=== PATIENT | female | born 1990 | race Caucasian/White ===

== ENCOUNTER 2020-11-12 13:06 | Emergency (ER) | payer OTHER, SELFPAY ==
[2020-11-12 13:19] VITALS: BP 117/80; PULSE 99; RESP 18; TEMP 37; O2SAT 97
--- NOTE | 2020-11-12 14:01 | ED.URI ---
HPI - URI/Sore Throat General Chief Complaint: Upper Respiratory Infection Stated Complaint: headache,sore throat,nguyen,28 wk preg Time Seen by Provider: 11/12/20 13:48 Source: patient and RN notes reviewed Mode of arrival: ambulatory Limitations: no limitations History of Present Illness HPI Narrative: Patient presents today complaining of 1 month history of nasal congestion and sinus pressure, with sore throat, dry cough, frontal headache, and chest pressure since last night. Denies shortness of breath, runny nose, nausea, vomiting, diarrhea, fever, loss of smell or taste. She is currently 28 weeks , G2, P1. She has tried no [id number] treatment prior to arrival. Patient is a home health nurse. She visited a patient 4 days ago that was Covid positive. She did have full PPE on with the patient. She has no known exposure to COVID-19 without PPE. MD elicited complaint: sore throat and nasal congestion Related Data Home Medications Medication Instructions Recorded Confirmed One Daily 1 tab-cap PO DAILY 11/12/20 11/12/20 aspirin [Adult Low Dose Aspirin] 81 mg PO DAILY 11/12/20 11/12/20 labetalol 200 mg PO BID 11/12/20 11/12/20 Allergies Allergy/AdvReac Type Severity Reaction Status Date / Time No Known Allergies Allergy Verified 11/12/20 13:37 Review of Systems Review of Systems: Narrative: CONSTITUTIONAL: Denies body aches, fever, chills, or sweats. EYES: Denies visual changes, redness, or discharge. ENT: Denies rhinorrhea, or otalgia.+ Sore throat, nasal congestion CARDIOVASCULAR: Denies chest pain, palpitations, or edema. RESPIRATORY: Denies dyspnea.+ Chronic cough, chest pressure GASTROINTESTINAL: Denies abdominal pain, nausea, vomiting, or diarrhea. GENITOURINARY: Denies dysuria or hematuria. SKIN: Denies rash, itching, or wounds. MUSCULOSKELETAL: Denies back pain, joint pain, or myalgia. NEUROLOGIC: Denies numbness, tingling, or weakness. + Frontal headache PSYCH: Denies depression or anxiety. PMFSH Comments At time of signature, I have reviewed and agree with nursing past medical, surgical, social and family history unless otherwise noted. Please see nursing chart for further information. There is no relevant family history pertinent to the presenting complaint Exam Narrative: Exam Narrative: GENERAL: Mildly ill-appearing, well-nourished, and in no acute distress. HEAD: Normocephalic, atraumatic. EYES: EOMI. No redness or drainage. Conjunctivae normal. ENT: Mucous membranes pink and moist. Nares congested. Bilateral nasal turbinates are erythematous with purulent discharge. No rhinorrhea. TMs normal bilaterally. Throat normal. Uvula midline. NECK: Normal AROM. Supple. No lymphadenopathy. CHEST: No respiratory distress. Clear to auscultation. HEART: Regular rate and rhythm. No murmur appreciated. Normal peripheral pulses. EXTREMITIES: Normal range of motion. No edema. SKIN: Warm, dry, no rash. Capillary refill normal. Normal skin turgor. NEURO: No focal deficits. Alert and oriented x3. Gait steady. PSYCH: Normal affect. No signs of depression or anxiety. Course Vital Signs Vital signs: Vital Signs Temperature 98.6 F 11/12/20 13:19 Pulse Rate 99 11/12/20 13:19 Respiratory Rate 18 11/12/20 13:19 Blood Pressure 117/80 11/12/20 13:19 Pulse Oximetry 97 11/12/20 13:19 Temperature 98.6 F 11/12/20 13:19 Pulse Rate 99 11/12/20 13:19 Respiratory Rate 18 11/12/20 13:19 Blood Pressure 117/80 11/12/20 13:19 Pulse Oximetry 97 11/12/20 13:19 Reviewed MDM - URI/Sore Throat MDM Narrative Medical decision making narrative: Due to recent exposure and symptoms, patient may have a possible COVID-19 infection. Signs and symptoms discussed with patient. Patient educated to self-isolate in a room in his/her home away from others they live with. Use mask if available. Patient was advised not to leave house for any reason ? Self-treatment discus
== END 2020-11-12 14:10 | disposition home or self-care (01) ==
PROVIDERS: Emergency Provider Nurse Practitioner; PCP Physician Assistant
DX: O99.512 Diseases of the respiratory system complicating pregnancy, second trimester (principal); Z3A.28 28 weeks gestation of pregnancy; J01.10 Acute frontal sinusitis, unspecified; Z20.828 Contact with and (suspected) exposure to other viral communicable diseases
CPT/HCPCS: 87081; 87880; 99213; G0463

== ENCOUNTER 2022-12-01 08:26 | Emergency (ER) | payer BC, SELFPAY ==
[2022-12-01 08:40] VITALS: BP 145/87; PULSE 100; RESP 16; TEMP 37.1; O2SAT 99
--- NOTE | 2022-12-01 09:05 | ED.URI ---
HPI - URI/Sore Throat General Chief Complaint: Upper Respiratory Infection Stated Complaint: sore throat, body ache, right ear pain, cramp Time Seen by Provider: 12/01/22 09:06 Source: patient, RN notes reviewed and old records reviewed Mode of arrival: ambulatory Limitations: no limitations History of Present Illness HPI Narrative: 32-year-old female presents to [facility] with complaints of sore throat, body aches, right ear pain since yesterday with increased pain last night with some nausea. Patient states she also has been having some vaginal spotting and started with the having some bilateral lower abdominal cramping this morning, patient reports hysterectomy 2020 history of endometriosis PCOS. Patient states her surgeon wants to go in and do an exploratory to see what is causing her continued issues. MD elicited complaint: sore throat, rhinorrhea and nasal congestion Onset (ago): day(s) (day 2 of symptoms) Treatments prior to arrival: acetaminophen Related Data Home Medications Medication Instructions Recorded Confirmed valsartan 160 mg tablet 160 mg PO DAILY 12/01/22 12/01/22 Allergies Allergy/AdvReac Type Severity Reaction Status Date / Time No Known Allergies Allergy Verified 12/01/22 08:45 Review of Systems Review of Systems: CONSTITUTIONAL: Reports malaise, chills, sweats, or fever. EYES: Denies visual changes, redness, or discharge. ENT: Reports rhinorrhea, congestion, sinus pain,right otalgia and sore throat. CARDIOVASCULAR: Denies chest pain, palpitations, or edema. RESPIRATORY:Denies cough.? Denies dyspnea. GASTROINTESTINAL: Reports some lower abdominal cramping,some nausea,no vomiting, diarrhea SKIN: Denies rash or itching. MUSCULOSKELETAL: Reports myalgia. NEUROLOGIC: Denies headache. All systems reviewed & are unremarkable except as noted in HPI and below PMFSH Past Medical History Medical History (Updated 12/01/22 @ 15:09 by Natali Rosa NP) Endometriosis PCOS (polycystic ovarian syndrome) Social History Social History (Updated 12/01/22 @ 15:10 by Natali Rosa NP) Smoking status: Never smoker Gender identity (if verbalized by the patient): Female Comments At time of signature, agree with nursing past medical, surgical, social and family history. There is no relevant family history pertinent to the presenting complaint Exam Narrative: GENERAL: Well-appearing, well-nourished, and in no acute distress. HEAD: Normocephalic EYES: PERRLA, conjunctivae clear ENT: Nares clear, turbinates edematous and erythematous, clear discharge. Mucous membranes moist. TM pearly wagner with dull light reflex bilaterally; no tragal tenderness. Oropharynx erythematous without lesions. Tonsils red enlarged and without exudate, no drooling, no hoarseness, no trismus, uvula midline red and swollen NECK: Supple. lymphadenopathy CHEST: Clear to auscultation, breath sounds equal. No wheezing, rhonchi, rales, or stridor. No respiratory distress, speaks in full sentences.SAO2 99% on room air HEART: Regular rate and rhythm. No murmur heard. SKIN: Warm, dry, no rash. NEURO: Alert and oriented x3. PSYCH: Normal mood and affect Course Course Emergency Course: Patient is aware of diagnosis, understands and agrees to treatment plan.? Anticipatory guidance given.? Patient agrees to follow-up as directed and is aware of reasons to seek care at the emergency department. Portions of this record may have been created with voice recognition software Level of Care: Express Care Visit Vital Signs Vital signs: Vital Signs Temperature 37.1 C 12/01/22 08:40 Pulse Rate 100 12/01/22 08:40 Respiratory Rate 16 12/01/22 08:40 Blood Pressure 145/87 H 12/01/22 08:40 Pulse Oximetry 99 12/01/22 08:40 Oxygen Delivery Room Air 12/01/22 08:40 Temperature 37.1 C 12/01/22 08:40 Pulse Rate 100 12/01/22 08:40 Respiratory Rate 16 12/01/22 08:40 Blood Pressur
== END 2022-12-01 09:35 | disposition home or self-care (01) ==
PROVIDERS: Emergency Provider Registered Nurse; PCP Physician Assistant
DX: J02.0 Streptococcal pharyngitis (principal); N80.9 Endometriosis, unspecified; E28.2 Polycystic ovarian syndrome
CPT/HCPCS: 87804; 87880; 99213; G0463

== ENCOUNTER 2024-04-25 10:05 | Emergency (ER) | payer BC, SELFPAY ==
--- NOTE | ~2024-04-25 | CT_ITS ---
EXAMINATION: CT soft tissue neck w con DATE: 04/25/2024 12:07 INDICATION: Jaw swelling TECHNIQUE: Computed tomography (CT) of the neck was performed with 75 mL Omnipaque-350 intravenous co ntrast. Automated exposure control and iterative reconstruction technique were employed. Exam dose: 449.69 mGy-cm total exam DLP. COMPARISON: None FINDINGS: No cervical mass lesion or adenopathy. The parotid and submandibular glands and thyroid gla nd appear normal. Cervical carotid and vertebral arteries are patent bilaterally. Lung apices are haider ar. Reversal of cervical curvature which may be due to positioning. No cervical fracture, dislocation or locked facet. Cervical interspaces appear relatively preserved. The paranasal sinuses and mastoid air cells are normally developed and aerated. Both temporomandibular joints are open mouth position; recommend clinical correlation. No mandibular fracture or bone destruction. IMPRESSION: No cervical mass lesion or adenopathy or arterial pathology is noted Both temporomandibular joints are in the open-mouth position. Recommend clinical correlation. No ivan ible fracture or bone destruction. Reviewed, dictated and finalized at [facility]. Reviewed, dictated and finalized at [facility]. IMPRESSION: No cervical mass lesion or adenopathy or arterial pathology is note d Both temporomandibular joints are in the open-mouth position. Recommend clinica l correlation. No mandible fracture or bone destruction.
[2024-04-25 10:10] VITALS: BP 148/83; PULSE 70; RESP 15; TEMP 36.4; O2SAT 100
--- NOTE | 2024-04-25 10:39 | ED.GENADULT ---
HPI - General Adult General Chief complaint: Unspecified Stated complaint: R EAR,FACE,JAW PAIN X2D Time Seen by Provider: 04/25/24 10:12 History of Present Illness HPI narrative: Patient is a 34-year-old female with history of solitary kidney here with dental and jaw pain. Patient notes that her pain began on 04/23/24 in the evening. It seems to be located around 1 of her lower right molars where she had a previous root canal. She states that the pain has steadily worsened over the last 2 days. Yesterday she contacted her dentist who prescribed her tramadol and her primary care doctor who prescribed her Augmentin. She has taken 2 doses of Augmentin. She notes that over the last 24 hours she has had worsening swelling and pain which radiates into her right ear and down into her right neck. She denies any difficulty swallowing. She does have pain with movement of her jaw any manipulation of her right ear. The pain is not been improved by tramadol or antibiotics. She denies any fever chills. Related Data Home Medications Medication Instructions Recorded Confirmed valsartan 160 mg tablet 160 mg PO DAILY 12/01/22 12/01/22 Allergies Allergy/AdvReac Type Severity Reaction Status Date / Time ibuprofen AdvReac Unknown Verified 04/25/24 10:16 Review of Systems Review of Systems: All systems reviewed & are unremarkable except as noted in HPI and below PMFSH Past Medical History Medical History (Updated 04/25/24 @ 13:36 by Rosalva Corona MD) Endometriosis PCOS (polycystic ovarian syndrome) Social History Social History (Updated 12/01/22 @ 15:10 by Natali Rosa NP) Smoking status: Never smoker Living arrangements: with family Gender identity (if verbalized by the patient): Female Exam Narrative: GENERAL: Well-appearing, well-nourished, and in no acute distress. HEAD: Normocephalic, atraumatic. EYES: PERRLA and EOMI. ENT: Nares clear. Mucous membranes moist. Mild trismus. Tenderness over tooth 30, no underlying drainable periapical abscess. Tenderness over the right angle of the mandible with mild overlying swelling. Tenderness with manipulation of the pinna, no external canal erythema. TM appears clear without erythema. No posterior pharyngeal swelling, uvula midline. No subglottic fullness NECK: Supple. Tenderness with mild swelling over the right lateral neck, shotty anterior cervical lymphadenopathy on the right CHEST: Clear to auscultation. No respiratory distress. HEART: Regular rate and rhythm. Normal peripheral pulses. ABDOMEN: Soft, nontender, nondistended. EXTREMITIES: Normal range of motion. No edema. SKIN: Warm, dry, no rash. NEURO: No focal deficits. Alert and oriented x3. PSYCH: Normal mood and affect. Course Course Emergency Course: Chart review performed. Patient here with right jaw and ear pain. Reportedly on tramadol and Augmentin from outside providers. Triage vitals grossly normal. Patient seen evaluated, nontoxic appearing. She is extremely tearful on exam with some trismus present. Significant tenderness over tooth number 30, suspect this is all likely related to a a dental infection given tenderness at this to. Given her significant pain, trismus and mild fullness in the right lateral neck we will do CT soft tissue neck with contrast to evaluate for possible deep space infection although my suspicions are low. Basic lab work as well as morphine, Zofran and ordered. Given solitary kidney will give 1 L IV fluids in anticipation for IV contrast. Lab work and imaging reviewed, no leukocytosis, electrolytes normal limits, normal renal function, normal CRP. CT grossly unremarkable. Patient re-evaluated, continued pain. Discussed risks and benefits of a inferior alveolar dental block, including but not limited to infection, bleeding, damage to adjacent structures including large vessels patient consents. Inferior alveolar dental block performed with improvement of pain. Patient ad
[2024-04-25] MEDS: LACTATED RINGERS 1,000 ML 999 ML IV CONT (11:05)
[2024-04-25] MEDS: MORPHINE SULFATE (*CRX) 4 MG/ML INJ IV PUSH ×2 (11:06→11:44)
[2024-04-25] MEDS: ONDANSETRON INJ 4 MG/2 ML VIAL IV PUSH ×2 (11:06→13:44)
[2024-04-25 11:13] VITALS: BP 132/78; PULSE 63; RESP 16; O2SAT 99
[2024-04-25 11:16] LABS: Basophils Absolute Auto 0.1 K/mm3 (0.0-0.1); Basophils Percent Auto 0.9 % (0.2-1.2); Eosinophils Absolute Auto 0.3 K/mm3 (0-0.3); Eosinophils Percent Auto 5.5 % (0-4.4); Hematocrit 37.1 % (37.0-47.0); Hemoglobin 12.3 g/dL (12.0-15.0); Immature Granulocyte Absolute 0.01 K/mm3 (0.00-0.031); Immature Granulocyte Percent A 0.2 % (0-0.5); Lymphocytes Absolute Auto 1.15 K/mm3 (0.9-3.2); Lymphocytes Percent Auto 21.7 % (18.3-44.2); Mean Corpuscular HGB Conc 33.2 g/dl (32-36); Mean Corpuscular Hemoglobin 30.4 pg (26-34); Mean Corpuscular Volume 91.6 fl (80-100); Mean Platelet Volume 11.6 fl (7.4-10.4); Monocytes Absolute Auto 0.4 K/mm3 (0.1-0.6); Monocytes Percent Auto 7.2 % (2.6-8.5); Neutrophils Absolute Auto 3.4 K/mm3 (1.3-6.7); Neutrophils Percent Auto 64.5 % (45.5-73.1); Platelet Count Result 189 k/mm3 (150-375); Red Blood Count 4.05 M/mm3 (4.2-5.4); Red Cell Distribution Width 12.1 % (11.5-14.5); White Blood Count 5.3 K/mm3 (4.5-10.0)
[2024-04-25 11:30] LABS: Alanine Aminotransferase 16 U/L (6-35); Albumin Level 4.5 g/dL (3.5-5.1); Alkaline Phosphatase 45 U/L (38-126); Anion Gap 7 mmol/L (4-12); Aspartate Amino Transferase 20 U/L (14-36); Bilirubin,Total 0.7 mg/dL (0.2-1.3); Blood Urea Nitrogen 12 mg/dL (7-17); CRP 0.6 mg/dL (<1.0); Carbon Dioxide 24 mmol/L (22-30); Chloride 106 mmol/L (98-107); Estimated CRCL calculation 103 ml/min; Estimated Glomerular Filt Rate > 60; Glucose 92 mg/dL (65-110); Sodium 137 mmol/L (137-145)
[2024-04-25 11:41] VITALS: BP 132/78; PULSE 60; RESP 15; O2SAT 100
[2024-04-25 11:58] VITALS: RESP 18
[2024-04-25 12:53] VITALS: BP 132/78; PULSE 81; RESP 17; O2SAT 99
[2024-04-25 13:47] VITALS: BP 118/82; PULSE 66; RESP 15; TEMP 36.8; O2SAT 98
== END 2024-04-25 13:48 | disposition home or self-care (01) ==
PROVIDERS: Emergency Provider Student in an Organized Health Care Education/Training Program; PCP Physician Assistant
DX: K08.89 Other specified disorders of teeth and supporting structures (principal); E28.2 Polycystic ovarian syndrome; N80.9 Endometriosis, unspecified
CPT/HCPCS: 36415; 64400; 64999; 70491; 80053; 81025; 85025; 86140; 96361; 96374; 96375; 96376; 99284; J2270; J2405; J7120; Q9967

== ENCOUNTER 2024-12-30 15:03 | Outpatient (CLI) | payer BC, SELFPAY ==
--- NOTE | ~2024-12-30 | CT_ITS ---
CLINICAL INDICATION: Upper abdominal pain. Pancreatitis/gastritis suspected clinically COMPARISON: 12/30/2017. TECHNIQUE: Multiple contiguous axial images of the abdomen and pelvis were performed following the ad ministration of with 100 mL Omnipaque-350 intravenous contrast The dose-length product (DLP) was 402.26 mGy-cm. Automated exposure control and iterative reconstruction technique were employed. FINDINGS/OBSERVATIONS: Visualized lower thorax: The bilateral lung bases are clear. The heart is of normal size, without pericardial effusion. Small hiatal hernia is present. Liver: The liver enhances homogeneously and is not enlarged measuring 16 cm in longitudinal dimension. Gallbladder and biliary system: The gallbladder is surgically absent. Pancreas: Loss of fatty lobulation within the mildly enlarged pancreas, without surrounding inflammatory change , which may represent early pancreatitis. No ductal dilatation is identified. Spleen: The spleen enhances homogeneously and is not enlarged measuring 9 cm in longitudinal dimension. 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 The right kidney is enlarged and demonstrates mild hydroureteronephrosis. No obstructing calcified stone is seen. Adrenal gland: Unremarkable. Gastrointestinal tract: Fecal stasis within the colon The gastric wall is unremarkable. No thickening or surrounding inflammatory change. Appendix: The appendix is not definitively visualized. However, no pericecal inflammatory change is identified suggest the presence of acute appendicitis. Vasculature: Unremarkable. Lymph nodes: No pathologically enlarged or morphologically suspicious lymph nodes within the retroperitoneum or at the root of the mesentery. Pelvic structures: The bladder is distended, and otherwise unremarkable. The uterus is somewhat atrophic. Involuting follicle within the left ovary. Right ovary is unremarkable Body wall and musculoskeletal: Small fat-containing umbilical hernia. No significant degenerative disease within the lower thoracic or lumbosacral spine. IMPRESSION: Loss of fatty lobulation within the mildly enlarged pancreas, without surrounding inflammatory change , which may represent early pancreatitis for which serologic and clinical correlation is recommended. Mild right-sided hydroureteronephrosis without a discrete source of obstruction for which ultrasound examination of the right kidney is recommended following bladder emptying to confirm resolution (nilo landen in a patient with a solitary kidney). Reviewed, dictated and finalized at location A. CULTURE WORKER IMPRESSION: Loss of fatty lobulation within the mildly enlarged pancreas, without surroundi ng inflammatory change, which may represent early pancreatitis for which serolo gic and clinical correlation is recommended. Mild right-sided hydroureteronephrosis without a discrete source of obstruction for which ultrasound examination of the right kidney is recommended following bladder emptying to confirm resolution (especially in a patient with a solitary kidney).
--- OUTSIDE RECORDS SUMMARY | 2024-12-30 15:16 | XMS_ITS | Clinical Summary ---
Author Organization [facility] Address [address] [place] [address] Care Team Providers Care Thread Cutter Name Role Phone Yadi Menendez Primary Care Pr ovider Source Comments [facility],non-owned Affiliates and Associated Physician Practices is amultiple site organization consisting of ambulatory clinics and hospital sitesin [place], [place], [place] and [place]. This disclosure is being madepursuant to the Care Everywhere program and may not contain all information available regarding this patient. Last updated 18.[facility] Allergies No known active allergies Medications * Be aware that medications may not be up to date on this document. Alwaysverify current medications with the patient. Medication Sig Dispensed Refills Start Date End Date Status Vit-Fe Fumarate-FA ( VITAMIN) 28-0.8 MG tabletIndications:Pre gnancy Take 1 Tab by mouth once daily Reasons: Active NIFEdipine CR 24hr (ADALAT CC) 60 MG tablet Take 1 Tab by mouth 2 times daily Take on an empty stomach. 60 Tab 2 05/11/2017 Active oxyCODONE-acetaminoph en (PERCOCET) 5-325 MG tablet Take 1-2 Tabs by mouth every 4 hours as needed for Pain 30 Tab 05/11/2017 Active ibuprofen (MOTRIN) 600 MG tablet Take 1 Tab by mouth every 6 hours as needed for Pain 60 Tab 2 05/11/2017 Active docusate sodium (COLACE) 100 MG capsule Take 1 Cap by mouth 2 times daily 60 Cap 2 05/11/2017 Active plus iron (NATATAB) 29-1 MG tablet Take 1 Tab by mouth once daily 30 Tab 2 05/11/2017 Active ferrous sulfate CR (SLOW FE) 160 (50 FE) MG tablet Take 1 Tab by mouth daily with breakfast 30 Tab 1 05/11/2017 Active Active Problems Problem Noted Date Diagnosed Date 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--found at time of laparoscopy as teenager, thought was ovarian cyst but was bulging hemivagina; then later had vaginal surgery with resection of vaginal septum at [facility]; right and left cervix seen Preeclampsia, severe 05/03/2017 History of delivery affecting 11/18/2016 Elevated blood pressure affe cting in second trimester, antepartum Supervision of low-risk first defect Overview (05/30/2020): born with 1 kidney Immunizations Name Administration Dates Next Due TDAP (7yrs+) 05/04/2017 Family History Medical History Relation Name Comments Malignant Hyperthermia Other unknown Relation Name Status Comments Other unknown Social History Tobacco Use Types Packs/Day Years Used Date Smoking Tobacco: Never Smokeless Tobacco: Never Alcohol Use Standard Drinks/Week Comments No 0 (1 standard drink = 0.6 oz pur e alcohol) Sex and Gender Information Value Date Recorded Sex Assigned at Not on file Gender Identity Not on file Sexual Orientation Not on file Last Filed Vital Signs Vital Sign Reading Time Taken Comments Blood Pressure 136/90 01/31/2018 3:18 PM CDT Pulse 84 07/03/2017 10:42 AM CDT Temperature 36.9 C (98.5 F) 05/22/2017 10:57 AM CDT Respiratory Rate 20 05/11/2017 12:36 PM CDT Oxygen Saturation 100% 05/11/2017 12:36 PM CDT Inhaled Oxygen Concentration - - Weight 97.5 kg (215 lb) 01/31/2018 3:18 PM CDT Height 172.7 cm (5' 8 ) 01/31/2018 3:18 PM CDT Body Mass Index 32.69 01/31/2018 3:18 PM CDT Plan of Treatment Health Maintenance Due Date Last Done Comments HIV SCREENING 2006 HEPATITIS C SCREENING 04/09/2009 HEPATITIS B VACCINE (1 of 3 - 19+ 3-dose series) 2010 PAP SMEAR 01/31/2021 01/31/2018 COVID-19 VACCINE (1 - 2023-2 5 season) 2024 INFLUENZA VACCINE (#1) 2024 DEPRESSION SCREENING 11/18/2024 DTAP/TDAP/TD VACCINES (2 - T d or Tdap) 05/04/2027 05/04/2017 ZOSTER VACCINE (1 of 2) 2041 HIB VACCINE Aged Out No longer eligi ble based on patient's age to complete this topic HPV VACCINE Aged Out No longer eligi ble based on patient's age to complete this topic MENINGOCOCCAL (Group B) VACCINE Aged Out No longer eligible based on patient's age to complete this topic MENINGOCOCCAL VACCINE Aged Out No jared noel eligible based on patient's age to complete this topic PNEUMOCOCCAL VACCINE Aged Out No long er eligible based on patient's age to complete this topic Procedures Procedure Name Priority Date/Time Associated Diagnosis Comments PAP IG RFLX HPV ASCU Routine 01/31/2018 12:00 AM CDT from Last 3 Months or Most Recently Relevant to Health Maintenance Results * PAP IG RFLX HPV ASCU (01/31/2018 12:00 AM CDT) Pap Image-Guided Liquid-Based with Reflex HPV Accession No: [id number] Specimen:Endocervi sacha ThinPrep Slides:1 SPECIMEN ADEQUACY: SATISFACTORY FOR EVALUATION - Endocervical / Transformation Zone Component Present INTERPRETATION: NEGATIVE FOR INTRAEPITHELIAL LESION OR MALIGNANCY OTHER FINDINGS: - Inflammation Present NOTE(S): HPV REFLEX - HPV result to follow if ASCUS in separate report This specimen was evaluated by the ThinPrep Imaging System along with an additional manual rescreening by a gas station manager and/or pathologist Initial Evaluation performed by Irene HDEZ (ASCP). Electronically signed 02/05/2018 Interpretation performed by Frandy Garg MD. Electronically signed 02/05/2018 [facility] Endocervical 01/31/2018 02/03/2018 11:49 AM CDT Alva Romo MD LAB - PATHOLOGY/CY TOLOGY ORDERABLES [facility] [place] [address], [facility] [phone] from Last 3 Months or Most Recently Relevant to Health Maintenance Advance Directives * Full Code (Latest Code Status on File) Date Activated Date Inactivated Comments 05/07/2017 8:41 AM 05/11/2017 5:40 PM * Full Code Date Activated Date Inactivated Comments 05/03/2017 7:15 AM 05/07/2017 8:41 AM Care Teams Thread Cutter Relationship Specialty Start Date End Date Yadi Menendez PA [address] [place] [address] PCP - General Physician [employer] English Teacher 05/03/17
--- OUTSIDE RECORDS SUMMARY | 2024-12-30 15:16 | XMS_ITS | Clinical Summary ---
Author Organization [facility] Address [address] [address] [place] [id number] Phone Care Team Providers Care Septic Tank Cleaner Name Role Phone Génesis Montano MD Primary Care Provider [phone] Allergies No known active allergies Medications OTHER Provider please include Medication name, dose, route and frequency Active desogestrel-ethin yl estradiol (APRI) 0.15-30 mg-mcg Tablet Take 1 Tab by mouth daily. Active HYDROcodone-aceta minophen (NORCO) 5-325 mg tablet Take 1 Tab by mouth every 6 hours as needed for Pain, Moderate. Active KETOROLAC TROMETHAMINE (TORADOL ORAL) Take by mouth. Active phentermine (ADIPEX P) 37.5 mg tablet Take 37.5 mg by mouth daily before breakfast. Active Encounters Date Type Department Care Team Description 12/16/2024 External Device Data [facility] Provider, Abstract 12/10/2024 External Device Data [facility] Provider, Abstract from Last 3 Months Social History Tobacco Use Types Packs/Day Years Used Date Smoking Tobacco: Never Alcohol Use Standard Drinks/Week Comments Yes 0 (1 standard drink = 0.6 oz pur e alcohol) SOCIAL Comments Unknown Sex and Gender Information Value Date Recorded Sex Assigned at Not on file Legal Sex Female 10:54 AM CDT Gender Identity Not on file Sexual Orientation Not on file Last Filed Vital Signs Vital Sign Reading Time Taken Comments Blood Pressure 109/76 03/17/2015 2:29 PM CDT Pulse 106 03/17/2015 2:29 PM CDT Temperature 37.4 C (99.4 F) 03/17/2015 1:24 PM CDT Respiratory Rate 16 03/17/2015 2:29 PM CDT Oxygen Saturation 99% 03/17/2015 2:29 PM CDT Inhaled Oxygen Concentration - - Weight 82 kg (180 lb 12.8 oz) 03/17/2015 10:18 A M CDT Height 172.7 cm (5' 8 ) 03/07/2015 1:35 PM CDT Body Mass Index 27.49 03/07/2015 1:35 PM CDT Plan of Treatment Health Maintenance Due Date Last Done Comments CERVICAL CANCER SCREENING 2021 INFLUENZA VACCINE (#1) 2024 , 08/18/2020, 08/27/2019, Additional history exists DTAP/TDAP/TD VACCINES (5 - Td or Tdap) 11/21/2030 11/21/2020, 05/04/2017, 09/12/2015, Additional history exists HEPATITIS B VACCINES Completed 08/18/2001, 03/20/2001, 02/14/2001 HPV VACCINES Aged Out No longer eligi ble based on patient's age to complete [place] [address] [facility] BLUE [employer] BLUE PPO Advance Directives For more information, please contact: [phone] * Full Code (Latest Code Status on File) Date Activated Date Inactivated Comments 03/17/2015 11:02 AM 03/17/2015 4:56 PM * Full Code Date Activated Date Inactivated Comments 03/17/2015 10:20 AM 03/17/2015 11:02 AM * Full Code Date Activated Date Inactivated Comments 08/21/2013 10:22 AM 08/21/2013 5:51 PM * Full Code Date Activated Date Inactivated Comments 08/21/2013 9:06 AM 08/21/2013 10:22 AM Care Teams Septic Tank Cleaner Relationship Specialty Start Date End Date Génesis Montano MD [address] [id number] PCP - General 11/04/15
--- OUTSIDE RECORDS SUMMARY | 2024-12-30 15:16 | XMS_ITS | Clinical Summary ---
Author Organization [facility] Address [address] [place] [id number] Care Team Providers Care Stove Bottom Worker Name Role Phone Yadi Solorzano Primary Care Provider [phone] Allergies Active Allergy Reactions Criticality Noted Date Comments Nitrofurantoin GI Upset 07/17/2019 Medications spironolactone 50 MG tablet Take 50 mg by mouth daily. 1 05/14/2019 Active busPIRone 15 MG tablet Take 15 mg by mouth 2 (two) times daily. 6 09/10/2019 Active LOW-OGESTREL 0.3-30 MG-MCG tablet Take 1 tablet by mouth daily. 3 09/08/2019 Active Active Problems No known active problems Social History Tobacco Use Types Packs/Day Years Used Date Smoking Tobacco: Never Smokeless Tobacco: Never Alcohol Use Standard Drinks/Week Comments No 0 (1 standard drink = 0.6 oz pur e alcohol) AUDIT-C Answer Date Recorded Frequency of Alcohol Consumption Never 07/17/2019 Average Number of Drinks Not on file 019 Frequency of Binge Drinking Not on file 06/20 Comments No Sex and Gender Information Value Date Recorded Sex Assigned at Not on file Legal Sex Female 9:50 PM GLASS DESIGNER Gender Identity Not on file Sexual Orientation Not on file Last Filed Vital Signs Vital Sign Reading Time Taken Comments Blood Pressure 131/87 12/20/2019 6:37 PM GLASS DESIGNER Pulse 100 12/20/2019 6:37 PM GLASS DESIGNER Temperature 36.4 C (97.6 F) 12/20/2019 4:15 PM GLASS DESIGNER Respiratory Rate 14 12/20/2019 6:37 PM GLASS DESIGNER Oxygen Saturation 100% 12/20/2019 6:37 PM GLASS DESIGNER Inhaled Oxygen Concentration - - Weight 108.9 kg (240 lb) 12/20/2019 4:15 PM GLASS DESIGNER Height 172.7 cm (5' 8 ) 12/20/2019 4:15 PM GLASS DESIGNER Body Mass Index 36.49 12/20/2019 4:15 PM GLASS DESIGNER Plan of Treatment Health Maintenance Due Date Last Done Comments Annual Physical 1994 Hepatitis C 2009 Cervical Cancer Screening Pap Smear (Age 30 to 64) Every 3 Years 01/31/2021 01/31/2018 Cervical Cancer Screening Pap with HPV Testing (Age 30 to 64) Every 5 Years 2021 01/31/2018 Cervical Cancer Screening with HPV 2021 COVID-19 Vaccine ( season) 2024 02/27/2021 Influenza Adult (#1) 2024 09/13/2021, 08/18/2020, 08/27/2019, Additional history exists DTaP, Tdap and Td Vaccines (5 - Td or Tdap) 11/21/2030 11/21/2020, 05/04/2017, 09/12/2015, Additional history exists Hepatitis B Vaccines Completed 08/18/2001, 03/20/2001, 02/14/2001 HPV Vaccines Aged Out No longer eligi ble based on patient's age to complete this topic Meningococcal B Vaccine Aged Out No l onger eligible based on patient's age to complete this topic Meningococcal Vaccine Aged Out No jared noel eligible based on patient's age to complete this topic Pneumococcal Vaccine: Pediatrics (0 to 5 Years) and At-Risk Patients (6 to 64 Years) Aged Out No longer eligible based on patient's age to complete this topic RSV Immunizations Under 20 Months Aged Out No longer eligible based on patient's age to complete this topic Care Teams Stove Bottom Worker Relationship Specialty Start Date End Date Yadi Solorzano PA [address] [place] [address] PCP - General PHYSICIAN WATER POLLUTION SCIENTIST 07/17/19
--- OUTSIDE RECORDS SUMMARY | 2024-12-30 15:16 | XMS_ITS | Patient Health Summary ---
Author Organization [facility] [employer] Address [address] [place] [address] Care Team Providers Care Commercial Airplane Pilot Name Role Phone Yadi Menendez Primary Care Pr ovider Note from [facility],non-owned Affiliates and Associated Physician Practices is amultiple site organization consisting of ambulatory clinics and hospital sitesin [place], [place], [place] and [place]. This disclosure is being madepursuant to the Care Everywhere program and may not contain all information available regarding this patient. Last updated 18.[facility] Allergies No known active allergies Medications * Be aware that medications may not be up to date on this document. Alwaysverify current medications with the patient. * Vit-Fe Fumarate-FA ( VITAMIN) 28-0.8 MG tablet Take 1 Tab by mouth once daily Reasons: * NIFEdipine CR 24hr (ADALAT CC) 60 MG tablet(Started 05/11/2017) Take 1 Tab by mouth 2 times daily Take on an empty stomach. 2 refills remaining * oxyCODONE-acetaminophen (PERCOCET) 5-325 MG tablet(Started 05/11/2017) Take 1-2 Tabs by mouth every 4 hours as needed for Pain * ibuprofen (MOTRIN) 600 MG tablet(Started 05/11/2017) Take 1 Tab by mouth every 6 hours as needed for Pain 2 refills remaining * docusate sodium (COLACE) 100 MG capsule(Started 05/11/2017) Take 1 Cap by mouth 2 times daily 2 refills remaining * plus iron (NATATAB) 29-1 MG tablet(Started 05/11/2017) Take 1 Tab by mouth once daily 2 refills remaining * ferrous sulfate CR (SLOW FE) 160 (50 FE) MG tablet(Started 05/11/2017) Take 1 Tab by mouth daily with breakfast 1 refill remaining Active Problems Problem Noted Date Diagnosed Date 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 Preeclampsia, severe 05/03/2017 History of delivery affecting 11/18/2016 Elevated blood pressure affe cting in second trimester, antepartum Supervision of low-risk first defect Immunizations * TDAP (7yrs+)(Given 05/04/2017) Social History Tobacco Use Types Packs/Day Years [...] Mass Index 32.69 01/31/2018 3:18 PM CDT Procedures * PAP IG RFLX HPV ASCU(Performed 01/31/2018) * CARDIAC EKG ORDER(Performed 05/14/2017) * LAB RESULTS ORDER(Performed 05/14/2017) * IMAGING/RADIOLOGY/XRAY RESULTS ORDER(Performed 05/14/2017) * CBC W AUTO DIFFERENTIAL(Performed 05/09/2017) * CBC W AUTO DIFFERENTIAL(Performed 05/08/2017) * NEURAXIAL BLOCK(Performed 05/07/2017) * BLOOD GASES CORD TARA (ISTAT)(Performed 05/07/2017) * BLOOD GASES CORD ART (ISTAT)(Performed 05/07/2017) * PATHOLOGY TISSUE EXAM (STL)(Performed 05/07/2017) Performed for Diagnosis unknown * GLUCOSE - POINT OF CARE(Performed 05/07/2017) * COMPREHENSIVE METABOLIC PANEL(Performed 05/07/2017) * CBC W AUTO DIFFERENTIAL(Performed 05/07/2017) * GLUCOSE - POINT OF CARE(Performed 05/06/2017) * GLUCOSE - POINT OF CARE(Performed 05/06/2017) * GLUCOSE - POINT OF CARE(Performed 05/06/2017) * COMPREHENSIVE METABOLIC PANEL(Performed 05/06/2017) * CBC W AUTO DIFFERENTIAL(Performed 05/06/2017) * GLUCOSE - POINT OF CARE(Performed 05/06/2017) * TYPE + SCREEN PANEL(Performed 05/06/2017) * CBC W AUTO DIFFERENTIAL(Performed 05/06/2017) * GLUCOSE - POINT OF CARE(Performed 05/06/2017) * GLUCOSE - POINT OF CARE(Performed 05/05/2017) * GLUCOSE - POINT OF CARE(Performed 05/05/2017) * GLUCOSE - POINT OF CARE(Performed 05/05/2017) * GLUCOSE - POINT OF CARE(Performed 05/05/2017) * FIBRINOGEN ACTIVITY(Performed 05/05/2017) Performed for Elevated blood pressure affecting in second trimester, antepartum ([facility]) * PT PTT PANEL(Performed 05/05/2017) Performed for Elevated blood pressure affecting in second trimester, antepartum ([facility]) * COMPREHENSIVE METABOLIC PANEL(Performed 05/05/2017) Performed for Elevated blood pressure affecting in second trimester, antepartum ([facility]) * CBC W AUTO DIFFERENTIAL(Performed 05/05/2017) Performed for Elevated blood pressure affecting in second trimester, antepartum ([facility]) * GLUCOSE - POINT OF CARE(Performed 05/05/2017) * FIBRINOGEN ACTIVITY(Performed 05/04/2017) Performed for Elevated blood pressure affecting in second trimester, antepartum ([facility]) * PT PTT PANEL(Performed 05/04/2017) Performed for Elevated blood pressure affecting in second trimester, antepartum ([facility]) * COMPREHENSIVE METABOLIC PANEL(Performed 05/04/2017) Performed for Elevated blood pressure affecting in second trimester, antepartum ([facility]) * CBC W AUTO DIFFERENTIAL(Performed 05/04/2017) Performed for Elevated blood pressure affecting in second trimester, antepartum ([facility]) * URINALYSIS REFLEX TO MICROSCOPIC NO CULTURE(Performed 05/04/2017) * GLUCOSE - POINT OF CARE(Performed 05/04/2017) * GLUCOSE - POINT OF CARE(Performed 05/04/2017) * GLUCOSE - POINT OF CARE(Performed 05/04/2017) * GLUCOSE - POINT OF CARE(Performed 05/04/2017) * GLUCOSE - POINT OF CARE(Performed 05/04/2017) * GLUCOSE - POINT OF CARE(Performed 05/03/2017) * GLUCOSE - POINT OF CARE(Performed 05/03/2017) * CULTURE STREP B(Performed 05/03/2017) * SONOGRAM - COMPLETE(Performed 05/03/2017) * GLUCOSE - POINT OF CARE(Performed 05/03/2017) * GLUCOSE CHALLENGE(Performed 05/03/2017) * TYPE + SCREEN PANEL(Performed 05/03/2017) * BLOOD TYPE VERIFICATION(Performed 05/03/2017) * GLUCOSE CHALLENGE(Performed 05/03/2017) * LDH BLOOD(Performed 05/03/2017) Performed for Elevated blood pressure affecting in second trimester, antepartum ([facility]) * URIC ACID BLOOD(Performed 05/03/2017) Performed for Elevated blood pressure affecting in second trimester, antepartum ([facility]) * COMPREHENSIVE METABOLIC PANEL(Performed 05/03/2017) Performed for Elevated blood pressure affecting in second trimester, antepartum ([facility]) * CBC W AUTO DIFFERENTIAL(Performed 05/03/2017) Performed for Elevated blood pressure affecting in second trimester, antepartum ([facility]) * URINE MICROSCOPIC ONLY REFLEX TO CULTURE(Performed 05/03/2017) Performed for Elevated blood pressure affecting in second trimester, antepartum ([facility]) * PROTEIN CREATININE RATIO URINE RANDOM PNL(Performed 05/03/2017) Performed for Elevated blood pressure affecting in second trimester, antepartum ([facility]) * URINALYSIS REFLEX MICROSCOPIC REFLEX CULTURE(Performed 05/03/2017) Performed for Elevated blood pressure affecting in second trimester, antepartum ([facility]) * CULTURE URINE(Performed 05/03/2017) Performed for Elevated blood pressure affecting in second trimester, antepartum ([facility]) * SECTION (EMERGENCY) Results * PAP IG RFLX HPV ASCU (01/31/2018 12:00 AM CDT) Pap Image-Guided Liquid-Based with Reflex HPV Accession No: [id number] Specimen:Endocervi sacha ThinPrep Slides:1 SPECIMEN ADEQUACY: SATISFACTORY FOR EVALUATION - Endocervical / Transformation Zone Component Present INTERPRETATION: NEGATIVE FOR INTRAEPITHELIAL LESION OR MALIGNANCY OTHER FINDINGS: - Inflammation Present NOTE(S): HPV REFLEX - HPV result to follow if ASCUS in separate report This specimen was evaluated by the ThinPrep Imaging System along with an additional manual rescreening by a napkin band wrapper and/or pathologist Initial Evaluation performed by Irene HDEZ ([facility]). Electronically signed 02/05/2018 Interpretation performed by Frandy Garg MD. Electronically signed 02/05/2018 [facility] Endocervical 01/31/2018 02/03/2018 11:49 AM CDT Alva Romo MD LAB - PATHOLOGY/CY TOLOGY ORDERABLES [facility] [address] [phone] * CARDIAC EKG ORDER (05/14/2017 1:13 AM CDT) Narrative 05/14/2017 1:13 AM CDT Ordered by an unspecified provider. Scanned Document CARDIAC SERVICES ORD ERABLES * LAB RESULTS ORDER (05/14/2017 1:13 AM CDT) Narrative 05/14/2017 1:13 AM CDT Ordered by an unspecified provider. Scanned Document LAB - THERAPEUTIC DR UG MONITORING ORDERABLES * IMAGING/RADIOLOGY/XRAY RESULTS ORDER (05/14/2017 1:13 AM CDT) Anatomical Region Laterality Modality Other Narrative 05/14/2017 1:13 AM CDT Ordered by an unspecified provider. Scanned Document IMAGING * (ABNORMAL) CBC W AUTO DIFFERENTIAL (05/09/2017 5:54 AM CDT) Only the most recent of8 resultswithin the time period is included. WBC 10.7 4.4 - 10.7 x10E9/L 05/09/2017 6:15 AM CDT [facility] WBC Corrected x10E9/L 05/09/2017 6:15 AM CDT [facility] RBC 3.09(L) 3.80 - 5.20 x10E12/L 05/09/2017 6:15 AM CDT [facility] Hemoglobin 9.8(L) 12.0 - 15.6 gm/dL 05/09/2017 6:15 AM CDT [facility] Hematocrit 29.9(L) 35.9 - 45.5 % 05/09/2017 6:15 AM [facility] MCV 96.8 80.7 - 98.3 fl 05/09/2017 6:15 AM [facility] MCH 31.7 26.7 - 34.0 pg 05/09/2017 6:15 AM [facility] MCHC 32.8 30.8 - 35.9 gm/dL 05/09/2017 6:15 AM [facility] Platelet Count 162 153 - 416 x10E9/L 05/09/2017 6:15 AM [facility] RDW-CV 13.4 12.1 - 14.9 % 05/09/2017 6:15 AM [facility] MPV 11.5 9.4 - 12.9 fl 05/09/2017 6:15 AM [facility] Neutrophils % 73.6(H) 44.0 - 73.0 % 05/09/2017 6:15 AM [facility] Lymphocytes % 12.4(L) 20.0 - 43.0 % 05/09/2017 6:15 AM [facility] Monocytes % 6.5 5.0 - 13.0 % 05/09/2017 6:15 AM [facility] Eosinophils % 6.2(H) 0.0 - 6.0 % 05/09/2017 6:15 AM [facility] Basophils % 0.3 0.0 - 2.0 % 05/09/2017 6:15 AM [facility] Immature Granulocytes 1.0 0 - 1 % 05/09/2017 6:15 AM [facility] Neutrophil Absolute 7.86(H) 2.01 - 7.14 x10E9/L 05/09/2017 6:15 AM [facility] Lymphocytes Absolute 1.33 1.07 - 3.94 x10E9/L 05/09/2017 6:15 AM [facility] Monocytes Absolute 0.70 0.26 - 1.07 x10E9/L 05/09/2017 6:15 AM [facility] Eosinophils Absolute 0.66(H) 0 - 0.47 x10E9/L 05/09/2017 6:15 AM CDT [facility] Basophils Absolute 0.03 0 - 0.08 x10E9/L 05/09/2017 6:15 AM CDT [facility] Immature Granulocytes Absolute 0.11(H) 0.00 - 0.06 x10E9/L 05/09/2017 6:15 AM CDT [facility] nRBC Auto 0 /100 WBC 05/09/2017 6:15 AM CDT [facility] Blood BLOOD SPECIMEN / Unknown Lab Venipuncture / Unknown 05/09/2017 5:54 AM CDT 05/09/2017 6:10 AM CDT Bekah Chandler MD LAB - HEMATOLOGY ORD ERABLES Performing Organization Address City/State/[facility] Co de Phone Number [facility] [address] [place] [address] * NEURAXIAL BLOCK (05/07/2017 11:00 AM CDT) Narrative Timmy Castillo MD - 05/07/2017 11:00 AM CDT Rae Huizar APRN-CRNA 05/07/2017 10:11 AM NEURAXIAL BLOCK Patient Location: OB Pre Procedure Indication: surgical anesthesia Anticoagulation /Antithrombosis Status Confirmed: Yes Preanesthetic Checklist: patient identified, IV checked, site marked, risks and benefits discussed, surgical consent verified, monitors and equipment checked, pre-op evaluation done, timeout performed, informed consent obtained and questions answered / anesthesia plan accepted Monitors: BP and Pulse Ox Patient Condition: awake Patient Position: sitting Procedure Block Performed: spinal Prep: Betadine Sterile Field: mask, cap/hat, sterile field established and sterile gloves Approach: midline Skin Numbed with: lidocaine 1% Spinal Needle Type: pencil-point Needle Gauge: 25 G Needle Length: 3.5 in Placement Site: L3-4 Number of Attempts: 1 CSF: free flow, aspiration before injection, aspiration during injection and aspiration after injection Local Anesthetic: bupivacaine 0.75% in dextrose (epi wash) 15 mg Spinal Additive: PF morphine 0.2 mg fentanyl 10 mcg Events CSF return injection not painful no paresthesia no other event Degree of Difficulty: none Position Post Procedure: left uterine displacement Vital signs monitored and stable throughout. See Anesthesia Intraop record for details. Block Performed by: michelle BOGGS Notes: Free flow CSF all 4 quadrants FHT 150 after SAB Timmy Castillo MD GENERAL ANESTHESIA O RDERABLES * (ABNORMAL) BLOOD GASES CORD TARA (ISTAT) (05/07/2017 10:38 AM CDT) pH Cord Venous POCT 7.35 7.28 - 7.40 pH 05/07/2017 10:45 AM CDT [facility] pCO2 Cord Venous POCT 41 35 - 45 mmHg 05/07/2017 10:45 AM CDT [facility] pO2 Cord Venous POCT 17(L) 22 - 33 mmHg 05/07/2017 10:45 AM CDT [facility] HCO3 Cord Arterial POCT 23 22 - 24 mmol/L 05/07/2017 10:45 AM CDT [facility] BE Cord Venous POCT Calc -3 -6.4 - 1.6 mmol/L 05/07/2017 10:45 AM CDT [facility] TCO2 Cord Venous POCT 24 22 - 30 mmol/L 05/07/2017 10:45 AM CDT [facility] O2 Saturation % Cord Venous Calc POCT 23 % 05/07/2017 10:45 AM CDT [facility] Site CORD TARA 05/07/2017 10:45 AM CDT [facility] Sample iSTAT CORD V 05/07/2017 10:45 AM CDT [facility] Blood CORD BLOOD SPECIMEN / Unknown 05/07/2017 10:38 AM CDT 05/07/2017 10:45 AM CDT Heriberto Ren MD LAB - POINT OF CARE ORDERABLES [facility] [address] [place] [address] * (ABNORMAL) BLOOD GASES CORD ART (ISTAT) (05/07/2017 10:35 AM CDT) pH Cord Arterial POCT 7.23 7.20 - 7.34 pH 05/07/2017 10:45 AM CDT [facility] pCO2 Cord Arterial POCT 53.5 45 - 55 mmHg 05/07/2017 10:45 AM CDT [facility] pO2 Cord Arterial POCT 11(L) 12 - 25 mmHg 05/07/2017 10:45 AM CDT [facility] HCO3 Cord Arterial POCT 22.6 22 - 24 mmol/L 05/07/2017 10:45 AM CDT [facility] BE Cord Arterial POCT -6(L) -2.9 - 8.3 mmol/L 05/07/2017 10:45 AM CDT [facility] TCO2 Cord Arterial POCT 24 mmol/L 05/07/2017 10:45 AM CDT [facility] O2 Saturation Cord Art % Calc POCT 9 % 05/07/2017 10:45 AM CDT [facility] Site CORD ART 05/07/2017 10:45 AM CDT [facility] Sample iSTAT CORD A 05/07/2017 10:45 AM CDT [facility] Blood CORD BLOOD SPECIMEN / Unknown 05/07/2017 10:35 AM CDT 05/07/2017 10:45 AM CDT Heriberto Ren MD LAB - POINT OF CARE ORDERABLES Performing Organization Address City/State/[facility] Co de Phone Number [facility] [address] [place] [address] * GROSS + MICRO EXAM (STL) (05/07/2017 10:29 AM CDT) Case Report Surgical Pathology Report Case: [id number] Authorizing Provider: Giselle Carrillo MD Collected: 05/07/2017 10:29 AM Ordering Location: [facility] Received: 05/08/2017 07:27 AM Pathologist: Per Rosa MD Specimen: Placenta 05/09/2017 2:05 PM CDT [facility] Final Diagnosis 1. Placenta, delivery: -- Third trimester placenta, 340 grams -- Three vessel umbilical cord -- membranes with hemosiderin macrophages MC/kassidy 05/09/2017 2:05 PM [facility] Gross Description Received in formalin in a container labeled Crissy Anderson, placenta. The container holds a 340 g, 16.5 x 14.3 x 4.1 cm breaux circumvallate discoid placenta with attached membranes and umbilical cord. The membranes rupture marginally and are espana, semitransparent. The umbilical cord inserts eccentrically 4.5 cm from the placental disc margin and measures 3 cm in length and up to 1.2 cm in diameter. The umbilical cord contains three vessels. The surface is purple-espana. The vessels arborize in a normal pattern and are unremarkable. The placental disc appears bilobed. The maternal surface has lobular cotyledons which are focally disrupted but appear complete. Serial sectioning shows red-brown parenchyma. There are no lesions or masses grossly identified. Nsh Teacher sections are submitted as follows: A1 - membranes and umbilical cord, A2 - and maternal surface, A3 - maternal surface. DYT/jam 05/09/2017 2:05 PM CDT [facility] Microscopic Description Sections of the umbilical cord show three vessels with no evidence of vasculitis or funisitis. Sections of the membranes show scattered hemosiderin pigmented macrophages. No chorioamnionitis is seen. Sections of the placental disc show maturing chorionic villi with no evidence of hemorrhage or infarction. ROMEO/kassidy 05/09/2017 2:05 PM CDT [facility] Disclaimer All histochemical and/or immunohistochemical results are interpreted with controls that demonstrate appropriate staining reactions before reporting results. Note on use of immunocytochemistry reagents: This test was developed and its performance characteristic determined by [facility], Department of Laboratory Medicine. It has not been cleared or approved by the U.S. Food and Drug Administration (FDA). The FDA has determined that such clearance or approval is not necessary. The test is used for clinical purpose. It should not be regarded as investigational or for research. This laboratory is certified to perform high complexity testing. 05/09/2017 2:05 PM CDT [facility] Embedded Images 05/09/2017 2:05 PM CDT [facility] Pathology/Cytolo gy ENTIRE PLACENTA / Unknown 05/07/2017 10:29 AM CDT 05/08/2017 7:27 AM CDT Giselle Carrillo MD LAB - PATHOLOGY/CYTO LOGY ORDERABLES [facility] [address] [place] [address] * GLUCOSE - POINT OF CARE (05/07/2017 5:36 AM CDT) Only the most recent of19 resultswithin the time period is included. Glucose WB/POC 77 70 - 106 mg/dL 05/07/2017 5:47 AM CDT [facility] Blood BLOOD SPECIMEN / Unknown 05/07/2017 5:36 AM CDT 05/07/2017 5:47 AM CDT Heribetro Ren MD LAB - POINT OF CARE ORDERABLES [facility] [address] [place] [address] * (ABNORMAL) COMPREHENSIVE METABOLIC PANEL (05/07/2017 1:50 AM CDT) Only the most recent of5 resultswithin the time period is included. Glucose 88 74 - 106 mg/dL 05/07/2017 2:38 AM CDT [facility] Sodium 140 136 - 145 mmol/L 05/07/2017 2:38 AM CDT [facility] Potassium 4.1 3.5 - 5.1 mmol/L 05/07/2017 2:38 AM CDT [facility] Chloride 107 98 - 107 mmol/L 05/07/2017 2:38 AM CDT [facility] CO2 23 22 - 31 mmol/L 05/07/2017 2:38 AM CDT [facility] Calcium 8.4(L) 8.5 - 10.1 mg/dL 05/07/2017 2:38 AM CDT [facility] Anion Gap 10 8 - 16 mmol/L 05/07/2017 2:38 AM CDT [facility] BUN 9 7 - 21 mg/dL 05/07/2017 2:38 AM CDT [facility] Creatinine 0.68 0.50 - 1.30 mg/dL 05/07/2017 2:38 AM CDT [facility] Alkaline Phosphatase 91 38 - 126 U/L 05/07/2017 2:38 AM CDT [facility] ALT 34 13 - 61 U/L 05/07/2017 2:38 AM CDT [facility] AST 24 5 - 40 U/L 05/07/2017 2:38 AM T [facility] Protein Total 5.8(L) 6.4 - 8.2 gm/dL 05/07/2017 2:38 AM CDT [facility] Albumin 2.3(L) 3.4 - 5.0 gm/dL 05/07/2017 2:38 AM CDT [facility] Bilirubin Total <0.1(L) 0.2 - 1.0 mg/dL 05/07/2017 2:38 AM CDT [facility] eGFR by MDRD >60 >60 mL/min/1.7 3m2 05/07/2017 2:38 AM CDT [facility] eGFR by MDRD >60 >60 mL/min/1.7 3m2 05/07/2017 2:38 AM CDT [facility] Blood BLOOD SPECIMEN / Unknown Venipuncture / Unknown 05/07/2017 1:50 AM CDT 05/07/2017 2:16 AM CDT Linn Nichols MD LAB - CHEMISTRY JE VILLALOBOS Performing Organization Address City/[facility] Co de Phone Number [facility] [address] [place] [address] * TYPE + SCREEN PANEL (05/06/2017 6:08 AM CDT) Only the most recent of2 resultswithin the time period is included. ABO O 05/06/2017 7:13 AM CDT [facility] Rh Type Positive 05/06/2017 7:13 AM CDT [facility] Comment:History check perfor med. No retype required. Antibody Screen Negative 05/06/2017 7:13 AM CDT [facility] Blood Bank BLOOD SPECIMEN / Unknown Lab Venipuncture / Unknown 05/06/2017 6:08 AM CDT 05/06/2017 6:14 AM CDT Linn Nichols MD LAB - BLOOD BANK ORD ERABLES Performing Organization Address City/[facility] Co de Phone Number [facility] [address] [place] [address] * (ABNORMAL) PT PTT PANEL (05/05/2017 6:04 AM CDT) Only the most recent of2 resultswithin the time period is included. Pathologist [facility] PT <9.5(L) 9.5 - 11.6 sec 05/05/2017 7:34 AM CDT [facility] INR 0.9 0.9 - 1.1 05/05/2017 7:34 AM CDT [facility] PTT 22.3 21.0 - 32.0 sec 05/05/2017 7:34 AM CDT [facility] Blood BLOOD SPECIMEN / Unknown Venipuncture / Unknown 05/05/2017 6:04 AM CDT 05/05/2017 6:47 AM CDT Narrative [facility] - 05/05/2017 7:34 AM CDT Conventional Warfarin Anticoagulant Therapy: INR Reference Range: 2.0-3.0 Intensive Warfarin Anticoagulant Therapy: INR Reference Range: 2.5-3.5 Heparin Therapeutic Range for PTT: 47.7 - 68.6 seconds. Samantha Morales MD LAB - COAGULATION OR DERABLES Performing Organization Address [facility] de Phone Number [facility] [address] [place], [place] [id number] * (ABNORMAL) FIBRINOGEN ACTIVITY (05/05/2017 6:04 AM CDT) Only the most recent of2 resultswithin the time period is included. Pathologist [facility] Fibrinogen 457(H) 200 - 400 mg/dL 05/05/2017 7:33 AM CDT [facility] Blood BLOOD SPECIMEN / Unknown Venipuncture / Unknown 05/05/2017 6:04 AM CDT 05/05/2017 6:47 AM CDT Samantha Morales MD LAB - COAGULATION OR DERABLES Performing Organization Address [facility] de Phone Number [facility] [address] [place] [phone] * (ABNORMAL) URINALYSIS ROUTINE AUTO (05/04/2017 11:18 PM CDT) Pathologist [facility] Color UA Yellow Straw, Yellow, Dark Yellow 05/05/2017 12:03 AM CDT [facility] Clarity UA Clear 05/05/2017 12:03 AM CDT [facility] Specific [place] UA 1.007 1.005 - 1.030 05/05/2017 12:03 AM [facility] pH UA 6.5 5.0 - 8.0 pH 05/05/2017 12:03 AM [facility] Protein UA 2+(A) Negative 05/05/2017 12:03 AM [facility] Blood UA Trace(A) Negative 05/05/2017 12:03 AM CDT [facility] Leukocyte UA Negative Negative 05/05/2017 12:03 AM T [facility] Nitrite UA Negative Negative 05/05/2017 12:03 AM [facility] Glucose UA Negative Negative 05/05/2017 12:03 AM CDT [facility] Ketone UA Negative Negative 05/05/2017 12:03 AM CDT [facility] Bilirubin UA Negative Negative 05/05/2017 12:03 AM [facility] Urobilinogen UA 0.2 0.1 - 1.0 EU/dL 05/05/2017 12:03 AM [facility] WBC UA Auto 0-2 0-2, 2-5 # /hpf 05/05/2017 12:03 AM [facility] RBC UA Auto 0-2 0-2, 2-5 # /hpf 05/05/2017 12:03 AM T [facility] Epithelial Cell UA Auto 0-2 0-2, 2-5 # /hpf 05/05/2017 12:03 AM [facility] Urine URINE SPECIMEN OBTAINED BY CLEAN CATCH PROCEDURE / Unknown Collection / Unknown 05/04/2017 11:18 PM CDT 05/04/2017 11:55 PM CDT Samantha Morales MD LAB - URINALYSIS ORD ERABLES [facility] [address] [place] [address] * CULTURE STREP B (05/03/2017 2:21 PM CDT) Culture Negative for beta-hemolytic Streptococcus Group B YEIMI 05/06/2017 9:08 AM CDT [facility] Microbiology MISCELLANEOUS SAMPLES / Unknown Collection / Unknown 05/03/2017 2:21 PM CDT 05/03/2017 2:30 PM CDT Samantha Morales MD LAB - MICROBIOLOGY O RDERAROSEMARY [facility] [address] [place] [address], [facility] [phone] * SONOGRAM - COMPLETE (05/03/2017 12:53 PM CDT) Anatomical Region Laterality Modality Other 05/03/2017 12:5 3 PM CDT Narrative 05/06/2017 11:09 AM CDT [facility] [place] PHONE: FAX: Pat. Name: CRISSY ANDERSON Pat. No: [id number] Study Date: 05/03/2017 12:53pm , Age: 05 1990, 27 Pregnancies: 1 Height: 68 in Weight: 190 lb LMP: Unknown GA by US: 27w4d GA Selected: 27w3d (From Known E) ROSALEE: 07/30/2017 Referring MD: Heriberto Ren MD Manager Roofing: Lisa Kebede RDMS CPT4: 21768 Hist/Ind: Pre-E HTN FOB Diaphragmatic Hernia MOB single kidney/septated uterus MEASUREMENTS & AGE GROWTH EVALUATION Measurement GA Range Srce %for GA Ratios ----- ---- ------- BPD 6.9 cm 27w6d ([id number]) Hadl BPD 59% FL/BPD 0.72 (0.71 - 0.87) HC 25.5 cm 27w5d (06v4t-24j1l) Hadl HC 57% FL/AC 0.21 (0.20 - 0.24) AC 23.5 cm 27w5d (91g8b-91j2p) Hadl AC 57% HC/AC 1.09 (1.00 - 1.18) FL 5.0 cm 27w0d (68d9t-40o9n) Hadl FL 40% CI 0.76 (0.70 - 0.86) HL 4.6 cm 27w0d (99o3f-28f9r) Ahrvey HL 43% GA for sonogram 27w4d (67y1z-19y7u) Weight Estimate: based on (BPD,HC,AC,FL) Avg Weight: 1083 gm (925-1241) Hadloc : 2lbs, 6oz Normal: 1121 gm (931-1312) Hadloc Wt% 42% for 27w3d Heart Rate: 136 bpm Amniotic Fluid Index: 10.5cm (09.5-22.7) Q1: 2.0cm Q2: 2.9cm Q4: 5.7cm CLINICAL SUMMARY Study Number: 1 A single fetus is identified in breech presentation. The measurements today are consistent with appropriate size for the ROSALEE provided. The ROSALEE selected is based on a prior ultrasound examination (not confirmed). The amniotic fluid volume is within normal limits. The placenta is posterior fundal. No major malformations are seen. The patient was advised that ultrasound does not allow detection of all structural or chromosomal abnormalities. IMPRESSION: Single, live, IUP at 27w3d AGA growth Normal AFV Incomplete anatomic survey No malformations seen within the limitations of ultrasound RECOMMEND: Follow up ultrasound as clinically indicated and per inpatient antepartum team Thank you for allowing us the opportunity to care for your patient cc: Inpatient at time of study Naseem Olivares MD <Electronic Signature> 05/06/2017 11:06am Samantha Morales MD [facility] ORDERABLES * GLUCOSE CHALLENGE (05/03/2017 8:14 AM CDT) Only the most recent of2 resultswithin the time period is included. [facility] Glucose Challenge 138 64 - 140 mg/dL 05/03/2017 8:35 AM CDT [facility] Glucose Challenge Time 1 hr 05/03/2017 8:35 AM CDT [facility] Blood BLOOD SPECIMEN / Unknown Venipuncture / Unknown 05/03/2017 8:14 AM CDT 05/03/2017 8:19 AM CDT Samantha Morales MD LAB - CHEMISTRY JE VILLALOBOS Performing Organization Address City/[facility]/ZIP Co de Phone Number [facility] [address] [place] [address] * BLOOD TYPE VERIFICATION (05/03/2017 7:02 AM CDT) [facility] ABO O 05/03/2017 8:18 AM CDT [facility] Rh Type Positive 05/03/2017 8:18 AM CDT [facility] Blood Bank BLOOD SPECIMEN / Unknown Venipuncture / Unknown 05/03/2017 7:02 AM CDT 05/03/2017 7:45 AM CDT Heriberto Ren MD LAB - BLOOD BANK ORD DAMARIS [facility] [address] * URIC ACID BLOOD (05/03/2017 6:59 AM CDT) [facility] Uric Acid 6.7 3.0 - 8.5 mg/dL 05/03/2017 7:53 AM CDT [facility] Blood BLOOD SPECIMEN / Unknown Venipuncture / Unknown 05/03/2017 6:59 AM CDT 05/03/2017 7:26 AM CDT Heriberto Farooq MD LAB - CHEMISTRY JE VILLALOBOS Performing Organization Address [facility] Co de Phone Number [facility] [address] [place] [address] * LDH BLOOD (05/03/2017 6:59 AM CDT) [facility] LDH 169 100 - 200 U/L 05/03/2017 7:53 AM CDT [facility] Blood BLOOD SPECIMEN / Unknown Venipuncture / Unknown 05/03/2017 6:59 AM CDT 05/03/2017 7:26 AM CDT Heriberto Farooq MD LAB - CHEMISTRY ORDJuan F VILLALOBOS Performing Organization Address [facility] de Phone Number [facility] [address] [place] [address] * (ABNORMAL) URINALYSIS MICROSCOPIC ONLY W/REFLEX CULTURE (05/03/2017 6:58 AM CDT) [facility] RBC UA 0-2 0-2, 2-5 # /hpf 05/03/2017 7:46 AM CDT [facility] Epithelial Cell UA 5-10(A) 0-2, 2-5 # /hpf 05/03/2017 7:46 AM CDT [facility] Hyaline Casts 0-2 0 - 2 # /lpf 05/03/2017 7:46 AM CDT [facility] Urine URINE SPECIMEN OBTAINED BY CLEAN CATCH PROCEDURE / Unknown Collection / Unknown 05/03/2017 6:58 AM CDT 05/03/2017 7:22 AM CDT Heriberto Farooq MD LAB - URINALYSIS ORD ERAROSEMARY Performing Organization Address [facility] Co de Phone Number [facility] [address] [place], [place] [id number] * (ABNORMAL) URINALYSIS ROUTINE W/REFLEX TO CULTURE (05/03/2017 6:58 AM T) Color UA Yellow Straw, Yellow, Dark Yellow 05/03/2017 7:47 AM [facility] Clarity UA Cloudy 05/03/2017 7:47 AM [facility] Specific [place] UA >1.030(H) 1.005 - 1.030 05/03/2017 7:47 AM [facility] pH UA 6.0 5.0 - 8.0 pH 05/03/2017 7:47 AM [facility] Protein UA 3+(A) Negative 05/03/2017 7:47 AM [facility] Blood UA Negative Negative 05/03/2017 7:47 AM [facility] Leukocyte UA 1+(A) Negative 05/03/2017 7:47 AM [facility] Nitrite UA Negative Negative 05/03/2017 7:47 AM [facility] Glucose UA Negative Negative 05/03/2017 7:47 AM [facility] Ketone UA Negative Negative 05/03/2017 7:47 AM [facility] Bilirubin UA Negative Negative 05/03/2017 7:47 AM [facility] Urobilinogen UA 0.2 0.1 - 1.0 EU/dL 05/03/2017 7:47 AM [facility] WBC UA Auto >100(A) 0-2, 2-5 # /hpf 05/03/2017 7:47 AM [facility] RBC UA Auto Reflex to manual(A) 0-2, 2-5 # /hpf 05/03/2017 7:47 AM [facility] Epithelial Cell UA Auto 5-10(A) 0-2, 2-5 # /hpf 05/03/2017 7:47 AM [facility] Bacteria UA Auto 2+(A) None seen 05/03/20 17 7:47 AM [facility] Hyaline Casts UA Auto Reflex to manual(A) 0 - 2 #/lpf 05/03/2017 7:47 AM [facility] Reflex Status Culture to follow 05/03/2017 7:47 AM [facility] Urine URINE SPECIMEN OBTAINED BY CLEAN CATCH PROCEDURE / Unknown Collection / Unknown 05/03/2017 6:58 AM CDT 05/03/2017 7:22 AM CDT Heriberto Farooq MD LAB - URINALYSIS ORD ERABLES Performing Organization Address [facility] Co de Phone Number [facility] [address] [place] [address] * CULTURE URINE (05/03/2017 6:58 AM CDT) Culture <10,000 CFU/mL urogenital anjana YEIMI 05/04/2017 11:34 AM CDT [facility] Urine URINE SPECIMEN OBTAINED BY CLEAN CATCH PROCEDURE / Unknown Collection / Unknown 05/03/2017 6:58 AM CDT 05/03/2017 7:22 AM CDT Heriberto Farooq MD LAB - MICROBIOLOGY O RDERABLES Performing Organization Address [facility] de Phone Number [facility] [address] [place] [address] [phone] * PROTEIN CREATININE RATIO URINE RANDOM PNL (05/03/2017 6:58 AM CDT) Protein Urine 308.3 mg/dL 05/03/2017 8:03 AM CDT [facility] Creatinine Urine 270 mg/dL 05/03/2017 8:03 AM CDT [facility] Protein/Creatin ine Ratio Urine 1.14 05/03/2017 8:03 AM CDT [facility] Urine URINE SPECIMEN OBTAINED BY CLEAN CATCH PROCEDURE / Unknown Collection / Unknown 05/03/2017 6:58 AM CDT 05/03/2017 7:23 AM CDT Heriberto Farooq MD LAB - URINE CHEMISTR Y ORDERABLES Performing Organization Address [facility] Co de Phone Number [facility] [address] [place] [address] Care Teams Commercial Airplane Pilot Relationship Specialty Start Date End Date Yaid Menendez PA [address] [place] [phone] PCP - General Physician Material Analyst 05/03/17
--- OUTSIDE RECORDS SUMMARY | 2024-12-30 15:16 | XMS_ITS | Referral Summary ---
Author Organization [facility] Address [address] [place] [address] Care Team Providers Care Editorial Assistant Name Role Phone No, Physician Unavailable Yadi Solorzano Primary Care Pr ovider Encounters Date Type Department Care Team Description 12/29/2024 Telephone [facility] Ophthalmology [address] [place] [phone] Latha Baltazar MD 12/21/2024 9:45 AM EMERGENCY MEDICINE MEDICAL DIRECTOR Office Visit [facility] Ophthalmology [facility] [address] [address] Latha Baltazar MD Idiopathic intracranial hypertension (Primary Dx); 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 12/21/2024 9:20 AM EMERGENCY MEDICINE MEDICAL DIRECTOR Imaging Exam [facility] Ophthalmology [address] [facility] [address] [phone] Idiopathic intracranial hypertension; 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 12/18/2024 [place] [id number] [facility] [address] [place] [phone] Darcy James MD Low serum follicle stimulating hormone (FSH) (Primary Dx); Low testosterone level in female 12/18/2024 Orders Only [facility] Ophthalmology [facility] 6th [facility], [address] [facility] [place] [address] Latha Baltazra MD Idiopathic intracranial hypertension (Primary Dx); 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 12/17/2024 Telephone [facility] Reproductive Endocrinology [address] [facility] [address] [place] [address] Farideh Trujillo RN Referral to [facility] 12/15/2024 Orders Only [address] [phone] Darcy James MD Low serum follicle stimulating hormone (FSH) (Primary Dx); Low testosterone level in female; Low libido 12/15/2024 Orders Only [address] [phone] Darcy James MD Low serum follicle stimulating hormone (FSH) (Primary Dx) 12/14/2024 2:30 PM EMERGENCY MEDICINE MEDICAL DIRECTOR - 12/14/2024 11:59 PM EMERGENCY MEDICINE MEDICAL DIRECTOR Hospital Encounter [facility] [address], [place] [phone] Bacterial vaginitis; Leukorrhea; Vaginal bleeding Discharge Disposition: Discharge to home or self care 12/14/2024 Orders Only [facility] the [address] [address] Darcy James MD 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 6th [place] [address] Latha Baltazar MD 10/06/2024 9:15 AM EMERGENCY MEDICINE MEDICAL DIRECTOR Office Visit [facility] Ophthalmology [address] [place] [address] 1[address] [place] [address] Latha Baltazar MD Idiopathic intracranial hypertension (Primary Dx); 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 from Last 3 Months Allergies Active Allergy Reactions Criticality Noted Date Comments Nitrofurantoin Monohyd/M-Cryst Nausea only Low 05/12/2019 Abdominal cramps/nausea. Medications pantoprazole DR (PROTONIX) 40 mg EC tablet Take 1 tablet (40 mg total) by mouth daily 05/01/20 23 Active spironolactone (ALDACTONE) 100 mg tablet Take 1 tablet (100 mg total) by mouth daily Active acetaZOLAMIDE ER (DIAMOX SEQUAL) 500 mg capsuleIndicati ons:Idiopathic intracranial hypertension,Pa pilledema due to raised intracranial pressure Take 1 capsule (500 mg total) by mouth 2 (two) times a day 60 capsule 11 12/21/19 25 026 Active acetaZOLAMIDE ER (DIAMOX SEQUAL) 500 mg capsuleIndicati ons:Idiopathic intracranial hypertension,Pa pilledema due to raised intracranial pressure Take 1 capsule (500 mg total) by mouth daily 30 capsule 11 10/06/20 24 025 Discontinued clindamycin (CLEOCIN) 2 % vaginal creamIndication s:Bacterial Vaginosis Insert 1 Application into the vagina nightly for 7 doses 7 g 12/14/19 25 025 Active Problems Problem Noted Date Diagnosed Date Idiopathic intracranial hypertension 06/11/2024 Chronic pelvic pain in female 10/03/2023 Vaginal bleeding, abnormal 10/03/2023 Acute sinusitis 07/27/2021 Amenorrhea 07/27/2021 Mild anxiety 07/27/2021 defect 07/27/2021 Overview (07/27/2021): born with 1 kidney Chest pain 07/27/2021 Duodenitis 07/27/2021 Elevated blood-pressure read ing without diagnosis of hypertension 07/27/2021 Fatigue 07/27/2021 Fear of flying 07/27/2021 Fever 07/27/2021 Gastritis 07/27/2021 Generalized anxiety disorder 07/27/2021 Left upper quadrant pain 07/27/2021 Migraine 07/27/2021 Night sweats 07/27/2021 Overweight with body mass index (BMI) 25.0-29.9 07/27/2021 Palpitations 07/27/2021 Simple obesity 07/27/2021 Undifferentiated attention deficit disorder 07/2021 Viral gastroenteritis 07/27/2021 Pelvic and perineal pain 04/18/2021 Overview (04/18/2021): Added automatically from request for surgery [id number] care following delivery 12/19 Overview (01/08/2021): # ID: Afebrile. No signs/symptoms of infection. COVID-19 negative. # Heme: EBL 1000mL. Hemodynamically stable. Preop Hgb 11.8 > 10.4 postop. Patient c/o dizziness lightheadedness yesterday. EKG with sinus tachycardia, otherwise wnl. Repeat CBC shows Hgb 8.5. Dizziness yesterday likely in s/o secondary to fluid shifts with PreE and PPH. Ordered PO Fe supplementation # PPH: EBL 1L, s/p Hemabate x1 dose # CV/Pulm: cHTNsiPreEwSF: s/p 24hr IV Mg & spotting with Labetalol >48 hours ago. BPs mostly normotensive, few MR but <50%. s/p spotting with 60mg IV labetalol. Admit CBC/CMP WNL, UPC 3.4. Declines enrollment in home BP program. Most recent BP normotensive, however overnight BP mild range. Will uptitrate labetalol to 400 BID. # GI/: Tolerating PO. Voiding spontaneously # Pain: Controlled with above regimen. # Post DVT prophylaxis: The patient has the following MAJOR risk factors BMI >/= 40 and the following MINOR risk factors delivery and preeclampsia. enoxaparin 40 mg BID ordered for VTE prophylaxis. 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 Cr 0.6, appropriate and at baseline. # Disposition: Discharge home today PUPP (pruritic urticarial papules and plaques of ) 08/18/2020 Overview (09/14/2020): Diagnosed with PUPPs, following with dermatology Generalized pruritic rash throughout extremities and abdomen S/p triamcinolone cream without improvement Current regimen: Janay AM, Zyrtec PM, sarna lotion PRN. 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 Hein has a single kidney in the setting of known OHVIRA syndrome. outcome data regarding women with a single kidney is limited. In a retrospective observational study of 15 women with a solitary kidney who conceived, 2/3 of the patients had a term delivery. 2 patients in the cohort developed gestational hypertension, and 1 patient developed preeclampsia around 30 weeks. Based on this study, patients with solitary kidney during are at risk of developing gestational hypertension, preeclampsia (which she had in her first ) and associated maternal and complications. The patients are also at increased risk of developing pyelonephritis which can lead to delivery. We recommend regular follow up with screening for infection and early signs of preeclampsia. Chronic hypertension 06/10/2020 Overview (11/21/2020): - s/p counseling 06/10 - current regimen: [id number] - has home BP cuff, reminded patient to keep log - EKG 12/2019 (in CareEverywhere) SR w/ poss L atrial dilation [x] Maternal Echo, completed 10/19/20 [x] pt reports optho visit in 2019 unchanged (known astigmatism) [x] ASA 81 mg (pt initiated @ 5 weeks) [X] baseline CMP wnl [X] baseline 24 hour urine 164mg - serial growth starting at 28 weeks - ANT at 32 weeks Assessment & Plan (01/02/2021 10:54 AM EMERGENCY MEDICINE MEDICAL DIRECTOR): She has not been checking her Bps at home but plans to start and will bring them to weekly appointments. Continues to have lower extremity swelling. Bp mild range today. Has headaches that resolve on their own or with tylenol. Denies changes in vision or RUQ pain. Very strict BP parameters and preE precautions reviewed. Assessment & Plan (10/10/2020 6:33 PM EMERGENCY MEDICINE MEDICAL DIRECTOR): Reports some symptoms of SOB with activity. ECHO scheduled. Hospital precautions reviewed. Assessment & Plan (06/10/2020 1:41 PM CDT): We reviewed the cardiovascular changes associated with including a decrease in blood pressure during the midtrimester with increase back to baseline in the third trimester. We reviewed the goals of antihypertensive therapy in . Specifically, the goal is to avoid severe hypertension which can result in maternal cerebrovascular accidents or coronary events. In contrast to the non state, very tight blood pressure control is not recommended during and has been associated with lower birthweight. Ms. Hein is normotensive today on labetalol 200mg BID. We generally recommend home blood pressure monitoring to assist with medication titration as well as to monitor her for the development of preeclampsia. She has a blood pressure cuff already. We reviewed the relative safety of various antihypertensive classes of medications during . We reviewed the effects of chronic hypertension on including the risk of worsening blood pressures requiring titration of antihypertensive therapy, increased risk of preeclampsia, growth restriction, and need for delivery with associated complications of prematurity. Rates of abruption and stillbirth are also higher in women with chronic hypertension. Given the increased risk for preeclampsia, baseline serum creatinine as well as urine protein excretion by protein to creatinine ratio or a 24-hour urine collection is recommended. We recommend serial growth ultrasounds every 4 weeks starting at 24 weeks of gestation. We would also recommend nonstress testing starting at 32 weeks. Delivery is generally recommended by 39 weeks or sooner if other indications were to arise. She has already initiated aspirin 81 mg, which may reduce the risk of preeclampsia to a modest degree. History of severe pre-eclampsia 06/09/2020 Overview (06/27/2020): -P1; Diagnosed @ 27 weeks, delivered @ 28 weeks -s/p counseling 7/24. Precautions reivewed [x] ASA 81 mg (pt initiated @ 5 weeks) - Baseline CMP wnl. -Baseline 24 hr urine [164mg] Assessment & Plan (06/10/2020 2:00 PM CDT): Ms. Hein has a history of severe preeclampsia in her first requiring indicated delivery at 28 weeks. We discussed the recurrence risk for hypertensive disorders of being approximately 15-20%; although, this risk might be higher given the early onset and severity of her preeclampsia (as high as 65% in some studies). We reviewed that initiation of a low dose aspirin taken daily may moderately reduce the risk of recurrent preeclampsia. Supervision of high-risk , unspecified trimester 06/09/2020 Overview (01/02/2021): [x] Full [facility] Care; Referring Provider: Self Referral [] or Medicare Insurance [x] Dating Criteria: LMP 04/21/20 [place] 01/26/21 [x] Labs: Rh [O+ ], Ab [negative ], Rubella [reactive ], HIV [NR ], HepBSAg [NR ], RPR [NR ], GC/CT [neg/neg] [x] CBC: 12.9/39.8/229K [x] Genetic Screening: Reviewed options, declines [x] Early 1hr GTT: normal 119 [x] UCx: GBS [x] Pap: 06/08/19 NILM x 2 [x] LD ASA (if indicated) starting at 12 weeks: 2nd Tri Labs: [x] Anatomy ultrasound:complete and wnl [x] CBC [11.8/35.2/173K] /1hr gtt [141] [x] 3H GTT - performed on - 92/146/133/98 [x] Flu Shot (Sep-Dec): 08/18/2020 MS [x] Tdap (27-36wks): 11/21/2020 ms 3rd Tri Labs: [] CBC/HIV/RPR: ordered for next visit [x] GBS: POSITIVE [x] GC/CT (if indicated): neg/neg on 11/22/20 [] COVID testing: Counselling [] MOD: breech, will schedule rC/S 01/26 with BTL [x] Place of delivery: [facility] [x] MOC: BTL, s/p counseling (private insurance) [x] Method of feeding: breast [x] Cigar Wrapper: [] PP Depression Discussed: Assessment & Plan (06/10/2020 2:03 PM CDT): Serologies and baseline labs ordered today. Has recent EKG in CareEverywhere. Will discuss genetic screening when viability confirmed. 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 No polyps in left uterine cavity, which was higher and more difficult to access. - in RIGHT uterine cavity (P1 was in LEFT uterine cavity, documented low transverse section) - S/p counseling 06/10 - serial growth- AGA [ ] mode of delivery (counseled on high likelihood for malpresentation, risk for soft tissue dystocia) Assessment & Plan (06/10/2020 1:52 PM CDT): Ms. 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 She had resection of left rosetta-vagina longitudinal septum in 2005. She has a unilateral (right) kidney. We reviewed with the patient the different types of uterine anomalies that exist, and the specific anatomy of a didelphys uterus (which she is very familiar with). Uterine didelphys, solitary right kidney, and normal bilateral ovaries were again confirmed on her ultrasound. Didelphys uteri are associated with increased risk of spontaneous (~30%) and (~30%). Women with didelphys uterus are also at increased risk for premature rupture of membranes, delivery and malpresentation. The possibility of extreme prematurity and associated morbidity were discussed. labor and precautions should be discussed in the second trimester. There is no indication for progesterone supplementation or prophylactic cerclage at this time, although the cervical length should be checked with an anatomy survey. We discussed the risk hemorrhage due to abnormal uterine contraction (although, she fortunately did not experience this in her last delivery). 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 Resolved Problems Problem Noted Date Diagnosed Date Resolved Date Elevated blood pressure affe cting in second trimester, antepartum 07/27/2021 12/14/19 25 Abnormal uterine bleeding (AUB) 04/18/2021 12/14/2024 Overview (04/18/2021): Added automatically from request for surgery [id number] History of section complicating 06/09/2020 12/14/2024 Overview (06/24/2020): - discussed @ IOB; would like to TOLAC if possible (this is in different/non-scarred uterine cavity); counseled regarding risk for soft tissue dystocia - Readdress at future visit Irregular menses 05/13/2019 06/10/2020 Overview (05/13/2019): Added automatically from request for surgery [id number] Immunizations Name Administration Dates Next Due DT 06/08/2005 Hep A, Adult 04/06/2019,10/15/2018,10/15/2018 Hep A, Unspecified 04/06/2019 Hep B, Adolescent or Pediatric 08/18/2001,2000,02/14/2001 Influenza, Quadrivalent, Tatyana l Culture-based MDCK, Preservative Free, Antibiotic Free, Intramuscular 08/18/2020,08/27/2019,09/21/2017 Influenza, Quadrivalent, Spl it, Intramuscular 08/27/2019 Influenza, Quadrivalent, Spl it, Preservative Free, Intramuscular 09/13/2021 Influenza, Trivalent, IM (MDV) 10/02/2013 Influenza, Unspecified 11/18/2014 [employer] ([employer]) SARS-CoV-2 Vaccination 02/27/2021, 02/27/2021 MMR 05/11/1996,07/26/1993 Polio, Unspecified 05/11/1996, 1,1991,06/10 Tdap 11/21/2020,05/04/2017,09/12/2015 Social History Tobacco Use Types Packs/Day Years Used Date Smoking Tobacco: Never Smokeless Tobacco: Never Tobacco Cessation:Counseling Given: Not Answered Alcohol Use Standard Drinks/Week Comments Never 0 (1 standard drink = 0.6 oz pur e alcohol) Social Connection and Isolat ion Panel [NHANES] Answer Date Recorded In a typical week, how many times do you talk on the phone with family, friends, or neighbors? More than three times a week 11/01/2021 How often do you get togethe r with friends or relatives? Three times a week 11/01/2021 How often do you attend chur ch or congregation services? 1 to 4 times per year 11/01/2021 Do you belong to any clubs o r organizations such as temple groups, unions, fraternal or athletic groups, or school groups? No 11/01/2021 How often do you attend meet ings of the clubs or organizations you belong to? Never 11/01/2021 Are you , , di vorced, , never , or living with a partner? 11/01/2021 AUDIT-C Answer Date Recorded Q1: How often do you have a drink containing alc ohol? Never 12/21/2024 Average Number of Drinks Not on file 025 Frequency of Binge Drinking Not on file 01/2025 Overall Financial Resource Strain (CARDIA) Answe r Date Recorded How hard is it for you to pa y for the very basics like food, housing, medical care, and heating? Hard 11/01/2021 PHQ-2 Answer Date Recorded PHQ-2 Total Score (If total score is 3 or more points, staff should administer the PHQ-9) 0 06/13/2022 Hunger Vital Sign Answer Date Recorded Within the past 12 months, y ou worried that your food would run out before you got the money to buy more. Sometimes true Within the past 12 months, t he food you bought just didn't last and you didn't have money to get more. Sometimes true PRAPARE - Transportation Answer Date Re corded In the past 12 months, has l ack of transportation kept you from medical appointments or from getting medications? No 10/18 In the past 12 months, has l ack of transportation kept you from meetings, work, or from getting things needed for daily living? No 11/01/2021 [place] Depression Scale Answer Date Recorded [place] Depression Scale Total 4 01/24/2021 The thought of harming myself has occurred to me . Never 01/24/2021 Personal Safety Answer Date Recorded Have you ever been in or are you currently in a harmful physical or emotional relationship or is someone making you feel afraid or unsafe? Denies 05/18/2024 Comments No Sex and Gender Information Value Date Recorded Sex Assigned at Not on file Legal Sex Female 7:14 AM EMERGENCY MEDICINE MEDICAL DIRECTOR Gender Identity Not on file Sexual Orientation Straight 06/07/2020 6: 54 PM CDT Last Filed Vital Signs Vital Sign Reading Time Taken Comments Blood Pressure 126/82 12/14/2024 1:27 PM EMERGENCY MEDICINE MEDICAL DIRECTOR Pulse 69 05/18/2024 9:30 PM CDT Temperature 36.5 C (97.7 F) 05/18/2024 6:32 PM CDT Respiratory Rate 18 05/18/2024 6:32 PM CDT Oxygen Saturation 100% 05/18/2024 9:30 PM CDT Inhaled Oxygen Concentration - - Weight 77.7 kg (171 lb 6.4 oz) 12/14/2024 1:27 P M EMERGENCY MEDICINE MEDICAL DIRECTOR Height 172.7 cm (5' 8 ) 12/14/2024 1:27 PM EMERGENCY MEDICINE MEDICAL DIRECTOR Body Mass Index 26.06 12/14/2024 1:27 PM EMERGENCY MEDICINE MEDICAL DIRECTOR Plan of Treatment Not on file Procedures Procedure Name Priority Date/Time Associated Diagnosis Comments OCT, RETINA - OU - BOTH EYES Routine 12/21/2024 9:02 AM EMERGENCY MEDICINE MEDICAL DIRECTOR Idiopathic intracranial hypertension 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 OCT, OPTIC NERVE - OU - BOTH EYES Routine 12/21/2024 9:02 AM EMERGENCY MEDICINE MEDICAL DIRECTOR Idiopathic intracranial hypertension 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 MISCELLANEOUS MICROBIOLOGY TEST Routine 12/14/2024 6:52 PM EMERGENCY MEDICINE MEDICAL DIRECTOR PAP ONLY Routine 12/14/2024 3:39 PM EMERGENCY MEDICINE MEDICAL DIRECTOR Vaginal bleeding THINPREP PROCESSING (MOLECULAR COMPONENT) Routine 12/14/2024 3:38 PM EMERGENCY MEDICINE MEDICAL DIRECTOR Vaginal bleeding LUTEINIZING HORMONE (LH) Routine 12/14/2024 2:30 PM EMERGENCY MEDICINE MEDICAL DIRECTOR 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 Vaginal dryness Weight loss PROLACTIN Routine 12/14/2024 2:30 PM EMERGENCY MEDICINE MEDICAL DIRECTOR 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 Vaginal dryness Weight loss FOLLICLE STIMULATING HORMONE Routine 12/14/2024 2:30 PM EMERGENCY MEDICINE MEDICAL DIRECTOR 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 Vaginal dryness Weight loss ESTRADIOL Routine 12/14/2024 2:30 PM EMERGENCY MEDICINE MEDICAL DIRECTOR 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 Vaginal dryness Weight loss TOTAL TESTOSTERONE Routine 12/14/2024 2: 30 PM EMERGENCY MEDICINE MEDICAL DIRECTOR 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 Vaginal dryness THYROID FUNCTION CASCADE Routine 12/14/2024 2:30 PM EMERGENCY MEDICINE MEDICAL DIRECTOR 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 Vaginal dryness Weight loss SEX HORMONE BINDING GLOBULIN Routine 12/14/2024 2:30 PM EMERGENCY MEDICINE MEDICAL DIRECTOR 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 Vaginal dryness CAMARGO VISUAL FIELD - OU - BOTH EYES Routine 10/06/2024 11:07 AM EMERGENCY MEDICINE MEDICAL DIRECTOR 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 OCT, RETINA - OU - BOTH EYES Routine 10/06/2024 11:06 AM EMERGENCY MEDICINE MEDICAL DIRECTOR 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 OCT, OPTIC NERVE - OU - BOTH EYES Routine 10/06/2024 11:06 AM EMERGENCY MEDICINE MEDICAL DIRECTOR 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 from Last 3 Months Results * OCT, Retina - OU - Both Eyes (12/21/2024 9:02 AM EMERGENCY MEDICINE MEDICAL DIRECTOR) Anatomical Region Laterality Modality Head Other Narrative 12/21/2024 11:11 AM EMERGENCY MEDICINE MEDICAL DIRECTOR Right Eye Quality was good. Findings include normal observations. Left Eye Quality was good. Findings include normal observations. Notes Normal mean ganglion cell complex thickness OU (on Ze[employer] Cirrus OCT) Latha Baltazar MD OPHTH TOMOGRAPHY Final Resu lt * OCT, Optic Nerve - OU - Both Eyes (12/21/2024 9:02 AM EMERGENCY MEDICINE MEDICAL DIRECTOR) RNFL OS 115 micrometers CONTINUUM RNFL OD 123 micrometers CONTINUUM Anatomical Region Laterality Modality Head Other Narrative 12/21/2024 11:11 AM EMERGENCY MEDICINE MEDICAL DIRECTOR Right Eye Reliability was good. Average RNFL thickness 123 micrometers. Left Eye Reliability was good. Average RNFL thickness 115 micrometers. Notes Trace interval increase in RNFL thickness us Latha Baltazar MD OPHTH TOMOGRAPHY Final Resu lt * Miscellaneous microbiology test Miscellaneous Miscellaneous (12/14/2024 6:52 PM EMERGENCY MEDICINE MEDICAL DIRECTOR) Report Final Report: Negative for Mycoplasma genitalium Organism NEGATIVE FOR MYCOPLASMA GENITALIUM [facility] Miscellaneous (Miscellaneous) 12/14/2024 6:52 PM EMERGENCY MEDICINE MEDICAL DIRECTOR 12/14/2024 7:57 PM EMERGENCY MEDICINE MEDICAL DIRECTOR Narrative [facility] - 12/16/2024 7:11 PM EMERGENCY MEDICINE MEDICAL DIRECTOR Name of test to be performed:->mycoplasma genitalium Specimen type/source->vaginal [facility] ([phone]) Darcy James MD LAB MICROBIOLOGY - GENERAL ORDERABLES Final Result [facility] Department [place] [address] * Pap Only (Cytology Component) (12/14/2024 3:39 PM EMERGENCY MEDICINE MEDICAL DIRECTOR) Thin prep (Pap test) 12/14/2024 3:39 PM EMERGENCY MEDICINE MEDICAL DIRECTOR 12/14/2024 6:07 PM EMERGENCY MEDICINE MEDICAL DIRECTOR Narrative PATHOLOGY [facility] - 12/21/2024 10:44 AM EMERGENCY MEDICINE MEDICAL DIRECTOR EPIC results best viewed via link to PDF [facility] [place] [address] Note to Patients: This report may contain a detailed description of human tissue sent by a health care provider to the laboratory for pathologic evaluation. The content of this report is essential for diagnosis and may provide important critical findings. This information may be unfamiliar to patients to review without a medical professional present. It is advised that the patient review this report in the presence of a health care provider who can answer questions and explain the details. CYTOPATHOLOGY REPORT FINAL Patient Name: CRISSY HEIN Gender: F : 1990 (Age: 34) Address: [address] [place] [address] [place] [address] Hospital #: [id number] Service: UNKNOWN Location: Patient Type: [facility] SPECIMEN Taken: 12/14/2024 Received: 12/14/2024 Accessioned: 12/15/2024 Reported: 12/21/2024 Physician(s): Darcy James M.D. FINAL INTERPRETATION SOURCE OF SPECIMEN Liquid based Thin Prep pap: STATEMENT OF ADEQUACY - Satisfactory for evaluation - Clinical history of hysterectomy GENERAL CATEGORIZATION: - Negative for squamous intraepithelial lesion or malignancy ml/12/21/2024 10:44 Sisi Davis MS, CT (ASCP) Report Electronically Reviewed and Signed Out By Sisi Davis MS, CT (ASCP) 12/21/2024 10:44:05 Cervicovaginal Cytology (Pap Test) Disclaimer: The Pap test is a screening test used to detect cervical cancer and its precursors; it is not a diagnostic procedure. False negative and false positive results do occur. Pap test results should be interpreted in the context of pertinent clinical information and biopsy results as indicated. CMS Clinical Laboratory Improvement Amendments (CLIA) mandate that cytologic and histologic results be correlated for laboratory quality control assistant & improvement standards. FOR ALL HIGH-GRADE CASES we request submission of follow-up histological material and/or reports that have not been previously provided so that we may fulfill said required standards. Gross Description A. Liquid based Thin Prep pap: Vaginal - Screening ThinPrep Clinical Diagnosis and History Last Menstrual Period: na Menstrual History: Total Hysterectomy: post The patient is a 34 year old female with s/p total hysterectomy with persistent cuff bleeding as small red area at L apex. ? endometriosis. noted WBC on wet mount. Report Images and scanned documents, if included only viewable in PDF version The performance characteristics of some immunohistochemical stains, in-situ hybridization and fluorescence in-situ hybridization tests and immunophenotyping by flow cytometry cited in this report (if any) were determined by the Surgical Pathology Department at [facility] as part of an ongoing director of quality improvement program and in compliance with federally mandated regulations drawn from the Clinical Laboratory Improvement Act of 1988 (CLIA '88). Some of these tests rely on the use of analyte specific reagents and are subject to specific labeling requirements by the US Food and Drug Administration. Such diagnostic tests may only be performed in a facility that is certified by the Department of Health and Human Services as a high complexity laboratory under CLIA '88. The FDA has determined that such clearance or approval is not necessary. This test is used for clinical purposes. It should not be regarded as investigational or for research. Nevertheless, federal rules concerning the medical use of analyte specific reagents require that the following disclaimer be attached to the report: This test was developed and its performance characteristics determined by the Surgical Pathology Department of [facility]. It has not been cleared or approved by the U. S. Food and Drug Administration. Darcy James MD LAB CYTOLOGY ORDE RABSHYANN Final Result PATHOLOGY [facility] 3rd Floor [place], [place] [phone] * ThinPrep processing (Molecular component) (12/14/2024 3:38 PM EMERGENCY MEDICINE MEDICAL DIRECTOR) ThinPrep processing (Molecular component) Specimen received for processing. [facility] Endocervical 12/14/2024 3:38 PM EMERGENCY MEDICINE MEDICAL DIRECTOR 12/16/2024 10:28 PM EMERGENCY MEDICINE MEDICAL DIRECTOR Darcy James MD LAB BODY FLUIDS A ND STOOLS ORDERABLES Final Result [facility] [address] [facility] Department [place] [address] [facility] * Sex hormone binding globulin (12/14/2024 2:30 PM EMERGENCY MEDICINE MEDICAL DIRECTOR) Pathologist [facility] Sex steroid binding globulin 34.5 18.2 - 135.5 nmol/L [place] ref Lab Comment: Test Performed by: [facility] [address] [place] [address] [employer] Coach: Robyn Delgado Ph.D.; CLIA# [id number] Blood 12/14/2024 2:30 PM EMERGENCY MEDICINE MEDICAL DIRECTOR 12/14/2024 7:43 PM EMERGENCY MEDICINE MEDICAL DIRECTOR Darcy James MD LAB BLOOD ORDERAB LES Final Result [facility] [place] [address] [place] [facility] * Thyroid Function Tama (12/14/2024 2:30 PM EMERGENCY MEDICINE MEDICAL DIRECTOR) Pathologist [facility] TSH 0.51 0.30 - 4.20 mcIUnit/mL Blood 12/14/2024 2:30 PM EMERGENCY MEDICINE MEDICAL DIRECTOR 12/14/2024 7:38 PM EMERGENCY MEDICINE MEDICAL DIRECTOR Darcy James MD LAB BLOOD ORDERAB LES Final Result Performing Organization Address City/[facility]/ZIP Co de Phone Number [facility] [place] [address] * Prolactin (12/14/2024 2:30 PM EMERGENCY MEDICINE MEDICAL DIRECTOR) Pathologist [facility] Prolactin 8.2 4.8 - 23.3 ng/mL Blood 12/14/2024 2:30 PM EMERGENCY MEDICINE MEDICAL DIRECTOR 12/14/2024 7:43 PM EMERGENCY MEDICINE MEDICAL DIRECTOR Darcy James MD LAB BLOOD ORDERAB LES Final Result [facility] [place] [address] * Estradiol (12/14/2024 2:30 PM EMERGENCY MEDICINE MEDICAL DIRECTOR) Estradiol 33.9 pg/mL Comment: Interpretive Data Males: 11 43 pg/mL Females: Premenopausal: 31 533 pg/mL Postmenopausal: < 50 pg/mL Patients treated with Fluvestrant (Faslodex) should be tested using an alternate assay such as LC-MS due to potential for cross-reactivity. Estradiol varies widely throughout the menstrual cycle. Current interpretive data was last revised 2024. Blood 12/14/2024 2:30 PM EMERGENCY MEDICINE MEDICAL DIRECTOR 12/14/2024 7:38 PM EMERGENCY MEDICINE MEDICAL DIRECTOR Darcy James MD LAB BLOOD ORDERAB LES Final Result [facility] [place] [address] * (ABNORMAL) Total testosterone (12/14/2024 2:30 PM EMERGENCY MEDICINE MEDICAL DIRECTOR) Pathologist [facility] Testosterone 6.0(L) 8.4 - 48.1 ng/dL Blood 12/14/2024 2:30 PM EMERGENCY MEDICINE MEDICAL DIRECTOR 12/14/2024 7:38 PM EMERGENCY MEDICINE MEDICAL DIRECTOR Result [facility] Darcy James MD LAB BLOOD ORDERAB LES Final Result [facility] [place] [address] * LH (12/14/2024 2:30 PM EMERGENCY MEDICINE MEDICAL DIRECTOR) LH 4.2 IUnits/L Comment: Interpretive Data Males: Adults: 1.7 - 8.6 IUnits/L Females: Follicular: 2.4 - 12.6 IUnits/L Ovulation: 14.0 - 95.6 IUnits/L Luteal: 1.0 - 11.4 IUnits/L Postmenopausal: 7.7 - 58.5 IUnits/L Current interpretive data was last revised on 2019. Blood 12/14/2024 2:30 PM EMERGENCY MEDICINE MEDICAL DIRECTOR 12/14/2024 7:43 PM EMERGENCY MEDICINE MEDICAL DIRECTOR Darcy James MD LAB BLOOD ORDERAB LES Final Result Performing Organization Address [facility] de Phone Number [facility] [place] [address] * Follicle stimulating hormone (12/14/2024 2:30 PM EMERGENCY MEDICINE MEDICAL DIRECTOR) FSH 5.7 IUnits/L Comment: Interpretive Data Male: Adults: 1.5 - 12.4 IUnits/L Female: Follicular: 3.5 - 12.5 IUnits/L Ovulation: 4.7 - 21.5 IUnits/L Luteal: 1.7 - 7.7 IUnits/L Postmenopausal: 25.8 - 134.8 IUnits/L Current interpretive data was last revised 2015. Blood 12/14/2024 2:30 PM EMERGENCY MEDICINE MEDICAL DIRECTOR 12/14/2024 7:38 PM EMERGENCY MEDICINE MEDICAL DIRECTOR Darcy James MD LAB BLOOD ORDERAB LES Final Result Performing Organization Address [facility] Phone Number [facility] [place] [address] * [place] Visual Field - OU - Both Eyes (10/06/2024 11:07 AM EMERGENCY MEDICINE MEDICAL DIRECTOR) Anatomical Region Laterality Modality Head Visual Field Narrative 10/06/2024 11:07 AM EMERGENCY MEDICINE MEDICAL DIRECTOR Few central misses OD with poor reliability c/w known amblyopia OD Full OS Latha Baltazar MD OPHTH VISUAL FIELD Final Re sult * OCT, Retina - OU - Both Eyes (10/06/2024 11:06 AM EMERGENCY MEDICINE MEDICAL DIRECTOR) Anatomical Region Laterality Modality Head Optical Coherenc e Tomography Narrative 10/06/2024 11:06 AM EMERGENCY MEDICINE MEDICAL DIRECTOR Right Eye Findings include normal observations. Left Eye Findings include normal observations. Notes Normal mean ganglion cell complex thickness OU (on [employer] Cirrus OCT) us Latha Baltazar MD OPHTH TOMOGRAPHY Final Resu lt * OCT, Optic Nerve - OU - Both Eyes (10/06/2024 11:06 AM EMERGENCY MEDICINE MEDICAL DIRECTOR) RNFL OS 112 micrometers CONTINUUM RNFL OD 115 micrometers CONTINUUM Anatomical Region Laterality Modality Head Optical Coherenc e Tomography Narrative 10/06/2024 11:06 AM EMERGENCY MEDICINE MEDICAL DIRECTOR Right Eye Reliability was good. Average RNFL thickness 115 micrometers. Left Eye Reliability was good. Average RNFL thickness 112 micrometers. Notes Interval improvement in mean RNFL thickness OU (Performed on [employer] Cirrus OCT) us Latha Baltazar MD OPHTH TOMOGRAPHY Final Resu lt from Last 3 Months Insurance [place] [address] ANTH ACCESS Advance Directives For more information, please contact: [phone] * Full Code (Latest Code Status on File) Date Activated Date Inactivated Comments 10/31/2021 10:24 PM 11/01/2021 6:35 PM * Full Code Date Activated Date Inactivated Comments 01/05/2021 1:06 AM 01/08/2021 7:55 PM * Full Code Date Activated Date Inactivated Comments 01/04/2021 6:59 PM 01/05/2021 1:06 AM Full CPR in case of cardiopulmonary arrest Care Teams Editorial Assistant Relationship Specialty Start Date End Date Yadi Solorzano PA PCP - General Physician Linux Developer 02/23/21 No, Physician 05/11/19
--- OUTSIDE RECORDS SUMMARY | 2024-12-30 15:16 | XMS_ITS | Referral Summary ---
Author Organization [facility] Address [address] [place] [address] Care Team Providers Care Fish Header Name Role Phone Yadi Menendez Primary Care Pr ovider Source Comments [facility],non-owned Affiliates and Associated Physician Practices is amultiple site organization consisting of ambulatory clinics and hospital sitesin [place], [place], [place] and [place]. This disclosure is being madepursuant to the Care Everywhere program and may not contain all information available regarding this patient. Last updated 18.[facility] Allergies No known active allergies Medications * [...] surgery with resection of vaginal septum at [facility]; right and left cervix seen Preeclampsia, severe 05/03/2017 History of delivery affecting 11/18/2016 Elevated blood pressure affe cting in second trimester, antepartum Supervision of low-risk first defect Overview (05/30/2020): born with 1 kidney Immunizations Name Administration Dates Next Due TDAP (7yrs+) 05/04/2017 Social History Tobacco Use Types Packs/Day Years [...] Mass Index 32.69 01/31/2018 3:18 PM CDT Functional Status Functional Status Response Date of Assess ment Is person deaf or have jenniffer us hearing difficulty? 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 No 05/03/2017 Does person have difficulty dressing/bathing? No 05/03/2017 Does person have difficulty doing errands alone? No 05/03/2017 Cognitive Status Response Date of Assessm ent Does person have difficulty concentrating/remembering/making decisions? No 05/03/2017 Plan of Treatment Not on file Procedures Procedure Name Priority Date/Time Associated Diagnosis Comments PAP IG RFLX HPV ASCU Routine 01/31/2018 12:00 AM CDT from Last 3 Months or Most Recently Relevant to Health Maintenance Results * PAP IG RFLX HPV ASCU (01/31/2018 12:00 AM CDT) Pap Image-Guided Liquid-Based with Reflex HPV Accession No: [id number] Specimen:Endocervi sacha ThinPrep Slides:1 SPECIMEN ADEQUACY: SATISFACTORY FOR EVALUATION - Endocervical / Transformation Zone Component Present INTERPRETATION: NEGATIVE FOR INTRAEPITHELIAL LESION OR MALIGNANCY OTHER FINDINGS: - Inflammation Present NOTE(S): HPV REFLEX - HPV result to follow if ASCUS in separate report This specimen was evaluated by the ThinPrep Imaging System along with an additional manual rescreening by a or manager and/or pathologist Initial Evaluation performed by Irene HDEZ (ASC). Electronically signed 02/05/2018 Interpretation performed by Frandy Garg MD. Electronically signed 02/05/2018 [facility] Endocervical 01/31/2018 02/03/2018 11:49 AM CDT Alva Romo MD LAB - PATHOLOGY/CY TOLOGY ORDERABLES [facility] [address] [phone] from Last 3 Months or Most Recently Relevant to Health Maintenance Advance Directives * Full Code (Latest Code Status on File) Date Activated Date Inactivated Comments 05/07/2017 8:41 AM 05/11/2017 5:40 PM * Full Code Date Activated Date Inactivated Comments 05/03/2017 7:15 AM 05/07/2017 8:41 AM Care Teams Fish Header Relationship Specialty Start Date End Date Yadi Menendez PA [address] [place] [address] PCP - General Physician Electromechanical Equipment Assembler 05/03/17
--- OUTSIDE RECORDS SUMMARY | 2024-12-30 15:16 | XMS_ITS | Data Portability ---
Author Organization [place] - [facility] [employer], Main Office Address [address] [place] [address] Assessment No assessment recorded. Plan of Treatment Reminders Order Date Submit Date Provider Last Modified By Organization Details Last Modified Time Details Appointments None recorded. Lab CBC w/ auto diff 2022 023 TERI Not available 3 05:41:16 CMP, serum or plasma 2022 023 TERI Not available 3 05:41:14 TSH + free T4, serum 2022 023 TERI Not available 3 05:41:11 vitamin B12 + folate, serum or blood 2022 023 TERI Not available 3 05:41:18 insulin, serum 2022 023 TERI Not available 3 05:41:19 lipid panel, serum 2022 023 TERI Not available 3 05:41:13 HbA1c (hemoglobin A1c), blood 2022 023 TERI Not available 3 05:41:15 Referral None recorded. Procedures None recorded. Surgeries None recorded. Imaging None recorded. Medication Orders Wegovy 0.25 mg/0.5 mL subcutaneou s pen injector 2022 023 [email or web address] [address] [facility] [address], [address] [facility], [place], [address], 3 11:13:08 Patient TargetsNo targets recorded. Patient InstructionsNo instructions recorded. Reason for Referral None Reported. Results Created Date Observation Date Name Description Value Unit Range Abnormal Flag Note LastModifiedBy Organization Detail LastModifiedTime 08/19/2008/20/2023 TSH+F REE T4 TSH 0.67 mIU/L normal Refer ence Range > or = 20 Years 0.40- 4.50 Pregn bright Range s First trime ster 0.26- 2.66 Secon d trime ster 0.55- 2.73 Third trime ster 0.43- 2.91 Not Available [employer] [address], [address], 08/20/2023 05:41:11 08/19/2008/20/2023 TSH+F REE T4 T4, free 1.1 NG/dL 0.8-1. 8 normal Not Available [address], [address], 08/20/2023 05:41:11 08/19/2008/20/2023 LIPID PANEL , STAND YOANDY cholesterol, total 114 mg/dL <200 normal Not Available [address], [address], 08/20/2023 05:41:13 08/19/2008/20/2023 LIPID PANEL , STAND YOANDY HDL cholesterol 39 mg/dL > or = 50 low Not Available [address], [address], 08/20/2023 05:41:13 08/19/2008/20/2023 LIPID PANEL , STAND YOANDY triglyceride s 234 mg/dL <150 high If a non-f astin g speci men was colle cted, consi sondra repea t trigl yceri de testi ng on a fasti ng speci men if clini oscar indic ated. Eduardo loaiza et al. J. of Clin. Lipid ol. 2015; 9:129 -169. Not Available [address], [address], 08/20/2023 05:41:13 08/19/20 23 08/20/2023 LIPID PANEL , STAND YOANDY LDL-choleste rol 46 mg/dL _(sacha c) normal Refer ence range : <100 John able range <100 mg/dL for prima ry preve ntion ; <70 mg/dL for patie nts with CHD or diabe tic patie nts with > or = 2 CHD risk facto rs. LDL-C is now calcu lated using the Zuly n-Hop kins calcu gris n, which is a valid ated novel metho d provi ding luly r accur acy than the Fried gonzalo equat ion in the estim ation of LDL-C . Zuly valderrama SS et al. TAYLOR. 2013; 310(1 7): 2061- 2068 (http ://ed ucati on.Qu anjanaRue89. com/f aq/FA Q164) Not Available [employer] [address] [place], [address], 08/20/2023 05:41:13 08/19/2008/20/2023 LIPID PANEL , STAND YOANDY chol/HDLC ratio 2.9 (calc ) <5.0 normal Not Available [employer] [address] [place], [address], 08/20/2023 05:41:13 08/19/20 23 08/20/2023 LIPID PANEL , STAND YOANDY non HDL cholesterol 75 mg/dL _(sacha c) <130 normal For patie nts with diabe kami plus 1 major ASCVD risk facto r, treat ing to a non-H DL-C goal of <100 mg/dL (LDL- C of <70 mg/dL ) is consi makenzied a thera pemyriam c optio n. Not Available [employer] [address] [place], [address], 08/20/2023 05:41:13 08/19/20 23 08/20/2023 COMPR EHENS MILO METAB OLIC PANEL glucose 94 mg/dL 65-99 normal Fasti ng refer ence inter pepe Not Available [address] [address] [place], [address], 08/20/2023 05:41:14 08/19/2008/20/2023 COMPR EHENS MILO METAB OLIC PANEL urea nitrogen (BUN) 13 mg/dL 7-25 normal Not Available [address], [address], 08/20/2023 05:41:14 08/19/2008/20/2023 COMPR EHENS MILO METAB OLIC PANEL creatinine 0.72 mg/dL 0.50-0 .97 normal Not Available [address], [address], 08/20/2023 05:41:14 08/19/2008/20/2023 COMPR EHENS MILO METAB OLIC PANEL eGFR 114 mL/mi n/1.7 3m2 > or = 60 normal Not Available [address], [address], 08/20/2023 05:41:14 08/19/2008/20/2023 COMPR EHENS MILO METAB OLIC PANEL BUN/creatini ne ratio SEE NOTE: (calc ) 6-22 Not Repor abdirahman: BUN and Creat inine are withi n refer ence range . Not Available [address], [address], 08/20/2023 05:41:14 08/19/2008/20/2023 COMPR EHENS MILO METAB OLIC PANEL sodium 138 mmol/ L 135-14 6 normal Not Available [address], [address], 08/20/2023 05:41:14 08/19/2008/20/2023 COMPR EHENS MILO METAB OLIC PANEL potassium 4.2 mmol/ L 3.5-5. 3 normal Not Available [address], [address], 08/20/2023 05:41:14 08/19/2008/20/2023 COMPR EHENS MILO METAB OLIC PANEL chloride 103 mmol/ L 98-110 normal Not Available [address], [address], 08/20/2023 05:41:14 08/19/20 23 08/20/2023 COMPR EHENS MILO METAB OLIC PANEL carbon dioxide 25 mmol/ L 20-32 normal Not Available [address], [address], 08/20/2023 05:41:14 08/19/2008/20/2023 COMPR EHENS MILO METAB OLIC PANEL calcium 8.7 mg/dL 8.6-10 .2 normal Not Available [address], [address], 08/20/2023 05:41:14 08/19/2008/20/2023 COMPR EHENS MILO METAB OLIC PANEL protein, total 6.4 g/dL 6.1-8. 1 normal Not Available [address], [address], 08/20/2023 05:41:14 08/19/2008/20/2023 COMPR EHENS MILO METAB OLIC PANEL albumin 4.2 g/dL 3.6-5. 1 normal Not Available [address], [address], 08/20/2023 05:41:14 08/19/2008/20/2023 COMPR EHENS MILO METAB OLIC PANEL globulin 2.2 g/dL_ (calc ) 1.9-3. 7 normal Not Available [address], [address], 08/20/2023 05:41:14 08/19/2008/20/2023 COMPR EHENS MILO METAB OLIC PANEL albumin/glob ulin ratio 1.9 (calc ) 1.0-2. 5 normal Not Available [address], [address], 08/20/2023 05:41:14 08/19/2008/20/2023 COMPR EHENS MILO METAB OLIC PANEL bilirubin, total 0.3 mg/dL 0.2-1. 2 normal Not Available [address], [address], 08/20/2023 05:41:14 08/19/2008/20/2023 COMPR EHENS MILO METAB OLIC PANEL alkaline phosphatase 39 U/L 31-125 normal Not Available [address], [address], 08/20/2023 05:41:14 08/19/2008/20/2023 COMPR EHENS MILO METAB OLIC PANEL AST 20 U/L 10-30 normal Not Available [address], [address], 08/20/2023 05:41:14 08/19/2008/20/2023 COMPR EHENS MILO METAB OLIC PANEL ALT 25 U/L 6-29 normal Not Available [address], [address], 08/20/2023 05:41:14 08/19/2008/20/2023 HEMOG LOBIN A1C hemoglobin A1C 5.3 %_of_ total _HGB <5.7 normal For the purpo se of juan f uribe for the prese nce of diabe kami: <5.7% Consi stent with the absen ce of diabe kami 5.7-6 .4% Consi stent with incre ased risk for diabe kami (pred iabet es) > or =6.5% Consi stent with diabe kami This assay resul t is consi stent with a decre ased risk of diabe kami. Curre ntly, no conse nsus exist s safia leon use of hemog lobin A1c for diagn osis of diabe kami in child aminah. Accor ding to Ameri can Diabe kami Assoc iatio n (ADA) guide lines , hemog lobin A1c <7.0% repre sents optim al contr ol in non-p regna nt diabe tic patie nts. Diffe rent metri cs may apply to speci fic patie nt popul ation s. [facility] of Medic al Care in Diabe kami(A DA). Not Available [address] [address] [place], [address], 08/20/2023 05:41:15 08/19/2008/20/2023 CBC (INCL UDES DIFF/ PLT) white blood cell count 6.3 thous and/u L 3.8-10 .8 normal Not Available [address] [address] [place], [address], 08/20/2023 05:41:16 08/19/20 23 08/20/2023 CBC (INCL UDES DIFF/ PLT) red blood cell count 4.24 luis manuel on/uL 3.80-5 .10 normal Not Available [address] [address] [place], [address], 08/20/2023 05:41:16 08/19/20 23 08/20/2023 CBC (INCL UDES DIFF/ PLT) hemoglobin 12.8 g/dL 11.7-1 5.5 normal Not Available [address] [address] [place], [address], 08/20/2023 05:41:16 08/19/20 23 08/20/2023 CBC (INCL UDES DIFF/ PLT) hematocrit 38.0 % 35.0-4 5.0 normal Not Available [facility] [address] [address] [place], [address], 08/20/2023 05:41:16 08/19/20 23 08/20/2023 CBC (INCL UDES DIFF/ PLT) MCV 89.6 fL 80.0-1 00.0 normal Not Available [address], [address], 08/20/2023 05:41:16 08/19/20 23 08/20/2023 CBC (INCL UDES DIFF/ PLT) MCH 30.2 pg 27.0-3 3.0 normal Not Available [address], [address], 08/20/2023 05:41:16 08/19/2008/20/2023 CBC (INCL UDES DIFF/ PLT) MCHC 33.7 g/dL 32.0-3 6.0 normal Not Available [address], [address], 08/20/2023 05:41:16 08/19/2008/20/2023 CBC (INCL UDES DIFF/ PLT) RDW 12.3 % 11.0-1 5.0 normal Not Available [address], [address], 08/20/2023 05:41:16 08/19/20 23 08/20/2023 CBC (INCL UDES DIFF/ PLT) platelet count 215 thous and/u L 140-40 0 normal Not Available [address], [address], 08/20/2023 05:41:16 08/19/2008/20/2023 CBC (INCL UDES DIFF/ PLT) MPV 11.4 fL 7.5-12 .5 normal Not Available [address], [address], 08/20/2023 05:41:16 08/19/20 23 08/20/2023 CBC (INCL UDES DIFF/ PLT) absolute neutrophils 2980 cells /uL 1500-7 800 normal Not Available [address] [place], [address], 08/20/2023 05:41:16 08/19/2008/20/2023 CBC (INCL UDES DIFF/ PLT) absolute lymphocytes 2413 cells /uL 850-39 00 normal Not Available [facility] [address], [address], 08/20/2023 05:41:16 08/19/2008/20/2023 CBC (INCL UDES DIFF/ PLT) absolute monocytes 403 cells /uL 200-95 0 normal Not Available [facility] [address], [address], 08/20/2023 05:41:16 08/19/2008/20/2023 CBC (INCL UDES DIFF/ PLT) absolute eosinophils 441 cells /uL 15-500 normal Not Available [facility] [address], [address], 08/20/2023 05:41:16 08/19/2008/20/2023 CBC (INCL UDES DIFF/ PLT) absolute basophils 63 cells /uL 0-200 normal Not Available [facility] [address], [address], 08/20/2023 05:41:16 08/19/2008/20/2023 CBC (INCL UDES DIFF/ PLT) neutrophils 47.3 % normal Not Available [facility] [address], [address], 08/20/2023 05:41:16 08/19/2008/20/2023 CBC (INCL UDES DIFF/ PLT) lymphocytes 38.3 % normal Not Available [facility] [address], [address], 08/20/2023 05:41:16 08/19/20 23 08/20/2023 CBC (INCL UDES DIFF/ PLT) monocytes 6.4 % normal Not Available [facility] [address] [place], [address], 08/20/2023 05:41:16 08/19/2008/20/2023 CBC (INCL UDES DIFF/ PLT) eosinophils 7.0 % normal Not Available [address], [address], 08/20/2023 05:41:16 08/19/2008/20/2023 CBC (INCL UDES DIFF/ PLT) basophils 1.0 % normal Not Available [address], [address], 08/20/2023 05:41:16 08/19/2008/20/2023 VITAM IN B12/F OLATE , SERUM PANEL vitamin B12 408 pg/mL 200-11 00 normal Not Available [address], [address], 08/20/2023 05:41:18 08/19/2008/20/2023 VITAM IN B12/F OLATE , SERUM PANEL folate, serum 11.2 NG/mL normal Refer ence Range Low: <3.4 Borde rline : 3.4-5 .4 Rachel l: >5.4 Not Available [address], [address], 08/20/2023 05:41:18 08/19/2008/20/2023 INSUL IN insulin 26.2 uIU/m L high Refer ence Range < or = 18.4 Risk: Optim al < or = 18.4 Moder ate NA High >18.4 Adult cardi ovasc ular event risk categ ory cut point s (opti mal, moder ate, high) are based on Insul in Refer ence Inter pepe studi es perfo rmed at [facility] in 2021. Not Available [address], [address], 08/20/2023 05:41:19 Result Notes None recorded. Problems Name Problem SNOMED Code Status Onset Date Resolution Date Notes Provider Name and Address Organization Details Recorded Time Viral gastroenterit is 069659507 Active Not Available [facility] 3 08:09:22 Benign essential hypertension 1014285 Active 2021 Not Available [facility] 3 08:09:22 Urticaria 881827464 Active Not Available [facility] 3 08:09:22 Amenorrhea 91316737 Active Not Available [facility] 3 08:09:22 Acute sinusitis 32162634 Active Not Available [facility] 3 08:09:22 Body mass index 25-29 - overweight 865206001 Active Not Available [facility] 3 08:09:22 Anxiety state 024642986 Active Not Available [facility] 3 08:09:22 Generalized anxiety disorder 97653273 Active Not Available [facility] 3 08:09:22 Undifferentia abdirahman attention deficit disorder 72571494 Active Not Available [facility] 3 08:09:22 Poor focus 385703762 Active 2021 Not Available [facility] 3 08:09:23 Fear of flying 453211259 Active Not Available [facility] 3 08:09:23 Chest pain 64103543 Active Not Available [facility] 3 08:09:23 Left upper quadrant pain 709692707 Active Not Available [facility] 3 08:09:23 Elevated blood-pressur e reading without diagnosis of hypertension 253273765 Active Not Available [facility] 3 08:09:23 Migraine 28539249 Active Not Available [facility] 3 08:09:23 Fever 296393425 Active Not Available [facility] 3 08:09:23 Simple obesity 698952138 Active Not Available [facility] 3 08:09:23 Night sweats 93943906 Active Not Available [facility] 3 08:09:23 Gastritis 2926728 Active Not Available [facility] 3 08:09:23 Mild anxiety 47509393 Active Not Available [facility] 3 08:09:23 Duodenitis 12093299 Active Not Available [facility] 3 08:09:23 Insulin resistance 352513737 Active 2022 Not Available [facility] 3 08:09:24 Palpitations 21107541 Active Not Available [facility] 3 08:09:24 Fatigue 60692394 Active Not Available [facility] 3 08:09:24 Gastroesophag eal reflux disease without esophagitis 710131632 Active 2022 ANAMIKA Longoria [address], [address], [place], [address] , [place] [facility] 3 17:16:29 Polycystic ovary syndrome 354754913 Active 2022 ANAMIKA Longoria [address], [address], [place], [address] , [place] [facility] 3 17:16:56 Acute urinary tract infection 238812094 Active 2022 ANAMIKA Longoria [address], [address], [place], [address] , [employer] [place] [facility] [employer] 3 11:38:15 Upper respiratory infection 45773304 Active 2023 ANAMIKA Longoria [address], [address], [place], [address] , [place] [facility] 4 10:40:16 Problem Notes None recorded. Procedures Surgical History Date Name Laterality Status Provider Name and Address Organization Details Recorded Time 11/18/19 05 laparoscopy completed Not Available [facility] 01/16/2023 08:06:30 section completed Not Available [facility] 01/16/2023 08:06:30 Cholecystectomy completed Not Available [facility] 01/16/2023 08:06:30 endometrial ablation completed Not Available [facility] 01/16/2023 08:06:30 Eye Surgery completed Not Available [facility] 01/16/2023 08:06:30 excision of vaginal septum completed Not Available [facility] 01/16/2023 08:06:30 Imaging Results None recorded. Procedure Notes None recorded. Medical Equipment None Reported. Allergies Allergen ID Allergen Name Allergen Category Reaction Reaction Severity Criticality Documentation Date Start Date Code Code System Note Provider Name and Address Organization Details Recorded Time 72279 Macrobid medicatio n Not available Not available Not available 01/16/2023 [address]1529 1 RxNorm Not Available [facility] 3 08:13:10 Medications Name Sig Start Date Stop Date Status Note LastModified by Organization Details LastModified Time nifedipin e ER 30 mg tablet,ex tended release 24 hr TAKE 1 TABLET BY MOUTH ONCE DAILY IN THE EVENING active Not Available Not Available No t Available cyclobenz aprine 10 mg tablet TAKE 1 TABLET(S ) 3 TIMES A DAY BY ORAL ROUTE NEEDED. 02/07 completed Not Available Not Available Not Available Maxzide-2 5mg 37.5 mg-25 mg tablet Take 1 tablet every day by oral route as directed . active Not Available Not Available No t Available amoxicill in 500 mg capsule 02/07 completed Not Available Not Available Not Available medroxypr ogesteron e 10 mg tablet 05/30 completed Not Available Not Available Not Available methocarb huma 500 mg tablet TAKE 1 TABLET BY MOUTH THREE TIMES DAILY 05/30 completed Not Available Not Available Not Available buspirone 5 mg tablet TAKE 1 TABLET TWICE A DAY active Not Available Not Available No t Available hydrocodo ne 7.5 mg-ibupro fen 200 mg tablet 02/07 completed Not Available Not Available Not Available norgestim ate 0.25 mg-ethiny l estradiol 35 mcg tablet TAKE 1 TABLET BY MOUTH ONCE DAILY 02/07 completed Not Available Not Available Not Available desogestr el 0.15 mg-ethiny l estradiol 0.03 mg tablet TAKE 1 TABLET BY MOUTH DAILY 02/07 completed Not Available Not Available Not Available doxycycli ne hyclate 100 mg capsule Take 1 capsule twice a day by oral route with meals. active Not Available Not Available No t Available Vitamin B-6 25 mg tablet TAKE 1 TABLET BY MOUTH EVERY 6 HOURS active Not Available Not Available No t Available labetalol 200 mg tablet TAKE 1 TABLET BY MOUTH TWICE DAILY active Not Available Not Available No t Available tizanidin e 2 mg tablet TAKE 1 TABLET BY MOUTH EVERY 8 HOURS NEEDED FOR MUSCLE SPASM. START TAKING AT BEDTIME AND IF TOLERTAT ED CAN INCREASE UP TO 3 TIMES A DAY active Not Available Not Available No t Available Iron (ferrous sulfate) 325 mg (65 mg iron) tablet Take 1 tablet twice a day by oral route. 05/30 completed Not Available Not Available Not Available azithromy rochelle 250 mg tablet TAKE 2 TABLETS (500 MG) BY ORAL ROUTE ONCE DAILY FOR 1 DAY THEN 1 TABLET (250 MG) BY ORAL ROUTE ONCE DAILY FOR 4 DAYS active Not Available Not Available No t Available benzonata te 200 mg capsule TAKE 1 CAPSULE BY MOUTH THREE TIMES DAILY NEEDED active Not Available Not Available No t Available sulfameth oxazole 400 mg-trimet hoprim 80 mg tablet TAKE 2 TABLETS BY MOUTH EVERY 12 HOURS FOR 3 DAYS 05/30 completed Not Available Not Available Not Available ampicilli n 500 mg capsule 04/27 completed Not Available Not Available Not Available sumatript an 100 mg tablet active Not Available Not Available Not Available hydrocodo ne 5 mg-acetam inophen 325 mg tablet 02/07 completed Not Available Not Available Not Available Levaquin 750 mg tablet Take 1 tablet every day by oral route. 10/13 completed Not Available Not Available Not Available phenazopy ridine 200 mg tablet Take 1 tablet 3 times a day by oral route for 3 days. 05/30 completed Not Available Not Available Not Available ondansetr on HCl 4 mg tablet TAKE 1 TABLET BY MOUTH EVERY 8 HOURS NEEDED 02/07 completed Not Available Not Available Not Available prednison e 20 mg tablet TAKE 2 TABLETS BY MOUTH EVERY DAY FOR 5 DAYS 05/30 completed Not Available Not Available Not Available spironola ctone 100 mg tablet TAKE 1 TABLET BY MOUTH ONCE DAILY active Not Available Not Available No t Available phentermi ne 15 mg capsule Take 1 capsule every day by oral route. active Not Available Not Available No t Available Diflucan 150 mg tablet Take 1 tablet every day by oral route as needed for 1 day. 11/26 completed Not Available Not Available Not Available phentermi ne 37.5 mg tablet Take 1 tablet every day by oral route. active Not Available Not Available No t Available nifedipin e ER 30 mg tablet,ex tended release 02/07 completed Not Available Not Available Not Available amlodipin e 5 mg tablet Take 1 tablet every day by oral route. active Not Available Not Available No t Available prochlorp erazine maleate 10 mg tablet active Not Available Not Available Not Available ciproflox acin 500 mg tablet TAKE 1 TABLET BY MOUTH TWICE DAILY active Not Available Not Available No t Available sulfameth oxazole 800 mg-trimet hoprim 160 mg tablet TAKE 1 TABLET BY MOUTH TWICE DAILY FOR 7 DAYS 05/30 completed Not Available Not Available Not Available aspirin 81 mg tablet,de layed release Take 1 tablet every day by oral route. 01/12 completed Not Available Not Available Not Available triamcino lone acetonide 0.1 % topical cream APPLY TO AFFECTED AREA FOR 14 DAYS 05/30 completed Not Available Not Available Not Available phentermi ne 30 mg capsule TAKE 1 CAPSULE BY MOUTH A HALF HOUR BEFORE BREAKFAS T 05/30 completed Not Available Not Available Not Available ketorolac 10 mg tablet Take 1 tablet every 6 hours by oral route for 5 days. 01/07 completed Not Available Not Available Not Available Macrobid 100 mg capsule Take 1 capsule every 12 hours by oral route. 07/18 completed Not Available Not Available Not Available oxycodone -acetamin ophen 5 mg-325 mg tablet 02/07 completed Not Available Not Available Not Available amoxicill in 875 mg tablet TAKE 1 TABLET BY MOUTH EVERY 12 HOURS active Not Available Not Available No t Available alprazola m 0.25 mg tablet take one tab po 30 min. before flight when needed. active Not Available Not Available No t Available lorazepam 0.5 mg tablet TAKE 1 TABLET 3 TIMES A DAY NEEDED 05/30 completed Not Available Not Available Not Available metoclopr amide 5 mg tablet TAKE ONE TABLET BY MOUTH THREE TIMES DAILY BEFORE MEALS 02/07 completed Not Available Not Available Not Available clindamyc in 1 % topical gel 02/07 completed Not Available Not Available Not Available nifedipin e ER 60 mg tablet,ex tended release 24 hr Take 1 tablet every day by oral route. 08/02 completed Not Available Not Available Not Available dicyclomi ne 20 mg tablet TAKE 1 TABLET BY MOUTH EVERY 6 HOURS NEEDED 02/07 completed Not Available Not Available Not Available diazepam 2 mg tablet active Not Available Not Available Not Available amlodipin e 10 mg tablet Take 1 tablet every day by oral route. 08/02 completed Not Available Not Available Not Available benzonata te 100 mg capsule TAKE ONE CAPSULE BY MOUTH EVERY 8 HOURS NEEDED FOR COUGH 02/07 completed Not Available Not Available Not Available triamcino lone acetonide 40 mg/mL suspensio n for injection 2cc injectio n IM 05/30 completed [facility]: [address]-58 45-01 Not Available Not Available Not Available cephalexi n 500 mg capsule active Not Available Not Available Not Available pantopraz ole 40 mg tablet,de layed release TAKE 1 TABLET BY MOUTH ONCE DAILY active Not Available Not Available No t Available buspirone 10 mg tablet TAKE 1 TABLET BY MOUTH TWICE DAILY 04/27 completed Not Available Not Available Not Available propranol ol ER 80 mg capsule,2 4 hr,extend ed release Take 1 capsule every day by oral route in the evening. 05/30 completed Not Available Not Available Not Available gabapenti n 300 mg capsule TAKE 1 CAPSULE BY MOUTH TWICE DAILY FOR 14 DAYS 04/27 completed Not Available Not Available Not Available buspirone 7.5 mg tablet TAKE 1 TABLET BY MOUTH TWICE DAILY active Not Available Not Available No t Available hydroxyzi ne HCl 25 mg tablet TAKE 1 TABLET BY MOUTH THREE TIMES DAILY NEEDED FOR ITCHING active Not Available Not Available No t Available hydrocodo ne 5 mg-acetam inophen 500 mg tablet active Not Available Not Available Not Available pyridoxin e (vitamin B6) 100 mg tablet TAKE 1 TABLET BY MOUTH EVERY 6 HOURS active Not Available Not Available No t Available metoprolo l succinate ER 25 mg tablet,ex tended release 24 hr Take 1 tablet every day by oral route. active Not Available Not Available No t Available propranol ol ER 120 mg capsule,2 4 hr,extend ed release Take 1 capsule every day by oral route. active Not Available Not Available No t Available Cheratuss in AC 10 mg-100 mg/5 mL oral liquid Take 10 mL every 4-6 hours by oral route as needed. 05/14 completed Not Available Not Available Not Available cefuroxim e axetil 500 mg tablet TAKE 1 TABLET BY MOUTH EVERY 12 HOURS active Not Available Not Available No t Available methylpre dnisolone 4 mg tablets in a dose pack use as directed 07/02 completed Not Available Not Available Not Available albuterol sulfate HFA 90 mcg/actua tion aerosol inhaler INHALE 2 PUFFS BY MOUTH EVERY 4 HOURS NEEDED active Not Available Not Available No t Available norethind jamari (contrace ptive) 0.35 mg tablet 02/07 completed Not Available Not Available Not Available nifedipin e ER 60 mg tablet,ex tended release 02/07 completed Not Available Not Available Not Available cefdinir 300 mg capsule TAKE 1 CAPSULE BY MOUTH EVERY 12 HOURS active Not Available Not Available No t Available phentermi ne 37.5 mg capsule TAKE ONE CAPSULE EVERY DAY 03/27 completed Not Available Not Available Not Available spironola ctone 50 mg tablet Take 1 tablet every day by oral route. active Not Available Not Available No t Available amoxicill in 875 mg-potass ium clavulana te 125 mg tablet Take 1 tablet every 12 hours by oral route. 05/30 completed Not Available Not Available Not Available Adderall 10 mg tablet Take 1 tablet every day by oral route at noon. active RX paper. orange picker. Not Available Not Available Not Available buspirone 15 mg tablet TAKE 1/2 (ONE-KAYLA F) TABLET BY MOUTH TWICE DAILY active Not Available Not Available No t Available oxycodone 5 mg tablet TAKE 1 TABLET BY MOUTH EVERY 4 HOURS NEEDED FOR PAIN 05/30 completed Not Available Not Available Not Available valsartan 160 mg tablet TAKE 1 TABLET BY MOUTH ONCE DAILY active Not Available Not Available No t Available Cryselle (28) 0.3 mg-30 mcg tablet TAKE 1 TABLET BY MOUTH ONCE DAILY 02/07 completed Not Available Not Available Not Available Strattera 40 mg capsule Take 1 capsule every day by oral route in the morning. 01/08 completed Not Available Not Available Not Available Microgest in 12/07 (21) 1 mg-20 mcg tablet TAKE 1 TABLET BY MOUTH DAILY 02/07 completed Not Available Not Available Not Available Hair Vitamins takes 2 tabs daily 2014 active Not Available Not Available Not Avai lable Apri 1 everyday 2014 active control Not Available Not Available Not Available Vitamin takes 1 tab daily 2014 active for hair growth Not Available Not Available Not Available PreviDent 5000 Sensitive 1.1 %-5 % dental paste USE DIRECTED 01/07 completed Not Available Not Available Not Available hydrochlo rothiazid e 12.5 mg tablet Take 1 tablet every day by oral route. 02/07 completed Not Available Not Available Not Available cyclobenz aprine 7.5 mg tablet TAKE 1 TABLET BY MOUTH THREE TIMES DAILY NEEDED FOR MUSCLE SPASM FOR UP TO 10 DAYS 04/27 completed Not Available Not Available Not Available Vyvanse 20 mg capsule Take 1 capsule every day by oral route. 12/18 completed Not Available Not Available Not Available Vaqta (PF) 50 unit/mL intramusc ular suspensio n 05/30 completed Not Available Not Available Not Available Lo Loestrin Fe 1 mg-10 mcg (24)/10 mcg (2) tablet TAKE 1 TABLET BY MOUTH ONCE DAILY 02/07 completed Not Available Not Available Not Available + DHA takes daily 01/07 completed Not Available Not Available Not Available Multi Vitamin 07/23 completed Not Available Not Available Not Available Flucelvax Quad 3902-7838 (PF) 60 mcg (15 mcg x 4)/0.5 mL IM syringe 02/07 completed Not Available Not Available Not Available Ozempic 0.25 mg or 0.5 mg (2 mg/1.5 mL) subcutane ous pen injector INJECT 0.5 MG EVERY WEEK SUBCUTAN EOUSLY DIRECTED 05/01 completed Not Available Not Available Not Available Flucelvax Quad (PF) 60 mcg (15 mcg x 4)/0.5 mL IM syringe PHARMACI ST ADMINIST ERED IMMUNIZA TION ADMINIST ERED AT TIME OF DISPENSI NG active Not Available Not Available No t Available Ozempic 1 mg/dose (4 mg/3 mL) subcutane ous pen injector Inject 1 mg every week by subcutan eous route as directed . 09/12 completed Not approved thru insuranc e Not Available Not Available Not Available Wegovy 0.25 mg/0.5 mL subcutane ous pen injector Inject 0.25 mg every week by subcutan eous route. 09/12 completed Not approved thru insuranc e Not Available Not Available Not Available Ozempic 0.25 mg or 0.5 mg (2 mg/3 mL) subcutane ous pen injector active Not Available Not Available Not Available Vitals Date Recorded Body mass index (BMI) Body mass index (BMI) Body height Body height Body height Oxygen saturation Oxygen saturation in Arterial blood by Pulse oximetry Oxygen saturation Oxygen saturation in Arterial blood by Pulse oximetry Heart rate Heart rate Respiratory rate Body temperature Body temperature Body temperature Body weight Body weight Systolic blood pressure Diastolic blood pressure Systolic blood pressure Diastolic blood pressure Provider Name and Address Organization Details Last Updated DateTime 3 37 kg/m2 36.9 kg/m2 172.72 cm 172.72 cm 172.72 cm 98 % 98 % 99 % 99 % 77 /min 82 /min 16 /min 97.9 [degF] 98 [degF] 97.8 [degF] 122624. 1 g 861197. 95 g 122 mm[Hg] 70 mm[Hg] 118 mm[Hg] 76 mm[Hg] Not Available [facility] 3 08:06:51 Date Recorded Body height Body temperature Body mass index (BMI) Body weight Heart rate Oxygen saturation Oxygen saturation in Arterial blood by Pulse oximetry Systolic blood pressure Diastolic blood pressure Provider Name and Address Organization Details Last Updated DateTime 3 172.72 cm 97.3 [degF] 37.9 kg/m2 779832. 5 g 95 /min 99 % 99 % 122 mm[Hg] 60 mm[Hg] Rain Ruiz MA [employer] 3 14:09:21 Social History Question Answer Notes LastModified by Organizat ion Details LastModified Time Tobacco Smoking Status Never Smoker Cathy De Jesus MA [facility], [employer] 08/02/2023 14:03:12 Do You Have An Advance Directive? No [id number] Information not available 01/16/2023 What Is Your Level Of Alcohol Consumption? Occasional [id number] Information not available 01/16/2023 What Is Your Level Of Caffeine Consumption? Occasional [id number] Information not available 01/16/2023 In The 14 Days Before Symptom Onset, Have You Had Close Contact With A Laboratory-confirm ed COVID-19 While That Case Was Ill? No Information n ot available 08/02/2023 In The 14 Days Before Symptom Onset, Have You Had Close Contact With A Person Who Is Under Investigation For COVID-19 While That Person Was Ill? No Information not available 08/02/2023 What Type Of Diet Are You Following? REGULAR [id number] Information not available 01/16/2023 Have There Been Any Changes To Your Family Or Social Situation? No Information no t available 08/02/2023 Do You Use Insect Repellent Routinely? No Information not available 08/02/2023 Do You Have A Medical Power Of Light Bulb Assembler? No Information not available 08/02/2023 What Is Your Relationship Status? [id number] Information not available 01/16/2023 Do You Use Your Seat Belt Or Car Seat Routinely? Yes Information not available 08/02/2023 Do You Have Smoke And Carbon Monoxide Detectors In Your Home? Yes Information not available 08/02/2023 Do You Use Any Illicit Or Recreational Drugs? No Information not available 08/02/2023 Do You Use Sunscreen Routinely? Yes Information not available 08/02/2023 Have You Recently Traveled Abroad? No Information not available 08/02/2023 Do You Have Any Dietary Restrictions? No Information not available 08/02/2023 Do You Or Have You Ever Used Any Other Forms Of Tobacco Or Nicotine? No Information not available 08/02/2023 Sex: Unknown Functional Status None recorded. Mental Status None recorded. Family History Relationship Description Onset Age of this Age Resolved Age Notes LastModified by Organization Details LastModified Time Mother Obesity [id number] Not available 01/16/2023 08:06:30 Medical History Condition Response HYPERTENSION Y Gynecological HistoryNo gynecological history recorded. Obstetrics History GPAL:G 0 P 0 0 0 0 Immunizations Vaccine Type Date Status Note Provider Romeo choudhary and Address Organization Details Recorded Time Influenza, split virus, quadrivalent, preservative 9 completed Not Available [facility] 01/16/2023 08:12:54 COVID-19 vaccine, vector-nr, rS-ChAdOx1, PF, 0.5 mL 1 completed Not Available [facility] 01/16/2023 08:12:54 Hep A, adult 8 completed Not Available [facility] 01/16/2023 08:12:54 MMR 6 completed Not Available [facility] 01/16/2023 08:12:54 polio, unspecified formulation 6 completed Not Available [facility] 01/16/2023 08:12:54 MMR 3 completed Not Available [facility] 01/16/2023 08:12:55 polio, unspecified formulation 1 completed Not Available [facility] 01/16/2023 08:12:55 polio, unspecified formulation 1 completed Not Available [facility] 01/16/2023 08:12:55 polio, unspecified formulation 1 completed Not Available [facility] 01/16/2023 08:12:55 Tdap 5 completed Not Available [facility] 01/16/2023 08:12:55 influenza, unspecified formulation 5 completed Not Available [facility] 01/16/2023 08:12:55 Influenza, split virus, trivalent, preservative 3 completed Not Available [facility] 01/16/2023 08:12:55 DT (pediatric) 5 completed Not Available [facility] 01/16/2023 08:12:55 Hep B, adolescent or pediatric 1 completed Not Available [facility] 01/16/2023 08:12:55 Hep B, adolescent or pediatric 1 completed Not Available [facility] 01/16/2023 08:12:55 Hep B, adolescent or pediatric 1 completed Not Available [facility] 01/16/2023 08:12:55 Hep A, unspecified formulation 9 completed Not Available [facility] 01/16/2023 08:12:56 Past Encounters Encounter ID Performer Location Encounter Start Date Encounter Closed Date Diagnosis/Indication Diagnosis SNOMED-CT Code Diagnosis ICD10 Code Diagnosis Note [id number] [facility] [place] [address] [place] [address] 01/17/2021 00:00:00 01/18/2021 13:25:33 [id number] [facility] [place] [address] [place] [address] 04/27/2022 00:00:00 05/17/2022 17:20:12 [id number] [facility] [place] [address] [place] [id number] 01/08/2023 00:00:00 01/13/2023 12:49:39 [id number] ANAMIKA Longoria [facility] [place] [address] [place] [id number] 08/02/2023 14:00:45 08/02/2023 14:35:22 Benign essential hypertension 6245762 I10 stable on valsartan 160mg daily. Generalize d anxiety disorder 96532013 F41.1 stable on buspar 7.5mg bid Polycystic ovary syndrome 819397159 E28.2 screening insulin due Adult heal th examination 457819475 Z00.01 annual wellness completed Cholesterol screening 27 1590170 Z13.220 fasting lipids due Diabetes m ellitus screening 652037997 Z13.1 diabetes screening due Long-term drug therapy 231265008 Z79.899 annual labs due fasting. Body mass index 30+ - obesity 227082570 Z68.37 start wegovy course. Health Concerns Section Related Observation LastModified by Organization Detai ls LastModified Time None Recorded Concern Status LastModified by Organization Details LastModified Time None Recorded Advance Directives Directive N: Payers Encounter Date Sequence Insurance Name Policy Number Policy Sampson Covered Member ID Sampson Member ID Guarantor Name 08/02/2023 1 [place] [id number] 1 Aminah Hein [id number] Aminah Hein Notes Date Note Type Note Provider Name and Address Organization Details Recorded Time 2 text/html Generic HPI TemplateReported bypatient.Notes:wellness. Not Available [place] [facility] [employer] [facility] 05/17/2022 17:20:12 3 text/html HypertensionReported bypatient.Onset/Timing:be tter Self Care:not under emotional stress Associated Symptoms:no shortness of breath; no fatigue; no palpitations; no decline in exercise capacity; no snoring Not Available [employer] [facility] 01/13/2023 12:49:39 3 text/html Anxiety, Generalized DisorderReported bypatient.Notes:stable on buspar. improved. new job.HypertensionReported bypatient.Notes:stable on medication. no c/o ANAMIKA Longoria [address] [facility], [facility] [address], [place], [address], [employer] 08/17/2023 21:32:04 OBGyn Episode No OBEpisode recorded.
--- OUTSIDE RECORDS SUMMARY | 2024-12-30 15:16 | XMS_ITS | Clinical Summary ---
Author Organization [facility] Address [address] [place] [address] Care Team Providers Care Machine Feller Name Role Phone No, Physician Unavailable Yadi Solorzano Primary Care Pr ovider Allergies Active Allergy Reactions Criticality Noted Date [...] (04/18/2021): Added automatically from request for surgery [id number] care following delivery 12/19 Overview (01/08/2021): # [...] - s/p counseling 06/10 - current regimen: [id number] - has home BP cuff, reminded patient [...] weeks Assessment & Plan (01/02/2021 10:54 AM CLINICAL REVIEW NURSE): She has not been checking her Bps at home but plans to start and will bring them to weekly appointments. Continues to have lower extremity swelling. Bp mild range today. Has headaches that resolve on their own or with tylenol. Denies changes in vision or RUQ pain. Very strict BP parameters and preE precautions reviewed. Assessment & Plan (10/10/2020 6:33 PM CLINICAL REVIEW NURSE): Reports some symptoms of SOB with activity. [...] weeks, delivered @ 28 weeks -s/p counseling 06/10. Precautions reivewed [x] ASA 81 mg (pt [...] unspecified trimester 06/09/2020 Overview (01/02/2021): [x] Full [facility] Care; Referring Provider: Self Referral [] or [...] performed on - 92/146/133/98 [x] Flu Shot (Jul-Oct): 08/18/2020 MS [x] Tdap (27-36wks): 11/21/2020 ms 3rd Tri Labs: [] CBC/HIV/RPR: ordered for next visit [x] GBS: POSITIVE [x] GC/CT (if indicated): neg/neg on 11/22/20 [] COVID testing: Counselling [] MOD: breech, will schedule rC/S 01/26 with BTL [x] Place of delivery: [facility] [x] MOC: BTL, s/p counseling (private insurance) [x] Method of feeding: breast [x] Housing Property Manager: [] PP Depression Discussed: Assessment & Plan (06/10/2020 2:03 PM CDT): Serologies and baseline labs ordered today. Has recent EKG in CareEverywhere. Will discuss genetic screening when viability confirmed. 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 - [facility] 05/2019: Polyps in normal appearing right uterine [...] (04/18/2021): Added automatically from request for surgery [id number] History of section complicating 06/09/2020 12/14/2024 Overview (06/24/2020): - discussed @ IOB; would like to TOLAC if possible (this is in different/non-scarred uterine cavity); counseled regarding risk for soft tissue dystocia - Readdress at future visit Irregular menses 05/13/2019 06/10/2020 Overview (05/13/2019): Added automatically from request for surgery [id number] Encounters Date Type Department Care Team Description 12/29/2024 Telephone [facility] [address] [place] [address] [address] [place] [address] Latha Baltazar MD 12/21/2024 9:45 AM CLINICAL REVIEW NURSE Office Visit [facility] [address] [place] [address] Health [address] [place] [address] Latha Baltazar MD Idiopathic intracranial hypertension (Primary Dx); 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 12/21/2024 9:20 AM CLINICAL REVIEW NURSE Imaging Exam [facility] [address] [facility] 6th [place] [address] Idiopathic intracranial hypertension; 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 12/18/2024 Orders Only [facility] [address] [facility] [address] [place] [address] Darcy James MD Low serum follicle stimulating hormone (FSH) (Primary Dx); Low testosterone level in female 12/18/2024 Orders Only [facility] [address] [facility] 6th Floor, [address] [place] [address] Latha Baltazar MD Idiopathic intracranial hypertension (Primary Dx); 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 12/17/2024 Telephone [facility] [address] [facility] [address] [place] [address] Farideh Trujillo RN Referral to AMANDO 12/15/2024 Orders Only [facility] [address] [place] [address] [address] [place] [address] Darcy James MD Low serum follicle stimulating hormone (FSH) (Primary Dx); Low testosterone level in female; Low libido 12/15/2024 Orders Only [facility] [address] [place] [address] [address] [place] [address] Darcy James MD Low serum follicle stimulating hormone (FSH) (Primary Dx) 12/14/2024 2:30 PM CLINICAL REVIEW NURSE - 12/14/2024 11:59 PM CLINICAL REVIEW NURSE Hospital Encounter [facility] [address] [place] [address] Bacterial vaginitis; Leukorrhea; Vaginal bleeding Discharge Disposition: Discharge to home or self care 12/14/2024 1:30 PM CLINICAL REVIEW NURSE [facility] [address] [place] [address] [address] [place] [address] Darcy James MD 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); H/O: hysterectomy; Vaginal dryness; Weight loss; Vaginal bleeding; Chronic RLQ pain; Bacterial vaginitis; Leukorrhea 12/14/2024 Orders Only [facility] at the [address] [phone] Darcy James MD 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; Vaginal dryness; Weight loss 10/07/2024 Telephone [facility] [address] [facility] [address] [place] [address] Latha Baltazar MD 10/06/2024 9:15 AM CLINICAL REVIEW NURSE Office Visit [facility] [address] [facility] [address] [place] [phone] Latha Baltazar MD Idiopathic intracranial hypertension (Primary Dx); 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 from Last 3 Months Immunizations Name Administration Dates Next Due DT 06/08/2005 Hep A, Adult 04/06/2019,10/15/2018,10/15/2018 Hep A, Unspecified 04/06/2019 Hep B, Adolescent or Pediatric 08/18/2001,2000,02/14/2001 Influenza, Quadrivalent, Tatyana l Culture-based MDCK, Preservative Free, Antibiotic Free, Intramuscular 08/18/2020,08/27/2019,09/21/2017 Influenza, Quadrivalent, Spl it, Intramuscular 08/27/2019 Influenza, Quadrivalent, Spl it, Preservative Free, Intramuscular 09/13/2021 Influenza, Trivalent, IM (MDV) 10/02/2013 Influenza, Unspecified 11/18/2014 [employer] ([employer]) SARS-CoV-2 Vaccination 02/27/2021, 02/27/2021 MMR 05/11/1996,07/26/1993 Polio, Unspecified 05/11/1996, 1,1991,06/10 Tdap 11/21/2020,05/04/2017,09/12/2015 Surgical History Surgery Date Site/Laterality Comments EYE SURGERY CHOLECYSTECTOMY SECTION VAGINAL SEPTUM RESECTION OHVIRA required left hemivaginal septum resection for hematocolpos in 2005 LAPAROSCOPY Laparoscopic hemicolpos drainage 2004 ENDOMETRIAL ABLATION LAPAROSCOPIC TOTAL HYSTERECTOMY Medical History Medical History Date Comments Personal history of other di seases of the nervous system and sense organs History of amblyop ia - (Added by TW Conv) Personal history of other sp ecified conditions History of headache - (Added by TW Conv) High blood pressure Excessive bleeding Kidney disease Absent left kidn ey in setting of left sided OHVIRA s/p resection of longitudinal hemivaginal septum Hypertension No medications c urrently. Being monitored. Obesity Malignant hyperthermia Patient's uncle from malginant hyperthermia at age 10 Idiopathic intracranial hypertension 06/11/2024 Family History Medical History Relation Name Comments Hodgkin's lymphoma Brother 1 Other cancer Brother 1 Asthma Brother 2 Hypertension Father Rheum arthritis Father Other cancer Maternal Grandfather Hypertension Mother Multiple sclerosis Mother Obesity Mother Malig Hyperthermia Mother's Brother Endometriosis Other 1 aunt Breast cancer Other 2 great P aunt Hypertension Sister Obesity Sister Early menopause Neg Hx Fragile X syndrome Neg Hx Relation Name Status Comments Brother 1 Alive Brother 2 Alive Father Alive Maternal Grandfather Maternal Grandmother Mother Alive Mother's Brother Other 1 aunt Alive Other 2 great P aunt Alive Sister Social History Tobacco Use Types Packs/Day Years [...] 11/01/2021 How often do you attend [facility] or catholic services? 1 to 4 times per year 11/01/2021 Do you belong to any clubs o r organizations such as mosque groups, unions, fraternal or athletic groups, or [...] things needed for daily living? No 11/01/2021 [place] Depression Scale Answer Date Recorded [place] Depression Scale Total 4 01/24/2021 The thought [...] on file Legal Sex Female 7:14 AM CLINICAL REVIEW NURSE Gender Identity Not on file Sexual Orientation Straight 06/07/2020 6: 54 PM CDT Obstetrics History Para Term AB IAB SAB Ectopic Multiple Livin g Live Births 2 2 2 0 2 2 Date Outcome GA Total Labor Labor/2nd/3rd Weight Sex Type Anes PTL Michelle A1 A5 Name Clin 2016 28w 0d 0h 03m 0h 03m 1.2 kg (2 lb 10.3 oz) M C-S j incis Spinal Livin g 6 7 MONICA ,RAVI EcholsNiya gould MD Complications:Pre eclampsia Delivery Location:[facility] 2020 35w 3d 0h 03m 0h 03m 2.64 kg (5 lb 13.1 oz) M CS-LTr anv Combin ed Spinal /Epidu ral Y Livin g 8 9 BRUNILDA HEIN Jonat han S., MD Complications:Pre eclampsia Delivery Location:[facility] Main C ampus ([facility] L AND D PROCEDURE) Comments 2017 in se tting of severe preeclampsia at 27 weeks. Breech presentation. Monico 2'10 doing well now. Last Filed Vital Signs Vital Sign Reading Time Taken Comments Blood Pressure 126/82 12/14/2024 1:27 PM CLINICAL REVIEW NURSE Pulse 69 05/18/2024 9:30 PM CDT Temperature 36.5 C (97.7 F) 05/18/2024 6:32 PM CDT Respiratory Rate 18 05/18/2024 6:32 PM CDT Oxygen Saturation 100% 05/18/2024 9:30 PM CDT Inhaled Oxygen Concentration - - Weight 77.7 kg (171 lb 6.4 oz) 12/14/2024 1:27 P M CLINICAL REVIEW NURSE Height 172.7 cm (5' 8 ) 12/14/2024 1:27 PM CLINICAL REVIEW NURSE Body Mass Index 26.06 12/14/2024 1:27 PM CLINICAL REVIEW NURSE Plan of Treatment Health Maintenance Due Date Last Done Comments Hepatitis C Screening 1990 Varicella Vaccines (1 of 2 - 13+ 2-dose series) 2004 Depression Screening 06/13/2023 06/13/2022, 01/25/20 21 Covid-19 Vaccine ( season) 2024 02/27/2021, 02/27/2021 Influenza Vaccine (#1) 2024 , 08/18/2020, 08/27/2019, Additional history exists Regular Well Visit/Exam 18-64 07/29/2024 07/29/2023 DTaP/Tdap/Td Vaccine (5 - Td or Tdap) 11/21/2030 11/21/2020, 05/04/2017, 09/12/2015, Additional history exists Hepatitis B Screening Completed 08/18/2001 , 03/20/2001, 02/14/2001 Cervical Cancer Screening Discontinued 12/14/2024 HPV Vaccines Aged Out No longer eligi ble based on patient's age to complete this topic Pneumococcal vaccine <65 Aged Out No longer eligible based on patient's age to complete this topic Procedures Procedure Name Priority Date/Time Associated Diagnosis Comments OCT, RETINA - OU - BOTH EYES Routine 12/21/2024 9:02 AM CLINICAL REVIEW NURSE Idiopathic intracranial hypertension 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 OCT, OPTIC NERVE - OU - BOTH EYES Routine 12/21/2024 9:02 AM CLINICAL REVIEW NURSE Idiopathic intracranial hypertension 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 MISCELLANEOUS MICROBIOLOGY TEST Routine 12/14/2024 6:52 PM CLINICAL REVIEW NURSE PAP ONLY Routine 12/14/2024 3:39 PM CLINICAL REVIEW NURSE Vaginal bleeding THINPREP PROCESSING (MOLECULAR COMPONENT) Routine 12/14/2024 3:38 PM CLINICAL REVIEW NURSE Vaginal bleeding LUTEINIZING HORMONE (LH) Routine 12/14/2024 2:30 PM CLINICAL REVIEW NURSE 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 Vaginal dryness Weight loss PROLACTIN Routine 12/14/2024 2:30 PM CLINICAL REVIEW NURSE 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 Vaginal dryness Weight loss FOLLICLE STIMULATING HORMONE Routine 12/14/2024 2:30 PM CLINICAL REVIEW NURSE 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 Vaginal dryness Weight loss ESTRADIOL Routine 12/14/2024 2:30 PM CLINICAL REVIEW NURSE 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 Vaginal dryness Weight loss TOTAL TESTOSTERONE Routine 12/14/2024 2: 30 PM CLINICAL REVIEW NURSE 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 Vaginal dryness THYROID FUNCTION CASCADE Routine 12/14/2024 2:30 PM CLINICAL REVIEW NURSE 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 Vaginal dryness Weight loss SEX HORMONE BINDING GLOBULIN Routine 12/14/2024 2:30 PM CLINICAL REVIEW NURSE 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 Vaginal dryness CAMARGO VISUAL FIELD - OU - BOTH EYES Routine 10/06/2024 11:07 AM CLINICAL REVIEW NURSE 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 Findings include normal observations. Left Eye Quality was good. Findings include normal observations. Notes Normal mean ganglion cell complex thickness OU (on Zeiss Cirrus OCT) us Latha Baltazar MD OPHTH TOMOGRAPHY Final Resu lt * OCT, Optic Nerve - OU - Both Eyes (12/21/2024 9:02 AM CLINICAL REVIEW NURSE) RNFL OS 115 micrometers CONTINUUM RNFL OD 123 micrometers CONTINUUM Anatomical Region Laterality Modality Head Other Narrative 12/21/2024 11:11 AM CLINICAL REVIEW NURSE Right Eye Reliability was good. Average RNFL thickness 123 micrometers. Left Eye Reliability was good. Average RNFL thickness 115 micrometers. Notes Trace interval increase in RNFL thickness us Latha Baltazar MD OPHTH TOMOGRAPHY Final Resu lt * Miscellaneous microbiology test Miscellaneous Miscellaneous (12/14/2024 6:52 PM CLINICAL REVIEW NURSE) Report Final Report: Negative for Mycoplasma genitalium Organism NEGATIVE FOR MYCOPLASMA GENITALIUM [facility] Miscellaneous (Miscellaneous) 12/14/2024 6:52 PM CLINICAL REVIEW NURSE 12/14/2024 7:57 PM CLINICAL REVIEW NURSE Narrative [facility] - 12/16/2024 7:11 PM CLINICAL REVIEW NURSE Name of test to be performed:->mycoplasma genitalium Specimen type/source->vaginal [facility] Microbiology Laboratory ([phone]) Darcy James MD LAB MICROBIOLOGY - GENERAL ORDERABLES Final Result [facility] Department [place] [address] * Pap Only (Cytology Component) (12/14/2024 3:39 PM CLINICAL REVIEW NURSE) Thin prep (Pap test) 12/14/2024 3:39 PM CLINICAL REVIEW NURSE 12/14/2024 6:07 PM CLINICAL REVIEW NURSE Narrative PATHOLOGY [facility] - 12/21/2024 10:44 AM CLINICAL REVIEW NURSE EPIC results best viewed via link to PDF [facility] Andreea Rojas [facility] [place] [address] Note to Patients: This report may contain [...] Gender: F : 1990 (Age: 34) Address: [address] [place] [address] [place] [address] [facility] #: [id number] Service: UNKNOWN Location: Patient Type: [facility] SPECIMEN Taken: 12/14/2024 Received: 12/14/2024 Accessioned: 12/15/2024 Reported: 12/21/2024 Physician(s): Darcy James M.D. FINAL INTERPRETATION SOURCE OF SPECIMEN Liquid based Thin Prep pap: STATEMENT OF ADEQUACY - Satisfactory for evaluation - Clinical history of hysterectomy GENERAL CATEGORIZATION: - Negative for squamous intraepithelial lesion or malignancy 12/21/2024 10:44 Sisi Davis MS, CT (ASCP) Report [...] clinical information and biopsy results as indicated. [facility] Clinical Laboratory Improvement Amendments (CLIA) mandate that cytologic and histologic results be correlated for laboratory quality review specialist & improvement standards. FOR ALL HIGH-GRADE CASES [...] determined by the Surgical Pathology Department at [facility] as part of an ongoing quality assurance practice manager program and in compliance with federally mandated [...] determined by the Surgical Pathology Department of [facility]. It has not been cleared or approved by the U. S. Food and Drug Administration. Darcy James MD LAB CYTOLOGY ORDE RABLES Final Result PATHOLOGY [place] 3rd [place], [place] [phone] * ThinPrep processing (Molecular component) (12/14/2024 3:38 PM CLINICAL REVIEW NURSE) Pathologist [facility] ThinPrep processing (Molecular component) Specimen received for processing. [facility] Endocervical 12/14/2024 3:38 PM CLINICAL REVIEW NURSE 12/16/2024 10:28 PM CLINICAL REVIEW NURSE Result [facility] Darcy James MD LAB BODY FLUIDS A ND STOOLS ORDERABLES Final Result Performing Organization Address [facility] Co de Phone Number [facility] Department [place] [address] [facility] * Sex hormone binding globulin (12/14/2024 2:30 PM CLINICAL REVIEW NURSE) [facility] Sex steroid binding globulin 34.5 18.2 - 135.5 nmol/L [place] ref Lab Comment: Test Performed by: [facility] [address] [place] [address] Wood Box Maker: Robyn Delgado Ph.D.; CLIA# [id number] Blood 12/14/2024 2:30 PM CLINICAL REVIEW NURSE 12/14/2024 7:43 PM CLINICAL REVIEW NURSE Result [facility] Darcy James MD LAB BLOOD ORDERAB LES Final Result Performing Organization Address [facility]/ZIP Co de Phone Number [facility] [place] [address] [place] ref Lab * Thyroid Function [place] (12/14/2024 2:30 PM CLINICAL REVIEW NURSE) Pathologist [facility] TSH 0.51 0.30 - 4.20 mcIUnit/mL Blood 12/14/2024 2:30 PM CLINICAL REVIEW NURSE 12/14/2024 7:38 PM CLINICAL REVIEW NURSE Result [facility] Darcy James MD LAB BLOOD ORDERAB LES Final Result Performing Organization Address [facility] de Phone Number [facility] [place] [address] * Prolactin (12/14/2024 2:30 PM CLINICAL REVIEW NURSE) Prolactin 8.2 4.8 - 23.3 ng/mL Blood 12/14/2024 2:30 PM CLINICAL REVIEW NURSE 12/14/2024 7:43 PM CLINICAL REVIEW NURSE Result [facility] Darcy James MD LAB BLOOD ORDERAB LES Final Result Performing Organization Address [facility] Phone Number [facility] [place] [address] * Estradiol (12/14/2024 2:30 PM CLINICAL REVIEW NURSE) Pathologist [facility] Estradiol 33.9 pg/mL Comment: Interpretive Data Males: 11 43 pg/mL Females: Premenopausal: 31 533 pg/mL Postmenopausal: < 50 pg/mL Patients treated with Fluvestrant (Faslodex) should be tested using an alternate assay such as LC-MS due to potential for cross-reactivity. Estradiol varies widely throughout the menstrual cycle. Current interpretive data was last revised 2024. Blood 12/14/2024 2:30 PM CLINICAL REVIEW NURSE 12/14/2024 7:38 PM CLINICAL REVIEW NURSE Result [facility] Darcy James MD LAB BLOOD ORDERAB LES Final Result Performing Organization Address [facility] Co de Phone Number [facility] [place] [address] * (ABNORMAL) Total testosterone (12/14/2024 2:30 PM CLINICAL REVIEW NURSE) Testosterone 6.0(L) 8.4 - 48.1 ng/dL Blood 12/14/2024 2:30 PM CLINICAL REVIEW NURSE 12/14/2024 7:38 PM CLINICAL REVIEW NURSE Darcy James MD LAB BLOOD ORDERAB LES Final Result Performing Organization Address [facility] Phone Number [facility] [place] [address] * LH (12/14/2024 2:30 PM CLINICAL REVIEW NURSE) LH 4.2 IUnits/L Comment: Interpretive Data Males: Adults: 1.7 - 8.6 IUnits/L Females: Follicular: 2.4 - 12.6 IUnits/L Ovulation: 14.0 - 95.6 IUnits/L Luteal: 1.0 - 11.4 IUnits/L Postmenopausal: 7.7 - 58.5 IUnits/L Current interpretive data was last revised on 2019. Blood 12/14/2024 2:30 PM CLINICAL REVIEW NURSE 12/14/2024 7:43 PM CLINICAL REVIEW NURSE Result [facility] Darcy James MD LAB BLOOD ORDERAB LES Final Result Performing Organization Address [facility] Phone Number [facility] [place] [address] * Follicle stimulating hormone (12/14/2024 2:30 PM CLINICAL REVIEW NURSE) FSH 5.7 IUnits/L Comment: Interpretive Data Male: Adults: 1.5 - 12.4 IUnits/L Female: Follicular: 3.5 - 12.5 IUnits/L Ovulation: 4.7 - 21.5 IUnits/L Luteal: 1.7 - 7.7 IUnits/L Postmenopausal: 25.8 - 134.8 IUnits/L Current interpretive data was last revised 2015. Blood 12/14/2024 2:30 PM CLINICAL REVIEW NURSE 12/14/2024 7:38 PM CLINICAL REVIEW NURSE us Darcy James MD LAB BLOOD ORDERAB LES Final Result [facility] Department [place] [address] * [place] Visual Field - OU - Both Eyes (10/06/2024 11:07 AM CLINICAL REVIEW NURSE) Anatomical Region Laterality Modality Head Visual Field Narrative 10/06/2024 11:07 AM CLINICAL REVIEW NURSE Few central misses OD with poor reliability c/w known amblyopia OD Full OS us Latha Baltazar MD OPHTH VISUAL FIELD Final Re sult * OCT, Retina - OU - Both Eyes (10/06/2024 11:06 AM CLINICAL REVIEW NURSE) Anatomical Region Laterality Modality Head Optical Coheren[facility] e Tomography Narrative 10/06/2024 11:06 AM CLINICAL REVIEW NURSE Right Eye Findings include normal observations. Left Eye Findings include normal observations. Notes Normal mean ganglion cell complex thickness OU (on [employer] Cirrus OCT) us Latha Baltazar MD OPHTH TOMOGRAPHY Final Resu lt * OCT, Optic Nerve - OU - Both Eyes (10/06/2024 11:06 AM CLINICAL REVIEW NURSE) RNFL OS 112 micrometers CONTINUUM RNFL OD 115 micrometers CONTINUUM Anatomical Region Laterality Modality Head Optical Coherenc e Tomography Narrative 10/06/2024 11:06 AM CLINICAL REVIEW NURSE Right Eye Reliability was good. Average RNFL thickness 115 micrometers. Left Eye Reliability was good. Average RNFL thickness 112 micrometers. Notes Interval improvement in mean RNFL thickness OU (Performed on Ze[employer] Cirrus OCT) us Latha Baltazar MD OPHTH TOMOGRAPHY Final Resu lt from Last 3 Months Insurance ANTHEM ACCESS BLUE ACCESS OOS ANTHEM ACCESS Advance Directives For more information, please contact: [phone] * Full Code (Latest Code Status on File) Date Activated Date Inactivated Comments 10/31/2021 10:24 PM 11/01/2021 6:35 PM * Full Code Date Activated Date Inactivated Comments 01/05/2021 1:06 AM 01/08/2021 7:55 PM * Full Code Date Activated Date Inactivated Comments 01/04/2021 6:59 PM 01/05/2021 1:06 AM Full CPR in case of cardiopulmonary arrest Care Teams Machine Feller Relationship Specialty Start Date End Date Yadi Solorzano PA PCP - General Physician Precipitation Equipment Tender 02/23/21 No, Physician 05/11/19
--- OUTSIDE RECORDS SUMMARY | 2024-12-30 15:17 | XMS_ITS | Encounter Summary ---
Author Organization [facility] Address [address] [place] [address] Phone Care Team Providers Care Product Mgr Name Role Phone No, Physician Unavailable Yadi Solorzano Primary Care Pr ovider Encounter Details Date Type Department Care Team (Late st Contact Info) Description 12/29/2024 Telephone [facility] Ophthalmology [address] [place] [address] [place] [address] Latha Baltazar MD [address] [place] [address] [address] [place] [address] Social History Tobacco Use Types Packs/Day Years Used Date Smoking Tobacco: Never Smokeless Tobacco: Never Alcohol Use Standard Drinks/Week Comments Never 0 [...] often do you attend chur ch or scientology services? 1 to 4 times per year 11/01/2021 Do you belong to any clubs o r organizations such as zoroastrian groups, unions, fraternal or athletic groups, or [...] things needed for daily living? No 11/01/2021 [place] Depression Scale Answer Date Recorded [place] Depression Scale Total 4 01/24/2021 The thought [...] on file Legal Sex Female 7:14 AM [employer]INCIPAL [employer]OM[employer] Gender Identity Not on file Sexual Orientation Straight 06/07/2020 6: 54 PM CDT documented as of this encounter Miscellaneous Notes * Telephone Encounter - Princess Evelin - 12/29/2024 11:16 AM CST I spoke with Davey Bolaños pharmacist he had an old script that was pending but he should have her Diamox ready within an hour. I spoke with Aminah to review the changes. She had no additional concerns. [employer]IPAL [employer]OMATION ENGINEER documented in this encounter Plan of Treatment Not on file documented as of this encounter Visit Diagnoses Not on filedocumented in this encounter Care Teams Product Mgr Relationship Specialty Start Date End Date Yadi Solorzano PA PCP - General Physician Lens Generating Machine Tender 02/23/21 No, Physician 05/11/19 documented as of this encounter
--- OUTSIDE RECORDS SUMMARY | 2024-12-30 15:17 | XMS_ITS | Data Portability ---
Author Organization [facility] [address] [facility] [place] [place] [address] Care Team Providers Care Environmental Health Sanitarian Name Role Phone YADI ZHAO Primary Care Provider Unavailab le Assessment No assessment recorded. Plan of Treatment Reminders Order Date Submit Date Provider Last Modified By Organization Details Last Modified Time Details Appointments ANY 15 2024 02:00P M ANAMIKA Longoria Not available Not available Not available Lab SARS CoV 2 RNA (COVID-19 ), QL, cytogenetics laboratory manager-PCR, respirato ry specimen - [place] @215 2019 020 [facility] (Lab), [address] [place], [address], 06/13/2020 13:52:32 TSH + free T4, serum 2023 024 [facility], [address], [place], [address], 01/19/2024 13:07:54 CMP, serum or plasma 2023 024 [facility], [address], [place], [address], 01/19/2024 13:07:55 CBC w/ auto diff 2023 024 [facility], [address], [place], [address], 01/19/2024 13:07:57 lipid panel, serum 2023 024 [facility], [address], [place], [address], 01/19/2024 13:07:55 HbA1c (hemoglob in A1c), blood 2023 024 [facility], [address], [place], [address], 01/19/2024 13:07:56 insulin, serum 2023 024 [facility] [address], [place], [address], 01/19/2024 13:07:57 CBC w/ auto diff 2023 024 [facility], [address], [place], [address], 08/06/2024 11:17:05 CMP, serum or plasma 2023 024 [facility] [address], [place], [address], 08/06/2024 11:17:03 vitamin B12 + folate, serum or blood 2023 024 [facility], [address], [place], [address], 08/06/2024 11:17:04 vitamin D, 25-hydrox y, total, serum 2023 024 [facility], [address], [place], [address], 08/06/2024 11:17:06 iron + TIBC + ferritin, serum 2023 024 [facility], [address], [place], [address], 08/06/2024 11:17:06 amylase + lipase, serum 2024 025 [facility], [address], [place], [address], 12/30/2024 15:27:52 CMP, serum or plasma 2024 025 [place] [facility], [address], [place], [address], 12/30/2024 15:27:51 CBC w/ auto diff 2024 025 [place], [address], [place], [address], 12/30/2024 15:27:52 Referral None recorded. Procedures None recorded. Surgeries None recorded. Imaging CT, abdomen + pelvis, w/ contrast - r/o pancreati tis and/or severe gastritis [address] (Imaging), [address], [place], [address], 12/30/2024 16:01:59 Medication Orders spironola ctone 100 mg tablet 2023 024 [facility] [address], [address], [place], [address], 01/15/2024 10:40:53 Zepbound 2.5 mg/0.5 mL subcutane ous pen injector 2023 024 [email or web address] [address], [address], [place], [address], 08/03/2024 16:45:28 Patient TargetsNo targets recorded. Patient Instructions Encounter Date Encounter Id Patient Instructions Last Modified By Organization Details Last Modified Time 06/08/2020 [id number] Reviewed the following recommendations: -Stay home and separate from others as much as possible. -Monitor your symptoms and seek medical attention for trouble breathing, persistent chest pain, confusion, or bluish lips or face. -Wear a mask if you must be around other people. -Wash your hands often for 20 seconds with soap and water and clean high-touch surfaces daily -You may discontinue home isolation if your symptoms are improving, it has been 10 days since symptoms started, and you have been fever free for at least 3 days. [email or web address] Not available 06/08/2020 14:15:29 08/03/2024 [id number] A healthy lifestyle: care instructions Not available 08/03/2024 17:13:37 12/30/2024 [id number] A healthy lifestyle: care instructions Not available 12/30/2024 15:27:48 Reason for Referral None Reported. Results Created Date Observation Date Name Description Value Unit Range Abnormal Flag Note LastModifiedBy Organization Detail LastModifiedTime 06/08/20 20 06/08/2020 SARS CoV 2 RNA (COVI D-19) , QL, cytogenetics laboratory manager-P CR, respi rator y speci men sars - cov - 2 PCR NEGATI VE mL Not Available [facility] (Lab) [address] [place], [address], 06/13/2020 13:52:32 06/08/20 20 06/08/2020 SARS CoV 2 RNA (COVI D-19) , QL, cytogenetics laboratory manager-P CR, respi rator y speci men covidcom1 COMME NTS: This assay is desig josselyn to detec t the RdRp and N genes of SARS- CoV-2 using nucle ic acid ampli ficat ion. A negat pamela resul t does not precl ude the possi bilit y of 2019- nCoV infec tion since the adequ acy of sampl e colle ction and/o r low viral burde n may resul t in the prese nce of viral nucle ic acids level s below the wandy tical sensi tivit y of this test metho d. Not Available [facility] (Lab) [address] [facility], [place], [address], 06/13/2020 13:52:32 06/08/20 20 06/08/2020 SARS CoV 2 RNA (COVI D-19) , QL, cytogenetics laboratory manager-P CR, respi rator y speci men covidcom2 Posit pamela resul ts are indic ative of the prese nce of SARS- CoV-2 RNA and do not rule out bacte rial infec tion or co-in fecti on with other virus es. Not Available [facility] (Lab) [address] [facility], [place], [address], 06/13/2020 13:52:32 06/08/20 20 06/08/2020 SARS CoV 2 RNA (COVI D-19) , QL, cytogenetics laboratory manager-P CR, respi rator y speci men covidcom3 Test resul ts shoul d be used along with other clini sacha obser vatio ns, patie nt histo ry, epide miolo gical infor matio n and labor [facility] data [facility] the diagn osis. Not Available [facility] (Lab) [address] [facility], [place], [address], 06/13/2020 13:52:32 06/08/20 20 06/08/2020 SARS CoV 2 RNA (COVI D-19) , QL, cytogenetics laboratory manager-P CR, respi rator y speci men covidcom4 This test has recei opal FDA Emerg ency Use Autho rizat ion and has been verif ied by [facility] . This test is only autho rized for the durat ion of the decla ratio n and the circu mstan shivani that exist to justi fy the autho rizat ion of the emerg ency use of in vitro diagn ostic tests for the detec tion of SARS- CoV-2 virus and/o r diagn osis of COVID -19 infec tion under secti on 564 (b) (1) of the Act. 11 U.S.C . 360bb b-3 (b) (1), unles s the autho rizat ion is termi nated or revok ed soone r. Not Available [facility] (Lab) [address] [facility], [place], [address], 06/13/2020 13:52:32 06/08/20 20 06/08/2020 SARS CoV 2 RNA (COVI D-19) , QL, cytogenetics laboratory manager-P CR, respi rator y speci men covidcom5 [facility] is certi fied under CLIA- 88 as quali fied to perfo rm high compl exity testi ng. This testi ng was perfo rmed in the [facility] [place] [address] (CLIA Licen se #[id number] 5, CAP #[id number], AU-ID #[id number]). Not Available [facility] (Lab) [address] [place], [address], 06/13/2020 13:52:32 06/08/20 20 06/08/2020 SARS CoV 2 RNA (COVI D-19) , QL, cytogenetics laboratory manager-P CR, respi rator y speci men covidcom6 Facts heet for healt hcare provi ders: https ://ww CrowdOptic.fda .gov/ media /1362 56/do wnloa d Facts heet for patie nts: https ://[facility].SaleMove .gov/ media /1362 57/do wnloa d Not Available [facility] (Lab) [address] [facility], [place], [address], 06/13/2020 13:52:32 06/08/20 20 06/08/2020 SARS CoV 2 RNA (COVI D-19) , QL, cytogenetics laboratory manager-P CR, respi rator y speci men sars - cov - 2 PCR NON DETECT ED mL Not Available [facility] (Lab) [address] [facility], [place], [address], 06/13/2020 15:19:37 06/08/20 20 06/08/2020 SARS CoV 2 RNA (COVI D-19) , QL, cytogenetics laboratory manager-P CR, respi rator y speci men covididph2 COMME NTS: A negat pamela resul t does not precl ude SARS- CoV-2 infec tion and shoul d not be used as the sole basis for treat ment or other patie nt manag ement decis ions. Negat pamela resul ts must be combi josselyn with clini sacha obser vatio ns, patie nt histo ry, and epide miolo gical infor matio n Perfo rmanc e ana paula cteri stics for the TaqPa th COVID -19 Combo , Real- time PCR Diagn ostic test have been deter mined by the [facility] faraz cardoso and are incor porat ed as part of the Emerg ency Use Autho rizat ion. Not Available [facility] (Lab) [address], [place], [address], 06/13/2020 15:19:37 06/08/20 20 06/08/2020 SARS CoV 2 RNA (COVI D-19) , QL, cytogenetics laboratory manager-P CR, respi rator y speci men covididph3 Provi sondra and patie nt fact sheet s are avail able at: https ://ww w.fda .gov/ medic al-de vices /amada gency -situ ation s-med ical- devi es/em ergen cy-us e-aut horiz ation s#cor onavi rus20 19 Not Available [facility] (Lab) [address], [place], [address], 06/13/2020 15:19:37 06/08/20 20 06/08/2020 SARS CoV 2 RNA (COVI D-19) , QL, cytogenetics laboratory manager-P CR, respi rator y speci men covididph4 Perfo rmed at: [facility] [address] [place] [address] CLIA No. [id number] Not Available [facility] (Lab) [address], [place], [address], 06/13/2020 15:19:37 08/19/2008/20/2023 Insul in [Unit s/vol ume] in Serum or Plasm a insulin [units/volum e] in serum or plasma high insul in Not Available Not Available 12/30/2024 13:58:24 08/19/2008/20/2023 Folat e+Cya nocob eric n [Inte rpret ation ] in Serum or Blood cobalamin (vitamin B12) [mass/volume ] in serum or plasma vitam in B12 Not Available Not Available 12/30/2024 13:58:24 08/19/2008/20/2023 Folat e+Cya nocob eric n [Inte rpret ation ] in Serum or Blood folate [mass/volume ] in serum or plasma folat e, serum Not Available Not Available 12/30/2024 13:58:24 08/19/2008/20/2023 CBC W Auto Diffe renti al panel - Blood leukocytes [#/volume] in blood by automated count white blood cell count Not Available Not Available 12/30/2024 13:58:24 08/19/2008/20/2023 CBC W Auto Diffe renti al panel - Blood erythrocytes [#/volume] in blood by automated count red blood cell count Not Available Not Available 12/30/2024 13:58:24 08/19/2008/20/2023 CBC W Auto Diffe renti al panel - Blood hemoglobin [mass/volume ] in blood hemog lobin Not Available Not Available 12/30/2024 13:58:24 08/19/2008/20/2023 CBC W Auto Diffe renti al panel - Blood hematocrit [volume fraction] of blood by automated count hemat ocrit Not Available Not Available 12/30/2024 13:58:24 08/19/2008/20/2023 CBC W Auto Diffe renti al panel - Blood MCV [entitic volume] by automated count MCV Not Available Not Available 12/19 13:58:24 08/19/2008/20/2023 CBC W Auto Diffe renti al panel - Blood MCH [entitic mass] by automated count MCH Not Available Not Available 12/19 13:58:24 08/19/2008/20/2023 CBC W Auto Diffe renti al panel - Blood MCHC [mass/volume ] by automated count MCHC Not Available Not Available 12/19 13:58:24 08/19/20 23 08/20/2023 CBC W Auto Diffe renti al panel - Blood erythrocyte distribution width [ratio] by automated count RDW Not Available Not Available 12/19 13:58:24 08/19/2008/20/2023 CBC W Auto Diffe renti al panel - Blood platelets [#/volume] in blood by automated count plate let count Not Available Not Available 12/30/2024 13:58:24 08/19/20 23 08/20/2023 CBC W Auto Diffe renti al panel - Blood platelet mean volume [entitic volume] in blood by zion MPV Not Available Not Available 0 12/30/2024 13:58:24 08/19/2008/20/2023 CBC W Auto Diffe renti al panel - Blood neutrophils [#/volume] in blood by automated count absol buckland neutr ophil s Not Available Not Available 12/30/2024 13:58:24 08/19/20 23 08/20/2023 CBC W Auto Diffe renti al panel - Blood lymphocytes [#/volume] in blood by automated count absol buckland lymph ocyte s Not Available Not Available 12/30/2024 13:58:24 08/19/20 23 08/20/2023 CBC W Auto Diffe renti al panel - Blood monocytes [#/volume] in blood by automated count absol buckland monoc ytes Not Available Not Available 12/30/2024 13:58:24 08/19/20 23 08/20/2023 CBC W Auto Diffe renti al panel - Blood eosinophils [#/volume] in blood by automated count absol buckland eosin ophil s Not Available Not Available 12/30/2024 13:58:24 08/19/20 23 08/20/2023 CBC W Auto Diffe renti al panel - Blood basophils [#/volume] in blood by automated count absol buckland basop hils Not Available Not Available 12/30/2024 13:58:24 08/19/20 23 08/20/2023 CBC W Auto Diffe renti al panel - Blood neutrophils/ 100 leukocytes in blood by automated count neutr ophil s Not Available Not Available 12/30/2024 13:58:24 08/19/20 23 08/20/2023 CBC W Auto Diffe renti al panel - Blood lymphocytes/ 100 leukocytes in blood by automated count lymph ocyte s Not Available Not Available 12/30/2024 13:58:24 08/19/2008/20/2023 CBC W Auto Diffe renti al panel - Blood monocytes/10 0 leukocytes in blood by automated count monoc ytes Not Available Not Available 12/30/2024 13:58:24 08/19/2008/20/2023 CBC W Auto Diffe renti al panel - Blood eosinophils/ 100 leukocytes in blood by automated count eosin ophil s Not Available Not Available 12/30/2024 13:58:24 08/19/2008/20/2023 CBC W Auto Diffe renti al panel - Blood basophils/10 0 leukocytes in blood by automated count basop hils Not Available Not Available 12/30/2024 13:58:24 08/19/2008/20/2023 Hemog lobin A1c/H emogl obin. total in Blood hemoglobin A1C/hemoglob in.total in blood hemog lobin A1C Not Available Not Available 12/30/2024 13:58:23 08/19/2008/20/2023 Compr ehens pamela metab olic 2000 panel - Serum or Plasm a glucose [mass/volume ] in serum or plasma gluco se Not Available Not Available 12/30/2024 13:58:23 08/19/2008/20/2023 Compr ehens pamela metab olic 2000 panel - Serum or Plasm a urea nitrogen [mass/volume ] in serum or plasma urea nitro gen (BUN) Not Available Not Available 12/30/2024 13:58:23 08/19/2008/20/2023 Compr ehens pamela metab olic 2000 panel - Serum or Plasm a creatinine [mass/volume ] in serum or plasma creat inine Not Available Not Available 12/30/2024 13:58:23 08/19/2008/20/2023 Compr ehens pamela metab olic 2000 panel - Serum or Plasm a glomerular filtration rate/1.73 sq M.predicted [volume rate/area] in serum, plasma or blood by creatinine-b ased formula (CKD-epi 2020) eGFR Not Available Not Available 12/19 13:58:23 08/19/2008/20/2023 Compr ehens pamela AttorneyFee olic 1999 panel - Serum or Plasm a urea nitrogen/cre atinine [mass ratio] in serum or plasma SEE NOTE: BUN/c reati nine ratio Not Available Not Available 12/30/2024 13:58:23 08/19/2008/20/2023 [facility] [employer] pamela AttorneyFee olic 1999 panel - Serum or Plasm a sodium [moles/volum e] in serum or plasma sodiu m Not Available Not Available 12/30/2024 13:58:23 08/19/2008/20/2023 [facility] [place] pamela AttorneyFee olic 1999 panel - Serum or Plasm a potassium [moles/volum e] in serum or plasma potas sium Not Available Not Available 12/30/2024 13:58:23 08/19/2008/20/2023 [facility] [place] pamela AttorneyFee olic 1999 panel - Serum or Plasm a chloride [moles/volum e] in serum or plasma chlor gayatri Not Available Not Available 12/30/2024 13:58:23 08/19/2008/20/2023 [facility] [place] pamela AttorneyFee olic 1999 panel - Serum or Plasm a carbon dioxide, total [moles/volum e] in serum or plasma carbo n dioxi de Not Available Not Available 12/30/2024 13:58:23 08/19/2008/20/2023 [facility] [employer] AttorneyFee olic 1999 panel - Serum or Plasm a calcium [mass/volume ] in serum or plasma calci um Not Available Not Available 12/30/2024 13:58:23 08/19/2008/20/2023 [facility] [place] pamela AttorneyFee olic 1999 panel - Serum or Plasm a protein [mass/volume ] in serum or plasma prote in, total Not Available Not Available 12/30/2024 13:58:23 08/19/2008/20/2023 Compr [place] pamela AttorneyFee olic 1999 panel - Serum or Plasm a albumin [mass/volume ] in serum or plasma album in Not Available Not Available 12/30/2024 13:58:23 08/19/20 23 08/20/2023 [facility] [employer] pamela Attorney[employer]ee olic 1999 panel - Serum or Plasm a globulin [mass/volume ] in serum by calculation globu nestor Not Available Not Available 12/30/2024 13:58:23 08/19/20 23 08/20/2023 Compr ehens pamela metab olic 1999 panel - Serum or Plasm a albumin/glob ulin [mass ratio] in serum or plasma album in/gl obuli n ratio Not Available Not Available 12/30/2024 13:58:23 08/19/2008/20/2023 Compr ehens pamela metab olic 1999 panel - Serum or Plasm a bilirubin.to christina [mass/volume ] in serum or plasma bilir ubin, total Not Available Not Available 12/30/2024 13:58:23 08/19/20 23 08/20/2023 Compr ehens pamela metab olic 1999 panel - Serum or Plasm a alkaline phosphatase [enzymatic activity/vol ume] in serum or plasma alkal ine phosp hatas e Not Available Not Available 12/30/2024 13:58:23 08/19/2008/20/2023 Compr ehens pamela metab olic 1999 panel - Serum or Plasm a aspartate aminotransfe rase [enzymatic activity/vol ume] in serum or plasma AST Not Available Not Available 12/19 13:58:23 08/19/2008/20/2023 Compr ehens pamela metab olic 2000 panel - Serum or Plasm a alanine aminotransfe rase [enzymatic activity/vol ume] in serum or plasma ALT Not Available Not Available 12/19 13:58:23 08/19/2008/20/2023 Lipid 1996 panel - Serum or Plasm a cholesterol [mass/volume ] in serum or plasma roland stero l, total Not Available Not Available 12/30/2024 13:58:23 08/19/2008/20/2023 Lipid 1996 panel - Serum or Plasm a cholesterol in HDL [mass/volume ] in serum or plasma low HDL roland stero l Not Available Not Available 12/30/2024 13:58:23 08/19/2008/20/2023 Lipid 1996 panel - Serum or Plasm a triglyceride [mass/volume ] in serum or plasma high trigl yceri bao Not Available Not Available 12/30/2024 13:58:23 08/19/20 23 08/20/2023 Lipid 1996 panel - Serum or Plasm a cholesterol in LDL [mass/volume ] in serum or plasma by calculation LDL-c holes terol Not Available Not Available 12/30/2024 13:58:23 08/19/2008/20/2023 Lipid 1996 panel - Serum or Plasm a cholesterol. total/choles terol in HDL [mass ratio] in serum or plasma chol/ HDLC ratio Not Available Not Available 12/30/2024 13:58:23 08/19/20 23 08/20/2023 Lipid 1996 panel - Serum or Plasm a cholesterol non HDL [mass/volume ] in serum or plasma non HDL roland stero l Not Available Not Available 12/30/2024 13:58:23 08/19/2008/20/2023 Free T4 and TSH panel - Serum or Plasm a thyrotropin [units/volum e] in serum or plasma TSH Not Available Not Available 13:58:23 08/19/2008/20/2023 Free T4 and TSH panel - Serum or Plasm a thyroxine (T4) free [mass/volume ] in serum or plasma T4, free Not Available Not Available 12/30/2024 13:58:23 01/17/20 24 01/18/2024 TSH+F REE T4 TSH 0.740 uIU/m L 0.450- 4.500 Not Available [facility] ([facility]) [address] [place], [address], 01/19/2024 13:07:54 01/17/20 24 01/18/2024 TSH+F REE T4 T4,free(dire ct) 1.52 NG/dL 0.82-1 .77 Not Available [facility] ([facility]) [address] [place], [address], 01/19/2024 13:07:54 01/17/20 24 01/18/2024 LIPID PANEL cholesterol, total 130 mg/dL 100-19 9 Not Available [facility] ([facility]) [address] [place], [address], 01/19/2024 13:07:55 01/17/20 24 01/18/2024 LIPID PANEL triglyceride s 127 mg/dL 0-149 Not Available [facility] ([facility]) [address] [place], [address], 01/19/2024 13:07:55 01/17/20 24 01/18/2024 LIPID PANEL HDL cholesterol 34 mg/dL >39 below low normal Not Available [facility] ([facility]) [address] [place], [address], 01/19/2024 13:07:55 01/17/20 24 01/18/2024 LIPID PANEL VLDL cholesterol sacha 23 mg/dL 5-40 Not Available [facility] ([facility]) [address] [place], [address], 01/19/2024 13:07:55 01/17/20 24 01/18/2024 LIPID PANEL LDL chol calc ([facility]) 73 mg/dL 0-99 Not Available [facility] ([facility]) [address] [place], [address], 01/19/2024 13:07:55 01/17/20 24 01/18/2024 COMP. METAB OLIC PANEL (14) glucose 94 mg/dL 70-99 Not Available [facility] ([facility]) [address] [place], [address], 01/19/2024 13:07:55 01/17/20 24 01/18/2024 COMP. METAB OLIC PANEL (14) BUN 18 mg/dL 6-20 Not Available [facility] ([facility]) [address] [place], [address], 01/19/2024 13:07:55 01/17/20 24 01/18/2024 COMP. METAB OLIC PANEL (14) creatinine 0.87 mg/dL 0.57-1 .00 Not Available [facility] ([facility]) [address] [place], [address], 01/19/2024 13:07:55 01/17/20 24 01/18/2024 COMP. METAB OLIC PANEL (14) eGFR 91 mL/mi n/1.7 3 >59 Not Available [facility] ([facility]) [address] [facility], [place], [address], 01/19/2024 13:07:55 01/17/20 24 01/18/2024 COMP. METAB OLIC PANEL (14) BUN/creatini ne ratio 21 9-23 Not Available [facility] ([facility]) [address] [facility], [place], [address], 01/19/2024 13:07:55 01/17/20 24 01/18/2024 COMP. METAB OLIC PANEL (14) sodium 138 mmol/ L 134-14 4 Not Available [facility] ([facility]) [address] [facility], [place], [address], 01/19/2024 13:07:55 01/17/20 24 01/18/2024 COMP. METAB OLIC PANEL (14) potassium 4.5 mmol/ L 3.5-5. 2 Not Available [facility] ([facility]) [address] [facility], [place], [address], 01/19/2024 13:07:55 01/17/20 24 01/18/2024 COMP. METAB OLIC PANEL (14) chloride 101 mmol/ L 96-106 Not Available [facility] ([facility]) [address] [facility], [place], [address], 01/19/2024 13:07:55 01/17/20 24 01/18/2024 COMP. METAB OLIC PANEL (14) carbon dioxide, total 21 mmol/ L 20-29 Not Available [facility] ([facility]) [address] [facility], [place], [address], 01/19/2024 13:07:55 01/17/20 24 01/18/2024 COMP. METAB OLIC PANEL (14) calcium 9.9 mg/dL 8.7-10 .2 Not Available [facility] ([facility]) [address], [place], [address], 01/19/2024 13:07:55 01/17/20 24 01/18/2024 COMP. METAB OLIC PANEL (14) protein, total 7.3 g/dL 6.0-8. 5 Not Available [facility] ([facility]) [address], [place], [address], 01/19/2024 13:07:55 01/17/20 24 01/18/2024 COMP. METAB OLIC PANEL (14) albumin 4.8 g/dL 3.9-4. 9 Not Available [facility] ([facility]) [address], [place], [address], 01/19/2024 13:07:55 01/17/20 24 01/18/2024 COMP. METAB OLIC PANEL (14) globulin, total 2.5 g/dL 1.5-4. 5 Not Available [facility] ([facility]) [address] [place], [address], 01/19/2024 13:07:55 01/17/20 24 01/18/2024 COMP. METAB OLIC PANEL (14) A/G ratio 1.9 1.2-2. 2 Not Available [facility] ([facility] [address] [facility] [place], [address], 01/19/2024 13:07:55 01/17/20 24 01/18/2024 COMP. METAB OLIC PANEL (14) bilirubin, total 0.4 mg/dL 0.0-1. 2 Not Available [facility] ([facility]) [address] [place], [address], 01/19/2024 13:07:55 01/17/20 24 01/18/2024 COMP. METAB OLIC PANEL (14) alkaline phosphatase 44 IU/L 44-121 Not Available [facility] ([facility]) [address] [facility], [place], [address], 01/19/2024 13:07:55 01/17/20 24 01/18/2024 COMP. METAB OLIC PANEL (14) AST (SGOT) 15 IU/L 0-40 Not Available [facility] ([facility]) [address] [facility], [place], [address], 01/19/2024 13:07:55 01/17/20 24 01/18/2024 COMP. METAB OLIC PANEL (14) ALT (SGPT) 21 IU/L 0-32 Not Available [facility] ([facility]) [address] [facility], [place], [address], 01/19/2024 13:07:55 01/17/20 24 01/18/2024 HEMOG LOBIN A1C hemoglobin A1C 5.5 % 4.8-5. 6 Predi abete s: 5.7 - 6.4 Diabe kami: >6.4 Glyce ravinder contr ol for adult s with diabe kami: <7.0 Not Available [facility] ([facility]) [address] [facility], [place], [address], 01/19/2024 13:07:56 01/17/20 24 01/19/2024 INSUL IN insulin 15.6 uIU/m L 2.6-24 .9 Not Available [facility] ([facility]) [address] [facility], [place], [address], 01/19/2024 13:07:57 01/17/20 24 01/18/2024 CBC WITH DIFFE RENTI AL/PL ATELE T WBC 5.2 x10e3 /uL 3.4-10 .8 Not Available [facility] ([facility]) [address] [facility], [place], [address], 01/19/2024 13:07:57 01/17/20 24 01/18/2024 CBC WITH DIFFE RENTI AL/PL ATELE T RBC 4.47 x10e6 /uL 3.77-5 .28 Not Available [facility] ([facility]) [address] [facility], [place], [address], 01/19/2024 13:07:57 01/17/20 24 01/18/2024 CBC WITH DIFFE RENTI AL/PL ATELE T hemoglobin 13.8 g/dL 11.1-1 5.9 Not Available [facility] ([facility]) [address] [facility], [place], [address], 01/19/2024 13:07:57 01/17/20 24 01/18/2024 CBC WITH DIFFE RENTI AL/PL ATELE T hematocrit 40.8 % 34.0-4 6.6 Not Available [facility] ([facility]) [address] [facility], [place], [address], 01/19/2024 13:07:57 01/17/20 24 01/18/2024 CBC WITH DIFFE RENTI AL/PL ATELE T MCV 91 fL 79-97 Not Available [facility] ([facility]) [address] [place], [address], 01/19/2024 13:07:57 01/17/20 24 01/18/2024 CBC WITH DIFFE RENTI AL/PL ATELE T MCH 30.9 pg 26.6-3 3.0 Not Available [facility] ([facility]) [address] [place], [address], 01/19/2024 13:07:57 01/17/20 24 01/18/2024 CBC WITH DIFFE RENTI AL/PL ATELE T MCHC 33.8 g/dL 31.5-3 5.7 Not Available [facility] ([facility]) [address] [facility], [place], [address], 01/19/2024 13:07:57 01/17/20 24 01/18/2024 CBC WITH DIFFE RENTI AL/PL ATELE T RDW 12.6 % 11.7-1 5.4 Not Available [facility] ([facility]) [address] [facility], [place], [address], 01/19/2024 13:07:57 01/17/20 24 01/18/2024 CBC WITH DIFFE RENTI AL/PL ATELE T platelets 227 x10e3 /uL 150-45 0 Not Available [facility] ([facility]) [address] [facility], [place], [address], 01/19/2024 13:07:57 01/17/20 24 01/18/2024 CBC WITH DIFFE RENTI AL/PL ATELE T neutrophils 50 % notest ab. Not Available [facility] ([facility]) [address] [facility], [place], [address], 01/19/2024 13:07:57 01/17/20 24 01/18/2024 CBC WITH DIFFE RENTI AL/PL ATELE T lymphs 35 % notest ab. Not Available [facility] ([facility]) [address] [facility], [place], [address], 01/19/2024 13:07:57 01/17/20 24 01/18/2024 CBC WITH DIFFE RENTI AL/PL ATELE T monocytes 7 % notest ab. Not Available [facility] ([facility]) [address] [facility], [place], [address], 01/19/2024 13:07:57 01/17/20 24 01/18/2024 CBC WITH DIFFE RENTI AL/PL ATELE T eos 7 % notest ab. Not Available [facility] ([facility]) [address] [facility], [place], [address], 01/19/2024 13:07:57 01/17/20 24 01/18/2024 CBC WITH DIFFE RENTI AL/PL ATELE T basos 1 % notest ab. Not Available [facility] ([facility]) [address] [facility], [place], [address], 01/19/2024 13:07:57 01/17/20 24 01/18/2024 CBC WITH DIFFE RENTI AL/PL ATELE T neutrophils (absolute) 2.6 x10e3 /uL 1.4-7. 0 Not Available [facility] ([facility]) [address] [facility], [place], [address], 01/19/2024 13:07:57 01/17/20 24 01/18/2024 CBC WITH DIFFE RENTI AL/PL ATELE T lymphs (absolute) 1.8 x10e3 /uL 0.7-3. 1 Not Available [facility] ([facility]) [address] [facility], [place], [address], 01/19/2024 13:07:57 01/17/20 24 01/18/2024 CBC WITH DIFFE RENTI AL/PL ATELE T monocytes(ab solute) 0.4 x10e3 /uL 0.1-0. 9 Not Available [facility] ([facility]) [address] [facility], [place], [address], 01/19/2024 13:07:57 01/17/20 24 01/18/2024 CBC WITH DIFFE RENTI AL/PL ATELE T eos (absolute) 0.3 x10e3 /uL 0.0-0. 4 Not Available [facility] ([facility]) [address] [facility], [place], [address], 01/19/2024 13:07:57 01/17/20 24 01/18/2024 CBC WITH DIFFE RENTI AL/PL ATELE T baso (absolute) 0.1 x10e3 /uL 0.0-0. 2 Not Available [facility] ([facility]) [address] [facility], [place], [address], 01/19/2024 13:07:57 01/17/20 24 01/18/2024 CBC WITH DIFFE RENTI AL/PL ATELE T immature granulocytes 0 % notest ab. Not Available [facility] ([facility]) [address] [facility], [place], [address], 01/19/2024 13:07:57 01/17/20 24 01/18/2024 CBC WITH DIFFE RENTI AL/PL ATELE T immature grans (abs) 0.0 x10e3 /uL 0.0-0. 1 Not Available [facility] ([facility]) [address] [facility], [place], [address], 01/19/2024 13:07:57 08/05/20 24 08/06/2024 COMP. METAB OLIC PANEL (14) glucose 84 mg/dL 70-99 Not Available [facility] ([facility]) [address] [facility], [place], [address], 08/06/2024 11:17:03 08/05/20 24 08/06/2024 COMP. METAB OLIC PANEL (14) BUN 25 mg/dL 6-20 above high normal Not Available [facility] ([facility]) [address] [facility], [place], [address], 08/06/2024 11:17:03 08/05/20 24 08/06/2024 COMP. METAB OLIC PANEL (14) creatinine 0.87 mg/dL 0.57-1 .00 Not Available [facility] ([facility]) [address] [facility], [place], [address], 08/06/2024 11:17:03 08/05/20 24 08/06/2024 COMP. METAB OLIC PANEL (14) eGFR 90 mL/mi n/1.7 3 >59 Not Available [facility] ([facility]) [address] [place], [address], 08/06/2024 11:17:03 08/05/20 24 08/06/2024 COMP. METAB OLIC PANEL (14) BUN/creatini ne ratio 29 9-23 above high normal Not Available [facility] ([facility]) [address] [place], [address], 08/06/2024 11:17:03 08/05/20 24 08/06/2024 COMP. METAB OLIC PANEL (14) sodium 138 mmol/ L 134-14 4 Not Available [facility] ([facility]) [address] [place], [address], 08/06/2024 11:17:03 08/05/20 24 08/06/2024 COMP. METAB OLIC PANEL (14) potassium 4.3 mmol/ L 3.5-5. 2 Not Available [facility] ([facility]) [address] [place], [address], 08/06/2024 11:17:03 08/05/20 24 08/06/2024 COMP. METAB OLIC PANEL (14) chloride 107 mmol/ L 96-106 above high normal Not Available [facility] ([facility]) [address] [place], [address], 08/06/2024 11:17:03 08/05/20 24 08/06/2024 COMP. METAB OLIC PANEL (14) carbon dioxide, total 16 mmol/ L 20-29 below low normal Not Available [facility] ([facility]) [address] [place], [address], 08/06/2024 11:17:03 08/05/20 24 08/06/2024 COMP. METAB OLIC PANEL (14) calcium 9.4 mg/dL 8.7-10 .2 Not Available [facility] ([facility]) [address] [place], [address], 08/06/2024 11:17:03 08/05/20 24 08/06/2024 COMP. METAB OLIC PANEL (14) protein, total 7.5 g/dL 6.0-8. 5 Not Available [facility] ([facility]) [address] [place], [address], 08/06/2024 11:17:03 08/05/20 24 08/06/2024 COMP. METAB OLIC PANEL (14) albumin 5.2 g/dL 3.9-4. 9 above high normal Not Available [facility] ([facility]) [address] [facility], [place], [address], 08/06/2024 11:17:03 08/05/20 24 08/06/2024 COMP. METAB OLIC PANEL (14) globulin, total 2.3 g/dL 1.5-4. 5 Not Available [facility] ([facility]) [address] [facility], [place], [address], 08/06/2024 11:17:03 08/05/20 24 08/06/2024 COMP. METAB OLIC PANEL (14) bilirubin, total 0.4 mg/dL 0.0-1. 2 Not Available [facility] ([facility]) [address] [facility], [place], [address], 08/06/2024 11:17:03 08/05/20 24 08/06/2024 COMP. METAB OLIC PANEL (14) alkaline phosphatase 49 IU/L 44-121 Not Available [facility] ([facility]) [address] [facility], [place], [address], 08/06/2024 11:17:03 08/05/20 24 08/06/2024 COMP. METAB OLIC PANEL (14) AST (SGOT) 12 IU/L 0-40 Not Available [facility] ([facility]) [address] [facility], [place], [address], 08/06/2024 11:17:03 08/05/20 24 08/06/2024 COMP. METAB OLIC PANEL (14) ALT (SGPT) 12 IU/L 0-32 Not Available [facility] ([facility]) [address] [facility], [place], [address], 08/06/2024 11:17:03 08/05/20 24 08/06/2024 VITAM IN B12 AND FOLAT E vitamin B12 601 pg/mL 232-12 45 Not Available [facility] ([facility]) [address] [facility], [place], [address], 08/06/2024 11:17:04 08/05/20 24 08/06/2024 VITAM IN B12 AND FOLAT E folate (folic acid), serum 17.1 NG/mL >3.0 A serum folat e deborah ntrat ion of less than 3.1 ng/mL is consi dered to repre sent clini sacha defic iency . Not Available [facility] ([facility]) [address] [facility], [place], [address], 08/06/2024 11:17:04 08/05/20 24 08/06/2024 CBC WITH DIFFE RENTI AL/PL ATELE T WBC 6.9 x10e3 /uL 3.4-10 .8 Not Available [facility] ([facility]) [address] [facility], [place], [address], 08/06/2024 11:17:05 08/05/20 24 08/06/2024 CBC WITH DIFFE RENTI AL/PL ATELE T RBC 4.37 x10e6 /uL 3.77-5 .28 Not Available [facility] ([facility]) [address] [facility], [place], [address], 08/06/2024 11:17:05 08/05/20 24 08/06/2024 CBC WITH DIFFE RENTI AL/PL ATELE T hemoglobin 13.6 g/dL 11.1-1 5.9 Not Available [facility] ([facility]) [address] [facility], [place], [address], 08/06/2024 11:17:05 08/05/20 24 08/06/2024 CBC WITH DIFFE RENTI AL/PL ATELE T hematocrit 41.3 % 34.0-4 6.6 Not Available [facility] ([facility]) [address] [facility], [place], [address], 08/06/2024 11:17:05 08/05/20 24 08/06/2024 CBC WITH DIFFE RENTI AL/PL ATELE T MCV 95 fL 79-97 Not Available [facility] ([facility]) [address] [facility], [place], [address], 08/06/2024 11:17:05 08/05/20 24 08/06/2024 CBC WITH DIFFE RENTI AL/PL ATELE T MCH 31.1 pg 26.6-3 3.0 Not Available [facility] ([facility]) [address] [facility], [place], [address], 08/06/2024 11:17:05 08/05/20 24 08/06/2024 CBC WITH DIFFE RENTI AL/PL ATELE T MCHC 32.9 g/dL 31.5-3 5.7 Not Available [facility] ([facility]) [address] [facility], [place], [address], 08/06/2024 11:17:05 08/05/20 24 08/06/2024 CBC WITH DIFFE RENTI AL/PL ATELE T RDW 11.7 % 11.7-1 5.4 Not Available [facility] ([facility]) [address] [facility], [place], [address], 08/06/2024 11:17:05 08/05/20 24 08/06/2024 CBC WITH DIFFE RENTI AL/PL ATELE T platelets 235 x10e3 /uL 150-45 0 Not Available [facility] ([facility]) [address] [facility], [place], [address], 08/06/2024 11:17:05 08/05/20 24 08/06/2024 CBC WITH DIFFE RENTI AL/PL ATELE T neutrophils 60 % notest ab. Not Available [facility] ([facility]) [address] [facility], [place], [address], 08/06/2024 11:17:05 08/05/20 24 08/06/2024 CBC WITH DIFFE RENTI AL/PL ATELE T lymphs 31 % notest ab. Not Available [facility] ([facility]) [address] [facility], [place], [address], 08/06/2024 11:17:05 08/05/20 24 08/06/2024 CBC WITH DIFFE RENTI AL/PL ATELE T monocytes 5 % notest ab. Not Available [facility] ([facility]) [address] [facility], [place], [address], 08/06/2024 11:17:05 08/05/20 24 08/06/2024 CBC WITH DIFFE RENTI AL/PL ATELE T eos 3 % notest ab. Not Available [facility] ([facility]) [address] [facility], [place], [address], 08/06/2024 11:17:05 08/05/20 24 08/06/2024 CBC WITH DIFFE RENTI AL/PL ATELE T basos 1 % notest ab. Not Available [facility] ([facility]) [address] [facility], [place], [address], 08/06/2024 11:17:05 08/05/20 24 08/06/2024 CBC WITH DIFFE RENTI AL/PL ATELE T neutrophils (absolute) 4.1 x10e3 /uL 1.4-7. 0 Not Available [facility] ([facility]) [address] [place], [address], 08/06/2024 11:17:05 08/05/20 24 08/06/2024 CBC WITH DIFFE RENTI AL/PL ATELE T lymphs (absolute) 2.2 x10e3 /uL 0.7-3. 1 Not Available [facility] ([facility]) [address] [place], [address], 08/06/2024 11:17:05 08/05/20 24 08/06/2024 CBC WITH DIFFE RENTI AL/PL ATELE T monocytes(ab solute) 0.4 x10e3 /uL 0.1-0. 9 Not Available [facility] ([facility]) [address] [facility], [place], [address], 08/06/2024 11:17:05 08/05/20 24 08/06/2024 CBC WITH DIFFE RENTI AL/PL ATELE T eos (absolute) 0.2 x10e3 /uL 0.0-0. 4 Not Available [facility] ([facility]) [address] [place], [address], 08/06/2024 11:17:05 08/05/20 24 08/06/2024 CBC WITH DIFFE RENTI AL/PL ATELE T baso (absolute) 0.1 x10e3 /uL 0.0-0. 2 Not Available [facility] ([facility]) [address] [facility], [place], [address], 08/06/2024 11:17:05 08/05/20 24 08/06/2024 CBC WITH DIFFE RENTI AL/PL ATELE T immature granulocytes 0 % notest ab. Not Available [facility] ([facility]) [address] [facility], [place], [address], 08/06/2024 11:17:05 08/05/20 24 08/06/2024 CBC WITH DIFFE RENTI AL/PL ATELE T immature grans (abs) 0.0 x10e3 /uL 0.0-0. 1 Not Available [facility] ([facility]) [address] [place], [address], 08/06/2024 11:17:05 08/05/20 24 08/06/2024 FE+TI BC+FE R iron bind.cap.(TI BC) 333 ug/dL 250-45 0 Not Available [facility] ([facility]) [address] [place], [address], 08/06/2024 11:17:06 08/05/20 24 08/06/2024 FE+TI BC+FE R UIBC 255 ug/dL 131-42 5 Not Available [facility] ([facility]) [address] [facility], [place], [address], 08/06/2024 11:17:06 08/05/20 24 08/06/2024 FE+TI BC+FE R iron 78 ug/dL 27-159 Not Available [facility] ([facility]) [address] [facility], [place], [address], 08/06/2024 11:17:06 08/05/20 24 08/06/2024 FE+TI BC+FE R iron saturation 23 % 15-55 Not Available [facility] ([facility]) [address] [facility], [place], [address], 08/06/2024 11:17:06 08/05/20 24 08/06/2024 FE+TI BC+FE R ferritin 176 NG/mL 15-150 above high normal Not Available [facility] ([facility]) [address] [facility], [place], [address], 08/06/2024 11:17:06 08/05/20 24 08/06/2024 VITAM IN D, 25-HY DROXY vitamin D, 25-hydroxy 44.0 NG/mL 30.0-1 00.0 Vitam in D defic iency has been defin ed by the Insti tute of Medic ine and an Endoc rine Socie ty pract ice guide line as a level of serum 25-OH vitam in D less than 20 ng/mL (1,2) . The Endoc rine Socie ty went on to furth er defin e vitam in D insuf ficie ncy as a level betwe en 21 and 29 ng/mL (2). 1. IOM (Inst itute of Medic ine). 2010. Dieta ry refer ence william es for calci um and D. Angel haji [place]: [facility] . 2. Chantelle petit [place], Megan mccray [place], Nahum off-F errar i BURTON, et al. Evalu ation , treat ment, and preve ntion of vitam in D defic iency : an Endoc rine Socie ty clini sacha pract ice guide line. JCEM. 2010; 96(7) :1911 -30. Not Available [facility] ([facility]) [address] [facility], [place], [address], 08/06/2024 11:17:06 Result Notes None recorded. Problems Name Problem SNOMED Code Status Onset Date Resolution Date Notes Provider Name and Address Organization Details Recorded Time Hypertensiv e disorder 20193788 Active 2023 Karla Ames [facility], [place] - [place] 12:26:49 Benign essential hypertensio n 0347809 Active 2023 ANAMIKA Longoria Attn: Almas villarreal,[address] [place], [place], [address] [place] [address] 2, [facility] - [place] 21:42:47 Fatigue 60804681 Active 2023 ANAMIKA Longoria Attn: Almas villarreal,[address] [place], [place], [address] [place] [address] 2, [facility] - [facility] 4 21:43:05 Overweight 697080145 Active 2023 ANAMIKA Longoria Attn: Almas villarreal,[address] [place], [place], [address] [place] [address] 2, [facility] - [facility] 4 21:43:49 Body mass index 25-29 - overweight 688542233 Active 2023 ANAMIKA Longoria Attn: Almas villarreal,[address] [place], [place], [address] [place] [address] 2, [facility] - [place] 21:43:50 Gastroesoph ageal reflux disease without esophagitis 557483495 Active 2023 ANAMIKA Longoria Attn: Almas villarreal,[address] [place], [address], [place] - [facility] 21:43:51 History of idiopathic intracrania l hypertensio n [id number] 9108 Active 2023 ANAMIKA Longoria Attn: Almas g,[address], [place], [address], [place] - [facility] 4 21:43:51 Long-term drug therapy Active 2023 ANAMIKA Longoria Attn: Almas g,[address], [place], [address], [place] - [facility] 21:43:59 Problem Notes None recorded. Procedures Surgical History Date Name Laterality Status Provider Name and Address Organization Details Recorded Time 11/18/18 91 Eye Surgery completed Dequan Mccray MA [facility] 01/15/2024 10:01:12 procedure on gallbladder completed Dequan Mccray MA [facility] 01/15/2024 10:01:46 Cholecystectomy completed Karla Ames [facility] 01/15/2024 10:45:37 dilation and curettage completed Karla Ames [facility] 01/15/2024 10:46:07 hysterectomy completed Karla Ames [facility] 01/15/2024 10:46:17 section completed Dequan Mccray MA [facility] 01/15/2024 11:45:43 extraction of wisdom tooth completed Dequan Mccray MA [facility] 08/03/2024 16:46:50 Imaging Results None recorded. Procedure Notes None recorded. Medical Equipment None Reported. Allergies Allergen ID Allergen Name Allergen Category Reaction Reaction Severity Criticality Documentation Date Start Date Code Code System Note Provider Name and Address Organization Details Recorded Time 297941 Macrobid medicatio n nausea Not available low 09/28/2024 24238 1 RxNorm Not Available Not Available Not Available Medications Name Sig Start Date Stop Date Status Note LastModified by Organization Details LastModified Time amoxicillin 500 mg capsule TAKE 1 CAPSULE BY MOUTH EVERY 6 HOURS FOR 7 DAYS 08/03 completed Not Available Not Available Not Available labetalol 200 mg tablet 01/18 completed Not Available Not Available Not Available tizanidine 2 mg tablet TAKE 1 TABLET BY MOUTH EVERY 8 HOURS NEEDED FOR MUSCLE SPASM. START TAKING AT BEDTIME AND IF TOLERTATE D CAN INCREASE UP TO 3 TIMES A DAY 01/15 completed Not Available Not Available Not Available azithromyci n 250 mg tablet TAKE 2 TABLETS (500 MG) BY ORAL ROUTE ONCE DAILY FOR 1 DAY THEN 1 TABLET (250 MG) BY ORAL ROUTE ONCE DAILY FOR 4 DAYS 12/30 completed Not Available Not Available Not Available acetazolami de ER 500 mg capsule,ext ended release TAKE 1 CAPSULE BY MOUTH ONCE DAILY active Not Available Not Available No t Available benzonatate 200 mg capsule TAKE 1 CAPSULE BY MOUTH THREE TIMES DAILY NEEDED 01/15 completed Not Available Not Available Not Available hydrocodone 5 mg-acetamin ophen 325 mg tablet TAKE 1 TABLET BY MOUTH EVERY 8 HOURS NEEDED FOR PAIN 08/03 completed Not Available Not Available Not Available spironolact one 100 mg tablet TAKE 1 TABLET BY MOUTH ONCE DAILY active Not Available Not Available No t Available acetazolami de 250 mg tablet TAKE 1 TABLET BY MOUTH TWICE DAILY FOR 2 DAYS 08/03 completed Not Available Not Available Not Available penicillin V potassium 500 mg tablet TAKE 1 TABLET BY MOUTH 4 TIMES DAILY 08/03 completed Not Available Not Available Not Available ciprofloxac in 500 mg tablet TAKE 1 TABLET BY MOUTH EVERY 12 HOURS 10/27 completed Not Available Not Available Not Available tramadol 50 mg tablet TAKE 1 TABLET BY MOUTH EVERY 4 TO 6 HOURS NEEDED FOR PAIN. NO MORE THAN 4 TABLETS DAILY. 08/03 completed Not Available Not Available Not Available triamcinolo ne acetonide 0.1 % topical cream APPLY 1 CREAM EXTERNALL Y TWICE DAILY FOR 14 DAYS, APPLY TO NECK NEEDED FOR RASH 08/03 completed Not Available Not Available Not Available Macrobid 100 mg capsule Take 1 capsule every 12 hours by oral route. 10/27 completed Not Available Not Available Not Available oxycodone-a cetaminophe n 5 mg-325 mg tablet TAKE 1 TABLET BY MOUTH EVERY 4 TO 6 HOURS NEEDED FOR PAIN 08/03 completed Not Available Not Available Not Available amoxicillin 875 mg tablet TAKE 1 TABLET BY MOUTH EVERY 12 HOURS 10/27 completed Not Available Not Available Not Available pantoprazol e 40 mg tablet,laure yed release TAKE 1 TABLET BY MOUTH ONCE DAILY active Not Available Not Available No t Available hydrocortis one 2.5 % topical cream APPLY CREAM TO AFFECTED AREA TWICE DAILY NEEDED 08/03 completed Not Available Not Available Not Available clindamycin 2 % vaginal cream INSERT 1 APPLICATI ON INTO THE VAGINA NIGHTLY FOR 7 DOSES active Not Available Not Available No t Available propranolol ER 120 mg capsule,24 hr,extended release 01/15 completed Not Available Not Available Not Available methylpredn isolone 4 mg tablets in a dose pack USE DIRECTED 05/20 completed Not Available Not Available Not Available ondansetron 4 mg disintegrat ing tablet DISSOLVE 1 TABLET IN MOUTH EVERY 6 HOURS NEEDED FOR NAUSEA AND VOMITING 08/03 completed Not Available Not Available Not Available cefdinir 300 mg capsule TAKE 1 CAPSULE BY MOUTH EVERY 12 HOURS 01/15 completed Not Available Not Available Not Available amoxicillin 875 mg-potassiu m clavulanate 125 mg tablet Take 1 tablet every 12 hours by oral route. 05/20 completed Not Available Not Available Not Available buspirone 15 mg tablet TAKE 1/2 (ONE-HALF ) TABLET BY MOUTH TWICE DAILY 01/15 completed Not Available Not Available Not Available valsartan 160 mg tablet TAKE 1/2 TABLET BY MOUTH ONCE DAILY 08/03 completed Not Available Not Available Not Available Ozempic 0.25 mg or 0.5 mg (2 mg/1.5 mL) subcutaneou s pen injector INJECT 0.25 MG EVERY WEEK SUBCUTANE OUSLY DIRECTED 01/15 completed Not Available Not Available Not Available Ozempic 0.25 mg or 0.5 mg (2 mg/3 mL) subcutaneou s pen injector INJECT 0.5 MG EVERY WEEK SUBCUTANE OUSLY DIRECTED 01/15 completed Not Available Not Available Not Available Zepbound 2.5 mg/0.5 mL subcutaneou s pen injector INJECT 2 & 1/2 (TWO & ONE-HALF) MG SUBCUTANE OUSLY ONCE A WEEK 08/03 completed Not Available Not Available Not Available Vitals Date Recorded Body height Body mass index (BMI) Body weight Heart rate Respiratory rate Oxygen saturation Oxygen saturation in Arterial blood by Pulse oximetry Systolic blood pressure Diastolic blood pressure Provider Name and Address Organization Details Last Updated DateTime 4 172.72 cm 35.1 kg/m2 816363. 84 g 98 /min 18 /min 93 % 93 % 118 mm[Hg] 79 mm[Hg] Dequan Mccray MA [facility] 4 10:03:34 Date Recorded Systolic blood pressure Diastolic blood pressure Provider Name and Address Organization Details Last Updated DateTime 01/15/2024 114 mm[Hg] 80 mm[Hg] ANAMIKA Longoria Attn: Accounting,[address] [place], [address] 01/15/2024 10:39:03 Date Recorded Body height Body mass index (BMI) Body weight Respiratory rate Heart rate Oxygen saturation Oxygen saturation in Arterial blood by Pulse oximetry Systolic blood pressure Diastolic blood pressure Provider Name and Address Organization Details Last Updated DateTime 4 172.72 cm 28.6 kg/m2 24226.0 8 g 18 /min 68 /min 99 % 99 % 138 mm[Hg] 82 mm[Hg] Dequan Mccray MA [facility] 4 16:49:02 Date Recorded Systolic blood pressure Diastolic blood pressure Provider Name and Address Organization Details Last Updated DateTime 08/03/2024 124 mm[Hg] 80 mm[Hg] ANAMIKA Longoria Attn: Accounting[address] [place], [address], [facility] 08/03/2024 17:06:53 Date Recorded Body height Body mass index (BMI) Body weight Respiratory rate Oxygen saturation Oxygen saturation in Arterial blood by Pulse oximetry Heart rate Systolic blood pressure Diastolic blood pressure Provider Name and Address Organization Details Last Updated DateTime 5 172.72 cm 26.8 kg/m2 36461.2 6 g 18 /min 99 % 99 % 72 /min 130 mm[Hg] 82 mm[Hg] Dequan Mccray MA [facility] 5 15:01:14 Date Recorded Body temperature Pain severity - 0-10 verbal numeric rating [Score] - Reported Provider Name and Address Organization Details Last Updated DateTime 12/30/2024 98.1 [degF] 8 ANAMIKA Longoria Attn: Accounting,[address] [facility], [place], [address], [facility] 12/30/2024 15:29:02 Social History Question Answer Notes LastModified by Organizat ion Details LastModified Time Tobacco Smoking Status Never Smoker Dequan Mccray MA [facility], [facility] 01/15/2024 10:00:37 Do You Have An Advance Directive? No Information not available 08/03/2024 What Is Your Level Of Alcohol Consumption? Occasional Barley Any. Information not available 01/15/2024 Are You Blind Or Do You Have Difficulty Seeing? No Glasses/co ntacts Information not available 08/03/2024 What Is Your Level Of Caffeine Consumption? Moderate 3 Cups Of Cofee A Day Information not available 01/15/2024 In The 14 Days Before Symptom Onset, Have You Had Close Contact With A Laboratory-confir med COVID-19 While That Case Was Ill? No Information not available 01/15/2024 In The 14 Days Before Symptom Onset, Have You Had Close Contact With A Person Who Is Under Investigation For COVID-19 While That Person Was Ill? No Information not available 01/15/2024 Have You Been To An Area Known To Be High Risk For COVID-19? No Information not available 01/15/2024 Are You Currently Employed? Yes Information not available 12/30/2024 Are You Deaf Or Do You Have Serious Difficulty Hearing? No Information not available 08/03/2024 What Type Of Diet Are You Following? REGULAR Information not available 08/03/2024 Are There Any Guns Present In Your Home? No Information not available 01/15/2024 What Was The Date Of Your Most Recent Tobacco Screening? 12/30/2024 Information not available 12/30/2024 Do You Use Your Seat Belt Or Car Seat Routinely? Yes Information not available 01/15/2024 Do You Have Smoke And Carbon Monoxide Detectors In Your Home? Yes Information not available 01/15/2024 Do You Use Any Illicit Or Recreational Drugs? No Information not available 01/15/2024 Do You Use Sunscreen Routinely? Yes Information not available 01/15/2024 Has Tobacco Cessation Counseling Been Provided? Yes Information not available 01/15/2024 On What Date Was Tobacco Cessation Counseling Provided? 12/30/2024 Information not available 12/30/2024 Do You Or Have You Ever Used Any Other Forms Of Tobacco Or Nicotine? No Information not available 01/15/2024 Sex: Female Functional Status Question Answer Note LastModified by Organizat ion Details LastModified Time Are you able to care for yourself? Yes Information not available 08/03/2024 What is your exercise level? Occasional Information not available 08/03/2024 Mental Status None recorded. Family History Relationship Description Onset Age of this Age Resolved Age Notes LastModified by Organization Details LastModified Time Mother Depressive disorder tcarterma Not available 2023 09:59:14 Mother Anxiety tcarterma Not available 01/15/2024 09:59:24 Mother Migraine tcarterma Not availabl e 01/15/2024 11:46:27 Mother Hypertensive disorder tcarterma Not available 2023 16:45:54 Brother Malignant neoplasm of skin tcarterma Not available 2023 11:46:47 Brother Hodgkin's disease (clinical) 3-4 weeks ago tcarterma Not available 12/30/2024 14:59:26 Medical History Condition Response Diabetes N Anxiety Disorder N Coronary Artery Disease N Muscle, Joint, or Bone Problems N Atrial Fibrillation N High Blood Pressure Y Seizures/Epilepsy N Acid Reflux (GERD) Y Cancer N Kidney or Bladder Problems N Stroke N Thyroid Problems N GI Problems N Blood Clots N COPD N Depression N Allergies N Asthma N Skin Problems N Anemia N High Cholesterol N Hepatitis N Liver Disease N Heart Attack ([place]) N Headaches N Heart Failure N Gynecological History Statement/Question Response Menses Monthly N Current Control Method Hysterectom y Date of LMP Obstetrics History GPAL:G 2 P 0 0 0 2 Type Value Multiple Births 0 Full Term 0 Induced 0 Spontaneous 0 Premature 0 Living 2 Ectopics 0 Total 2 Immunizations Vaccine Type Date Status Note Provider Nam e and Address Organization Details Recorded Time Influenza, MDCK, quadrivalent, PF 08/27/2019 completed PROSPER [place], [place] [facility] 09/08/2024 11:19:14 Influenza, MDCK, quadrivalent, PF 09/21/2017 [place] PR[place] [facility] 09/08/2024 11:19:14 COVID-19 vaccine, vector-nr, rS-Ad26, PF, 0.5 mL 02/27/2021 [place] PR[place] [facility] 09/08/2024 11:19:14 COVID-19, mRNA, LNP-S, PF, 30 mcg/0.3 mL dose, vikki-sucrose 02/24/2022 [place] PR[place] [facility] 09/08/2024 11:19:14 Tdap 11/21/2020 [place] PROS[place] [facility] 09/08/2024 11:19:14 Tdap 05/04/2017 [place] PR[place] [facility] 09/08/2024 11:19:14 Hep A, adult 04/06/2019 [place] PR[place] [facility] 09/08/2024 11:19:14 Hep A, adult 10/15/2018 [place] PR[place] [facility] 09/08/2024 11:19:14 Influenza, split virus, quadrivalent, PF 09/13/2021 completed Dequan Mccray [place] [facility] 09/08/2024 11:19:14 Past Encounters Encounter ID Performer Location Encounter Start Date Encounter Closed Date Diagnosis/Indication Diagnosis SNOMED-CT Code Diagnosis ICD10 Code Diagnosis Note [id number] HELEN BENITEZ [address] [place] [address] 06/08/2020 12:23:55 06/09/2020 07:03:04 Suspected COVID-19 177067428 Z03.757 [id number] Yadi Menossi, PA [facility] [address] [place] [address] 01/15/2024 09:47:12 01/15/2024 10:43:16 Adult health examination 049740695 Z00.01 well exam completed. Benign ess ential hypertension 5142514 I10 stable on valsartan 160mg daily. Gastroesop hageal reflux disease without esophagitis 193829829 K21.9 stable on pantoprazo le 40mg daily. Long-term drug therapy 436348428 Z79.899 routine CBC and CMP due Body mass index 30+ - obesity 434194254 Z68.35 screening insulin due and start zepbound therapy if insurance will authorize. Acne 89612911 L70.9 refill spironolac ton 100mg daily. previously prescribed by Derm. Thyroid di sorder screening 617934121 Z13.29 thyroid panel due. Diabetes m ellitus screening 925659893 Z13.1 a1c screening due Cholesterol screening 27 1086683 Z13.220 fasting lipids due [id number] ANAMIKA Longoria [facility] [address] [place] [address] 08/03/2024 16:37:44 08/03/2024 17:23:28 Body mass index 25-29 - overweight 929285658 Z68.28 BMI is 28.6 Overweight 997231634 E66 .3 Patient has had superb weight loss in excess of 60 lb Benign ess ential hypertension 5760726 I10 Stop valsartan 80mg daily. She has been off of this medicine in her blood pressure is 124/80 so we will formally discontinu e it Gastroesop hageal reflux disease without esophagitis 857183565 K21.9 may taper down to pantoprazo le 20mg and taper off if weight loss has treated Long-term drug therapy 303268460 Z79.899 Routine CBC and CMP labs are due Fatigue 27496818 R53.83 Screening vitamin B12, folate, vitamin-D and iron studies for persistent fatigue History of idiopathic intracranial hypertension 5728202728 1355176 Z86.69 Continue see the acetazolam gayatri ER 500 mg daily as directed until she is notify differentl y by Neuro-Opht halmology [id number] ANAMIKA Longoria [facility] - Valente Kwan [address] [place] [address] 12/30/2024 14:42:01 12/30/2024 16:01:59 Body mass index 25-29 - overweight 993794102 Z68.28 BMI is 26.8 Overweight 062645118 E66 .3 Patient has had superb weight loss in excess of 60 lb Decrease in appetite 643 23710 R63.0 Stat evaluation as above Left upper quadrant pain 749649404 R10.[address] abdomen and pelvis with contrast rule out pancreatit is and or gastritis. Check amylase lipase CBC and CMP labs Nausea 832497378 R11.0 Health Concerns Section Related Observation LastModified by Organization Detai ls LastModified Time None Recorded Concern Status LastModified by Organization Details LastModified Time None Recorded Advance Directives Directive N: Payers Encounter Date Sequence Insurance Name Policy Number Policy Sampson Covered Member ID Sampson Member ID Guarantor Name 06/08/2020 1 [employer] - [employer] ONLY (PPO) Aminah Hein [id number] Aminah Hein 06/08/2020 1 *SELF PAY* Malina Hein 01/15/2024 1 [place] [id number] 1 Aminah Hein [id number] Aminah Hein 08/03/2024 1 [place] [id number] 1 Aminah Orr Hein [id number] Aminah Hein 12/30/2024 1 [place] [id number] 1 Aminah Hein [id number] Aminah Hein Notes Date Note Type Note Provider Name and Address Organization Details Recorded Time 0 text/html COVID ScreeningReported bypatient.Onset/Duration of fever:fever; highest fever 99.8 Associated Symptoms:no cough; no shortness of breathCOVID- Symptoms March 2020Reported bypatient.COVID-19 Signs and Symptomschills same; sore throat same; fatigue same symptoms started yesterday pt is 5 weeks RICHY VALLE NP Attn: Accounting,[address] [place], [address], [facility] 06/08/2020 14:16:04 4 text/html HypertensionReported bypatient.Severity:mild Duration:has noted for years Onset/Timing:better Alleviating Factors:medication Aggravating Factors:weight change Associated Symptoms:no shortness of breath; no fatigue; no palpitations; no decline in exercise capacity; no snoringReflux/GERDReporte d bypatient.Symptomsno difficulty swallowing; no pain swallowing; no postprandial pain Severity:improving Duration:present 1-4 years Context:non-smoker; no drug/alcohol abuse; no drug alcohol withdrawal Alleviating Factors:medication; protein pump inhibitors Aggravating Factors:worsened by food Associated Symptoms:no frequent coughing; no feeling of fullness/mass in throat; no hoarseness; no food getting stuck; no belching/burping; no vomiting; not vomiting blood; no regurgitation;heartburn ANAMIKA Longoria Attn: Accounting,[address] [place], [address], [facility] 01/19/2024 23:11:11 4 text/html HypertensionReported bypatient.Notes:Patient has been taking spironolactone 100 mg daily and has lost a significant amount of weight which has allowed her to stop her other medicationsReflux/GERDRep orted bypatient.Notes:Patient is stable on pantoprazole 40 mg daily and with her weight loss she does not have any more reflux and she is curious if she asked to continue this medication. Patient has idiopathic intracranial hypertension and is currently on acetazolamide ER 500 mg daily and is due to be seen by Neuro-Ophthalmology in the upcoming weeks. Patient does report persistent fatigue despite her weight loss and exercise and improved blood pressure ANAMIKA Longoria Attn: Accounting,[address] [place], [address], [facility] 08/16/2024 21:44:23 5 text/html Abdominal PainReported bypatient.Location:LUQ; epigastric Quality:pain;burning;taylor p;stabbing;fullness;tende r Severity:severe; pain level 8/10 Duration:constant Onset/Timing:worse; 1 week ago onset Modifying Factors:nothing gives relief Associated Symptoms:no fever; no chills; no blood in the urine;heartburn;diarrhea; constipation;decreased appetite Other:denies possible ANAMIKA Longoria Attn: Accounting,[address] [place], [address], [place] [facility] 12/30/2024 15:38:03 OBGyn Episode No OBEpisode recorded.
--- OUTSIDE RECORDS SUMMARY | 2024-12-30 15:17 | XMS_ITS | Continuity of Care Document ---
Author Organization [place], [facility] Address [address] [place] [address] Care Team Providers Care Paper Machine Tender Name Role Phone SHA ZHAO Primary Care Provider Unavailab le Assessment No assessment recorded. Plan of Treatment Reminders Order Date Submit Date Provider Last Modified By Organization Details Last Modified Time Details Appointments ANY 15 2024 02:00P M ANAMIKA Longoria Not available Not available Not available Lab amylase + lipase, serum 2024 025 [facility], [address], [place], [address], 12/30/2024 15:27:52 CMP, serum or plasma 2024 025 [facility], [address], [place], [address], 12/30/2024 15:27:51 CBC w/ auto diff 2024 025 [facility], [address], [place], [address], 12/30/2024 15:27:52 Referral None recorded. Procedures None recorded. Surgeries None recorded. Imaging CT, abdomen + pelvis, w/ contrast - r/o pancreati tis and/or severe gastritis [address] (Imaging), [address], [place], [address], 12/30/2024 16:01:59 Medication Orders None recorded. Patient TargetsNo targets recorded. Patient Instructions Encounter Date Encounter Id Patient Instructions Last Modified By Organization Details Last Modified Time 12/30/2024 [id number] A healthy lifestyle: care instructions [email or web address] Not available 12/30/2024 15:27:48 Reason for Referral None Reported. Problems Name Problem SNOMED Code Status Onset Date Resolution Date Notes Provider Name and Address Organization Details Recorded Time Hypertensiv e disorder 02205069 Active 2023 Karla Ames [facility], [place] 4 12:26:49 Benign essential hypertensio n 4248365 Active 2023 ANAMIKA Longoria Attn: Almas villarreal,[address] [place], [place], [address] [place] [address] 2, [facility] - [facility] 4 21:42:47 Fatigue 25544644 Active 2023 ANAMIKA Longoria Attn: Almas villarreal,[address] [place], [place], [address] [place] [address], [facility] - [place] 4 21:43:05 Overweight 322788878 Active 2023 ANAMIKA Longoria Attn: Almas villarreal,[address] [place], [place], [address] [place] [address], [facility] - [place] 4 21:43:49 Body mass index 25-29 - overweight 572557937 Active 2023 ANAMIKA Longoria Attn: Accountin g,[address] [place], [place], [address] [place] [address], [facility] - [place] 4 21:43:50 Gastroesoph ageal reflux disease without esophagitis 529331033 Active 2023 ANAMIKA Longoria Attn: Serain g,[address] [place], [place], [address] [place] [address], [facility] - [place] 4 21:43:51 History of idiopathic intracrania l hypertensio n 9780804524067 9108 Active 2023 ANAMIKA Longoria Attn: Almas villarreal,[address], [place], [address], [facility] - [place] 21:43:51 Long-term drug therapy Active 2023 ANAMIKA Longoria Attn: Almas villarreal,[address], [place], [address], [facility] - SI 21:43:59 Problem Notes None recorded. Procedures Surgical History Date Name Laterality Status Provider Name and Address Organization Details Recorded Time 11/18/18 91 Eye Surgery completed Dequan Mccray MA [facility] 01/15/2024 10:01:12 procedure on gallbladder completed Dequan Mccray MA [facility] 01/15/2024 10:01:46 Cholecystectomy completed Karla Ames [facility] 01/15/2024 10:45:37 dilation and curettage completed Karla Ames [facility] 01/15/2024 10:46:07 hysterectomy completed Karla Ames [facility] 01/15/2024 10:46:17 section completed Dequan Mccray MA [facility] 01/15/2024 11:45:43 extraction of wisdom tooth completed Dequan Mccray MA [facility] 08/03/2024 16:46:50 Imaging Results None recorded. Procedure Notes None recorded. Medical Equipment None Reported. Allergies Allergen ID Allergen Name Allergen Category Reaction Reaction Severity Criticality Documentation Date Start Date Code Code System Note Provider Name and Address Organization Details Recorded Time 825412 Macrobid medicatio n nausea Not available low 09/28/2024 13330 1 RxNorm Not Available Not Available Not [...] Updated DateTime 5 172.72 cm 26.8 kg/m2 45117.2 6 g 18 /min 99 % 99 % 72 /min 130 mm[Hg] 82 mm[Hg] Dequan Mccray [place] 15:01:14 Date Recorded Body temperature Pain severity - 0-10 verbal numeric rating [Score] - Reported Provider Name and Address Organization Details Last Updated DateTime 12/30/2024 98.1 [degF] 8 ANAMIKA Longoria Attn: Accounting,[address] [facility], [place], [address], [place] 12/30/2024 15:29:02 Social History Question Answer Notes LastModified by Organizat ion Details LastModified Time Tobacco Smoking Status Never Smoker Dequan Mccray [place] null, [place] [facility] 01/15/2024 10:00:37 Do You Have An Advance [...] available 12/30/2024 14:59:26 Medical History Condition Response Anxiety Disorder N Diabetes N Muscle, Joint, or Bone Problems N Coronary Artery Disease N Atrial Fibrillation N High Blood Pressure Y Seizures/Epilepsy N Acid Reflux (GERD) Y Cancer N Stroke N Thyroid Problems N Kidney or Bladder Problems N Asthma N Allergies N Blood Clots N COPD N Depression N GI Problems N Skin Problems N Anemia N High Cholesterol N Hepatitis N Liver Disease N Heart Attack ([place]) N Headaches N Heart Failure N Gynecological [...] Influenza, split virus, quadrivalent, PF 09/13/2021 completed PROSPER [place], [place] [facility] 09/08/2024 11:19:14 Past Encounters Encounter ID Performer Location Encounter Start Date Encounter Closed Date Diagnosis/Indication Diagnosis SNOMED-CT Code Diagnosis ICD10 Code Diagnosis Note [id number] ANAMIKA Longoria [facility] - Valente Kwan [address] [place] [address] 12/30/2024 14:42:01 12/30/2024 16:01:59 Body mass index 25-29 - overweight 432634765 Z68.28 BMI is 26.8 Overweight 879827448 E66 .3 Patient has had superb weight loss in excess of 60 lb Decrease in appetite 643 44439 R63.0 Stat evaluation as above Left upper quadrant pain 682969542 R10.[address] abdomen and pelvis with contrast rule out pancreatit is and or gastritis. Check amylase lipase CBC and CMP labs Nausea 280468713 R11.0 Health Concerns Section Related Observation LastModified by Organization Detai ls LastModified Time None Recorded Concern Status LastModified by Organization Details LastModified Time None Recorded Payers Encounter Date Sequence Insurance Name Policy Number Policy Sampson Covered Member ID Sampson Member ID Guarantor Name 12/30/2024 1 [facility] ([place] [id number] 1 Aminah Hein [id number] Aminah Hein Notes Date Note Type Note Provider Name and Address Organization Details Recorded Time 12/30/2024 text/html Abdominal PainReported bypatient.Location :LUQ; epigastric Quality:pain;burni ng;sharp;stabbing; fullness;tender Severity:severe; pain level 8/10 Duration:constant Onset/Timing:worse ; 1 week ago onset Modifying Factors:nothing gives relief Associated Symptoms:no fever; no chills; no blood in the urine;heartburn;di arrhea;constipatio n;decreased appetite Other:denies possible ANAMIKA Longoira Attn: Accounting[address] [place], [address], [facility] - [facility] 12/30/2024 15:38:03 OBGyn Episode No OBEpisode recorded.
[2024-12-30 16:08] LABS: Basophils Absolute Auto 0.1 K/mm3 (0.0-0.1); Basophils Percent Auto 0.7 % (0.2-1.2); Eosinophils Absolute Auto 0.2 K/mm3 (0-0.3); Eosinophils Percent Auto 2.3 % (0-4.4); Hematocrit 40.2 % (37.0-47.0); Hemoglobin 13.5 g/dL (12.0-15.0); Immature Granulocyte Absolute 0.02 K/mm3 (0.00-0.031); Immature Granulocyte Percent A 0.2 % (0-0.5); Lymphocytes Absolute Auto 2.42 K/mm3 (0.9-3.2); Lymphocytes Percent Auto 25.5 % (18.3-44.2); Mean Corpuscular HGB Conc 33.6 g/dl (32-36); Mean Corpuscular Hemoglobin 30.9 pg (26-34); Monocytes Absolute Auto 0.5 K/mm3 (0.1-0.6); Monocytes Percent Auto 4.7 % (2.6-8.5); Neutrophils Absolute Auto 6.3 K/mm3 (1.3-6.7); Neutrophils Percent Auto 66.6 % (45.5-73.1); Platelet Count Result 225 k/mm3 (150-375); Red Blood Count 4.37 M/mm3 (4.2-5.4); Red Cell Distribution Width 12.4 % (11.5-14.5); White Blood Count 9.5 K/mm3 (4.5-10.0)
[2024-12-30 16:21] LABS: Alanine Aminotransferase 16 U/L (6-35); Albumin Level 4.6 g/dL (3.5-5.1); Alkaline Phosphatase 47 U/L (38-126); Amylase 76 U/L (30-110); Anion Gap 13 mmol/L (4-12); Aspartate Amino Transferase 18 U/L (14-36); Bilirubin,Total 0.5 mg/dL (0.2-1.3); Blood Urea Nitrogen 15 mg/dL (7-17); Carbon Dioxide 16 mmol/L (22-30); Chloride 106 mmol/L (98-107); Estimated Glomerular Filt Rate > 60; Glucose 80 mg/dL (65-110); Lipase 113 U/L (23-300); Sodium 135 mmol/L (137-145)
== END 2024-12-30 15:04 | disposition home or self-care (01) ==
PROVIDERS: PCP Physician Assistant; Visit Provider Physician Assistant
DX: K86.89 Other specified diseases of pancreas (principal); N13.30 Unspecified hydronephrosis
CPT/HCPCS: 36415; 74177; 80053; 82150; 83690; 85025; Q9967

== ENCOUNTER 2024-12-30 16:11 | Emergency (ER) | payer BC, SELFPAY ==
[2024-12-30 16:15] VITALS: BP 134/78; PULSE 73; RESP 20; TEMP 36.6; O2SAT 100
--- OUTSIDE RECORDS SUMMARY | 2024-12-30 16:15 | XMS_ITS | Clinical Summary ---
Author Organization [facility] Address [address] [place] [address] Care Team Providers Care Para Operator Name Role Phone Yadi Menendez Primary Care Pr ovider Source Comments [facility],non-owned Affiliates and Associated Physician Practices is amultiple site organization consisting of ambulatory clinics and hospital sitesin [place], [place], [place] and [place]. This disclosure is being madepursuant to the Care Everywhere program and may not contain all information available regarding this patient. Last updated 18.[facility] Allergies No known active allergies Medications * [...] surgery with resection of vaginal septum at [facility]; right and left cervix seen Preeclampsia, severe [...] Image-Guided Liquid-Based with Reflex HPV Accession No: [id number] Specimen:Endocervi sacha ThinPrep Slides:1 SPECIMEN ADEQUACY: SATISFACTORY FOR EVALUATION - Endocervical / Transformation Zone Component Present INTERPRETATION: NEGATIVE FOR INTRAEPITHELIAL LESION OR MALIGNANCY OTHER FINDINGS: - Inflammation Present NOTE(S): HPV REFLEX - HPV result to follow if ASCUS in separate report This specimen was evaluated by the ThinPrep Imaging System along with an additional manual rescreening by a gas analyst and/or pathologist Initial Evaluation performed by Irene HDEZ (ASCP). Electronically signed 02/05/2018 Interpretation performed by Frandy Garg MD. Electronically signed 02/05/2018 [facility] Endocervical 01/31/2018 02/03/2018 11:49 AM CDT Alva Romo MD LAB - PATHOLOGY/CY TOLOGY ORDERABLES [facility] PATH[facility] [place] [address], [facility] [phone] from Last 3 Months or Most Recently Relevant to Health Maintenance Advance Directives * Full Code (Latest Code Status on File) Date Activated Date Inactivated Comments 05/07/2017 8:41 AM 05/11/2017 5:40 PM * Full Code Date Activated Date Inactivated Comments 05/03/2017 7:15 AM 05/07/2017 8:41 AM Care Teams Para Operator Relationship Specialty Start Date End Date aYdi Menendez PA [address] [place] [address] PCP - General Physician Scrap Kettle Tender 05/03/17
--- OUTSIDE RECORDS SUMMARY | 2024-12-30 16:15 | XMS_ITS | Encounter Summary ---
Author Organization [facility] Address [address] [place] [address] Phone Care Team Providers Care Assistant Front Office Manager Name Role Phone No, Physician Unavailable Yadi Solorzano Primary Care Pr ovider Encounter Details Date Type Department Care Team (Late st Contact Info) Description 12/29/2024 Telephone [facility] Ophthalmology [address] [place] [address] [place] [address] Latha Baltazar MD [address] [place] [address] 6 [place] [address] Social History Tobacco Use Types [...] often do you attend chur ch or jehovah's witness services? 1 to 4 times per year 11/01/2021 Do you belong to any clubs o r organizations such as orthodoxy groups, unions, fraternal or athletic groups, or [...] things needed for daily living? 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 She had no additional concerns. E RECYCLER documented in this encounter Plan of Treatment Not on file documented as of this encounter Visit Diagnoses Not on filedocumented in this encounter Care Teams Assistant Front Office Manager Relationship Specialty Start Date End Date Yadi Solorzano PA PCP - General Physician Wood Dowel Machine Operator 02/23/21 No, Physician 05/11/19 documented as of this encounter
--- OUTSIDE RECORDS SUMMARY | 2024-12-30 16:15 | XMS_ITS | Referral Summary ---
Author Organization [facility] Address [address] [place] [address] Care Team Providers Care Fax Machine Repairer Name Role Phone No, Physician Unavailable Yadi Solorzano Primary Care Pr ovider Encounters Date Type Department Care Team Description 12/29/2024 Telephone [facility] Ophthalmology [address] [place] [phone] Latha Baltazar MD 12/21/2024 9:45 AM OIL AND GAS PRINCIPAL Office Visit [facility] Ophthalmology [facility] [address] [address] Latha Baltazar MD Idiopathic intracranial hypertension (Primary Dx); 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 12/17/2024 Telephone [facility] Reproductive Endocrinology [address] [facility] [address] [place] [address] Farideh Trujillo RN Referral to [facility]O 12/15/2024 Orders Only [address] [address] Darcy James MD Low serum follicle stimulating hormone (FSH) (Primary Dx); Low testosterone level in female; Low libido 12/15/2024 Orders Only [address] [address] Darcy James MD Low serum follicle stimulating hormone (FSH) (Primary Dx) 12/14/2024 2:30 PM OIL AND GAS PRINCIPAL - 12/14/2024 11:59 PM OIL AND GAS PRINCIPAL Hospital Encounter [facility] [address] [place], [place] [phone] Bacterial vaginitis; Leukorrhea; Vaginal bleeding Discharge Disposition: Discharge to home or self care 12/14/2024 Orders Only 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); H/O: hysterectomy; Vaginal dryness; Weight loss; Vaginal bleeding; Chronic RLQ pain; Bacterial vaginitis; Leukorrhea 10/07/2024 Telephone [facility] Ophthalmology [address] [facility] 6th [place] [address] Latha Baltazar MD 10/06/2024 9:15 AM OIL AND GAS PRINCIPAL Office Visit [facility] Ophthalmology [address] [place] [address] 1[address] [place] [address] Latha Baltazar MD Idiopathic intracranial hypertension (Primary [...] (04/18/2021): Added automatically from request for surgery [id number] care following delivery 12/19 Overview (01/08/2021): # [...] - s/p counseling 06/10 - current regimen: [id number] - has home BP cuff, reminded patient [...] weeks Assessment & Plan (01/02/2021 10:54 AM OIL AND GAS PRINCIPAL): She has not been checking her Bps at home but plans to start and will bring them to weekly appointments. Continues to have lower extremity swelling. Bp mild range today. Has headaches that resolve on their own or with tylenol. Denies changes in vision or RUQ pain. Very strict BP parameters and preE precautions reviewed. Assessment & Plan (10/10/2020 6:33 PM OIL AND GAS PRINCIPAL): Reports some symptoms of SOB with activity. [...] unspecified trimester 06/09/2020 Overview (01/02/2021): [x] Full [facility] Care; Referring Provider: Self Referral [] [...] insurance) [x] Method of feeding: breast [x] Trauma Doctor: [] PP Depression Discussed: Assessment & Plan (06/10/2020 2:03 PM CDT): Serologies and baseline labs ordered today. Has recent EKG in CareEverywhere. Will discuss genetic screening when viability confirmed. 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 - [facility] 05/2019: Polyps in normal appearing right uterine [...] (04/18/2021): Added automatically from request for surgery [id number] History of section complicating 06/09/2020 12/14/2024 Overview (06/24/2020): - discussed @ [facility]; would like to TOLAC if possible (this is in different/non-scarred uterine cavity); counseled regarding risk for soft tissue dystocia - Readdress at future visit Irregular menses 05/13/2019 06/10/2020 Overview (05/13/2019): Added automatically from request for surgery [id number] Immunizations Name Administration Dates Next Due DT 06/08/2005 Hep A, Adult 04/06/2019,10/15/2018,10/15/2018 Hep A, Unspecified 04/06/2019 Hep B, Adolescent or Pediatric 08/18/2001,2000,02/14/2001 Influenza, Quadrivalent, Tatyana l Culture-based MDCK, Preservative Free, Antibiotic Free, Intramuscular 08/18/2020,08/27/2019,09/21/2017 Influenza, Quadrivalent, Spl it, Intramuscular 08/27/2019 Influenza, Quadrivalent, Spl it, Preservative Free, Intramuscular 09/13/2021 Influenza, Trivalent, IM (MDV) 10/02/2013 Influenza, Unspecified 11/18/[address] Residence FACC Fund I (J&J) SARS-CoV-2 Vaccination 02/27/2021, 02/27/2021 MMR 05/11/1996,07/26/1993 [...] often do you attend chur ch or judaism services? 1 to 4 times per year 11/01/2021 Do you belong to any clubs o r organizations such as presybeterian groups, unions, fraternal or athletic groups, or [...] things needed for daily living? No 11/01/2021 [place] Depression Scale Answer Date Recorded [place] Depression Scale Total 4 01/24/2021 The thought [...] on file Legal Sex Female 7:14 AM OIL AND GAS PRINCIPAL Gender Identity Not on file Sexual Orientation Straight 06/07/2020 6: 54 PM CDT Last Filed Vital Signs Vital Sign Reading Time Taken Comments Blood Pressure 126/82 12/14/2024 1:27 PM OIL AND GAS PRINCIPAL Pulse 69 05/18/2024 9:30 PM CDT Temperature 36.5 C (97.7 F) 05/18/2024 6:32 PM CDT Respiratory Rate 18 05/18/2024 6:32 PM CDT Oxygen Saturation 100% 05/18/2024 9:30 PM CDT Inhaled Oxygen Concentration - - Weight 77.7 kg (171 lb 6.4 oz) 12/14/2024 1:27 P M OIL AND GAS PRINCIPAL Height 172.7 cm (5' 8 ) 12/14/2024 1:27 PM OIL AND GAS PRINCIPAL Body Mass Index 26.06 12/14/2024 1:27 PM OIL AND GAS PRINCIPAL Plan of Treatment Not on file Procedures Procedure Name Priority Date/Time Associated Diagnosis Comments OCT, RETINA - OU - BOTH EYES Routine 12/21/2024 9:02 AM OIL AND GAS PRINCIPAL Idiopathic intracranial hypertension 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 OCT, OPTIC NERVE - OU - BOTH EYES Routine 12/21/2024 9:02 AM OIL AND GAS PRINCIPAL Idiopathic intracranial hypertension 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 MISCELLANEOUS MICROBIOLOGY TEST Routine 12/14/2024 6:52 PM OIL AND GAS PRINCIPAL PAP ONLY Routine 12/14/2024 3:39 PM OIL AND GAS PRINCIPAL Vaginal bleeding THINPREP PROCESSING (MOLECULAR COMPONENT) Routine 12/14/2024 3:38 PM OIL AND GAS PRINCIPAL Vaginal bleeding LUTEINIZING HORMONE (LH) Routine 12/14/2024 2:30 PM OIL AND GAS PRINCIPAL 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 Vaginal dryness Weight loss PROLACTIN Routine 12/14/2024 2:30 PM OIL AND GAS PRINCIPAL 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 Vaginal dryness Weight loss FOLLICLE STIMULATING HORMONE Routine 12/14/2024 2:30 PM OIL AND GAS PRINCIPAL 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 Vaginal dryness Weight loss ESTRADIOL Routine 12/14/2024 2:30 PM OIL AND GAS PRINCIPAL 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 Vaginal dryness Weight loss TOTAL TESTOSTERONE Routine 12/14/2024 2: 30 PM OIL AND GAS PRINCIPAL 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 Vaginal dryness THYROID FUNCTION CASCADE Routine 12/14/2024 2:30 PM OIL AND GAS PRINCIPAL 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 Vaginal dryness Weight loss SEX HORMONE BINDING GLOBULIN Routine 12/14/2024 2:30 PM OIL AND GAS PRINCIPAL 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 Vaginal dryness CAMARGO VISUAL FIELD - OU - BOTH EYES Routine 10/06/2024 11:07 AM OIL AND GAS PRINCIPAL 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 Findings include normal observations. Left Eye Quality was good. Findings include normal observations. Notes Normal mean ganglion cell complex thickness OU (on Zeiss Cirrus OCT) Latha Baltazar MD OPHTH TOMOGRAPHY Final Resu lt * OCT, Optic Nerve - OU - Both Eyes (12/21/2024 9:02 AM OIL AND GAS PRINCIPAL) RNFL OS 115 micrometers CONTINUUM RNFL OD 123 micrometers CONTINUUM Anatomical Region Laterality Modality Head Other Narrative 12/21/2024 11:11 AM OIL AND GAS PRINCIPAL Right Eye Reliability was good. Average RNFL thickness 123 micrometers. Left Eye Reliability was good. Average RNFL thickness 115 micrometers. Notes Trace interval increase in RNFL thickness us Latha Baltazar MD OPHTH TOMOGRAPHY Final Resu lt * Miscellaneous microbiology test Miscellaneous Miscellaneous (12/14/2024 6:52 PM OIL AND GAS PRINCIPAL) Report Final Report: Negative for Mycoplasma genitalium Organism NEGATIVE FOR MYCOPLASMA GENITALIUM [facility] Miscellaneous (Miscellaneous) 12/14/2024 6:52 PM OIL AND GAS PRINCIPAL 12/14/2024 7:57 PM OIL AND GAS PRINCIPAL Narrative [facility] - 12/16/2024 7:11 PM OIL AND GAS PRINCIPAL Name of test to be performed:->mycoplasma genitalium Specimen type/source->vaginal [facility] Microbiology Laboratory ([phone]) Darcy James MD LAB MICROBIOLOGY - GENERAL ORDERABLES Final Result [facility] Department [place] [address] * Pap Only (Cytology Component) (12/14/2024 3:39 PM OIL AND GAS PRINCIPAL) Thin prep (Pap test) 12/14/2024 3:39 PM OIL AND GAS PRINCIPAL 12/14/2024 6:07 PM OIL AND GAS PRINCIPAL Narrative PATHOLOGY [facility] - 12/21/2024 10:44 AM OIL AND GAS PRINCIPAL EPIC results best viewed via link to PDF [facility] Andreea Rojas Laboratory [place] [address] Note to Patients: This report may contain [...] Gender: F : 1990 (Age: 34) Address: [address] [place] [address] [place] [address] Hospital #: [id number] Service: UNKNOWN Location: Patient Type: [facility] SPECIMEN Taken: 12/14/2024 Received: 12/14/2024 Accessioned: 12/15/2024 [...] histologic results be correlated for laboratory quality manager & improvement standards. FOR ALL HIGH-GRADE CASES [...] determined by the Surgical Pathology Department at [facility] as part of an ongoing clinical quality analyst program and in compliance with federally mandated [...] determined by the Surgical Pathology Department of [facility]. It has not been cleared or approved by the U. S. Food and Drug Administration. Darcy James MD LAB CYTOLOGY ORDE RABSHYANN Final Result PATHOLOGY [facility] 3rd Floor [place], [place] [phone] * ThinPrep processing (Molecular component) (12/14/2024 3:38 PM OIL AND GAS PRINCIPAL) ThinPrep processing (Molecular component) Specimen received for processing. [facility] Endocervical 12/14/2024 3:38 PM OIL AND GAS PRINCIPAL 12/16/2024 10:28 PM OIL AND GAS PRINCIPAL Darcy James MD LAB BODY FLUIDS A ND STOOLS ORDERABLES Final Result [facility] Department [place] [address] [facility] * Sex hormone binding globulin (12/14/2024 2:30 PM OIL AND GAS PRINCIPAL) Pathologist [facility] Sex steroid binding globulin 34.5 18.2 - 135.5 nmol/L [place] ref Lab Comment: Test Performed by: [facility] [address] [place] [address] Gaming Cashier: Robyn Delgado Ph.D.; CLIA# [id number] Blood 12/14/2024 2:30 PM OIL AND GAS PRINCIPAL 12/14/2024 7:43 PM OIL AND GAS PRINCIPAL Darcy James MD LAB BLOOD ORDERAB LES Final Result [facility] [place] [address] [place] ref Lab * Thyroid Function [place] (12/14/2024 2:30 PM OIL AND GAS PRINCIPAL) Pathologist [facility] TSH 0.51 0.30 - 4.20 mcIUnit/mL Blood 12/14/2024 2:30 PM OIL AND GAS PRINCIPAL 12/14/2024 7:38 PM OIL AND GAS PRINCIPAL Darcy James MD LAB BLOOD ORDERAB LES Final Result Performing Organization Address City/[facility]/ZIP Co de Phone Number [facility] [place] [address] * Prolactin (12/14/2024 2:30 PM OIL AND GAS PRINCIPAL) Pathologist [facility] Prolactin 8.2 4.8 - 23.3 ng/mL Blood 12/14/2024 2:30 PM OIL AND GAS PRINCIPAL 12/14/2024 7:43 PM OIL AND GAS PRINCIPAL Darcy James MD LAB BLOOD ORDERAB LES Final Result [facility] [place] [address] * Estradiol (12/14/2024 2:30 PM OIL AND GAS PRINCIPAL) Estradiol 33.9 pg/mL Comment: Interpretive Data Males: 11 43 pg/mL Females: Premenopausal: 31 533 pg/mL Postmenopausal: < 50 pg/mL Patients treated with Fluvestrant (Faslodex) should be tested using an alternate assay such as LC-MS due to potential for cross-reactivity. Estradiol varies widely throughout the menstrual cycle. Current interpretive data was last revised 2024. Blood 12/14/2024 2:30 PM OIL AND GAS PRINCIPAL 12/14/2024 7:38 PM OIL AND GAS PRINCIPAL Darcy James MD LAB BLOOD ORDERAB LES Final Result [facility] [place] [address] * (ABNORMAL) Total testosterone (12/14/2024 2:30 PM OIL AND GAS PRINCIPAL) Pathologist [facility] Testosterone 6.0(L) 8.4 - 48.1 ng/dL Blood 12/14/2024 2:30 PM OIL AND GAS PRINCIPAL 12/14/2024 7:38 PM OIL AND GAS PRINCIPAL Result [facility] Darcy James MD LAB BLOOD ORDERAB LES Final Result [facility] [place] [address] * LH (12/14/2024 2:30 PM OIL AND GAS PRINCIPAL) LH 4.2 IUnits/L Comment: Interpretive Data Males: Adults: 1.7 - 8.6 IUnits/L Females: Follicular: 2.4 - 12.6 IUnits/L Ovulation: 14.0 - 95.6 IUnits/L Luteal: 1.0 - 11.4 IUnits/L Postmenopausal: 7.7 - 58.5 IUnits/L Current interpretive data was last revised on 2019. Blood 12/14/2024 2:30 PM OIL AND GAS PRINCIPAL 12/14/2024 7:43 PM OIL AND GAS PRINCIPAL Darcy James MD LAB BLOOD ORDERAB LES Final Result Performing Organization Address [facility] de Phone Number [facility] [place] [address] * Follicle stimulating hormone (12/14/2024 2:30 PM OIL AND GAS PRINCIPAL) FSH 5.7 IUnits/L Comment: Interpretive Data Male: Adults: 1.5 - 12.4 IUnits/L Female: Follicular: 3.5 - 12.5 IUnits/L Ovulation: 4.7 - 21.5 IUnits/L Luteal: 1.7 - 7.7 IUnits/L Postmenopausal: 25.8 - 134.8 IUnits/L Current interpretive data was last revised 2015. Blood 12/14/2024 2:30 PM OIL AND GAS PRINCIPAL 12/14/2024 7:38 PM OIL AND GAS PRINCIPAL Darcy James MD LAB BLOOD ORDERAB LES Final Result Performing Organization Address [facility] Phone Number [facility] [place] [address] * [place] Visual Field - OU - Both Eyes (10/06/2024 11:07 AM OIL AND GAS PRINCIPAL) Anatomical Region Laterality Modality Head Visual Field Narrative 10/06/2024 11:07 AM OIL AND GAS PRINCIPAL Few central misses OD with poor reliability c/w known amblyopia OD Full OS Latha Baltazar MD OPHTH VISUAL FIELD Final Re sult * OCT, Retina - OU - Both Eyes (10/06/2024 11:06 AM OIL AND GAS PRINCIPAL) Anatomical Region Laterality Modality Head Optical Coherenc e Tomography Narrative 10/06/2024 11:06 AM OIL AND GAS PRINCIPAL Right Eye Findings include normal observations. Left Eye Findings include normal observations. Notes Normal mean ganglion cell complex thickness OU (on Zeiss Cirrus OCT) us Latha Baltazar MD OPHTH TOMOGRAPHY Final Resu lt * OCT, Optic Nerve - OU - Both Eyes (10/06/2024 11:06 AM OIL AND GAS PRINCIPAL) RNFL OS 112 micrometers CONTINUUM RNFL OD 115 micrometers CONTINUUM Anatomical Region Laterality Modality Head Optical Coherenc e Tomography Narrative 10/06/2024 11:06 AM OIL AND GAS PRINCIPAL Right Eye Reliability was good. Average RNFL thickness 115 micrometers. Left Eye Reliability was good. Average RNFL thickness 112 micrometers. Notes Interval improvement in mean RNFL thickness OU (Performed on Zeiss Cirrus OCT) us Latha Baltazar MD OPHTH TOMOGRAPHY Final Resu lt from Last 3 Months Insurance [place] [address] ANTH ACCESS Advance Directives For more information, please contact: [phone] * Full Code (Latest Code Status on File) Date Activated Date Inactivated Comments 10/31/2021 10:24 PM 11/01/2021 6:35 PM * Full Code Date Activated Date Inactivated Comments 01/05/2021 1:06 AM 01/08/2021 7:55 PM * Full Code Date Activated Date Inactivated Comments 01/04/2021 6:59 PM 01/05/2021 1:06 AM Full CPR in case of cardiopulmonary arrest Care Teams Fax Machine Repairer Relationship Specialty Start Date End Date Yadi Solorzano PA PCP - General Physician Director Of Outreach 02/23/21 No, Physician 05/11/19
--- OUTSIDE RECORDS SUMMARY | 2024-12-30 16:15 | XMS_ITS | Referral Summary ---
Author Organization [facility] Address [address] [facility] [place] [address] Care Team Providers Care Parakeet Raiser Name Role Phone Yadi Menendez Primary Care Pr ovider Source Comments [facility],non-owned Affiliates and Associated Physician Practices is amultiple site organization consisting of ambulatory clinics and hospital sitesin [place], [place], [place] and [place]. This disclosure is being madepursuant to the Care Everywhere program and may not contain all information available regarding this patient. Last updated 18.[facility] Allergies No known active allergies Medications * [...] surgery with resection of vaginal septum at [facility]; right and left cervix seen Preeclampsia, [...] Image-Guided Liquid-Based with Reflex HPV Accession No: [id number] Specimen:Endocervi sacha ThinPrep Slides:1 SPECIMEN ADEQUACY: SATISFACTORY FOR EVALUATION - Endocervical / Transformation Zone Component Present INTERPRETATION: NEGATIVE FOR INTRAEPITHELIAL LESION OR MALIGNANCY OTHER FINDINGS: - Inflammation Present NOTE(S): HPV REFLEX - HPV result to follow if ASCUS in separate report This specimen was evaluated by the ThinPrep Imaging System along with an additional manual rescreening by a graduate assistant and/or pathologist Initial Evaluation performed by Irene HDEZ (ASC). Electronically signed 02/05/2018 Interpretation performed by Frandy Garg MD. Electronically signed 02/05/2018 [facility] Endocervical 01/31/2018 02/03/2018 11:49 AM CDT Alva Romo MD LAB - PATHOLOGY/CY TOLOGY ORDERABLES [facility] [address] [phone] from Last 3 Months or Most Recently Relevant to Health Maintenance Advance Directives * Full Code (Latest Code Status on File) Date Activated Date Inactivated Comments 05/07/2017 8:41 AM 05/11/2017 5:40 PM * Full Code Date Activated Date Inactivated Comments 05/03/2017 7:15 AM 05/07/2017 8:41 AM Care Teams Parakeet Raiser Relationship Specialty Start Date End Date Yadi Menendez PA [address] [place] [address] PCP - General Physician Pipe Line Walker 05/03/17
--- OUTSIDE RECORDS SUMMARY | 2024-12-30 16:15 | XMS_ITS | Patient Health Summary ---
Author Organization [facility] [employer] Address [address] [place] [address] Care Team Providers Care Sales And Leasing Agent Name Role Phone Yadi Menendez Primary Care Pr ovider Note from [facility],non-owned Affiliates and Associated Physician Practices is amultiple site organization consisting of ambulatory clinics and hospital sitesin [place], [place], [place] and [place]. This disclosure is being madepursuant to the Care Everywhere program and may not contain all information available regarding this patient. Last updated 18.[facility] Allergies No known active allergies Medications * [...] blood pressure affecting in second trimester, antepartum ([facility]) * PT PTT PANEL(Performed 05/05/2017) Performed for Elevated blood pressure affecting in second trimester, antepartum ([facility]) * COMPREHENSIVE METABOLIC PANEL(Performed 05/05/2017) Performed for Elevated blood pressure affecting in second trimester, antepartum ([facility]) * CBC W AUTO DIFFERENTIAL(Performed 05/05/2017) Performed for Elevated blood pressure affecting in second trimester, antepartum ([facility]) * GLUCOSE - POINT OF CARE(Performed 05/05/2017) * FIBRINOGEN ACTIVITY(Performed 05/04/2017) Performed for Elevated blood pressure affecting in second trimester, antepartum ([facility]) * PT PTT PANEL(Performed 05/04/2017) Performed for Elevated blood pressure affecting in second trimester, antepartum ([facility]) * COMPREHENSIVE METABOLIC PANEL(Performed 05/04/2017) Performed for Elevated blood pressure affecting in second trimester, antepartum ([facility]) * CBC W AUTO DIFFERENTIAL(Performed 05/04/2017) Performed for Elevated blood pressure affecting in second trimester, antepartum ([facility]) * URINALYSIS REFLEX TO MICROSCOPIC NO CULTURE(Performed [...] blood pressure affecting in second trimester, antepartum ([facility]) * URIC ACID BLOOD(Performed 05/03/2017) Performed for Elevated blood pressure affecting in second trimester, antepartum ([facility]) * COMPREHENSIVE METABOLIC PANEL(Performed 05/03/2017) Performed for Elevated blood pressure affecting in second trimester, antepartum ([facility]) * CBC W AUTO DIFFERENTIAL(Performed 05/03/2017) Performed for Elevated blood pressure affecting in second trimester, antepartum ([facility]) * URINE MICROSCOPIC ONLY REFLEX TO CULTURE(Performed 05/03/2017) Performed for Elevated blood pressure affecting in second trimester, antepartum ([facility]) * PROTEIN CREATININE RATIO URINE RANDOM PNL(Performed 05/03/2017) Performed for Elevated blood pressure affecting in second trimester, antepartum ([facility]) * URINALYSIS REFLEX MICROSCOPIC REFLEX CULTURE(Performed 05/03/2017) Performed for Elevated blood pressure affecting in second trimester, antepartum ([facility]) * CULTURE URINE(Performed 05/03/2017) Performed for Elevated blood pressure affecting in second trimester, antepartum ([facility]) * SECTION (EMERGENCY) Results * PAP IG RFLX HPV ASCU (01/31/2018 12:00 AM CDT) Pap Image-Guided Liquid-Based with Reflex HPV Accession No: [id number] Specimen:Endocervi sacha ThinPrep Slides:1 SPECIMEN ADEQUACY: SATISFACTORY FOR EVALUATION - Endocervical / Transformation Zone Component Present INTERPRETATION: NEGATIVE FOR INTRAEPITHELIAL LESION OR MALIGNANCY OTHER FINDINGS: - Inflammation Present NOTE(S): HPV REFLEX - HPV result to follow if ASCUS in separate report This specimen was evaluated by the ThinPrep Imaging System along with an additional manual rescreening by a die stamper and/or pathologist Initial Evaluation performed by Irene HDEZ ([facility]). Electronically signed 02/05/2018 Interpretation performed by Frandy Garg MD. Electronically signed 02/05/2018 [facility] Endocervical 01/31/2018 02/03/2018 11:49 AM CDT Alva Romo MD LAB - PATHOLOGY/CY TOLOGY ORDERABLES [facility] [address] [phone] * CARDIAC EKG ORDER (05/14/2017 1:13 AM [...] - 5.20 x10E12/L 05/09/2017 6:15 AM CDT [facility] Hemoglobin 9.8(L) 12.0 - 15.6 gm/dL 05/09/2017 6:15 AM CDT [facility] Hematocrit 29.9(L) 35.9 - 45.5 % 05/09/2017 6:15 AM [facility] MCV 96.8 80.7 - 98.3 fl 05/09/2017 [facility] MCH 31.7 26.7 - 34.0 pg 05/09/2017 6:15 AM [facility] MCHC 32.8 30.8 - 35.9 gm/dL 05/09/2017 6:15 AM [facility] Platelet Count 162 153 - 416 x10E9/L 05/09/2017 6:15 AM [facility] RDW-CV 13.4 12.1 - 14.9 % 05/09/2017 6:15 AM [facility] MPV 11.5 9.4 - 12.9 fl 05/09/2017 6:15 AM [facility] Neutrophils % 73.6(H) 44.0 - 73.0 % 05/09/2017 6:15 AM [facility] Lymphocytes % 12.4(L) 20.0 - 43.0 % 05/09/2017 6:15 AM [facility] Monocytes % 6.5 5.0 - 13.0 % 05/09/2017 6:15 AM [facility] Eosinophils % 6.2(H) 0.0 - 6.0 % 05/09/2017 6:15 AM [facility] Basophils % 0.3 0.0 - 2.0 % 05/09/2017 6:15 AM [facility] Immature Granulocytes 1.0 0 - 1 % 05/09/2017 6:15 AM [facility] Neutrophil Absolute 7.86(H) 2.01 - 7.14 x10E9/L 05/09/2017 6:15 AM [facility] Lymphocytes Absolute 1.33 1.07 - 3.94 x10E9/L 05/09/2017 6:15 AM [facility] Monocytes Absolute 0.70 0.26 - 1.07 x10E9/L 05/09/2017 6:15 AM [facility] Eosinophils Absolute 0.66(H) 0 - 0.47 x10E9/L 05/09/2017 6:15 AM CDT [facility] Basophils Absolute 0.03 0 - 0.08 x10E9/L 05/09/2017 6:15 AM CDT [facility] Immature Granulocytes Absolute 0.11(H) 0.00 - 0.06 x10E9/L 05/09/2017 6:15 AM CDT [facility] nRBC Auto 0 /100 WBC 05/09/2017 6:15 AM CDT [facility] Blood BLOOD SPECIMEN / Unknown Lab Venipuncture / Unknown 05/09/2017 5:54 AM CDT 05/09/2017 6:10 AM CDT Bekah Chandler MD LAB - HEMATOLOGY ORD ERABLES Performing Organization Address City/State/[facility] Co de Phone Number [facility] [address] [place] [address] * NEURAXIAL BLOCK (05/07/2017 11:00 AM CDT) [...] - 7.40 pH 05/07/2017 10:45 AM CDT [facility] pCO2 Cord Venous POCT 41 35 - 45 mmHg 05/07/2017 10:45 AM CDT [facility] pO2 Cord Venous POCT 17(L) 22 - 33 mmHg 05/07/2017 10:45 AM CDT [facility] HCO3 Cord Arterial POCT 23 22 - 24 mmol/L 05/07/2017 10:45 AM CDT [facility] BE Cord Venous POCT Calc -3 -6.4 - 1.6 mmol/L 05/07/2017 10:45 AM CDT [facility] TCO2 Cord Venous POCT 24 22 - 30 mmol/L 05/07/2017 10:45 AM CDT [facility] O2 Saturation % Cord Venous Calc POCT 23 % 05/07/2017 10:45 AM CDT [facility] Site CORD TARA 05/07/2017 10:45 AM CDT [facility] Sample iSTAT CORD V 05/07/2017 10:45 AM CDT [facility] Blood CORD BLOOD SPECIMEN / Unknown 05/07/2017 10:38 AM CDT 05/07/2017 10:45 AM CDT Heriberto Ren MD LAB - POINT OF CARE ORDERABLES [facility] [address] [place] [address] * (ABNORMAL) BLOOD GASES CORD ART (ISTAT) (05/07/2017 10:35 AM CDT) pH Cord Arterial POCT 7.23 7.20 - 7.34 pH 05/07/2017 10:45 AM CDT [facility] pCO2 Cord Arterial POCT 53.5 45 - 55 mmHg 05/07/2017 10:45 AM CDT [facility] pO2 Cord Arterial POCT 11(L) 12 - 25 mmHg 05/07/2017 10:45 AM CDT [facility] HCO3 Cord Arterial POCT 22.6 22 - 24 mmol/L 05/07/2017 10:45 AM CDT [facility] BE Cord Arterial POCT -6(L) -2.9 - 8.3 mmol/L 05/07/2017 10:45 AM CDT [facility] TCO2 Cord Arterial POCT 24 mmol/L 05/07/2017 10:45 AM CDT [facility] O2 Saturation Cord Art % Calc POCT 9 % 05/07/2017 10:45 AM CDT [facility] Site CORD ART 05/07/2017 10:45 AM CDT [facility] Sample iSTAT CORD A 05/07/2017 10:45 AM CDT [facility] Blood CORD BLOOD SPECIMEN / Unknown 05/07/2017 10:35 AM CDT 05/07/2017 10:45 AM CDT Heriberto Ren MD LAB - POINT OF CARE ORDERABLES Performing Organization Address City/State/[facility] Co de Phone Number [facility] [address] [place] [address] * GROSS + MICRO EXAM (STL) (05/07/2017 10:29 AM CDT) Case Report Surgical Pathology Report Case: [id number] Authorizing Provider: Giselle Carrillo MD Collected: 05/07/2017 10:29 AM Ordering Location: [facility] Received: 05/08/2017 07:27 AM Pathologist: Per Rosa MD Specimen: Placenta 05/09/2017 2:05 PM CDT [facility] Final Diagnosis 1. Placenta, delivery: -- Third trimester placenta, 340 grams -- Three vessel umbilical cord -- membranes with hemosiderin macrophages MC/kassidy 05/09/2017 2:05 PM [facility] Gross Description Received in formalin in [...] are no lesions or masses grossly identified. Loan Review Analyst sections are submitted as follows: A1 - membranes and umbilical cord, A2 - and maternal surface, A3 - maternal surface. DYT/jam 05/09/2017 2:05 PM CDT [facility] Microscopic Description Sections of the umbilical cord show three vessels with no evidence of vasculitis or funisitis. Sections of the membranes show scattered hemosiderin pigmented macrophages. No chorioamnionitis is seen. Sections of the placental disc show maturing chorionic villi with no evidence of hemorrhage or infarction. ROMEO/kassidy 05/09/2017 2:05 PM CDT [facility] Disclaimer All histochemical and/or immunohistochemical results are interpreted with controls that demonstrate appropriate staining reactions before reporting results. Note on use of immunocytochemistry reagents: This test was developed and its performance characteristic determined by [facility], Department of Laboratory Medicine. It has not been cleared or approved by the U.S. Food and Drug Administration (FDA). The FDA has determined that such clearance or approval is not necessary. The test is used for clinical purpose. It should not be regarded as investigational or for research. This laboratory is certified to perform high complexity testing. 05/09/2017 2:05 PM CDT [facility] Embedded Images 05/09/2017 2:05 PM CDT [facility] Pathology/Cytolo gy ENTIRE PLACENTA / Unknown 05/07/2017 10:29 AM CDT 05/08/2017 7:27 AM CDT Giselle Carrillo MD LAB - PATHOLOGY/CYTO LOGY ORDERABLES [facility] [address] [place] [address] * GLUCOSE - POINT OF CARE (05/07/2017 5:36 AM CDT) Only the most recent of19 resultswithin the time period is included. Glucose WB/POC 77 70 - 106 mg/dL 05/07/2017 5:47 AM CDT [facility] Blood BLOOD SPECIMEN / Unknown 05/07/2017 5:36 AM CDT 05/07/2017 5:47 AM CDT Heriberto Ren MD LAB - POINT OF CARE ORDERABLES [facility] [address] [place] [address] * (ABNORMAL) COMPREHENSIVE METABOLIC PANEL (05/07/2017 1:50 AM CDT) Only the most recent of5 resultswithin the time period is included. Glucose 88 74 - 106 mg/dL 05/07/2017 2:38 AM CDT [facility] Sodium 140 136 - 145 mmol/L 05/07/2017 2:38 AM CDT [facility] Potassium 4.1 3.5 - 5.1 mmol/L 05/07/2017 2:38 AM CDT [facility] Chloride 107 98 - 107 mmol/L 05/07/2017 2:38 AM CDT [facility] CO2 23 22 - 31 mmol/L 05/07/2017 2:38 AM CDT [facility] Calcium 8.4(L) 8.5 - 10.1 mg/dL 05/07/2017 2:38 AM CDT [facility] Anion Gap 10 8 - 16 mmol/L 05/07/2017 2:38 AM CDT [facility] BUN 9 7 - 21 mg/dL 05/07/2017 2:38 AM CDT [facility] Creatinine 0.68 0.50 - 1.30 mg/dL 05/07/2017 2:38 AM CDT [facility] Alkaline Phosphatase 91 38 - 126 U/L 05/07/2017 2:38 AM CDT [facility] ALT 34 13 - 61 U/L 05/07/2017 2:38 AM CDT [facility] AST 24 5 - 40 U/L 05/07/2017 2:38 AM T [facility] Protein Total 5.8(L) 6.4 - 8.2 gm/dL 05/07/2017 2:38 AM CDT [facility] Albumin 2.3(L) 3.4 - 5.0 gm/dL 05/07/2017 2:38 AM CDT [facility] Bilirubin Total <0.1(L) 0.2 - 1.0 mg/dL 05/07/2017 2:38 AM CDT [facility] eGFR by MDRD >60 >60 mL/min/1.7 3m2 05/07/2017 2:38 AM CDT [facility] eGFR by MDRD >60 >60 mL/min/1.7 3m2 05/07/2017 2:38 AM CDT [facility] Blood BLOOD SPECIMEN / Unknown Venipuncture / Unknown 05/07/2017 1:50 AM CDT 05/07/2017 2:16 AM CDT Linn Nichols MD LAB - CHEMISTRY JE VILLALOBOS Performing Organization Address City/[facility] Co de Phone Number [facility] [address] [place] [address] * TYPE + SCREEN PANEL (05/06/2017 6:08 AM CDT) Only the most recent of2 resultswithin the time period is included. ABO O 05/06/2017 7:13 AM CDT [facility] Rh Type Positive 05/06/2017 7:13 AM CDT [facility] Comment:History check perfor med. No retype required. Antibody Screen Negative 05/06/2017 7:13 AM CDT [facility] B[facility] Blood Bank BLOOD SPECIMEN / Unknown Lab Venipuncture / Unknown 05/06/2017 6:08 AM CDT 05/06/2017 6:14 AM CDT Linn Nichols MD LAB - BLOOD BANK ORD ERABLES Performing Organization Address City/[facility] Co de Phone Number [facility] [address] [place] [address] * (ABNORMAL) PT PTT PANEL (05/05/2017 6:04 AM CDT) Only the most recent of2 resultswithin the time period is included. Pathologist [facility] [place] PT <9.5(L) 9.5 - 11.6 sec 05/05/2017 7:34 AM CDT [facility] INR 0.9 0.9 - 1.1 05/05/2017 7:34 AM CDT [facility] PTT 22.3 21.0 - 32.0 sec 05/05/2017 7:34 AM CDT [facility] Blood BLOOD SPECIMEN / Unknown Venipuncture / Unknown 05/05/2017 6:04 AM CDT 05/05/2017 6:47 AM CDT Narrative [facility] - 05/05/2017 7:34 AM CDT Conventional Warfarin Anticoagulant Therapy: INR Reference Range: 2.0-3.0 Intensive Warfarin Anticoagulant Therapy: INR Reference Range: 2.5-3.5 Heparin Therapeutic Range for PTT: 47.7 - 68.6 seconds. Samantha Morales MD LAB - COAGULATION OR DERABLES Performing Organization Address [facility] de Phone Number [facility] [address] [place], [place] [id number] * (ABNORMAL) FIBRINOGEN ACTIVITY (05/05/2017 6:04 AM CDT) Only the most recent of2 resultswithin the time period is included. Pathologist [facility] Fibrinogen 457(H) 200 - 400 mg/dL 05/05/2017 7:33 AM CDT [facility] Blood BLOOD SPECIMEN / Unknown Venipuncture / Unknown 05/05/2017 6:04 AM CDT 05/05/2017 6:47 AM CDT Samantha Morales MD LAB - COAGULATION OR DERABLES Performing Organization Address [facility] de Phone Number [facility] [address] [place] [phone] * (ABNORMAL) URINALYSIS ROUTINE AUTO (05/04/2017 11:18 PM CDT) Pathologist [facility] Color UA Yellow Straw, Yellow, Dark Yellow 05/05/2017 12:03 AM CDT [facility] Clarity UA Clear 05/05/2017 12:03 AM CDT [facility] Specific Holly UA 1.007 1.005 - 1.030 05/05/2017 12:03 AM [facility] pH UA 6.5 5.0 - 8.0 pH 05/05/2017 12:03 AM [facility] Protein UA 2+(A) Negative 05/05/2017 12:03 AM [facility] Blood UA Trace(A) Negative 05/05/2017 12:03 AM CDT [facility] Leukocyte UA Negative Negative 05/05/2017 12:03 AM T [facility] Nitrite UA Negative Negative 05/05/2017 12:03 AM [facility] Glucose UA Negative Negative 05/05/2017 12:03 AM CDT [facility] Ketone UA Negative Negative 05/05/2017 12:03 AM CDT [facility] Bilirubin UA Negative Negative 05/05/2017 12:03 AM [facility] Urobilinogen UA 0.2 0.1 - 1.0 EU/dL 05/05/2017 12:03 AM [facility] WBC UA Auto 0-2 0-2, 2-5 # /hpf 05/05/2017 12:03 AM [facility] RBC UA Auto 0-2 0-2, 2-5 # /hpf 05/05/2017 12:03 AM T [facility] Epithelial Cell UA Auto 0-2 0-2, 2-5 # /hpf 05/05/2017 12:03 AM [facility] Urine URINE SPECIMEN OBTAINED BY CLEAN CATCH PROCEDURE / Unknown Collection / Unknown 05/04/2017 11:18 PM CDT 05/04/2017 11:55 PM CDT Samantha Morales MD LAB - URINALYSIS ORD ERABLES [facility] [address] [place] [address] * CULTURE STREP B (05/03/2017 2:21 PM CDT) Culture Negative for beta-hemolytic Streptococcus Group B YEIMI 05/06/2017 9:08 AM CDT [facility] Microbiology MISCELLANEOUS SAMPLES / Unknown Collection / Unknown 05/03/2017 2:21 PM CDT 05/03/2017 2:30 PM CDT Samantha Morales MD LAB - MICROBIOLOGY O RDERAROSEMARY [facility] [address] [place] [address], [facility] [phone] * SONOGRAM - COMPLETE (05/03/2017 12:53 PM CDT) Anatomical Region Laterality Modality Other 05/03/2017 12:5 3 PM CDT Narrative 05/06/2017 11:09 AM CDT [facility] PHONE: FAX: Pat. Name: CRISSY ANDERSON Pat. No: [id number] Study Date: 05/03/2017 12:53pm , Age: 05 1990, 27 Pregnancies: 1 Height: 68 in Weight: 190 lb LMP: Unknown GA by US: 27w4d GA Selected: 27w3d (From Known E) ROSALEE: 07/30/2017 Referring MD: Heriberto Ren MD Roofing Sales Representative: Lisa Kebede RDMS CPT4: 76806 Hist/Ind: Pre-E HTN FOB Diaphragmatic Hernia MOB single kidney/septated uterus MEASUREMENTS & AGE GROWTH EVALUATION Measurement GA Range Srce %for GA Ratios ----- ---- ------- BPD 6.9 cm 27w6d (79k0k-24y1u) Hadl BPD 59% FL/BPD 0.72 (0.71 - 0.87) HC 25.5 cm 27w5d (04j6e-54x0o) Hadl HC 57% FL/AC 0.21 (0.20 - 0.24) AC 23.5 cm 27w5d (28g2n-45e8r) Hadl AC 57% HC/AC 1.09 (1.00 - 1.18) FL 5.0 cm 27w0d (42o9u-13d6t) Hadl FL 40% CI 0.76 (0.70 - 0.86) HL 4.6 cm 27w0d (57m3l-88m1v) Harvey HL 43% GA for sonogram 27w4d (29i0y-50u3b) Weight Estimate: based on (BPD,HC,AC,FL) Avg Weight: [...] <Electronic Signature> 05/06/2017 11:06am Samantha Morales MD [facility] ORDERABLES * GLUCOSE CHALLENGE (05/03/2017 8:14 AM CDT) Only the most recent of2 resultswithin the time period is included. [facility] Glucose Challenge 138 64 - 140 mg/dL 05/03/2017 8:35 AM CDT [facility] Glucose Challenge Time 1 hr 05/03/2017 8:35 AM CDT [facility] Blood BLOOD SPECIMEN / Unknown Venipuncture / Unknown 05/03/2017 8:14 AM CDT 05/03/2017 8:19 AM CDT Samantha Morales MD LAB - CHEMISTRY EJ VILLALOBOS Performing Organization Address City/[facility]/ZIP Co de Phone Number [facility] [address] [place] [address] * BLOOD TYPE VERIFICATION (05/03/2017 7:02 AM CDT) [facility] ABO O 05/03/2017 8:18 AM CDT [facility] Rh Type Positive 05/03/2017 8:18 AM CDT [facility] Blood Bank BLOOD SPECIMEN / Unknown Venipuncture / Unknown 05/03/2017 7:02 AM CDT 05/03/2017 7:45 AM CDT Heriberto Ren MD LAB - BLOOD BANK ORD DAMARIS [facility] [address] * URIC ACID BLOOD (05/03/2017 6:59 AM CDT) [facility] Uric Acid 6.7 3.0 - 8.5 mg/dL 05/03/2017 7:53 AM CDT [facility] Blood BLOOD SPECIMEN / Unknown Venipuncture / Unknown 05/03/2017 6:59 AM CDT 05/03/2017 7:26 AM CDT Heriberto Farooq MD LAB - CHEMISTRY JE VILLALOBOS Performing Organization Address [facility] Co de Phone Number [facility] [address] [place] [address] * LDH BLOOD (05/03/2017 6:59 AM CDT) [facility] LDH 169 100 - 200 U/L 05/03/2017 7:53 AM CDT [facility] Blood BLOOD SPECIMEN / Unknown Venipuncture / Unknown 05/03/2017 6:59 AM CDT 05/03/2017 7:26 AM CDT Heriberto Farooq MD LAB - CHEMISTRY ORDJuan F VILLALOBOS Performing Organization Address [facility] de Phone Number [facility] [address] [place] [address] * (ABNORMAL) URINALYSIS MICROSCOPIC ONLY W/REFLEX CULTURE (05/03/2017 6:58 AM CDT) [facility] RBC UA 0-2 0-2, 2-5 # /hpf 05/03/2017 7:46 AM CDT [facility] Epithelial Cell UA 5-10(A) 0-2, 2-5 # /hpf 05/03/2017 7:46 AM CDT [facility] Hyaline Casts 0-2 0 - 2 # /lpf 05/03/2017 7:46 AM CDT [facility] Urine URINE SPECIMEN OBTAINED BY CLEAN CATCH PROCEDURE / Unknown Collection / Unknown 05/03/2017 6:58 AM CDT 05/03/2017 7:22 AM CDT Heriberto Farooq MD LAB - URINALYSIS ORD ERAROSEMARY Performing Organization Address [facility] Co de Phone Number [facility] [address] [place], [place] [phone] * (ABNORMAL) URINALYSIS ROUTINE W/REFLEX TO CULTURE (05/03/2017 6:58 AM T) Color UA Yellow Straw, Yellow, Dark Yellow 05/03/2017 7:47 AM [facility] Clarity UA Cloudy 05/03/2017 7:47 AM [facility] LABORATORY Specific Holly UA >1.030(H) 1.005 - 1.030 05/03/2017 7:47 AM [facility]OR[facility] pH UA 6.0 5.0 - 8.0 pH 05/03/2017 7:47 AM [facility] Protein UA 3+(A) Negative 05/03/2017 7:47 AM [facility] Blood UA Negative Negative 05/03/2017 7:47 AM [facility] Leukocyte UA 1+(A) Negative 05/03/2017 7:47 AM [facility] Nitrite UA Negative Negative 05/03/2017 7:47 AM [facility] Glucose UA Negative Negative 05/03/2017 7:47 AM [facility] Ketone UA Negative Negative 05/03/2017 7:47 AM [facility] Bilirubin UA Negative Negative 05/03/2017 7:47 AM [facility] Urobilinogen UA 0.2 0.1 - 1.0 EU/dL 05/03/2017 7:47 AM [facility] WBC UA Auto >100(A) 0-2, 2-5 # /hpf 05/03/2017 7:47 AM [facility] RBC UA Auto Reflex to manual(A) 0-2, 2-5 # /hpf 05/03/2017 7:47 AM [facility] Epithelial Cell UA Auto 5-10(A) 0-2, 2-5 # /hpf 05/03/2017 7:47 AM [facility] Bacteria UA Auto 2+(A) None seen 05/03/20 17 7:47 AM [facility] Hyaline Casts UA Auto Reflex to manual(A) 0 - 2 #/lpf 05/03/2017 7:47 AM [facility] Reflex Status Culture to follow 05/03/2017 7:47 AM [facility] Urine URINE SPECIMEN OBTAINED BY CLEAN CATCH PROCEDURE / Unknown Collection / Unknown 05/03/2017 6:58 AM CDT 05/03/2017 7:22 AM CDT Heriberto Farooq MD LAB - URINALYSIS ORD ERABLES Performing Organization Address [facility] Co de Phone Number [facility] [address] [place] [address] * CULTURE URINE (05/03/2017 6:58 AM CDT) Culture <10,000 CFU/mL urogenital anjana YEIMI 05/04/2017 11:34 AM CDT [facility] MICROBIOLOGY Urine URINE SPECIMEN OBTAINED BY CLEAN CATCH PROCEDURE / Unknown Collection / Unknown 05/03/2017 6:58 AM CDT 05/03/2017 7:22 AM CDT Heriberto Farooq MD LAB - MICROBIOLOGY O RDERABLES Performing Organization Address [facility] de Phone Number [facility] MICROBIOLOGY [address] [place] [address] [phone] * PROTEIN CREATININE RATIO URINE RANDOM PNL (05/03/2017 6:58 AM CDT) Protein Urine 308.3 mg/dL 05/03/2017 8:03 AM CDT [facility] Creatinine Urine 270 mg/dL 05/03/2017 8:03 AM CDT [facility] Protein/Creatin ine Ratio Urine 1.14 05/03/2017 8:03 AM CDT [facility] Urine URINE SPECIMEN OBTAINED BY CLEAN CATCH PROCEDURE / Unknown Collection / Unknown 05/03/2017 6:58 AM CDT 05/03/2017 7:23 AM CDT Heriberto Farooq MD LAB - URINE CHEMISTR Y ORDERABLES Performing Organization Address [facility] Co de Phone Number [facility] [address] [place] [address] Care Teams Sales And Leasing Agent Relationship Specialty Start Date End Date Yadi Menendez PA [address] [place] [address] PCP - General Physician Credit Risk Review Officer 05/03/17
--- OUTSIDE RECORDS SUMMARY | 2024-12-30 16:15 | XMS_ITS | Clinical Summary ---
Author Organization [facility] Address [address] [place] [address] Care Team Providers Care Lead Radiologic Technologist Name Role Phone No, Physician Unavailable Yadi [...] (04/18/2021): Added automatically from request for surgery [id number] care following delivery 12/19 Overview (01/08/2021): # [...] - s/p counseling 06/10 - current regimen: [id number] - has home BP cuff, reminded patient [...] weeks Assessment & Plan (01/02/2021 10:54 AM SENIOR CLINICAL CONSULTANT): She has not been checking her Bps at home but plans to start and will bring them to weekly appointments. Continues to have lower extremity swelling. Bp mild range today. Has headaches that resolve on their own or with tylenol. Denies changes in vision or RUQ pain. Very strict BP parameters and preE precautions reviewed. Assessment & Plan (10/10/2020 6:33 PM SENIOR CLINICAL CONSULTANT): Reports some symptoms of SOB with activity. [...] unspecified trimester 06/09/2020 Overview (01/02/2021): [x] Full [facility] Care; Referring Provider: Self Referral [] [...] insurance) [x] Method of feeding: breast [x] Ship Loader: [] PP Depression Discussed: Assessment & Plan (06/10/2020 2:03 PM CDT): Serologies and baseline labs ordered today. Has recent EKG in CareEverywhere. Will discuss genetic screening when viability confirmed. 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 - [facility] 05/2019: Polyps in normal appearing right uterine [...] (04/18/2021): Added automatically from request for surgery [id number] History of section complicating 06/09/2020 12/14/2024 Overview (06/24/2020): - discussed @ [facility]; would like to TOLAC if possible (this is in different/non-scarred uterine cavity); counseled regarding risk for soft tissue dystocia - Readdress at future visit Irregular menses 05/13/2019 06/10/2020 Overview (05/13/2019): Added automatically from request for surgery [id number] Encounters Date Type Department Care Team Description 12/29/2024 Telephone [facility] Ophthalmology [address] [place] [address] [address] [place] [address] Latha Baltazar MD 12/21/2024 9:45 AM SENIOR CLINICAL CONSULTANT Office Visit 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 Endocr[facility]ology [address] [facility] [address] [place] [address] Farideh Trujillo RN Referral to AMANDO 12/15/2024 Orders Only [facility] [address] [place] [address] [address] [place] [address] Darcy James MD Low serum follicle stimulating hormone (FSH) (Primary Dx); Low testosterone level in female; Low libido 12/15/2024 Orders Only [facility] [address] [place] [address] [address] [place] [address] Darcy James MD Low serum follicle stimulating hormone (FSH) (Primary Dx) 12/14/2024 2:30 PM SENIOR CLINICAL CONSULTANT - 12/14/2024 11:59 PM SENIOR CLINICAL CONSULTANT Hospital Encounter [facility] [address] [place] [address] Bacterial vaginitis; Leukorrhea; Vaginal bleeding Discharge Disposition: Discharge to home or self care 12/14/2024 1:30 PM SENIOR CLINICAL CONSULTANT [facility] [address] [place] [address] [address] [place] [address] Darcy James MD 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 Ophthalmology [address] [facility] [address] [place] [address] Latha Baltazar MD 10/06/2024 9:15 AM SENIOR CLINICAL CONSULTANT Office Visit [facility] Ophthalmology [address] [facility] [address] [place] [address] Latha Baltazar MD Idiopathic intracranial hypertension (Primary [...] Trivalent, IM (MDV) 10/02/2013 Influenza, Unspecified 11/18/2014 Sisasa (J&J) SARS-CoV-2 Vaccination 02/27/2021, 02/27/2021 MMR 05/11/1996,07/26/1993 [...] 11/01/2021 How often do you attend [employer] or restoration services? 1 to 4 times per year 11/01/2021 Do you belong to any clubs o r organizations such as sabianist groups, unions, fraternal or athletic groups, or [...] things needed for daily living? No 11/01/2021 [place] Depression Scale Answer Date Recorded [place] Depression Scale Total 4 01/24/2021 The thought [...] on file Legal Sex Female 7:14 AM SENIOR CLINICAL CONSULTANT Gender Identity Not on file Sexual Orientation [...] Spinal Livin g 6 7 MONICA ,RAVI EchoslNiya gould MD Complications:Pre eclampsia Delivery Location:[facility] 2020 35w 3d 0h 03m 0h 03m 2.64 kg (5 lb 13.1 oz) M CS-LTr anv Combin ed Spinal /Epidu ral Y Livin g 8 9 BRUNILDA HEIN Jonat han S., MD Complications:Pre eclampsia Delivery Location:[facility] Main C ampus ([facility] L AND D PROCEDURE) Comments 2017 in se tting of severe preeclampsia at 27 weeks. Breech presentation. Monico 2'10 doing well now. Last Filed Vital Signs Vital Sign Reading Time Taken Comments Blood Pressure 126/82 12/14/2024 1:27 PM SENIOR CLINICAL CONSULTANT Pulse 69 05/18/2024 9:30 PM CDT Temperature 36.5 C (97.7 F) 05/18/2024 6:32 PM CDT Respiratory Rate 18 05/18/2024 6:32 PM CDT Oxygen Saturation 100% 05/18/2024 9:30 PM CDT Inhaled Oxygen Concentration - - Weight 77.7 kg (171 lb 6.4 oz) 12/14/2024 1:27 P M SENIOR CLINICAL CONSULTANT Height 172.7 cm (5' 8 ) 12/14/2024 1:27 PM SENIOR CLINICAL CONSULTANT Body Mass Index 26.06 12/14/2024 1:27 PM SENIOR CLINICAL CONSULTANT Plan of Treatment Health Maintenance Due Date [...] - BOTH EYES Routine 12/21/2024 9:02 AM SENIOR CLINICAL CONSULTANT Idiopathic intracranial hypertension 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 OCT, OPTIC NERVE - OU - BOTH EYES Routine 12/21/2024 9:02 AM SENIOR CLINICAL CONSULTANT Idiopathic intracranial hypertension 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 MISCELLANEOUS MICROBIOLOGY TEST Routine 12/14/2024 6:52 PM SENIOR CLINICAL CONSULTANT PAP ONLY Routine 12/14/2024 3:39 PM SENIOR CLINICAL CONSULTANT Vaginal bleeding THINPREP PROCESSING (MOLECULAR COMPONENT) Routine 12/14/2024 3:38 PM SENIOR CLINICAL CONSULTANT Vaginal bleeding LUTEINIZING HORMONE (LH) Routine 12/14/2024 2:30 PM SENIOR CLINICAL CONSULTANT 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 Vaginal dryness Weight loss PROLACTIN Routine 12/14/2024 2:30 PM SENIOR CLINICAL CONSULTANT 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 Vaginal dryness Weight loss FOLLICLE STIMULATING HORMONE Routine 12/14/2024 2:30 PM SENIOR CLINICAL CONSULTANT 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 Vaginal dryness Weight loss ESTRADIOL Routine 12/14/2024 2:30 PM SENIOR CLINICAL CONSULTANT 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 Vaginal dryness Weight loss TOTAL TESTOSTERONE Routine 12/14/2024 2: 30 PM SENIOR CLINICAL CONSULTANT 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 Vaginal dryness THYROID FUNCTION CASCADE Routine 12/14/2024 2:30 PM SENIOR CLINICAL CONSULTANT 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 Vaginal dryness Weight loss SEX HORMONE BINDING GLOBULIN Routine 12/14/2024 2:30 PM SENIOR CLINICAL CONSULTANT 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 Vaginal dryness CAMARGO VISUAL FIELD - OU - BOTH EYES Routine 10/06/2024 11:07 AM SENIOR CLINICAL CONSULTANT 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 Findings include normal observations. Left Eye Quality was good. Findings include normal observations. Notes Normal mean ganglion cell complex thickness OU (on Zeiss Cirrus OCT) us Latha Baltazar MD OPHTH TOMOGRAPHY Final Resu lt * OCT, Optic Nerve - OU - Both Eyes (12/21/2024 9:02 AM SENIOR CLINICAL CONSULTANT) RNFL OS 115 micrometers CONTINUUM RNFL OD 123 micrometers CONTINUUM Anatomical Region Laterality Modality Head Other Narrative 12/21/2024 11:11 AM SENIOR CLINICAL CONSULTANT Right Eye Reliability was good. Average RNFL thickness 123 micrometers. Left Eye Reliability was good. Average RNFL thickness 115 micrometers. Notes Trace interval increase in RNFL thickness us Latha Baltazar MD OPHTH TOMOGRAPHY Final Resu lt * Miscellaneous microbiology test Miscellaneous Miscellaneous (12/14/2024 6:52 PM SENIOR CLINICAL CONSULTANT) Report Final Report: Negative for Mycoplasma genitalium Organism NEGATIVE FOR MYCOPLASMA GENITALIUM [facility] Miscellaneous (Miscellaneous) 12/14/2024 6:52 PM SENIOR CLINICAL CONSULTANT 12/14/2024 7:57 PM SENIOR CLINICAL CONSULTANT Narrative [facility] - 12/16/2024 7:11 PM SENIOR CLINICAL CONSULTANT Name of test to be performed:->mycoplasma genitalium Specimen type/source->vaginal [facility] Microbiology Laboratory ([phone]) Darcy James MD LAB MICROBIOLOGY - GENERAL ORDERABLES Final Result [facility] [place] [address] * Pap Only (Cytology Component) (12/14/2024 3:39 PM SENIOR CLINICAL CONSULTANT) Thin prep (Pap test) 12/14/2024 3:39 PM SENIOR CLINICAL CONSULTANT 12/14/2024 6:07 PM SENIOR CLINICAL CONSULTANT Narrative PATHOLOGY [facility] - 12/21/2024 10:44 AM SENIOR CLINICAL CONSULTANT EPIC results best viewed via link to PDF [facility] Andreea Rojas [facility] [place] [address] Note to Patients: This report may contain [...] Gender: F : 1990 (Age: 34) Address: [address] [place] [address] [place] [address] [facility] #: [id number] Service: UNKNOWN Location: Patient Type: [facility] SPECIMEN Taken: 12/14/2024 Received: 12/14/2024 Accessioned: 12/15/2024 [...] clinical information and biopsy results as indicated. [facility] Clinical Laboratory Improvement Amendments (CLIA) mandate that cytologic and histologic results be correlated for laboratory data quality consultant & improvement standards. FOR ALL HIGH-GRADE CASES [...] determined by the Surgical Pathology Department at [facility] as part of an ongoing quality assurance clerk program and in compliance with federally mandated [...] determined by the Surgical Pathology Department of [facility]. It has not been cleared or approved by the U. S. Food and Drug Administration. Darcy James MD LAB CYTOLOGY ORDE RABLES Final Result PATHOLOGY [facility] 3rd Floor [place], [place] [phone] * ThinPrep processing (Molecular component) (12/14/2024 3:38 PM SENIOR CLINICAL CONSULTANT) Pathologist [facility] ThinPrep processing (Molecular component) Specimen received for processing. [facility] Endocervical 12/14/2024 3:38 PM SENIOR CLINICAL CONSULTANT 12/16/2024 10:28 PM SENIOR CLINICAL CONSULTANT Result [facility] Darcy James MD LAB BODY FLUIDS A ND STOOLS ORDERABLES Final Result Performing Organization Address [facility] Co de Phone Number [facility] [place] [address] [facility] * Sex hormone binding globulin (12/14/2024 2:30 PM SENIOR CLINICAL CONSULTANT) [facility] Sex steroid binding globulin 34.5 18.2 - 135.5 nmol/L [place] ref Lab Comment: Test Performed by: [facility] [address] [place] [address] Director Consumer Affairs: Robyn Delgado Ph.D.; CLIA# [id number] Blood 12/14/2024 2:30 PM SENIOR CLINICAL CONSULTANT 12/14/2024 7:43 PM SENIOR CLINICAL CONSULTANT Result [facility] Darcy James MD LAB BLOOD ORDERAB LES Final Result Performing Organization Address [facility]/ZIP Co de Phone Number [facility] [place] [address] [place] ref Lab * Thyroid Function [place] (12/14/2024 2:30 PM SENIOR CLINICAL CONSULTANT) Pathologist [facility] TSH 0.51 0.30 - 4.20 mcIUnit/mL Blood 12/14/2024 2:30 PM SENIOR CLINICAL CONSULTANT 12/14/2024 7:38 PM SENIOR CLINICAL CONSULTANT Result [facility] Darcy James MD LAB BLOOD ORDERAB LES Final Result Performing Organization Address [facility] de Phone Number [facility] [place] [address] * Prolactin (12/14/2024 2:30 PM SENIOR CLINICAL CONSULTANT) Prolactin 8.2 4.8 - 23.3 ng/mL Blood 12/14/2024 2:30 PM SENIOR CLINICAL CONSULTANT 12/14/2024 7:43 PM SENIOR CLINICAL CONSULTANT Result [facility] Darcy James MD LAB BLOOD ORDERAB LES Final Result Performing Organization Address [facility] Phone Number [facility] [place] [address] * Estradiol (12/14/2024 2:30 PM SENIOR CLINICAL CONSULTANT) Pathologist [facility] Estradiol 33.9 pg/mL Comment: Interpretive Data Males: 11 43 pg/mL Females: Premenopausal: 31 533 pg/mL Postmenopausal: < 50 pg/mL Patients treated with Fluvestrant (Faslodex) should be tested using an alternate assay such as LC-MS due to potential for cross-reactivity. Estradiol varies widely throughout the menstrual cycle. Current interpretive data was last revised 2024. Blood 12/14/2024 2:30 PM SENIOR CLINICAL CONSULTANT 12/14/2024 7:38 PM SENIOR CLINICAL CONSULTANT Result [facility] Darcy James MD LAB BLOOD ORDERAB LES Final Result Performing Organization Address [facility] Co de Phone Number [facility] [place] [address] * (ABNORMAL) Total testosterone (12/14/2024 2:30 PM SENIOR CLINICAL CONSULTANT) Testosterone 6.0(L) 8.4 - 48.1 ng/dL Blood 12/14/2024 2:30 PM SENIOR CLINICAL CONSULTANT 12/14/2024 7:38 PM SENIOR CLINICAL CONSULTANT Darcy James MD LAB BLOOD ORDERAB LES Final Result Performing Organization Address [facility] Phone Number [facility] [place] [address] * LH (12/14/2024 2:30 PM SENIOR CLINICAL CONSULTANT) LH 4.2 IUnits/L Comment: Interpretive Data Males: Adults: 1.7 - 8.6 IUnits/L Females: Follicular: 2.4 - 12.6 IUnits/L Ovulation: 14.0 - 95.6 IUnits/L Luteal: 1.0 - 11.4 IUnits/L Postmenopausal: 7.7 - 58.5 IUnits/L Current interpretive data was last revised on 2019. Blood 12/14/2024 2:30 PM SENIOR CLINICAL CONSULTANT 12/14/2024 7:43 PM SENIOR CLINICAL CONSULTANT Result [facility] Darcy James MD LAB BLOOD ORDERAB LES Final Result Performing Organization Address [facility] Phone Number [facility] [place] [address] * Follicle stimulating hormone (12/14/2024 2:30 PM SENIOR CLINICAL CONSULTANT) FSH 5.7 IUnits/L Comment: Interpretive Data Male: Adults: 1.5 - 12.4 IUnits/L Female: Follicular: 3.5 - 12.5 IUnits/L Ovulation: 4.7 - 21.5 IUnits/L Luteal: 1.7 - 7.7 IUnits/L Postmenopausal: 25.8 - 134.8 IUnits/L Current interpretive data was last revised 2015. Blood 12/14/2024 2:30 PM SENIOR CLINICAL CONSULTANT 12/14/2024 7:38 PM SENIOR CLINICAL CONSULTANT us Darcy James MD LAB BLOOD ORDERAB LES Final Result [facility] [place] [address] * [place] Visual Field - OU - Both Eyes (10/06/2024 11:07 AM SENIOR CLINICAL CONSULTANT) Anatomical Region Laterality Modality Head Visual Field Narrative 10/06/2024 11:07 AM SENIOR CLINICAL CONSULTANT Few central misses OD with poor reliability c/w known amblyopia OD Full OS us Latha Baltazar MD OPHTH VISUAL FIELD Final Re sult * OCT, Retina - OU - Both Eyes (10/06/2024 11:06 AM SENIOR CLINICAL CONSULTANT) Anatomical Region Laterality Modality Head Optical [facility] Tomography Narrative 10/06/2024 11:06 AM SENIOR CLINICAL CONSULTANT Right Eye Findings include normal observations. Left Eye Findings include normal observations. Notes Normal mean ganglion cell complex thickness OU (on Zeiss Cirrus OCT) us Latha Baltazar MD OPHTH TOMOGRAPHY Final Resu lt * OCT, Optic Nerve - OU - Both Eyes (10/06/2024 11:06 AM SENIOR CLINICAL CONSULTANT) RNFL OS 112 micrometers CONTINUUM RNFL OD 115 micrometers CONTINUUM Anatomical Region Laterality Modality Head Optical [facility]heren[facility] e Tomography Narrative 10/06/2024 11:06 AM SENIOR CLINICAL CONSULTANT Right Eye Reliability was good. Average RNFL thickness 115 micrometers. Left Eye Reliability was good. Average RNFL thickness 112 micrometers. Notes Interval improvement in mean RNFL thickness OU (Performed on Zeiss Cirrus OCT) us Latha Baltazar MD OPHTH TOMOGRAPHY Final Resu lt from Last 3 Months Insurance ANTHEM ACCESS BLUE ACCESS OOS ANTHEM ACCESS Advance Directives For more information, please contact: [phone] * Full Code (Latest Code Status on File) Date Activated Date Inactivated Comments 10/31/2021 10:24 PM 11/01/2021 6:35 PM * Full Code Date Activated Date Inactivated Comments 01/05/2021 1:06 AM 01/08/2021 7:55 PM * Full Code Date Activated Date Inactivated Comments 01/04/2021 6:59 PM 01/05/2021 1:06 AM Full CPR in case of cardiopulmonary arrest Care Teams Lead Radiologic Technologist Relationship Specialty Start Date End Date Yadi Solorzano PA PCP - General Physician Rehabilitation Program Coordinator 02/23/21 No, Physician 05/11/19
--- OUTSIDE RECORDS SUMMARY | 2024-12-30 16:15 | XMS_ITS | Clinical Summary ---
Author Organization [facility] Address [address] [address] [place] [address] Phone Care Team Providers Care Churn Drill Operator Name Role Phone Génesis Montano MD Primary Care Provider [phone]- [phone] Allergies No known active allergies Medications OTHER [...] patient's age to complete [place] [address] [facility] BLUE [employer]/TRUE BLUE PPO Advance Directives For more information, please contact: [phone] * Full Code (Latest Code Status on File) Date Activated Date Inactivated Comments 03/17/2015 11:02 AM 03/17/2015 4:56 PM * Full Code Date Activated Date Inactivated Comments 03/17/2015 10:20 AM 03/17/2015 11:02 AM * Full Code Date Activated Date Inactivated Comments 08/21/2013 10:22 AM 08/21/2013 5:51 PM * Full Code Date Activated Date Inactivated Comments 08/21/2013 9:06 AM 08/21/2013 10:22 AM Care Teams Churn Drill Operator Relationship Specialty Start Date End Date Génesis Montano MD [address] [address] PCP - General 11/04/15
--- NOTE | 2024-12-30 16:18 | ECG_ITS ---
Test Date: 2024-12-30 16:18:02 Measurements Intervals [place] Rate: 73 P: 55 AR: 132 QRS: 28 QRSD: 88 T: 11 QT: 365 QTc: 403 Interpretive Statements SINUS RHYTHM POSSIBLE LEFT ATRIAL ENLARGEMENT LOW QRS VOLTAGE IN PRECORDIAL LEADS BORDERLINE ST-T WAVE ABNORMALITY- INFERIOR LEADS BASELINE ARTIFACT- I, II, III, AVR, AVL, AVF BORDERLINE ECG No previous ECG available for comparison Electronically Signed On 12-31-2024 19:02:30 [employer]OMASS POWER PLANT SUPERINTENDENT by Bucky Hong D.O.
--- NOTE | 2024-12-30 16:24 | ED.ALLEREA ---
HPI - Allergic Reaction General Chief complaint: Allergic Reaction Stated complaint: allergic reaction to CT contrast Time Seen by Provider: 12/30/24 16:20 History of Present Illness HPI narrative: Pt was getting ct scan with contrast and started sweling in face and throat started getting scratchy. Pt denies SOB. Pt has had contrast in past without rxn. Pt denies CP. Pt has no rash. Related Data Home Medications ?Medication ?Instructions ?Recorded ?Confirmed ?Last Taken ?Type valsartan 160 mg tablet 160 mg PO DAILY 12/01/22 12/01/22 Unknown History Allergies Allergy/AdvReac Type Severity Reaction Status Date / Time iohexol (From contrast - CT, Allergy Severe Difficulty Verified 12/30/24 16:54 X-RAY) Swallowing ibuprofen AdvReac Unknown Verified 12/30/24 16:54 Review of Systems Review of Systems: All systems reviewed & are unremarkable except as noted in HPI and below PMFSH Past Medical History Medical History (Updated 12/30/24 @ 17:18 by Debbi Ackerman III DO) Endometriosis PCOS (polycystic ovarian syndrome) Social History Social History (System 04/27/24 @ 10:43 by Ophelia Glover) Smoking status: Never smoker Living arrangements: with family Gender identity (if verbalized by the patient): Female Exam Const: General: healthy appearing and no acute distress Nutritional Appearance: well nourished Orientation/consciousness: patient oriented x3 Limitations: no limitations HENMT: Throat: posterior oropharynx normal Other: some swelling eyes Eyes: Pupils: Equal, round and reactive pupils present EOM: EOMs intact bilaterally Neck: Neck: normal visual inspection Chest: Chest palpation & inspection: normal inspection of the chest Resp: Effort & Inspection: normal respiratory effort Auscultation: clear to auscultation bilaterally Cardio: Rate: regular rate Rhythm: regular rhythm GI: GI Palp: Yes Soft to palpation Auscultation: normal bowel sounds Skin: General skin exam: normal color Wounds: no wounds Neuro: General: patient oriented x3, moves all extremities and no focal motor deficits Speech: normal speech Extrem: General: normal to inspection and no clubbing, cyanosis or edema Psych: Mental Status: mental status grossly normal Affect: normal affect Attitude: cooperative Course Vital Signs Vital signs: Vital Signs Temperature 98 F 12/30/24 16:15 Pulse Rate 73 12/30/24 16:15 Respiratory Rate 20 12/30/24 16:15 Blood Pressure 134/78 12/30/24 16:15 Pulse Oximetry 100 12/30/24 16:15 Oxygen Delivery Room Air 12/30/24 16:15 Temperature 98 F 12/30/24 16:15 Pulse Rate 96 12/30/24 17:45 Respiratory Rate 16 12/30/24 17:45 Blood Pressure 106/61 12/30/24 17:45 Pulse Oximetry 100 12/30/24 17:45 Oxygen Delivery Room Air 12/30/24 16:15 MDM - Allergic Reaction MDM Narrative Medical decision making narrative: Pt having some selling uner eyes and scratchy throat after contrast. no airway compromise and lungs are clear. will reat with benadryl, solumedrol pepcid and epi. pt better after meds. lipase and cmp unremarkable on outpatient labs. CT shows early pancreatitis without inflammatory chages. Discussed with pt and she would prefer to not be admitted. Pt should have some repeat labs tomorrow to make sure it's not getting worse and will return if pain increases or if vomiting peristently. will prescribe some norco for pain and some zofran for nausea. Discharge Plan Discharge Clinical Impression: Allergic reaction, Acute epigastric pain Patient Disposition: Home, Self-Care Condition: Stable Instructions: Antibiotic Form, Anaphylaxis (ED), Abdominal Pain (ED) Patient Language: Italian Prescriptions: New hydrocodone-acetaminophen 5-325 mg tablet 1 tablet PO Q6H PRN (Reason: pain) Qty: 14 0RF ondansetron 4 mg tablet,disintegrating 4 mg PO Q8H PRN (Reason: nausea and vomiting) Qty: 14 0RF prednisone 50 mg tablet 50 mg PO DAILY Qty: 3 0RF No Action valsartan 160 mg tablet 160 mg PO DAILY amoxicillin 875 mg tablet 875 mg PO Q12H Qty: 20 0RF hydrocodone-acetaminophen 5-325 mg tablet 1 tablet PO Q8H PRN (Reason: pain) Qty: 10 0RF ondansetron 4 mg tablet,disintegrating 4 mg PO Q6H PRN (Reason: nausea and vomiting) Qty: 10 0RF Follow-up/Referrals: Jeanine,JAIRON Grullon [Primary Care Provider] -
[2024-12-30] MEDS: FAMOTIDINE 20 MG/2 ML VIAL IV PUSH (16:34)
[2024-12-30] MEDS: methylPREDNISolone SOD SUCC 125 MG VIAL IV PUSH (16:34)
[2024-12-30] MEDS: EPINEPHrine HCL INJ 1 MG/ML AMPUL 0.3 MG SUB-Q (16:35)
[2024-12-30] MEDS: diphenhydrAMINE HCl INJ 50 MG/ML VIAL IV PUSH (16:35)
[2024-12-30 16:45] VITALS: BP 115/75; PULSE 68; RESP 16; O2SAT 100
--- OUTSIDE RECORDS SUMMARY | 2024-12-30 16:47 | XMS_ITS | Patient Health Summary ---
Author Organization [facility] Address [address] [place] [address] Care Team Providers Care Slide Forming Machine Operator Name Role Phone Yadi Menendez Primary Care Pr ovider Note from [facility],non-owned Affiliates and Associated Physician Practices is amultiple site organization consisting of ambulatory clinics and hospital sitesin [place], [place], [place] and [place]. This disclosure is being madepursuant to the Care Everywhere program and may not contain all information available regarding this patient. Last updated 18.[facility] Allergies No known active [...] blood pressure affecting in second trimester, antepartum ([facility]) * PT PTT PANEL(Performed 05/05/2017) Performed for Elevated blood pressure affecting in second trimester, antepartum ([facility]) * COMPREHENSIVE METABOLIC PANEL(Performed 05/05/2017) Performed for Elevated blood pressure affecting in second trimester, antepartum ([facility]) * CBC W AUTO DIFFERENTIAL(Performed 05/05/2017) Performed for Elevated blood pressure affecting in second trimester, antepartum ([facility]) * GLUCOSE - POINT OF CARE(Performed 05/05/2017) * FIBRINOGEN ACTIVITY(Performed 05/04/2017) Performed for Elevated blood pressure affecting in second trimester, antepartum ([facility]) * PT PTT PANEL(Performed 05/04/2017) Performed for Elevated blood pressure affecting in second trimester, antepartum ([facility]) * COMPREHENSIVE METABOLIC PANEL(Performed 05/04/2017) Performed for Elevated blood pressure affecting in second trimester, antepartum ([facility]) * CBC W AUTO DIFFERENTIAL(Performed 05/04/2017) Performed for Elevated blood pressure affecting in second trimester, antepartum ([facility]) * URINALYSIS REFLEX TO MICROSCOPIC [...] blood pressure affecting in second trimester, antepartum ([facility]) * URIC ACID BLOOD(Performed 05/03/2017) Performed for Elevated blood pressure affecting in second trimester, antepartum ([facility]) * COMPREHENSIVE METABOLIC PANEL(Performed 05/03/2017) Performed for Elevated blood pressure affecting in second trimester, antepartum ([facility]) * CBC W AUTO DIFFERENTIAL(Performed 05/03/2017) Performed for Elevated blood pressure affecting in second trimester, antepartum ([facility]) * URINE MICROSCOPIC ONLY REFLEX TO CULTURE(Performed 05/03/2017) Performed for Elevated blood pressure affecting in second trimester, antepartum ([facility]) * PROTEIN CREATININE RATIO URINE RANDOM PNL(Performed 05/03/2017) Performed for Elevated blood pressure affecting in second trimester, antepartum ([facility]) * URINALYSIS REFLEX MICROSCOPIC REFLEX CULTURE(Performed 05/03/2017) Performed for Elevated blood pressure affecting in second trimester, antepartum ([facility]) * CULTURE URINE(Performed 05/03/2017) Performed for Elevated blood pressure affecting in second trimester, antepartum ([facility]) * SECTION (EMERGENCY) Results * PAP IG RFLX HPV ASCU (01/31/2018 12:00 AM CDT) Pap Image-Guided Liquid-Based with Reflex HPV Accession No: [id number] Specimen:Endocervi sacha ThinPrep Slides:1 SPECIMEN ADEQUACY: SATISFACTORY FOR EVALUATION - Endocervical / Transformation Zone Component Present INTERPRETATION: NEGATIVE FOR INTRAEPITHELIAL LESION OR MALIGNANCY OTHER FINDINGS: - Inflammation Present NOTE(S): HPV REFLEX - HPV result to follow if ASCUS in separate report This specimen was evaluated by the ThinPrep Imaging System along with an additional manual rescreening by a bait painter and/or pathologist Initial Evaluation performed by Irene HDEZ ([facility]). Electronically signed 02/05/2018 Interpretation performed by Frandy Garg MD. Electronically signed 02/05/2018 [facility] Endocervical 01/31/2018 02/03/2018 11:49 AM CDT Alva Romo MD LAB - PATHOLOGY/CY TOLOGY ORDERABLES [facility] [address] [phone] * CARDIAC EKG ORDER (05/14/2017 1:13 AM [...] - 5.20 x10E12/L 05/09/2017 6:15 AM CDT [facility] Hemoglobin 9.8(L) 12.0 - 15.6 gm/dL 05/09/2017 6:15 AM CDT [facility] Hematocrit 29.9(L) 35.9 - 45.5 % 05/09/2017 6:15 AM [facility] MCV 96.8 80.7 - 98.3 fl 05/09/2017 [facility] MCH 31.7 26.7 - 34.0 pg 05/09/2017 6:15 AM [facility] MCHC 32.8 30.8 - 35.9 gm/dL 05/09/2017 6:15 AM [facility] Platelet Count 162 153 - 416 x10E9/L 05/09/2017 6:15 AM [facility] RDW-CV 13.4 12.1 - 14.9 % 05/09/2017 6:15 AM [facility] MPV 11.5 9.4 - 12.9 fl 05/09/2017 6:15 AM [facility] Neutrophils % 73.6(H) 44.0 - 73.0 % 05/09/2017 6:15 AM [facility] Lymphocytes % 12.4(L) 20.0 - 43.0 % 05/09/2017 6:15 AM [facility] Monocytes % 6.5 5.0 - 13.0 % 05/09/2017 6:15 AM [facility] Eosinophils % 6.2(H) 0.0 - 6.0 % 05/09/2017 6:15 AM [facility] Basophils % 0.3 0.0 - 2.0 % 05/09/2017 6:15 AM [facility] Immature Granulocytes 1.0 0 - 1 % 05/09/2017 6:15 AM [facility] Neutrophil Absolute 7.86(H) 2.01 - 7.14 x10E9/L 05/09/2017 6:15 AM [facility] Lymphocytes Absolute 1.33 1.07 - 3.94 x10E9/L 05/09/2017 6:15 AM [facility] Monocytes Absolute 0.70 0.26 - 1.07 x10E9/L 05/09/2017 6:15 AM [facility] Eosinophils Absolute 0.66(H) 0 - 0.47 x10E9/L 05/09/2017 6:15 AM CDT [facility] Basophils Absolute 0.03 0 - 0.08 x10E9/L 05/09/2017 6:15 AM CDT [facility] Immature Granulocytes Absolute 0.11(H) 0.00 - 0.06 x10E9/L 05/09/2017 6:15 AM CDT [facility] nRBC Auto 0 /100 WBC 05/09/2017 6:15 AM CDT [facility] Blood BLOOD SPECIMEN / Unknown Lab Venipuncture / Unknown 05/09/2017 5:54 AM CDT 05/09/2017 6:10 AM CDT Bekah Chandler MD LAB - HEMATOLOGY ORD ERABLES Performing Organization Address City/State/[facility] Co de Phone Number [facility] [address] [place] [address] * NEURAXIAL BLOCK (05/07/2017 11:00 AM CDT) [...] - 7.40 pH 05/07/2017 10:45 AM CDT [facility] pCO2 Cord Venous POCT 41 35 - 45 mmHg 05/07/2017 10:45 AM CDT [facility] pO2 Cord Venous POCT 17(L) 22 - 33 mmHg 05/07/2017 10:45 AM CDT [facility] HCO3 Cord Arterial POCT 23 22 - 24 mmol/L 05/07/2017 10:45 AM CDT [facility] BE Cord Venous POCT Calc -3 -6.4 - 1.6 mmol/L 05/07/2017 10:45 AM CDT [facility] TCO2 Cord Venous POCT 24 22 - 30 mmol/L 05/07/2017 10:45 AM CDT [facility] O2 Saturation % Cord Venous Calc POCT 23 % 05/07/2017 10:45 AM CDT [facility] Site CORD TARA 05/07/2017 10:45 AM CDT [facility] Sample iSTAT CORD V 05/07/2017 10:45 AM CDT [facility] Blood CORD BLOOD SPECIMEN / Unknown 05/07/2017 10:38 AM CDT 05/07/2017 10:45 AM CDT Heriberto Ren MD LAB - POINT OF CARE ORDERABLES [facility] [address] [place] [address] * (ABNORMAL) BLOOD GASES CORD ART (ISTAT) (05/07/2017 10:35 AM CDT) pH Cord Arterial POCT 7.23 7.20 - 7.34 pH 05/07/2017 10:45 AM CDT [facility] pCO2 Cord Arterial POCT 53.5 45 - 55 mmHg 05/07/2017 10:45 AM CDT [facility] pO2 Cord Arterial POCT 11(L) 12 - 25 mmHg 05/07/2017 10:45 AM CDT [facility] HCO3 Cord Arterial POCT 22.6 22 - 24 mmol/L 05/07/2017 10:45 AM CDT [facility] BE Cord Arterial POCT -6(L) -2.9 - 8.3 mmol/L 05/07/2017 10:45 AM CDT [facility] TCO2 Cord Arterial POCT 24 mmol/L 05/07/2017 10:45 AM CDT [facility] O2 Saturation Cord Art % Calc POCT 9 % 05/07/2017 10:45 AM CDT [facility] Site CORD ART 05/07/2017 10:45 AM CDT [facility] Sample iSTAT CORD A 05/07/2017 10:45 AM CDT [facility] Blood CORD BLOOD SPECIMEN / Unknown 05/07/2017 10:35 AM CDT 05/07/2017 10:45 AM CDT Heriberto Ren MD LAB - POINT OF CARE ORDERABLES Performing Organization Address City/State/[facility] Co de Phone Number [facility] [address] [place] [address] * GROSS + MICRO EXAM (STL) (05/07/2017 10:29 AM CDT) Case Report Surgical Pathology Report Case: [id number] Authorizing Provider: Giselle Carrillo MD Collected: 05/07/2017 10:29 AM Ordering Location: [facility] Received: 05/08/2017 07:27 AM Pathologist: Per Rosa MD Specimen: Placenta 05/09/2017 2:05 PM CDT [facility] Final Diagnosis 1. Placenta, delivery: -- Third trimester placenta, 340 grams -- Three vessel umbilical cord -- membranes with hemosiderin macrophages MC/kassidy 05/09/2017 2:05 PM [facility] Gross Description Received in [...] are no lesions or masses grossly identified. Kitchen Aide sections are submitted as follows: A1 - membranes and umbilical cord, A2 - and maternal surface, A3 - maternal surface. DYT/jam 05/09/2017 2:05 PM CDT [facility] Microscopic Description Sections of the umbilical cord show three vessels with no evidence of vasculitis or funisitis. Sections of the membranes show scattered hemosiderin pigmented macrophages. No chorioamnionitis is seen. Sections of the placental disc show maturing chorionic villi with no evidence of hemorrhage or infarction. ROMEO/kassidy 05/09/2017 2:05 PM CDT [facility] Disclaimer All histochemical and/or immunohistochemical results are interpreted with controls that demonstrate appropriate staining reactions before reporting results. Note on use of immunocytochemistry reagents: This test was developed and its performance characteristic determined by [facility], Department of Laboratory Medicine. It has not been cleared or approved by the U.S. Food and Drug Administration (FDA). The FDA has determined that such clearance or approval is not necessary. The test is used for clinical purpose. It should not be regarded as investigational or for research. This laboratory is certified to perform high complexity testing. 05/09/2017 2:05 PM CDT [facility] Embedded Images 05/09/2017 2:05 PM CDT [facility] Pathology/Cytolo gy ENTIRE PLACENTA / Unknown 05/07/2017 10:29 AM CDT 05/08/2017 7:27 AM CDT Giselle Carrillo MD LAB - PATHOLOGY/CYTO LOGY ORDERABLES [facility] [address] [place] [address] * GLUCOSE - POINT OF CARE (05/07/2017 5:36 AM CDT) Only the most recent of19 resultswithin the time period is included. Glucose WB/POC 77 70 - 106 mg/dL 05/07/2017 5:47 AM CDT [facility] Blood BLOOD SPECIMEN / Unknown 05/07/2017 5:36 AM CDT 05/07/2017 5:47 AM CDT Heriberto Ren MD LAB - POINT OF CARE ORDERABLES [facility] [address] [place] [address] * (ABNORMAL) COMPREHENSIVE METABOLIC PANEL (05/07/2017 1:50 AM CDT) Only the most recent of5 resultswithin the time period is included. Glucose 88 74 - 106 mg/dL 05/07/2017 2:38 AM CDT [facility] Sodium 140 136 - 145 mmol/L 05/07/2017 2:38 AM CDT [facility] Potassium 4.1 3.5 - 5.1 mmol/L 05/07/2017 2:38 AM CDT [facility] Chloride 107 98 - 107 mmol/L 05/07/2017 2:38 AM CDT [facility] CO2 23 22 - 31 mmol/L 05/07/2017 2:38 AM CDT [facility] Calcium 8.4(L) 8.5 - 10.1 mg/dL 05/07/2017 2:38 AM CDT [facility] Anion Gap 10 8 - 16 mmol/L 05/07/2017 2:38 AM CDT [facility] BUN 9 7 - 21 mg/dL 05/07/2017 2:38 AM CDT [facility] Creatinine 0.68 0.50 - 1.30 mg/dL 05/07/2017 2:38 AM CDT [facility] Alkaline Phosphatase 91 38 - 126 U/L 05/07/2017 2:38 AM CDT [facility] ALT 34 13 - 61 U/L 05/07/2017 2:38 AM CDT [facility] AST 24 5 - 40 U/L 05/07/2017 2:38 AM T [facility] Protein Total 5.8(L) 6.4 - 8.2 gm/dL 05/07/2017 2:38 AM CDT [facility] Albumin 2.3(L) 3.4 - 5.0 gm/dL 05/07/2017 2:38 AM CDT [facility] Bilirubin Total <0.1(L) 0.2 - 1.0 mg/dL 05/07/2017 2:38 AM CDT [facility] eGFR by MDRD >60 >60 mL/min/1.7 3m2 05/07/2017 2:38 AM CDT [facility] eGFR by MDRD >60 >60 mL/min/1.7 3m2 05/07/2017 2:38 AM CDT [facility] Blood BLOOD SPECIMEN / Unknown Venipuncture / Unknown 05/07/2017 1:50 AM CDT 05/07/2017 2:16 AM CDT Linn Nichols MD LAB - CHEMISTRY JE VILLALOBOS Performing Organization Address City/[facility] Co de Phone Number [facility] [address] [place] [address] * TYPE + SCREEN PANEL (05/06/2017 6:08 AM CDT) Only the most recent of2 resultswithin the time period is included. ABO O 05/06/2017 7:13 AM CDT [facility] Rh Type Positive 05/06/2017 7:13 AM CDT [facility] Comment:History check perfor med. No retype required. Antibody Screen Negative 05/06/2017 7:13 AM CDT [facility] Blood Bank BLOOD SPECIMEN / Unknown Lab Venipuncture / Unknown 05/06/2017 6:08 AM CDT 05/06/2017 6:14 AM CDT Linn Nichols MD LAB - BLOOD BANK ORD ERABLES Performing Organization Address City/[facility] Co de Phone Number [facility] [address] [place] [address] * (ABNORMAL) PT PTT PANEL (05/05/2017 6:04 AM CDT) Only the most recent of2 resultswithin the time period is included. Pathologist [facility] PT <9.5(L) 9.5 - 11.6 sec 05/05/2017 7:34 AM CDT [facility] INR 0.9 0.9 - 1.1 05/05/2017 7:34 AM CDT [facility] PTT 22.3 21.0 - 32.0 sec 05/05/2017 7:34 AM CDT [facility] Blood BLOOD SPECIMEN / Unknown Venipuncture / Unknown 05/05/2017 6:04 AM CDT 05/05/2017 6:47 AM CDT Narrative [facility] - 05/05/2017 7:34 AM CDT Conventional Warfarin Anticoagulant Therapy: INR Reference Range: 2.0-3.0 Intensive Warfarin Anticoagulant Therapy: INR Reference Range: 2.5-3.5 Heparin Therapeutic Range for PTT: 47.7 - 68.6 seconds. Samantha Morales MD LAB - COAGULATION OR DERABLES Performing Organization Address [facility] de Phone Number [facility] [address] [place], [place] [id number] * (ABNORMAL) FIBRINOGEN ACTIVITY (05/05/2017 6:04 AM CDT) Only the most recent of2 resultswithin the time period is included. Pathologist [facility] Fibrinogen 457(H) 200 - 400 mg/dL 05/05/2017 7:33 AM CDT [facility] Blood BLOOD SPECIMEN / Unknown Venipuncture / Unknown 05/05/2017 6:04 AM CDT 05/05/2017 6:47 AM CDT Samantha Morales MD LAB - COAGULATION OR DERABLES Performing Organization Address [facility] de Phone Number [facility] [address] [place] [id number] * (ABNORMAL) URINALYSIS ROUTINE AUTO (05/04/2017 11:18 PM CDT) Pathologist [facility] Color UA Yellow Straw, Yellow, Dark Yellow 05/05/2017 12:03 AM CDT [facility] Clarity UA Clear 05/05/2017 12:03 AM CDT [facility] Specific [place] UA 1.007 1.005 - 1.030 05/05/2017 12:03 AM [facility] pH UA 6.5 5.0 - 8.0 pH 05/05/2017 12:03 AM [facility] Protein UA 2+(A) Negative 05/05/2017 12:03 AM [facility] Blood UA Trace(A) Negative 05/05/2017 12:03 AM CDT [facility] Leukocyte UA Negative Negative 05/05/2017 12:03 AM T [facility] Nitrite UA Negative Negative 05/05/2017 12:03 AM [facility] Glucose UA Negative Negative 05/05/2017 12:03 AM CDT [facility] Ketone UA Negative Negative 05/05/2017 12:03 AM CDT [facility] Bilirubin UA Negative Negative 05/05/2017 12:03 AM [facility] Urobilinogen UA 0.2 0.1 - 1.0 EU/dL 05/05/2017 12:03 AM [facility] WBC UA Auto 0-2 0-2, 2-5 # /hpf 05/05/2017 12:03 AM [facility] RBC UA Auto 0-2 0-2, 2-5 # /hpf 05/05/2017 12:03 AM T [facility] Epithelial Cell UA Auto 0-2 0-2, 2-5 # /hpf 05/05/2017 12:03 AM [facility] Urine URINE SPECIMEN OBTAINED BY CLEAN CATCH PROCEDURE / Unknown Collection / Unknown 05/04/2017 11:18 PM CDT 05/04/2017 11:55 PM CDT Samantha Morales MD LAB - URINALYSIS ORD ERABLES [facility] [address] [place] [address] * CULTURE STREP B (05/03/2017 2:21 PM CDT) Culture Negative for beta-hemolytic Streptococcus Group B YEIMI 05/06/2017 9:08 AM CDT [facility] Microbiology MISCELLANEOUS SAMPLES / Unknown Collection / Unknown 05/03/2017 2:21 PM CDT 05/03/2017 2:30 PM CDT Samantha Morales MD LAB - MICROBIOLOGY O RDERAROSEMARY [facility] [address] [place] [address], [facility] [phone] * SONOGRAM - COMPLETE (05/03/2017 12:53 PM CDT) Anatomical Region Laterality Modality Other 05/03/2017 12:5 3 PM CDT Narrative 05/06/2017 11:09 AM CDT [facility] [place] PHONE: FAX: Pat. Name: CRISSY ANDERSON Pat. No: [id number] Study Date: 05/03/2017 12:53pm , Age: 05 1990, 27 Pregnancies: 1 Height: 68 in Weight: 190 lb LMP: Unknown GA by US: 27w4d GA Selected: 27w3d (From Known E) ROSALEE: 07/30/2017 Referring MD: Heriberto Ren MD Goods Layer: Lisa Kebede RDMS CPT4: 74234 Hist/Ind: Pre-E HTN FOB Diaphragmatic Hernia MOB single kidney/septated uterus MEASUREMENTS & AGE GROWTH EVALUATION Measurement GA Range Srce %for GA Ratios ----- ---- ------- BPD 6.9 cm 27w6d (16f4o-78r5e) Hadl BPD 59% FL/BPD 0.72 (0.71 - 0.87) HC 25.5 cm 27w5d (50q8b-01h5h) Hadl HC 57% FL/AC 0.21 (0.20 - 0.24) AC 23.5 cm 27w5d (34o8t-27w1o) Hadl AC 57% HC/AC 1.09 (1.00 - 1.18) FL 5.0 cm 27w0d (58r9j-80i1k) Hadl FL 40% CI 0.76 (0.70 - 0.86) HL 4.6 cm 27w0d (69h7l-92p1l) Harvey HL 43% GA for sonogram 27w4d (18l2b-33r7v) Weight Estimate: based on (BPD,HC,AC,FL) Avg Weight: [...] <Electronic Signature> 05/06/2017 11:06am Samantha Morales MD [facility] ORDERABLES * GLUCOSE CHALLENGE (05/03/2017 8:14 AM CDT) Only the most recent of2 resultswithin the time period is included. [facility] Glucose Challenge 138 64 - 140 mg/dL 05/03/2017 8:35 AM CDT [facility] Glucose Challenge Time 1 hr 05/03/2017 8:35 AM CDT [facility] Blood BLOOD SPECIMEN / Unknown Venipuncture / Unknown 05/03/2017 8:14 AM CDT 05/03/2017 8:19 AM CDT Samantha Morales MD LAB - CHEMISTRY JE VILLALOBOS Performing Organization Address City/[facility]/ZIP Co de Phone Number [facility] [address] [place] [address] * BLOOD TYPE VERIFICATION (05/03/2017 7:02 AM CDT) [facility] ABO O 05/03/2017 8:18 AM CDT [facility] Rh Type Positive 05/03/2017 8:18 AM CDT [facility] Blood Bank BLOOD SPECIMEN / Unknown Venipuncture / Unknown 05/03/2017 7:02 AM CDT 05/03/2017 7:45 AM CDT Heriberto Ren MD LAB - BLOOD BANK ORD DAMARIS [facility] [address] * URIC ACID BLOOD (05/03/2017 6:59 AM CDT) [facility] Uric Acid 6.7 3.0 - 8.5 mg/dL 05/03/2017 7:53 AM CDT [facility] Blood BLOOD SPECIMEN / Unknown Venipuncture / Unknown 05/03/2017 6:59 AM CDT 05/03/2017 7:26 AM CDT Heriberto Farooq MD LAB - CHEMISTRY JE VILLALOBOS Performing Organization Address [facility] Co de Phone Number [facility] [address] [place] [address] * LDH BLOOD (05/03/2017 6:59 AM CDT) [facility] LDH 169 100 - 200 U/L 05/03/2017 7:53 AM CDT [facility] Blood BLOOD SPECIMEN / Unknown Venipuncture / Unknown 05/03/2017 6:59 AM CDT 05/03/2017 7:26 AM CDT Heriberto Farooq MD LAB - CHEMISTRY ORDJuan F VILLALOBOS Performing Organization Address [facility] de Phone Number [facility] [address] [place] [address] * (ABNORMAL) URINALYSIS MICROSCOPIC ONLY W/REFLEX CULTURE (05/03/2017 6:58 AM CDT) [facility] RBC UA 0-2 0-2, 2-5 # /hpf 05/03/2017 7:46 AM CDT [facility] Epithelial Cell UA 5-10(A) 0-2, 2-5 # /hpf 05/03/2017 7:46 AM CDT [facility] Hyaline Casts 0-2 0 - 2 # /lpf 05/03/2017 7:46 AM CDT [facility] Urine URINE SPECIMEN OBTAINED BY CLEAN CATCH PROCEDURE / Unknown Collection / Unknown 05/03/2017 6:58 AM CDT 05/03/2017 7:22 AM CDT Heriberto Farooq MD LAB - URINALYSIS ORD ERAROSEMARY Performing Organization Address [facility] Co de Phone Number [facility] [address] [place], [place] [id number] * (ABNORMAL) URINALYSIS ROUTINE W/REFLEX TO CULTURE (05/03/2017 6:58 AM T) Color UA Yellow Straw, Yellow, Dark Yellow 05/03/2017 7:47 AM [facility] Clarity UA Cloudy 05/03/2017 7:47 AM [facility] Specific [place] UA >1.030(H) 1.005 - 1.030 05/03/2017 7:47 AM [facility] pH UA 6.0 5.0 - 8.0 pH 05/03/2017 7:47 AM [facility] Protein UA 3+(A) Negative 05/03/2017 7:47 AM [facility] Blood UA Negative Negative 05/03/2017 7:47 AM [facility] Leukocyte UA 1+(A) Negative 05/03/2017 7:47 AM [facility] Nitrite UA Negative Negative 05/03/2017 7:47 AM [facility] Glucose UA Negative Negative 05/03/2017 7:47 AM [facility] Ketone UA Negative Negative 05/03/2017 7:47 AM [facility] Bilirubin UA Negative Negative 05/03/2017 7:47 AM [facility] Urobilinogen UA 0.2 0.1 - 1.0 EU/dL 05/03/2017 7:47 AM [facility] LABORATORY WBC UA Auto >100(A) 0-2, 2-5 # /hpf 05/03/2017 7:47 AM [facility] RBC UA Auto Reflex to manual(A) 0-2, 2-5 # /hpf 05/03/2017 7:47 AM [facility] Epithelial Cell UA Auto 5-10(A) 0-2, 2-5 # /hpf 05/03/2017 7:47 AM [facility] Bacteria UA Auto 2+(A) None seen 05/03/20 17 7:47 AM [facility] Hyaline Casts UA Auto Reflex to manual(A) 0 - 2 #/lpf 05/03/2017 7:47 AM [facility] Reflex Status Culture to follow 05/03/2017 7:47 AM [facility] Urine URINE SPECIMEN OBTAINED BY CLEAN CATCH PROCEDURE / Unknown Collection / Unknown 05/03/2017 6:58 AM CDT 05/03/2017 7:22 AM CDT Heriberto Farooq MD LAB - URINALYSIS ORD ERABLES Performing Organization Address [facility] Co de Phone Number [facility] [address] [place] [address] * CULTURE URINE (05/03/2017 6:58 AM CDT) Culture <10,000 CFU/mL urogenital anjana YEIMI 05/04/2017 11:34 AM CDT [facility] Urine URINE SPECIMEN OBTAINED BY CLEAN CATCH PROCEDURE / Unknown Collection / Unknown 05/03/2017 6:58 AM CDT 05/03/2017 7:22 AM CDT Heriberto Farooq MD LAB - MICROBIOLOGY O RDERABLES Performing Organization Address [facility] de Phone Number [facility] [address] [place] [address] [phone] * PROTEIN CREATININE RATIO URINE RANDOM PNL (05/03/2017 6:58 AM CDT) Protein Urine 308.3 mg/dL 05/03/2017 8:03 AM CDT [facility] Creatinine Urine 270 mg/dL 05/03/2017 8:03 AM CDT [facility] Protein/Creatin ine Ratio Urine 1.14 05/03/2017 8:03 AM CDT [facility] Urine URINE SPECIMEN OBTAINED BY CLEAN CATCH PROCEDURE / Unknown Collection / Unknown 05/03/2017 6:58 AM CDT 05/03/2017 7:23 AM CDT Heriberto Farooq MD LAB - URINE CHEMISTR Y ORDERABLES Performing Organization Address [facility] Co de Phone Number [facility] [address] [place] [address] Care Teams Slide Forming Machine Operator Relationship Specialty Start Date End Date Yadi Menendez PA [address] [place] [address] PCP - General Physician Heat Reader 05/03/17
--- OUTSIDE RECORDS SUMMARY | 2024-12-30 16:47 | XMS_ITS | Clinical Summary ---
Author Organization [facility] Address [address] [address] [place] [address] Phone Care Team Providers Care Casting Technician Name Role Phone Génesis Montano MD Primary Care Provider [phone] Allergies No known active allergies Medications OTHER [...] patient's age to complete [place] [address] [facility] BLUE [employer] BLUE PPO Advance Directives For more information, please contact: [phone] * Full Code (Latest Code Status on File) Date Activated Date Inactivated Comments 03/17/2015 11:02 AM 03/17/2015 4:56 PM * Full Code Date Activated Date Inactivated Comments 03/17/2015 10:20 AM 03/17/2015 11:02 AM * Full Code Date Activated Date Inactivated Comments 08/21/2013 10:22 AM 08/21/2013 5:51 PM * Full Code Date Activated Date Inactivated Comments 08/21/2013 9:06 AM 08/21/2013 10:22 AM Care Teams Casting Technician Relationship Specialty Start Date End Date Génesis Montano MD [address] [address] PCP - General 11/04/15
--- OUTSIDE RECORDS SUMMARY | 2024-12-30 16:47 | XMS_ITS | Clinical Summary ---
Author Organization [facility] Address [address] [facility] [place] [address] Care Team Providers Care Cost Clerk Name Role Phone Yadi Menendez Primary Care Pr ovider Source Comments [facility],non-owned Affiliates and Associated Physician Practices is amultiple site organization consisting of ambulatory clinics and hospital sitesin [place], [place], [place] and [place]. This disclosure is being madepursuant to the Care Everywhere program and may not contain all information available regarding this patient. Last updated 18.[facility] Allergies No known active allergies Medications * [...] surgery with resection of vaginal septum at [facility]; right and left cervix seen Preeclampsia, severe [...] Image-Guided Liquid-Based with Reflex HPV Accession No: [id number] Specimen:Endocervi sacha ThinPrep Slides:1 SPECIMEN ADEQUACY: SATISFACTORY FOR EVALUATION - Endocervical / Transformation Zone Component Present INTERPRETATION: NEGATIVE FOR INTRAEPITHELIAL LESION OR MALIGNANCY OTHER FINDINGS: - Inflammation Present NOTE(S): HPV REFLEX - HPV result to follow if ASCUS in separate report This specimen was evaluated by the ThinPrep Imaging System along with an additional manual rescreening by a flight crew ordnanceman and/or pathologist Initial Evaluation performed by Irene HDEZ (ASCP). Electronically signed 02/05/2018 Interpretation performed by Frandy Garg MD. Electronically signed 02/05/2018 [facility] Endocervical 01/31/2018 02/03/2018 11:49 AM CDT Alva Romo MD LAB - PATHOLOGY/CY TOLOGY ORDERABLES [facility] [place] [address], [facility] [phone] from Last 3 Months or Most Recently Relevant to Health Maintenance Advance Directives * Full Code (Latest Code Status on File) Date Activated Date Inactivated Comments 05/07/2017 8:41 AM 05/11/2017 5:40 PM * Full Code Date Activated Date Inactivated Comments 05/03/2017 7:15 AM 05/07/2017 8:41 AM Care Teams Cost Clerk Relationship Specialty Start Date End Date Yadi Menendez PA [address] [place] [address] PCP - General Physician Cloth Seconds Sorter 05/03/17
--- OUTSIDE RECORDS SUMMARY | 2024-12-30 16:47 | XMS_ITS | Clinical Summary ---
Author Organization [facility] Address [address] [place] [address] Care Team Providers Care Business Office Technology Instructor Name Role Phone Yadi Solorzano Primary Care Provider [phone] Allergies Active Allergy Reactions Criticality Noted Date [...] on file Legal Sex Female 9:50 PM DRILL RIG OPERATOR Gender Identity Not on file Sexual Orientation Not on file Last Filed Vital Signs Vital Sign Reading Time Taken Comments Blood Pressure 131/87 12/20/2019 6:37 PM DRILL RIG OPERATOR Pulse 100 12/20/2019 6:37 PM DRILL RIG OPERATOR Temperature 36.4 C (97.6 F) 12/20/2019 4:15 PM DRILL RIG OPERATOR Respiratory Rate 14 12/20/2019 6:37 PM DRILL RIG OPERATOR Oxygen Saturation 100% 12/20/2019 6:37 PM DRILL RIG OPERATOR Inhaled Oxygen Concentration - - Weight 108.9 kg (240 lb) 12/20/2019 4:15 PM DRILL RIG OPERATOR Height 172.7 cm (5' 8 ) 12/20/2019 4:15 PM DRILL RIG OPERATOR Body Mass Index 36.49 12/20/2019 4:15 PM DRILL RIG OPERATOR Plan of Treatment Health Maintenance Due Date [...] age to complete this topic Care Teams Business Office Technology Instructor Relationship Specialty Start Date End Date Yadi Solorzano PA [address] [place] [address] PCP - General PHYSICIAN TITRATOR 07/17/19
--- OUTSIDE RECORDS SUMMARY | 2024-12-30 16:47 | XMS_ITS | Referral Summary ---
Author Organization [facility] Address [address] [facility] [place] [address] Care Team Providers Care Briquette Machine Operator Helper Name Role Phone Yadi Menendez Primary Care Pr ovider Source Comments [facility],non-owned Affiliates and Associated Physician Practices is amultiple site organization consisting of ambulatory clinics and hospital sitesin [place], [place], [place] and [place]. This disclosure is being madepursuant to the Care Everywhere program and may not contain all information available regarding this patient. Last updated 18.[facility] Allergies No known active allergies Medications * [...] surgery with resection of vaginal septum at [facility]; right and left cervix seen Preeclampsia, severe [...] Image-Guided Liquid-Based with Reflex HPV Accession No: [id number] Specimen:Endocervi sacha ThinPrep Slides:1 SPECIMEN ADEQUACY: SATISFACTORY FOR EVALUATION - Endocervical / Transformation Zone Component Present INTERPRETATION: NEGATIVE FOR INTRAEPITHELIAL LESION OR MALIGNANCY OTHER FINDINGS: - Inflammation Present NOTE(S): HPV REFLEX - HPV result to follow if ASCUS in separate report This specimen was evaluated by the ThinPrep Imaging System along with an additional manual rescreening by a network manager and/or pathologist Initial Evaluation performed by Irene HDEZ (ASC). Electronically signed 02/05/2018 Interpretation performed by Frandy Garg MD. Electronically signed 02/05/2018 [facility] Endocervical 01/31/2018 02/03/2018 11:49 AM CDT Alva Romo MD LAB - PATHOLOGY/CY TOLOGY ORDERABLES [facility] [address] [phone] from Last 3 Months or Most Recently Relevant to Health Maintenance Advance Directives * Full Code (Latest Code Status on File) Date Activated Date Inactivated Comments 05/07/2017 8:41 AM 05/11/2017 5:40 PM * Full Code Date Activated Date Inactivated Comments 05/03/2017 7:15 AM 05/07/2017 8:41 AM Care Teams Briquette Machine Operator Helper Relationship Specialty Start Date End Date Yadi Menendez PA [address] [place] [address] PCP - General Physician Blast Furnace Checker 05/03/17
--- OUTSIDE RECORDS SUMMARY | 2024-12-30 16:47 | XMS_ITS | Referral Summary ---
Author Organization [facility] Address [address] [place] [address] Care Team Providers [employer]orer [employer] Name Role Phone No, Physician Unavailable Yadi Solorzano Primary Care Pr ovider Encounters Date Type Department Care Team Description 12/29/2024 Telephone [facility] Ophthalmology [address] [place] [phone] Latha Baltazar MD 12/21/2024 9:45 AM PROCESS SAFETY ENGINEER Office Visit [facility] Ophthalmology [facility] [address] [phone] Latha Baltazar MD Idiopathic intracranial hypertension (Primary Dx); 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 12/17/2024 Telephone [facility] Reproductive Endocrinology [address] [facility] [address] [place] [address] Farideh Trujillo RN Referral to [facility] 12/15/2024 Orders Only [address] [phone] Darcy James MD Low serum follicle stimulating hormone (FSH) (Primary Dx); Low testosterone level in female; Low libido 12/15/2024 Orders Only [address] [address] Darcy James MD Low serum follicle stimulating hormone (FSH) (Primary Dx) 12/14/2024 2:30 PM PROCESS SAFETY ENGINEER - 12/14/2024 11:59 PM PROCESS SAFETY ENGINEER Hospital Encounter [facility] [address] [place], [place] [phone] Bacterial vaginitis; Leukorrhea; Vaginal bleeding Discharge Disposition: Discharge to home or self care 12/14/2024 Orders Only [facility] at the [address] [phone] Darcy James MD 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; Vaginal dryness; Weight loss 12/14/2024 1:30 PM PROCESS SAFETY ENGINEER Office Visit [address] [phone] Darcy James MD 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); H/O: hysterectomy; Vaginal dryness; Weight loss; Vaginal bleeding; Chronic RLQ pain; Bacterial vaginitis; Leukorrhea 10/07/2024 Telephone [facility] Ophthalmology [address] [place] [address] Latha Baltazar MD 10/06/2024 9:15 AM PROCESS SAFETY ENGINEER Office Visit [facility] Ophthalmology [address] [place] [address] 1[address] [place] [address] Latha Baltazar MD Idiopathic intracranial hypertension (Primary [...] (04/18/2021): Added automatically from request for surgery [id number] care following delivery 12/19 Overview (01/08/2021): # [...] - s/p counseling 06/10 - current regimen: [id number] - has home BP cuff, reminded patient [...] weeks Assessment & Plan (01/02/2021 10:54 AM PROCESS SAFETY ENGINEER): She has not been checking her Bps at home but plans to start and will bring them to weekly appointments. Continues to have lower extremity swelling. Bp mild range today. Has headaches that resolve on their own or with tylenol. Denies changes in vision or RUQ pain. Very strict BP parameters and preE precautions reviewed. Assessment & Plan (10/10/2020 6:33 PM PROCESS SAFETY ENGINEER): Reports some symptoms of SOB with activity. [...] unspecified trimester 06/09/2020 Overview (01/02/2021): [x] Full [facility] Care; Referring Provider: Self Referral [] [...] insurance) [x] Method of feeding: breast [x] Business Office Director: [] PP Depression Discussed: Assessment & Plan (06/10/2020 2:03 PM CDT): Serologies and baseline labs ordered today. Has recent EKG in CareEverywhere. Will discuss genetic screening when viability confirmed. 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 [place] [facility] [place]: Polyps in normal appearing right uterine [...] (04/18/2021): Added automatically from request for surgery [id number] History of section complicating 06/09/2020 12/14/2024 Overview (06/24/2020): - discussed @ [facility]; would like to TOLAC if possible (this is in different/non-scarred uterine cavity); counseled regarding risk for soft tissue dystocia - Readdress at future visit Irregular menses 05/13/2019 06/10/2020 Overview (05/13/2019): Added automatically from request for surgery [id number] Immunizations Name Administration Dates Next Due DT 06/08/2005 Hep A, Adult 04/06/2019,10/15/2018,10/15/2018 Hep A, Unspecified 04/06/2019 Hep B, Adolescent or Pediatric 08/18/2001,2000,02/14/2001 Influenza, Quadrivalent, Tatyana l Culture-based MDCK, Preservative Free, Antibiotic Free, Intramuscular 08/18/2020,08/27/2019,09/21/2017 Influenza, Quadrivalent, Spl it, Intramuscular 08/27/2019 Influenza, Quadrivalent, Spl it, Preservative Free, Intramuscular 09/13/2021 Influenza, Trivalent, IM (MDV) 10/02/2013 Influenza, Unspecified 11/18/2014 AllofMe (J&J) SARS-CoV-2 Vaccination 02/27/2021, 02/27/2021 MMR 05/11/1996,07/26/1993 [...] often do you attend chur ch or zoroastrian services? 1 to 4 times per year 11/01/2021 Do you belong to any clubs o r organizations such as mormon groups, unions, fraternal or athletic groups, or [...] things needed for daily living? No 11/01/2021 [place] Depression Scale Answer Date Recorded [place] Depression Scale Total 4 01/24/2021 The thought [...] on file Legal Sex Female 7:14 AM PROCESS SAFETY ENGINEER Gender Identity Not on file Sexual Orientation Straight 06/07/2020 6: 54 PM CDT Last Filed Vital Signs Vital Sign Reading Time Taken Comments Blood Pressure 126/82 12/14/2024 1:27 PM PROCESS SAFETY ENGINEER Pulse 69 05/18/2024 9:30 PM CDT Temperature 36.5 C (97.7 F) 05/18/2024 6:32 PM CDT Respiratory Rate 18 05/18/2024 6:32 PM CDT Oxygen Saturation 100% 05/18/2024 9:30 PM CDT Inhaled Oxygen Concentration - - Weight 77.7 kg (171 lb 6.4 oz) 12/14/2024 1:27 P M PROCESS SAFETY ENGINEER Height 172.7 cm (5' 8 ) 12/14/2024 1:27 PM PROCESS SAFETY ENGINEER Body Mass Index 26.06 12/14/2024 1:27 PM PROCESS SAFETY ENGINEER Plan of Treatment Not on file Procedures Procedure Name Priority Date/Time Associated Diagnosis Comments OCT, RETINA - OU - BOTH EYES Routine 12/21/2024 9:02 AM PROCESS SAFETY ENGINEER Idiopathic intracranial hypertension 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 OCT, OPTIC NERVE - OU - BOTH EYES Routine 12/21/2024 9:02 AM PROCESS SAFETY ENGINEER Idiopathic intracranial hypertension 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 MISCELLANEOUS MICROBIOLOGY TEST Routine 12/14/2024 6:52 PM PROCESS SAFETY ENGINEER PAP ONLY Routine 12/14/2024 3:39 PM PROCESS SAFETY ENGINEER Vaginal bleeding THINPREP PROCESSING (MOLECULAR COMPONENT) Routine 12/14/2024 3:38 PM PROCESS SAFETY ENGINEER Vaginal bleeding LUTEINIZING HORMONE (LH) Routine 12/14/2024 2:30 PM PROCESS SAFETY ENGINEER 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 Vaginal dryness Weight loss PROLACTIN Routine 12/14/2024 2:30 PM PROCESS SAFETY ENGINEER 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 Vaginal dryness Weight loss FOLLICLE STIMULATING HORMONE Routine 12/14/2024 2:30 PM PROCESS SAFETY ENGINEER 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 Vaginal dryness Weight loss ESTRADIOL Routine 12/14/2024 2:30 PM PROCESS SAFETY ENGINEER 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 Vaginal dryness Weight loss TOTAL TESTOSTERONE Routine 12/14/2024 2: 30 PM PROCESS SAFETY ENGINEER 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 Vaginal dryness THYROID FUNCTION CASCADE Routine 12/14/2024 2:30 PM PROCESS SAFETY ENGINEER 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 Vaginal dryness Weight loss SEX HORMONE BINDING GLOBULIN Routine 12/14/2024 2:30 PM PROCESS SAFETY ENGINEER 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 Vaginal dryness CAMARGO VISUAL FIELD - OU - BOTH EYES Routine 10/06/2024 11:07 AM PROCESS SAFETY ENGINEER 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 Findings include normal observations. Left Eye Quality was good. Findings include normal observations. Notes Normal mean ganglion cell complex thickness OU (on Zeiss Cirrus OCT) Latha Baltazar MD OPHTH TOMOGRAPHY Final Resu lt * OCT, Optic Nerve - OU - Both Eyes (12/21/2024 9:02 AM PROCESS SAFETY ENGINEER) RNFL OS 115 micrometers CONTINUUM RNFL OD 123 micrometers CONTINUUM Anatomical Region Laterality Modality Head Other Narrative 12/21/2024 11:11 AM PROCESS SAFETY ENGINEER Right Eye Reliability was good. Average RNFL thickness 123 micrometers. Left Eye Reliability was good. Average RNFL thickness 115 micrometers. Notes Trace interval increase in RNFL thickness us Latha Baltazar MD OPHTH TOMOGRAPHY Final Resu lt * Miscellaneous microbiology test Miscellaneous Miscellaneous (12/14/2024 6:52 PM PROCESS SAFETY ENGINEER) Report Final Report: Negative for Mycoplasma genitalium Organism NEGATIVE FOR MYCOPLASMA GENITALIUM [facility] Miscellaneous (Miscellaneous) 12/14/2024 6:52 PM PROCESS SAFETY ENGINEER 12/14/2024 7:57 PM PROCESS SAFETY ENGINEER Narrative [facility] - 12/16/2024 7:11 PM PROCESS SAFETY ENGINEER Name of test to be performed:->mycoplasma genitalium Specimen type/source->vaginal [facility] Microbiology Laboratory ([phone]) Darcy James MD LAB MICROBIOLOGY - GENERAL ORDERABLES Final Result [facility] Department [place] [address] * Pap Only (Cytology Component) (12/14/2024 3:39 PM PROCESS SAFETY ENGINEER) Thin prep (Pap test) 12/14/2024 3:39 PM PROCESS SAFETY ENGINEER 12/14/2024 6:07 PM PROCESS SAFETY ENGINEER Narrative PATHOLOGY [facility] - 12/21/2024 10:44 AM PROCESS SAFETY ENGINEER EPIC results best viewed via link to PDF [facility] Laboratory [place] [address] Note to Patients: This report may contain [...] Gender: F : 1990 (Age: 34) Address: [address] [place] [address] [place] [address] Hospital #: [id number] Service: UNKNOWN Location: Patient Type: [facility] SPECIMEN Taken: 12/14/2024 Received: 12/14/2024 Accessioned: [...] and histologic results be correlated for laboratory software quality analyst & improvement standards. FOR ALL HIGH-GRADE CASES [...] by the Surgical Pathology Department at [facility] as part of an ongoing software quality automation engineer program and in compliance with federally mandated [...] by the Surgical Pathology Department of [facility]. It has not been cleared or approved by the U. S. Food and Drug Administration. Darcy James MD LAB CYTOLOGY ORDE RABSHYANN Final Result PATHOLOGY [facility] 3rd Floor [place], [place] [phone] * ThinPrep processing (Molecular component) (12/14/2024 3:38 PM PROCESS SAFETY ENGINEER) ThinPrep processing (Molecular component) Specimen received for processing. [facility] Endocervical 12/14/2024 3:38 PM PROCESS SAFETY ENGINEER 12/16/2024 10:28 PM PROCESS SAFETY ENGINEER Darcy James MD LAB BODY FLUIDS A ND STOOLS ORDERABLES Final Result [facility] Department [place] [address] [facility] * Sex hormone binding globulin (12/14/2024 2:30 PM PROCESS SAFETY ENGINEER) Pathologist [facility] Sex steroid binding globulin 34.5 18.2 - 135.5 nmol/L [place] ref Lab Comment: Test Performed by: [facility] [address] [place] [address] Retail Customer Service Representative: Robyn Delgado Ph.D.; CLIA# [id number] Blood 12/14/2024 2:30 PM PROCESS SAFETY ENGINEER 12/14/2024 7:43 PM PROCESS SAFETY ENGINEER Darcy James MD LAB BLOOD ORDERAB LES Final Result [place] [address] [place] ref [facility] * Thyroid Function Gilliam (12/14/2024 2:30 PM PROCESS SAFETY ENGINEER) Pathologist [facility] TSH 0.51 0.30 - 4.20 mcIUnit/mL Blood 12/14/2024 2:30 PM PROCESS SAFETY ENGINEER 12/14/2024 7:38 PM PROCESS SAFETY ENGINEER Darcy James MD LAB BLOOD ORDERAB LES Final Result Performing Organization Address City/[facility]/ZIP Co de Phone Number [facility] [place] [address] * Prolactin (12/14/2024 2:30 PM PROCESS SAFETY ENGINEER) Pathologist [facility] Prolactin 8.2 4.8 - 23.3 ng/mL Blood 12/14/2024 2:30 PM PROCESS SAFETY ENGINEER 12/14/2024 7:43 PM PROCESS SAFETY ENGINEER Darcy James MD LAB BLOOD ORDERAB LES Final Result [place] [address] * Estradiol (12/14/2024 2:30 PM PROCESS SAFETY ENGINEER) Estradiol 33.9 pg/mL Comment: Interpretive Data Males: 11 43 pg/mL Females: Premenopausal: 31 533 pg/mL Postmenopausal: < 50 pg/mL Patients treated with Fluvestrant (Faslodex) should be tested using an alternate assay such as LC-MS due to potential for cross-reactivity. Estradiol varies widely throughout the menstrual cycle. Current interpretive data was last revised 2024. Blood 12/14/2024 2:30 PM PROCESS SAFETY ENGINEER 12/14/2024 7:38 PM PROCESS SAFETY ENGINEER Darcy James MD LAB BLOOD ORDERAB LES Final Result [facility] [place] [address] * (ABNORMAL) Total testosterone (12/14/2024 2:30 PM PROCESS SAFETY ENGINEER) Pathologist [facility] Testosterone 6.0(L) 8.4 - 48.1 ng/dL Blood 12/14/2024 2:30 PM PROCESS SAFETY ENGINEER 12/14/2024 7:38 PM PROCESS SAFETY ENGINEER Result [facility] Darcy James MD LAB BLOOD ORDERAB LES Final Result [facility] [place] [address] * LH (12/14/2024 2:30 PM PROCESS SAFETY ENGINEER) LH 4.2 IUnits/L Comment: Interpretive Data Males: Adults: 1.7 - 8.6 IUnits/L Females: Follicular: 2.4 - 12.6 IUnits/L Ovulation: 14.0 - 95.6 IUnits/L Luteal: 1.0 - 11.4 IUnits/L Postmenopausal: 7.7 - 58.5 IUnits/L Current interpretive data was last revised on 2019. Blood 12/14/2024 2:30 PM PROCESS SAFETY ENGINEER 12/14/2024 7:43 PM PROCESS SAFETY ENGINEER Darcy James MD LAB BLOOD ORDERAB LES Final Result Performing Organization Address [facility] de Phone Number [facility] [place] [address] * Follicle stimulating hormone (12/14/2024 2:30 PM PROCESS SAFETY ENGINEER) FSH 5.7 IUnits/L Comment: Interpretive Data Male: Adults: 1.5 - 12.4 IUnits/L Female: Follicular: 3.5 - 12.5 IUnits/L Ovulation: 4.7 - 21.5 IUnits/L Luteal: 1.7 - 7.7 IUnits/L Postmenopausal: 25.8 - 134.8 IUnits/L Current interpretive data was last revised 2015. Blood 12/14/2024 2:30 PM PROCESS SAFETY ENGINEER 12/14/2024 7:38 PM PROCESS SAFETY ENGINEER Darcy James MD LAB BLOOD ORDERAB LES Final Result Performing Organization Address [facility] Phone Number [facility] [place] [address] * [place] Visual Field - OU - Both Eyes (10/06/2024 11:07 AM PROCESS SAFETY ENGINEER) Anatomical Region Laterality Modality Head Visual Field Narrative 10/06/2024 11:07 AM PROCESS SAFETY ENGINEER Few central misses OD with poor reliability c/w known amblyopia OD Full OS Latha Baltazar MD OPHTH VISUAL FIELD Final Re sult * OCT, Retina - OU - Both Eyes (10/06/2024 11:06 AM PROCESS SAFETY ENGINEER) Anatomical Region Laterality Modality Head Optical Coherenc e Tomography Narrative 10/06/2024 11:06 AM PROCESS SAFETY ENGINEER Right Eye Findings include normal observations. Left Eye Findings include normal observations. Notes Normal mean ganglion cell complex thickness OU (on Zeiss Cirrus OCT) us Latha Baltazar MD OPHTH TOMOGRAPHY Final Resu lt * OCT, Optic Nerve - OU - Both Eyes (10/06/2024 11:06 AM PROCESS SAFETY ENGINEER) RNFL OS 112 micrometers CONTINUUM RNFL OD 115 micrometers CONTINUUM Anatomical Region Laterality Modality Head Optical Coherenc e Tomography Narrative 10/06/2024 11:06 AM PROCESS SAFETY ENGINEER Right Eye Reliability was good. Average RNFL thickness 115 micrometers. Left Eye Reliability was good. Average RNFL thickness 112 micrometers. Notes Interval improvement in mean RNFL thickness OU (Performed on Zeiss Cirrus OCT) us Latha Baltazar MD OPHTH TOMOGRAPHY Final Resu lt from Last 3 Months Insurance [employer] [email or web address] [address] ANTH ACCESS Advance Directives For more information, please contact: [phone] * Full Code (Latest Code Status on File) Date Activated Date Inactivated Comments 10/31/2021 10:24 PM 11/01/2021 6:35 PM * Full Code Date Activated Date Inactivated Comments 01/05/2021 1:06 AM 01/08/2021 7:55 PM * Full Code Date Activated Date Inactivated Comments 01/04/2021 6:59 PM 01/05/2021 1:06 AM Full CPR in case of cardiopulmonary arrest Care Teams [employer]orer [employer] Relationship Specialty Start Date End Date Yadi Solorzano PA PCP - General Physician Band Head Saw Operator 02/23/21 No, Physician 05/11/19
--- OUTSIDE RECORDS SUMMARY | 2024-12-30 16:48 | XMS_ITS | Clinical Summary ---
Author Organization [facility] Address [address] [place] [address] Care Team Providers Care Multi Spindle Operator Name Role Phone No, Physician Unavailable Yadi [...] (04/18/2021): Added automatically from request for surgery [id number] care following delivery 12/19 Overview (01/08/2021): # [...] - s/p counseling 06/10 - current regimen: [id number] - has home BP cuff, reminded patient [...] weeks Assessment & Plan (01/02/2021 10:54 AM INFORMATION ENGINEER): She has not been checking her Bps at home but plans to start and will bring them to weekly appointments. Continues to have lower extremity swelling. Bp mild range today. Has headaches that resolve on their own or with tylenol. Denies changes in vision or RUQ pain. Very strict BP parameters and preE precautions reviewed. Assessment & Plan (10/10/2020 6:33 PM INFORMATION ENGINEER): Reports some symptoms of SOB with [...] unspecified trimester 06/09/2020 Overview (01/02/2021): [x] Full [facility] Care; Referring Provider: Self Referral [] or [...] insurance) [x] Method of feeding: breast [x] Claim Technician: [] PP Depression Discussed: Assessment & Plan (06/10/2020 2:03 PM CDT): Serologies and baseline labs ordered today. Has recent EKG in CareEverywhere. Will discuss genetic screening when viability confirmed. 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 [place] [facility] [place]: Polyps in normal appearing right uterine [...] (04/18/2021): Added automatically from request for surgery [id number] History of section complicating 06/09/2020 12/14/2024 Overview (06/24/2020): - discussed @ [facility]; would like to TOLAC if possible (this is in different/non-scarred uterine cavity); counseled regarding risk for soft tissue dystocia - Readdress at future visit Irregular menses 05/13/2019 06/10/2020 Overview (05/13/2019): Added automatically from request for surgery [id number] Encounters Date Type Department Care Team Description 12/29/2024 Telephone [facility] [address] [place] [address] [address] [address] Latha Baltazar MD 12/21/2024 9:45 AM INFORMATION ENGINEER Office Visit [facility] [address] [place] [address] [place] [address] [address] Latha Baltazar MD Idiopathic intracranial hypertension (Primary Dx); 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 12/21/2024 9:20 AM INFORMATION ENGINEER Imaging Exam [facility] [address] [facility] 6th [place] [address] Idiopathic intracranial hypertension; 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 12/18/2024 Orders Only [facility] [address] [facility] [facility] [address] [place] [address] Darcy James MD Low serum follicle stimulating hormone (FSH) (Primary Dx); Low testosterone level in female 12/18/2024 Orders Only [facility] [address] [facility] 6th [address], [address] [place] [address] Latha Baltazar MD Idiopathic intracranial hypertension (Primary Dx); 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 12/17/2024 Telephone [facility] [address] [place] [address] Farideh Trujillo RN Referral to [facility]O 12/15/2024 Orders Only [facility] [address] [place] [address] [address] [place] [address] Darcy James MD Low serum follicle stimulating hormone (FSH) (Primary Dx); Low testosterone level in female; Low libido 12/15/2024 Orders Only [facility] [address] [place] [address] [address] [place] [address] Darcy James MD Low serum follicle stimulating hormone (FSH) (Primary Dx) 12/14/2024 2:30 PM INFORMATION ENGINEER - 12/14/2024 11:59 PM INFORMATION ENGINEER Hospital Encounter [facility] [address] [place] [address] Bacterial vaginitis; Leukorrhea; Vaginal bleeding Discharge Disposition: Discharge to home or self care 12/14/2024 1:30 PM INFORMATION ENGINEER 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; Vaginal dryness; Weight loss 10/07/2024 Telephone [facility] [address] [facility] [address] [address] Latha Baltazar MD 10/06/2024 9:15 AM INFORMATION ENGINEER Office Visit [facility] [address] [facility] [address] [address] Latha Baltazar MD Idiopathic intracranial hypertension (Primary [...] Trivalent, IM (MDV) 10/02/2013 Influenza, Unspecified 11/18/2014 [employer] ([employer]) (J[employer]J) SARS-CoV-2 Vaccination 02/27/2021, 02/27/2021 MMR 05/11/1996,07/26/1993 [...] 11/01/2021 How often do you attend chur TheTakes or restorationist services? 1 to 4 times per year 11/01/2021 Do you belong to any clubs o r organizations such as anglican groups, unions, fraternal or athletic groups, or [...] things needed for daily living? No 11/01/2021 [place] Depression Scale Answer Date Recorded [place] Depression Scale Total 4 01/24/2021 The thought [...] on file Legal Sex Female 7:14 AM INFORMATION ENGINEER Gender Identity Not on file Sexual [...] ,RAVI EcholsNiya gould MD Complications:Pre eclampsia Delivery Location:[facility] 2020 35w 3d 0h 03m 0h 03m 2.64 kg (5 lb 13.1 oz) M CS-LTr anv Combin ed Spinal /Epidu ral Y Livin g 8 9 BRUNILDA HEIN Jonat han S., MD Complications:Pre eclampsia Delivery Location:[facility] Main C ampus ([facility] L AND D PROCEDURE) Comments 2017 in se tting of severe preeclampsia at 27 weeks. Breech presentation. Monico 2'10 doing well now. Last Filed Vital Signs Vital Sign Reading Time Taken Comments Blood Pressure 126/82 12/14/2024 1:27 PM INFORMATION ENGINEER Pulse 69 05/18/2024 9:30 PM CDT Temperature 36.5 C (97.7 F) 05/18/2024 6:32 PM CDT Respiratory Rate 18 05/18/2024 6:32 PM CDT Oxygen Saturation 100% 05/18/2024 9:30 PM CDT Inhaled Oxygen Concentration - - Weight 77.7 kg (171 lb 6.4 oz) 12/14/2024 1:27 P M INFORMATION ENGINEER Height 172.7 cm (5' 8 ) 12/14/2024 1:27 PM INFORMATION ENGINEER Body Mass Index 26.06 12/14/2024 1:27 PM INFORMATION ENGINEER Plan of Treatment Health Maintenance Due Date [...] - BOTH EYES Routine 12/21/2024 9:02 AM INFORMATION ENGINEER Idiopathic intracranial hypertension 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 OCT, OPTIC NERVE - OU - BOTH EYES Routine 12/21/2024 9:02 AM INFORMATION ENGINEER Idiopathic intracranial hypertension 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 MISCELLANEOUS MICROBIOLOGY TEST Routine 12/14/2024 6:52 PM INFORMATION ENGINEER PAP ONLY Routine 12/14/2024 3:39 PM INFORMATION ENGINEER Vaginal bleeding THINPREP PROCESSING (MOLECULAR COMPONENT) Routine 12/14/2024 3:38 PM INFORMATION ENGINEER Vaginal bleeding LUTEINIZING HORMONE (LH) Routine 12/14/2024 2:30 PM INFORMATION ENGINEER 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 Vaginal dryness Weight loss PROLACTIN Routine 12/14/2024 2:30 PM INFORMATION ENGINEER 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 Vaginal dryness Weight loss FOLLICLE STIMULATING HORMONE Routine 12/14/2024 2:30 PM INFORMATION ENGINEER 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 Vaginal dryness Weight loss ESTRADIOL Routine 12/14/2024 2:30 PM INFORMATION ENGINEER 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 Vaginal dryness Weight loss TOTAL TESTOSTERONE Routine 12/14/2024 2: 30 PM INFORMATION ENGINEER 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 Vaginal dryness THYROID FUNCTION CASCADE Routine 12/14/2024 2:30 PM INFORMATION ENGINEER 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 Vaginal dryness Weight loss SEX HORMONE BINDING GLOBULIN Routine 12/14/2024 2:30 PM INFORMATION ENGINEER 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 Vaginal dryness CAMARGO VISUAL FIELD - OU - BOTH EYES Routine 10/06/2024 11:07 AM INFORMATION ENGINEER 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 Findings include normal observations. Left Eye Quality was good. Findings include normal observations. Notes Normal mean ganglion cell complex thickness OU (on Zeiss Cirrus OCT) us Latha Baltazar MD OPHTH TOMOGRAPHY Final Resu lt * OCT, Optic Nerve - OU - Both Eyes (12/21/2024 9:02 AM INFORMATION ENGINEER) RNFL OS 115 micrometers CONTINUUM RNFL OD 123 micrometers CONTINUUM Anatomical Region Laterality Modality Head Other Narrative 12/21/2024 11:11 AM INFORMATION ENGINEER Right Eye Reliability was good. Average RNFL thickness 123 micrometers. Left Eye Reliability was good. Average RNFL thickness 115 micrometers. Notes Trace interval increase in RNFL thickness us Latha Baltazar MD OPHTH TOMOGRAPHY Final Resu lt * Miscellaneous microbiology test Miscellaneous Miscellaneous (12/14/2024 6:52 PM INFORMATION ENGINEER) Report Final Report: Negative for Mycoplasma genitalium Organism NEGATIVE FOR MYCOPLASMA GENITALIUM [facility] Miscellaneous (Miscellaneous) 12/14/2024 6:52 PM INFORMATION ENGINEER 12/14/2024 7:57 PM INFORMATION ENGINEER Narrative [facility] - 12/16/2024 7:11 PM INFORMATION ENGINEER Name of test to be performed:->mycoplasma genitalium Specimen type/source->vaginal [facility] ([phone]) Darcy James MD LAB MICROBIOLOGY - GENERAL ORDERABLES Final Result [facility] Department [place] [address] * Pap Only (Cytology Component) (12/14/2024 3:39 PM INFORMATION ENGINEER) Thin prep (Pap test) 12/14/2024 3:39 PM INFORMATION ENGINEER 12/14/2024 6:07 PM INFORMATION ENGINEER Narrative PATHOLOGY [facility] - 12/21/2024 10:44 AM INFORMATION ENGINEER EPIC results best viewed via link to PDF [facility] Andreea Rojas [facility] [place] [address] Note to Patients: This report may contain [...] Gender: F : 1990 (Age: 34) Address: [address] [place] [address] [place] [address] [facility] #: [id number] Service: UNKNOWN Location: Patient Type: [facility] SPECIMEN Taken: 12/14/2024 Received: [...] clinical information and biopsy results as indicated. [facility] Clinical Laboratory Improvement Amendments (CLIA) mandate that cytologic and histologic results be correlated for laboratory quality assurance associate & improvement standards. FOR ALL HIGH-GRADE CASES [...] by the Surgical Pathology Department at [facility] as part of an ongoing automotive quality engineer program and in compliance with federally [...] by the Surgical Pathology Department of [facility]. It has not been cleared or approved by the U. S. Food and Drug Administration. Darcy James MD LAB CYTOLOGY ORDE RABLES Final Result PATHOLOGY [facility] 3rd Floor [place], [place] [phone] * ThinPrep processing (Molecular component) (12/14/2024 3:38 PM INFORMATION ENGINEER) Pathologist [facility] ThinPrep processing (Molecular component) Specimen received for processing. [facility] Endocervical 12/14/2024 3:38 PM INFORMATION ENGINEER 12/16/2024 10:28 PM INFORMATION ENGINEER Result [facility] Darcy James MD LAB BODY FLUIDS A ND STOOLS ORDERABLES Final Result Performing Organization Address [facility] Co de Phone Number [facility] [place] [address] [facility] * Sex hormone binding globulin (12/14/2024 2:30 PM INFORMATION ENGINEER) [facility] Sex steroid binding globulin 34.5 18.2 - 135.5 nmol/L [place] ref Lab Comment: Test Performed by: [facility] [address] [place] [address] Junior Web Designer: Robyn Delgado Ph.D.; CLIA# [id number] Blood 12/14/2024 2:30 PM INFORMATION ENGINEER 12/14/2024 7:43 PM INFORMATION ENGINEER Result [facility] Darcy James MD LAB BLOOD ORDERAB LES Final Result Performing Organization Address [facility]/ZIP Co de Phone Number [facility] [place] [address] [place] ref [facility] * Thyroid Function [place] (12/14/2024 2:30 PM INFORMATION ENGINEER) Pathologist [facility] TSH 0.51 0.30 - 4.20 mcIUnit/mL Blood 12/14/2024 2:30 PM INFORMATION ENGINEER 12/14/2024 7:38 PM INFORMATION ENGINEER Result [facility] Darcy James MD LAB BLOOD ORDERAB LES Final Result Performing Organization Address [facility] de Phone Number [facility] [place] [address] * Prolactin (12/14/2024 2:30 PM INFORMATION ENGINEER) Prolactin 8.2 4.8 - 23.3 ng/mL Blood 12/14/2024 2:30 PM INFORMATION ENGINEER 12/14/2024 7:43 PM INFORMATION ENGINEER Result [facility] Darcy James MD LAB BLOOD ORDERAB LES Final Result Performing Organization Address [facility] Phone Number [facility] [place] [address] * Estradiol (12/14/2024 2:30 PM INFORMATION ENGINEER) Pathologist [facility] Estradiol 33.9 pg/mL Comment: Interpretive Data Males: 11 43 pg/mL Females: Premenopausal: 31 533 pg/mL Postmenopausal: < 50 pg/mL Patients treated with Fluvestrant (Faslodex) should be tested using an alternate assay such as LC-MS due to potential for cross-reactivity. Estradiol varies widely throughout the menstrual cycle. Current interpretive data was last revised 2024. Blood 12/14/2024 2:30 PM INFORMATION ENGINEER 12/14/2024 7:38 PM INFORMATION ENGINEER Result [facility] Darcy James MD LAB BLOOD ORDERAB LES Final Result Performing Organization Address [facility] Co de Phone Number [facility] [place] [address] * (ABNORMAL) Total testosterone (12/14/2024 2:30 PM INFORMATION ENGINEER) Testosterone 6.0(L) 8.4 - 48.1 ng/dL Blood 12/14/2024 2:30 PM INFORMATION ENGINEER 12/14/2024 7:38 PM INFORMATION ENGINEER Darcy James MD LAB BLOOD ORDERAB LES Final Result Performing Organization Address [facility] Phone Number [facility] [place] [address] * LH (12/14/2024 2:30 PM INFORMATION ENGINEER) LH 4.2 IUnits/L Comment: Interpretive Data Males: Adults: 1.7 - 8.6 IUnits/L Females: Follicular: 2.4 - 12.6 IUnits/L Ovulation: 14.0 - 95.6 IUnits/L Luteal: 1.0 - 11.4 IUnits/L Postmenopausal: 7.7 - 58.5 IUnits/L Current interpretive data was last revised on 2019. Blood 12/14/2024 2:30 PM INFORMATION ENGINEER 12/14/2024 7:43 PM INFORMATION ENGINEER Result [facility] Darcy James MD LAB BLOOD ORDERAB LES Final Result Performing Organization Address [facility] Phone Number [facility] [place] [address] * Follicle stimulating hormone (12/14/2024 2:30 PM INFORMATION ENGINEER) FSH 5.7 IUnits/L Comment: Interpretive Data Male: Adults: 1.5 - 12.4 IUnits/L Female: Follicular: 3.5 - 12.5 IUnits/L Ovulation: 4.7 - 21.5 IUnits/L Luteal: 1.7 - 7.7 IUnits/L Postmenopausal: 25.8 - 134.8 IUnits/L Current interpretive data was last revised 2015. Blood 12/14/2024 2:30 PM INFORMATION ENGINEER 12/14/2024 7:38 PM INFORMATION ENGINEER us Darcy James MD LAB BLOOD ORDERAB LES Final Result [facility] Department [place] [address] * [place] Visual Field - OU - Both Eyes (10/06/2024 11:07 AM INFORMATION ENGINEER) Anatomical Region Laterality Modality Head Visual Field Narrative 10/06/2024 11:07 AM INFORMATION ENGINEER Few central misses OD with poor reliability c/w known amblyopia OD Full OS us Latha Baltazar MD OPHTH VISUAL FIELD Final Re sult * OCT, Retina - OU - Both Eyes (10/06/2024 11:06 AM INFORMATION ENGINEER) Anatomical Region Laterality Modality Head Optical Coherenc e Tomography Narrative 10/06/2024 11:06 AM INFORMATION ENGINEER Right Eye Findings include normal observations. Left Eye Findings include normal observations. Notes Normal mean ganglion cell complex thickness OU (on Zeiss Cirrus OCT) us Latha Baltazar MD OPHTH TOMOGRAPHY Final Resu lt * OCT, Optic Nerve - OU - Both Eyes (10/06/2024 11:06 AM INFORMATION ENGINEER) RNFL OS 112 micrometers CONTINUUM RNFL OD 115 micrometers CONTINUUM Anatomical Region Laterality Modality Head Optical Coherenc e Tomography Narrative 10/06/2024 11:06 AM INFORMATION ENGINEER Right Eye Reliability was good. Average RNFL thickness 115 micrometers. Left Eye Reliability was good. Average RNFL thickness 112 micrometers. Notes Interval improvement in mean RNFL thickness OU (Performed on Zeiss Cirrus OCT) us Latha Baltazar MD OPHTH TOMOGRAPHY Final Resu lt from Last 3 Months Insurance ANTHEM ACCESS BLUE ACCESS OOS ANTHEM ACCESS Advance Directives For more information, please contact: [phone] * Full Code (Latest Code Status on File) Date Activated Date Inactivated Comments 10/31/2021 10:24 PM 11/01/2021 6:35 PM * Full Code Date Activated Date Inactivated Comments 01/05/2021 1:06 AM 01/08/2021 7:55 PM * Full Code Date Activated Date Inactivated Comments 01/04/2021 6:59 PM 01/05/2021 1:06 AM Full CPR in case of cardiopulmonary arrest Care Teams Multi Spindle Operator Relationship Specialty Start Date End Date Yadi Solorzano PA PCP - General Physician Production Supervisor Trainee 02/23/21 No, Physician 05/11/19
--- OUTSIDE RECORDS SUMMARY | 2024-12-30 16:48 | XMS_ITS | Encounter Summary ---
Author Organization [facility] Address [address] [place] [address] Phone Care Team Providers Care Printed Circuit Layout Taper Name Role Phone No, Physician Unavailable Yadi Solorzano Primary Care Pr ovider Encounter Details Date Type Department Care Team (Late st Contact Info) Description 12/29/2024 Telephone [facility] Ophthalmology [address] [place] [address] [place] [address] Latha Baltazar MD [address] [place] [address] [address] [place] [address] Social History Tobacco Use Types [...] often do you attend chur ch or muslim services? 1 to 4 times per year 11/01/2021 Do you belong to any clubs o r organizations such as hinduism groups, unions, fraternal or athletic groups, or [...] things needed for daily living? No 11/01/2021 [place] Depression Scale Answer Date Recorded [place] Depression Scale Total 4 01/24/2021 The thought [...] on file Legal Sex Female 7:14 AM CRANE MANAGER Gender Identity Not on file Sexual Orientation [...] changes. She had no additional concerns. E MANAGER documented in this encounter Plan of Treatment Not on file documented as of this encounter Visit Diagnoses Not on filedocumented in this encounter Care Teams Printed Circuit Layout Taper Relationship Specialty Start Date End Date Yadi Solorzano PA PCP - General Physician Crimping Machine Operator 02/23/21 No, Physician 05/11/19 documented as of this encounter
[2024-12-30 17:45] VITALS: BP 106/61; PULSE 96; RESP 16; O2SAT 100
== END 2024-12-30 17:45 | disposition home or self-care (01) ==
PROVIDERS: Emergency Provider Emergency Medicine; PCP Physician Assistant
DX: R22.0 Localized swelling, mass and lump, head (principal); T50.8X5A Adverse effect of diagnostic agents, initial encounter; R10.13 Epigastric pain
CPT/HCPCS: 93005; 96372; 96374; 96375; 99284; J0171; J1200; J2919

== ENCOUNTER 2025-10-01 03:10 | Emergency (ER) | payer BC, SELFPAY ==
--- OUTSIDE RECORDS SUMMARY | 2010-08-23 08:00 | XMS_ITS | Continuity of Care Document ---
Author Organization [facility] Address [address] [place] [address] utive [facility] [address] [place] [address] Phone Care Team Providers Care Embroidery Specialist Name Role Phone Inder Florence Unavailable Unavailable Procedures Procedure Date Office/outpatient Visit, Est Advance Directives Directive Yes / No Effective Date File Name No Information Encounters Encounter Description Practice Location Reason(s) For Visit Diagnoses Date Provider Providers Copied on Encounter Office/outpat ient Visit, Est [facility], [address], [place], [place], [id number], [place] tel:[phone] [facility] No Information [address]. [address] , [address], [place], [address], [place]. tel:[phone] Family History Family Member Type Diagnosis Age At Onset No Information Payers Payer name Insurance type Covered constitution party ID Authoriza tiluiza(s) [place] Commercial [place] [id number] Social History Type Description Quantity Date Captured Comments Sex Female Smoking Status No Information Chief Complaint And Reason For Visit No Information Reason For Referral Reason For Referral No Information History Of Present Illness Encounter Date Complaint History Of Prese nt Illness No Information Functional Status Date Functional Assessmen t No Information Instructions Date Instruction Additional Infor mation No Information Assessments Type Assessment Date No Information Patient Care Teams Name Effective Dates (start - stop) Status Members No Information
--- OUTSIDE RECORDS SUMMARY | 2010-08-23 08:00 | XMS_ITS | Continuity of Care Document ---
Author Organization [facility] Address [address] [place] [address] utive [facility] [place] [address] [place] [address] Phone Care Team Providers Care Utility Person Name Role Phone Inder Florence Unavailable Unavailable Procedures Procedure Date Office/outpatient Visit, Est Advance Directives Directive Yes / No Effective Date File Name No Information Encounters Encounter Description Practice Location Reason(s) For Visit Diagnoses Date Provider Providers Copied on Encounter Office/outpat ient Visit, Est [facility], [address], [place], [place], [id number], [place] tel:[phone] [facility] No Information [address]. [address] , [address], [place], [address], [place]. tel:[phone] Family History Family Member Type Diagnosis Age At Onset No Information Payers Payer name Insurance type Covered republican ID Authoriza tiluiza(s) BC[place] Commercial BL [id number] Social History Type Description Quantity Date Captured [...]
[2025-10-01] VITALS (16 sets, daily range): BP systolic 115–143; BP diastolic 58–94; PULSE 74–88; RESP 16–18; TEMP 36.6–37.1; O2SAT 95–100
--- NOTE | ~2025-10-01 | CT_ITS ---
EXAM: CT abdomen pelvis with and without IV contrast INDICATION: Right lower quadrant pain COMPARISONS: None. PROCEDURE: Multiplanar images were obtained both before and after the uneventful administration of IV contrast. Dose reduction technique(s) used. FINDINGS: Lower chest: Lung bases are clear. Body wall: No abnormality demonstrated. ABDOMEN: Liver: Normal size and homogeneous parenchyma. Gallbladder: Surgically absent Spleen: Normal. Adrenals: Normal. Pancreas: No mass or adjacent stranding. Normal caliber duct. 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 There is hypertrophy of the right kidney. Aorta: Normal caliber. IVC: Normal. Retroperitoneum: No adenopathy. Stomach and visualized esophagus: No abnormality. PELVIS: Reproductive Organs: No pelvic mass. The uterus is surgically absent. Bladder: No nodule or calculus. Colon: No focal wall thickening or paracolic fat stranding. There is a large amount of fecal material in the colon, particularly the cecum, which lies in the pelvis. The colon is not abnormally dilated. Small Bowel: No dilatation or wall thickening. Appendix: Not seen as a separate structure Mesentery: No adenopathy. Normal splanchnic veins. Peritoneum: No free fluid or free air. Bones: No destructive lesion. IMPRESSION: Large amount of fecal material. Left renal agenesis. Reviewed, dictated and finalized at location A. [employer] W[employer]DER
--- NOTE | ~2025-10-01 | CT_ITS ---
EXAM: CT abdomen pelvis with and without IV contrast INDICATION: Right lower quadrant pain COMPARISONS: None. PROCEDURE: Multiplanar images were obtained both before and after the uneventful administration of IV contrast. Dose reduction technique(s) used. FINDINGS: Lower chest: Lung bases are clear. Body wall: No abnormality demonstrated. ABDOMEN: Liver: Normal size and homogeneous parenchyma. Gallbladder: Surgically absent Spleen: Normal. Adrenals: Normal. Pancreas: No mass or adjacent stranding. Normal caliber duct. 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 There is hypertrophy of the right kidney. Aorta: Normal caliber. IVC: Normal. Retroperitoneum: No adenopathy. Stomach and visualized esophagus: No abnormality. PELVIS: Reproductive Organs: No pelvic mass. The uterus is surgically absent. Bladder: No nodule or calculus. Colon: No focal wall thickening or paracolic fat stranding. There is a large amount of fecal material in the colon, particularly the cecum, which lies in the pelvis. The colon is not abnormally dilated. Small Bowel: No dilatation or wall thickening. Appendix: Not seen as a separate structure Mesentery: No adenopathy. Normal splanchnic veins. Peritoneum: No free fluid or free air. Bones: No destructive lesion. IMPRESSION: Large amount of fecal material. Left renal agenesis. Reviewed, dictated and finalized at location R. [employer]
--- OUTSIDE RECORDS SUMMARY | 2025-10-01 03:12 | XMS_ITS | Data Portability ---
Author Organization [place] [facility] [employer], Main Office Address [address] [place] [address] Assessment No assessment recorded. Plan of Treatment [...] s pen injector 2022 023 [id number] [facility] [address], [address] [facility], [place], [address], 3 11:13:08 Patient TargetsNo targets recorded. Patient [...] Third trime ster 0.43- 2.91 Not Available [address], [address], 08/20/2023 05:41:11 08/19/2008/20/2023 TSH+F REE T4 T4, free 1.1 NG/dL 0.8-1. 8 normal Not Available [address], [address], 08/20/2023 05:41:11 08/19/2008/20/2023 LIPID PANEL , STAND YOANDY cholesterol, total 114 mg/dL <200 normal Not Available [address], [address], 08/20/2023 05:41:13 08/19/2008/20/2023 LIPID PANEL , STAND YOANDY HDL cholesterol 39 mg/dL > or = 50 low Not Available [address], [address], 08/20/2023 05:41:13 08/19/2008/20/2023 LIPID PANEL , STAND YOANDY triglyceride s 234 mg/dL <150 high If a non-f astin g speci men was colle cted, consi sondra repea t trigl yceri de testi ng on a fasti ng speci men if clini oscar indic ated. Eduardo loaiza et al. J. of Clin. Lipid ol. 2015; 9:129 -169. Not Available [address], [address], 08/20/2023 05:41:13 08/19/20 23 08/20/2023 LIPID PANEL [...] valderrama SS et al. TAYLOR. 2013; 310(1 9): 2061- 2068 (http ://ed ucati on.Qu anjanaVitalMedix. com/f aq/FA Q164) Not Available [facility] [address] [place], [address], 08/20/2023 05:41:13 08/19/20 23 08/20/2023 LIPID PANEL , STAND YOANDY chol/HDLC ratio 2.9 (calc ) <5.0 normal Not Available [facility] [address] [place], [address], 08/20/2023 05:41:13 08/19/20 23 08/20/2023 LIPID PANEL , STAND YOANDY non HDL cholesterol 75 mg/dL _(sacha c) <130 normal For patie nts with diabe kami plus 1 major ASCVD risk facto r, treat ing to a non-H DL-C goal of <100 mg/dL (LDL- C of <70 mg/dL ) is lamberto purcello n. Not Available [facility] [address] [place], [address], 08/20/2023 05:41:13 08/19/20 23 08/20/2023 COMPR EHENS MIOL METAB OLIC PANEL glucose 94 mg/dL 65-99 normal Fasti ng refer ence inter pepe Not Available [address], [address], 08/20/2023 05:41:14 08/19/2008/20/2023 COMPR EHENS MILO METAB OLIC PANEL urea nitrogen (BUN) 13 mg/dL 7-25 normal Not Available [address], [address], 08/20/2023 05:41:14 08/19/2008/20/2023 COMPR EHENS MILO METAB OLIC PANEL creatinine 0.72 mg/dL 0.50-0 .97 normal Not Available [address], [address], 08/20/2023 05:41:14 08/19/20 23 08/20/2023 COMPR EHENS MILO METAB OLIC PANEL eGFR 114 mL/mi n/1.7 3m2 > or = 60 normal Not Available [address], [address], 08/20/2023 05:41:14 08/19/2008/20/2023 COMPR EHENS MILO METAB OLIC PANEL BUN/creatini ne ratio SEE NOTE: (calc ) 6-22 Not Repor abdirahman: BUN and Creat inine are withi n refer ence range . Not Available [address], [address], 08/20/2023 05:41:14 08/19/2008/20/2023 COMPR EHENS MILO METAB OLIC PANEL sodium 138 mmol/ L 135-14 6 normal Not Available [address], [address], 08/20/2023 05:41:14 08/19/20 23 08/20/2023 COMPR EHENS MILO METAB OLIC PANEL potassium 4.2 mmol/ L 3.5-5. 3 normal Not Available [address] [place], [address], 08/20/2023 05:41:14 08/19/2008/20/2023 COMPR EHENS MILO METAB OLIC PANEL chloride 103 mmol/ L 98-110 normal Not Available [address], [address], 08/20/2023 05:41:14 08/19/2008/20/2023 COMPR EHENS MILO METAB OLIC PANEL carbon dioxide 25 mmol/ L 20-32 normal Not Available [address], [address], 08/20/2023 05:41:14 08/19/2008/20/2023 COMPR EHENS MILO METAB OLIC PANEL calcium 8.7 mg/dL 8.6-10 .2 normal Not Available [address], [address], 08/20/2023 05:41:14 08/19/2008/20/2023 COMPR EHENS MILO METAB OLIC PANEL protein, total 6.4 g/dL 6.1-8. 1 normal Not Available [address], [address], 08/20/2023 05:41:14 08/19/2008/20/2023 COMPR EHENS MILO METAB OLIC PANEL albumin 4.2 g/dL 3.6-5. 1 normal Not Available [address], [address], 08/20/2023 05:41:14 08/19/2008/20/2023 COMPR EHENS MILO METAB OLIC PANEL globulin 2.2 g/dL_ (calc ) 1.9-3. 7 normal Not Available [address], [address], 08/20/2023 05:41:14 08/19/2008/20/2023 COMPR EHENS MILO METAB OLIC PANEL albumin/glob ulin ratio 1.9 (calc ) 1.0-2. 5 normal Not Available [address], [address], 08/20/2023 05:41:14 08/19/20 23 08/20/2023 COMPR EHENS MILO METAB OLIC PANEL bilirubin, total 0.3 mg/dL 0.2-1. 2 normal Not Available [address], [address], 08/20/2023 05:41:14 08/19/2008/20/2023 COMPR EHENS MILO METAB OLIC PANEL alkaline phosphatase 39 U/L 31-125 normal Not Available [address], [address], 08/20/2023 05:41:14 08/19/2008/20/2023 COMPR EHENS MILO METAB OLIC PANEL AST 20 U/L 10-30 normal Not Available [address], [address], 08/20/2023 05:41:14 08/19/2008/20/2023 COMPR EHENS MILO METAB OLIC PANEL ALT 25 U/L 6-29 normal Not Available [address], [address], 08/20/2023 05:41:14 08/19/2008/20/2023 HEMOG LOBIN A1C hemoglobin [...] kami. Curre ntly, no conse nsus exist thong leon use of hemog lobin A1c for [...] Care in Diabe kami(A DA). Not Available [facility] [address] [address] [place], [address], 08/20/2023 05:41:15 08/19/2008/20/2023 CBC (INCL UDES DIFF/ PLT) white blood cell count 6.3 thous and/u L 3.8-10 .8 normal Not Available [address] [place], [address], 08/20/2023 05:41:16 08/19/20 23 08/20/2023 CBC (INCL UDES DIFF/ PLT) red blood cell count 4.24 luis manuel on/uL 3.80-5 .10 normal Not Available [address] [address] [place], [address], 08/20/2023 05:41:16 08/19/20 23 08/20/2023 CBC (INCL UDES DIFF/ PLT) hemoglobin 12.8 g/dL 11.7-1 5.5 normal Not Available [facility] [address] [place], [address], 08/20/2023 05:41:16 08/19/20 23 08/20/2023 CBC (INCL UDES DIFF/ PLT) hematocrit 38.0 % 35.0-4 5.0 normal Not Available [facility] [address] [place] [address] [place], [address], 08/20/2023 05:41:16 1008/20/2023 CBC (INCL UDES DIFF/ PLT) MCV 89.6 fL 80.0-1 00.0 normal Not Available [address], [address], 08/20/2023 05:41:16 08/19/20 23 08/20/2023 CBC (INCL UDES DIFF/ PLT) MCH 30.2 pg 27.0-3 3.0 normal Not Available [address], [address], 08/20/2023 05:41:16 08/19/2008/20/2023 CBC (INCL UDES DIFF/ PLT) MCHC 33.7 g/dL 32.0-3 6.0 normal Not Available [address], [address], 08/20/2023 05:41:16 08/19/2008/20/2023 CBC (INCL UDES DIFF/ PLT) RDW 12.3 % 11.0-1 5.0 normal Not Available [address], [address], 08/20/2023 05:41:16 08/19/20 23 08/20/2023 CBC (INCL UDES DIFF/ PLT) platelet count 215 thous and/u L 140-40 0 normal Not Available [address], [address], 08/20/2023 05:41:16 08/19/20 23 08/20/2023 CBC (INCL UDES DIFF/ PLT) MPV 11.4 fL 7.5-12 .5 normal Not Available [address], [address], 08/20/2023 05:41:16 08/19/20 23 08/20/2023 CBC (INCL UDES DIFF/ PLT) absolute neutrophils 2980 cells /uL 1500-7 800 normal Not Available [facility] [address], [address], 08/20/2023 05:41:16 08/19/2008/20/2023 CBC (INCL UDES DIFF/ PLT) absolute lymphocytes 2413 cells /uL 850-39 00 normal Not Available [address] [address] [place], [address], 08/20/2023 05:41:16 08/19/2008/20/2023 CBC (INCL UDES DIFF/ PLT) absolute monocytes 403 cells /uL 200-95 0 normal Not Available [facility] [address], [address], 08/20/2023 05:41:16 08/19/2008/20/2023 CBC (INCL UDES DIFF/ PLT) absolute eosinophils 441 cells /uL 15-500 normal Not Available [address], [address], 08/20/2023 05:41:16 08/19/2008/20/2023 CBC (INCL UDES DIFF/ PLT) absolute basophils 63 cells /uL 0-200 normal Not Available [address], [address], 08/20/2023 05:41:16 08/19/2008/20/2023 CBC (INCL UDES DIFF/ PLT) neutrophils 47.3 % normal Not Available [address], [address], 08/20/2023 05:41:16 08/19/2008/20/2023 CBC (INCL UDES DIFF/ PLT) lymphocytes 38.3 % normal Not Available [address], [address], 08/20/2023 05:41:16 08/19/20 23 08/20/2023 CBC (INCL UDES DIFF/ PLT) monocytes 6.4 % normal Not Available [facility] [address], [place], [address], 08/20/2023 05:41:16 08/19/2008/20/2023 CBC (INCL UDES DIFF/ PLT) eosinophils 7.0 % normal Not Available [address], [address], 08/20/2023 05:41:16 08/19/2008/20/2023 CBC (INCL UDES DIFF/ PLT) basophils 1.0 % normal Not Available [address], [address], 08/20/2023 05:41:16 08/19/2008/20/2023 VITAM IN B12/F OLATE , SERUM PANEL vitamin B12 408 pg/mL 200-11 00 normal Not Available [address], [address], 08/20/2023 05:41:18 08/19/2008/20/2023 VITAM IN B12/F OLATE , SERUM PANEL folate, serum 11.2 NG/mL normal Refer ence Range Low: <3.4 Borde rline : 3.4-5 .4 Rachel l: >5.4 Not Available [address], [address], 08/20/2023 05:41:18 08/19/2008/20/2023 INSUL IN insulin 26.2 uIU/m L high Refer ence Range < or = 18.4 Risk: Optim al < or = 18.4 Moder ate NA High >18.4 Adult cardi ovasc ular event risk categ ory cut point s (opti mal, moder ate, high) are based on Insul in Refer ence Inter pepe studi es perfo rmed at [facility] in 2021. Not Available [address], [address], 08/20/2023 05:41:19 Result Notes None recorded. Problems Name Problem SNOMED Code Status Onset Date Resolution Date Notes Provider Name and Address Organization Details Recorded Time Viral gastroenterit is 167639761 Active Not Available [facility] 3 08:09:22 Urticaria 565413391 Active Not Available [facility] 3 08:09:22 Amenorrhea 94617358 Active Not Available [facility] 3 08:09:22 Acute sinusitis 06283028 Active Not Available [facility] 3 08:09:22 Body mass index 25-29 - overweight 026843878 Active Not Available [facility] 3 08:09:22 Anxiety state 018053026 Active Not Available [facility] 3 08:09:22 Generalized anxiety disorder 23329256 Active Not Available [facility] 3 08:09:22 Undifferentia abdirahman attention deficit disorder 37736361 Active Not Available [facility] 3 08:09:22 Fear of flying 673594341 Active Not Available [facility] 3 08:09:23 Chest pain 39514686 Active Not Available [facility] 3 08:09:23 Left upper quadrant pain 573904526 Active Not Available [facility] 3 08:09:23 Elevated blood-pressur e reading without diagnosis of hypertension 193034357 Active Not Available [facility] 3 08:09:23 Migraine 75255552 Active Not Available [facility] 3 08:09:23 Fever 167023063 Active Not Available [facility] 3 08:09:23 Simple obesity 036237560 Active Not Available [facility] 3 08:09:23 Night sweats 83806019 Active Not Available [facility] 3 08:09:23 Gastritis 8056872 Active Not Available [facility] 3 08:09:23 Mild anxiety 37276299 Active Not Available [facility] 3 08:09:23 Duodenitis 97685384 Active Not Available [facility] 3 08:09:23 Palpitations 38615402 Active Not Available [facility] 3 08:09:24 Fatigue 84134024 Active Not Available [facility] 3 08:09:24 Benign essential hypertension 6169423 Active 2021 Not Available [facility] 3 08:09:22 Poor focus 881834448 Active 2021 Not Available [facility] 3 08:09:23 Insulin resistance 310282496 Active 2022 Not Available [facility] 3 08:09:24 Gastroesophag eal reflux disease without esophagitis 078218319 Active 2022 ANAMIKA Longoria [address], [address], [place], [address] , [employer] 3 17:16:29 Polycystic ovary syndrome 519375449 Active 2022 ANAMIKA Longoria [address], [address], [place], [address] , [employer] 3 17:16:56 Acute urinary tract infection 408419979 Active 2022 ANAMIKA Longoria [address], [address], [place], [address] , [employer] 3 11:38:15 Upper respiratory infection 82166226 Active 2023 ANAMIKA Longoria [address], [address], [place], [address] , [employer] 4 10:40:16 Problem Notes None recorded. Procedures Surgical History Date Name Laterality Status Provider Name and Address Organization Details Recorded Time 11/18/19 05 laparoscopy completed Not Available [facility] 01/16/2023 08:06:30 section completed Not Available [facility] 01/16/2023 08:06:30 Cholecystectomy completed Not Available [facility] 01/16/2023 08:06:30 endometrial ablation completed Not Available [facility] 01/16/2023 08:06:30 Eye Surgery completed Not Available [facility] 01/16/2023 08:06:30 excision of vaginal septum completed Not Available [facility] 01/16/2023 08:06:30 Imaging Results None recorded. Procedure Notes None recorded. Medical Equipment None Reported. Allergies Allergen ID Allergen Name Allergen Category Reaction Reaction Severity Criticality Documentation Date Start Date Code Code System Note Provider Name and Address Organization Details Recorded Time 01315 Macrobid medicatio n Not available Not available Not available 01/16/2023 52763 1 RxNorm Not Available [facility] 3 08:13:10 Medications Name Sig Start Date [...] Available norgestim ate 0.25 mg-ethiny l estradiol 0.035 mg tablet TAKE 1 TABLET BY MOUTH [...] injection 2cc injectio n IM 05/30 completed [facility]: [address]-15 45-01 Not Available Not Available Not Available [...] Not Available Not Available No t Available norethigloria trujilloe (contrace ptive) 0.35 mg tablet 02/07 completed [...] oral route at noon. active RX paper. potato picker. Not Available Not Available Not Available [...] Available Not Available Not Available Flucelvax Quad 8351-0369 (PF) 60 mcg (15 mcg x 4)/0.5 [...] mg every week by subcutan eous route. 09/15/ 2023 10/26 /2023 completed Not approved thru insuranc e Not Available Not Available Not Available Ozempic 0.25 mg or 0.5 mg (2 mg/3 mL) subcutane ous pen injector active Not Available Not Available Not Available Vitals Date Recorded Body mass index (BMI) Body height Oxygen saturation Oxygen saturation in Arterial blood by Pulse oximetry Heart rate Body temperature Body weight Systolic And Diastolic Provider Name and Address Organization Details Last Updated DateTime 3 36.9 kg/m2 172.72 cm 99 % 99 % 82 /min 97.8 [degF] 573795. 95 g 118/76 mm[Hg] Not Available [facility] 3 08:06:51 Date Recorded Body height Body temperature Provider N sujit and Address Organization Details Last Updated DateTime 01/17/2021 172.72 cm 97.9 [degF] Not Available [facility] 01/16/2023 08:06:55 Date Recorded Body mass index (BMI) Body height Oxygen saturation Oxygen saturation in Arterial blood by Pulse oximetry Heart rate Respiratory rate Body temperature Body weight Systolic And Diastolic Provider Name and Address Organization Details Last Updated DateTime 2 37 kg/m2 172.72 cm 98 % 98 % 77 /min 16 /min 98 [degF] 607995. 1 g 122/70 mm[Hg] Not Available [facility] 3 08:06:51 Date Recorded Body height Body temperature Body mass index (BMI) Body weight Heart rate Oxygen saturation Oxygen saturation in Arterial blood by Pulse oximetry Systolic And Diastolic Provider Name and Address Organization Details Last Updated DateTime 3 172.72 cm 97.3 [degF] 37.9 kg/m2 002430. 5 g 95 /min 99 % 99 % 122/60 mm[Hg] Rain Ruiz MA [employer] 3 14:09:21 Social History Question Answer Notes LastModified by Organizat ion Details LastModified Time Tobacco Smoking Status Never Smoker [employer], [employer] 08/02/2023 14:03:12 Do You Have An Advance Directive? No [id number] Information not available 01/16/2023 What Is Your Level Of Caffeine Consumption? Occasional [id number] Information not available 01/16/2023 In The 14 [...] Type Of Diet Are You Following? REGULAR [id number] Information not available 01/16/2023 Have There Been Any Changes To Your Family Or Social Situation? No Information no t available 08/02/2023 Do You Use Insect Repellent Routinely? No Information not available 08/02/2023 Do You Have A Medical Power Of Professional Soccer Player? No Information not available 08/02/2023 What Is Your Relationship Status? [id number] Information not available 01/16/2023 Do You Use [...] Dietary Restrictions? No Information not available 08/02/2023 Sex: Unknown Functional Status Question Answer Note LastModified by Organizat ion Details LastModified Time Do you use any illicit or recreational drugs? No Information not available 08/02/2023 Do you or have you ever used any other forms of tobacco or nicotine? No Information not available 08/02/2023 What is your level of alcohol consumption? Occasional [id number] Information not available 01/16/2023 Mental Status None recorded. Family History Relationship Description Onset Age of this Age Resolved Age Notes LastModified by Organization Details LastModified Time Mother Obesity [id number] Not available 01/16/2023 08:06:30 Medical History Condition Response HYPERTENSION Y Gynecological HistoryNo gynecological history recorded. Obstetrics History GPAL:G 0 P 0 0 0 0 Immunizations Vaccine Type Date Status Note Provider Nam e and Address Organization Details Recorded Time Influenza, split virus, quadrivalent, preservative 9 completed Not Available [facility] 01/16/2023 08:12:54 COVID-19 vaccine, vector-nr, rS-ChAdOx1, PF, 0.5 mL 1 completed Not Available [facility] 01/16/2023 08:12:54 Hep A, adult 8 completed Not Available [facility] 01/16/2023 08:12:54 MMR 6 completed Not Available [facility] 01/16/2023 08:12:54 polio, unspecified formulation 6 completed Not Available [facility] 01/16/2023 08:12:54 MMR 3 completed Not Available [facility] 01/16/2023 08:12:55 polio, unspecified formulation 1 completed Not Available [facility] 01/16/2023 08:12:55 polio, unspecified formulation 1 completed Not Available [facility] 01/16/2023 08:12:55 polio, unspecified formulation 1 completed Not Available [facility] 01/16/2023 08:12:55 Tdap 5 completed Not Available [facility] 01/16/2023 08:12:55 influenza, unspecified formulation 5 completed Not Available [facility] 01/16/2023 08:12:55 Influenza, split virus, trivalent, preservative 3 completed Not Available [facility] 01/16/2023 08:12:55 DT (pediatric) 5 completed Not Available [facility] 01/16/2023 08:12:55 Hep B, adolescent or pediatric 1 completed Not Available [facility] 01/16/2023 08:12:55 Hep B, adolescent or pediatric 1 completed Not Available [facility] 01/16/2023 08:12:55 Hep B, adolescent or pediatric 1 completed Not Available [facility] 01/16/2023 08:12:55 Hep A, unspecified formulation 9 completed Not Available [facility] 01/16/2023 08:12:56 Past Encounters Encounter ID Performer Location Encounter Start Date Encounter Closed Date Diagnosis/Indication Diagnosis SNOMED-CT Code Diagnosis ICD10 Code Diagnosis IMO Codes Diagnosis Note [id number] ANAMIKA Longoria S[facility] [place] [address] [place] [address] 01/17/2021 00:00:00 01/18/2021 13:25:33 [id number] Eric Billings MD [facility] [place] [address] [place] [address] 04/27/2022 00:00:00 05/17/2022 17:20:12 [id number] ANAMIKA Longoria [facility] [place] [address] [place] [address] 01/08/2023 00:00:00 01/13/2023 12:49:39 [id number] ANAMIKA Longoria [facility] [place] [address] [place] [address] 08/02/2023 14:00:45 08/02/2023 14:35:22 Benign essential hypertension 4696721 I10 stable on valsartan 160mg daily. Generalize d anxiety disorder 95845267 F41.1 stable on buspar 7.5mg bid Polycystic ovary syndrome 039058614 E28.2 screening insulin due Adult heal th examination 710829650 Z00.01 annual wellness completed Cholesterol screening 27 7089472 Z13.220 fasting lipids due Diabetes m ellitus screening 564914459 Z13.1 diabetes screening due Long-term drug therapy 829445852 Z79.899 annual labs due fasting. Body mass index 30+ - obesity 183967251 Z68.37 start wegovy course. Health Concerns Section Related Observation LastModified by Organization Detai ls LastModified Time None Recorded Concern Status LastModified by Organization Details LastModified Time None Recorded Advance Directives Directive N: Payers Insurance Date Sequence Insurance Name Policy Number Policy Sampson Covered Member ID Sampson Member ID Guarantor Name 11/20/2023 1 [employer] (PPO) [id number] 1 Aminah Hein [id number] Aminah Hein 08/02/2023 1 [facility] (PPO) [id number] Aminah Hein [id number] Aminah Hein Notes Date Note Type Note Provider Name and Address Organization Details Recorded Time 3 text/html HypertensionReported by Patientstable on medication. no c/o Anxiety, Generalized DisorderReported by Patientstable on buspar. improved. new job. ANAMIKA Longoria [address] [facility], [facility] [address], [place], [address], [facility] [employer] 08/17/2023 21:32:04 OBGyn Episode No OBEpisode recorded.
--- OUTSIDE RECORDS SUMMARY | 2025-10-01 03:12 | XMS_ITS | Encounter Summary ---
Author Organization [facility] Healthcare Address [address] [place] [address] Care Team Providers Care Resaw Feeder Name Role Phone No, Physician Unavailable Yadi Solorzano Primary Care Pr ovider Encounter Details Date Type Department Care Team (Late st Contact Info) Description 09/06/2025 Telephone [facility] 11[address] [facility] [phone] Darcy James MD 1110 [facility] Juan F [facility] [address] [place] [address] Social History Tobacco Use Types Packs/Day Years Used Date Smoking Tobacco: Never Smokeless Tobacco: Never Alcohol Use Standard Drinks/Week Comments Never 0 (1 standard drink = 0.6 oz pur e alcohol) Social Connection and Isolation Panel Answer Date Recorded In a typical week, how many times do you talk on the phone with family, friends, or neighbors? More than three times a week 11/01/2021 How often do you get togethe r with friends or relatives? Three times a week 11/01/2021 How often do you attend chur ch or methodist services? 1 to 4 times per year 11/01/2021 Do you belong to any clubs o r organizations such as synagogue groups, unions, fraternal or athletic groups, or [...] more points, staff should administer the PHQ-9) 2 09/06/2025 Hunger Vital Sign Answer Date Recorded Within [...] things needed for daily living? No 11/01/2021 [place] Depression Scale Answer Date Recorded [place] Depression Scale Total 4 01/24/2021 The thought [...] on file Legal Sex Female 7:14 AM REPAIRER SWITCHGEAR Gender Identity Not on file Sexual Orientation Straight 06/07/2020 6: 54 PM CDT documented as of this encounter Functional Status * BP Location Answer Date of Assessment Author Left arm 09/06/2025 1:27 PM CDT [facility] [place] * BP Location Answer Date of Assessment Author Left arm 09/06/2025 1:27 PM CDT [facility] [place] documented as of this encounter Miscellaneous Notes * Telephone Encounter - Carole Sanz RN - 09/30/2025 11:25 AM REPAIRER SWITCHGEAR See other telephone thread IRER SWITCHGEAR * Telephone Encounter - Carole Sazn RN - 09/08/2025 2:09 PM CDT Patient called back and will look back and see if you can find any bill or letter from insurance. She is open to getting the pelvic MRI rescheduled and a visit with Dr. Gallegos rescheduled as well if Dr. James thinks she still needs them both. Also relayed the information about the testosterone Rx and she will call the pharmacy and provide the good rx coupon. * Telephone Encounter - Carole Sanz RN - 09/08/2025 2:01 PM CDT LVM asking patient to call back. Will also send [facility] message to ensure she gets the message. * Telephone Encounter - Carole Sanz RN - 09/07/2025 11:49 AM CDT Spoke with the MRI department and they show no record that she got a MRI of the Pelvis done. They show that the patient called and rescheduled a couple times then cancelled the 05/24/25 one. * Telephone Encounter - Carole Sanz RN - 09/07/2025 11:36 AM CDT Patient called back. Discussed that we will try completing PA for testosterone Rx first then if insurance is still denying it, she will try the Good Rx coupon. She also states she remembers going to to get the MRI done and it was later at night at an office building and a man performed the MRI. Arthur notes, I had scheduled the initial MRI on 02/02/25 for 02/12/25 at 6:30pm as that was their firstavailable at the time. The patient was notified through [facility] message. The appointment was then rescheduled to 02/15/25 by their office on 02/02/25 just about 30-45 minutes after I scheduled the initial appointment. On 02/04/25 it looks like the appointment got rescheduled again all the way out to 05/24/25, then was ultimately cancelled by the patient on 05/11/25. She also cancelled her appointment with Dr. Gallegos at [facility] that was scheduled on 06/01/25. Will call MRI to see if they have any other information. * Telephone Encounter - Carole Sanz RN - 09/07/2025 11:11 AM CDT LVM asking patient to call back. * Telephone Encounter - Darcy James MD - 09/06/2025 2:06 PM CDT 02-15-2025 pt states that she had a pelvic MRI done/ shows cancelled in [facility]. Please call MRI and see if she has any pelvic MRI since 2021 completed or not documented in this encounter Plan of Treatment Not on file documented as of this encounter Visit Diagnoses Not on filedocumented in this encounter Care Teams Resaw Feeder Relationship Specialty Start Date End Date Yadi Solorzano PA PCP - General Physician Car Servicer 02/23/21 No, Physician 05/11/19 documented as of this encounter
--- OUTSIDE RECORDS SUMMARY | 2025-10-01 03:12 | XMS_ITS | Clinical Summary ---
Author Organization [facility] System Address [address] [place] [address] Care Team Providers Care Voice Intercept Technician Name Role Phone Yadi Solorzano Primary Care Provider [phone] Allergies Active Allergy Reactions Criticality Noted Date [...] on file Legal Sex Female 9:50 PM RAILROAD CAR LETTERER Gender Identity Not on file Sexual Orientation Not on file Last Filed Vital Signs Vital Sign Reading Time Taken Comments Blood Pressure 131/87 12/20/2019 6:37 PM RAILROAD CAR LETTERER Pulse 100 12/20/2019 6:37 PM RAILROAD CAR LETTERER Temperature 36.4 C (97.6 F) 12/20/2019 4:15 PM RAILROAD CAR LETTERER Respiratory Rate 14 12/20/2019 6:37 PM RAILROAD CAR LETTERER Oxygen Saturation 100% 12/20/2019 6:37 PM RAILROAD CAR LETTERER Inhaled Oxygen Concentration - - Weight 108.9 kg (240 lb) 12/20/2019 4:15 PM RAILROAD CAR LETTERER Height 172.7 cm (5' 8) 12/20/2019 4:15 PM RAILROAD CAR LETTERER Body Mass Index 36.49 12/20/2019 4:15 PM RAILROAD CAR LETTERER Plan of Treatment Health Maintenance Due Date Last Done Comments Annual Physical 1994 Hepatitis C 2009 HPV Vaccines (1 - 3-dose SCDM series) 2018 Cervical Cancer Screening Pap Smear (Age 30 to 64) Every 3 Years 01/31/2021 01/31/2018 Cervical Cancer Screening Pap with HPV Testing (Age 30 to 64) Every 5 Years 2021 01/31/2018 Cervical Cancer Screening with HPV 2021 COVID-19 Vaccine ( season) 2025 02/27/2021 Influenza Adult (#1) 2025 09/13/2021, 08/18/2020, 08/27/2019, Additional history exists DTaP, Tdap and Td Vaccines (5 - Td or Tdap) 11/21/2030 11/21/2020, 05/04/2017, 09/12/2015, Additional history exists Hepatitis B Vaccines Completed 08/18/2001, 03/20/2001, 02/14/2001 Hepatitis A Vaccines Aged Out 04/06/2019, 04/06/2019, 10/15/2018 No longer eligible based on patient's age to complete this topic Meningococcal B Vaccine Aged Out No l onger eligible based on patient's age to complete this topic Meningococcal Vaccine Aged Out No jared noel eligible based on patient's age to complete this topic Pneumococcal Vaccine: Pediatrics (0 to 5 Years) and At-Risk Patients (6 to 49 Years) Aged Out No longer eligible based on patient's age to complete this topic RSV Immunizations Under 20 Months Aged Out No longer eligible based on patient's age to complete this topic Care Teams Voice Intercept Technician Relationship Specialty Start Date End Date Yadi Solorzano PA PCP - General PHYSICIAN JEWELRY BENCH WORKER 07/17/19
--- OUTSIDE RECORDS SUMMARY | 2025-10-01 03:12 | XMS_ITS | Encounter Summary ---
Author Organization [facility] Healthcare Address [address] [place] [address] Care Team Providers Care Registered Diet Technician Name Role Phone No, Physician Unavailable Yadi Solorzano Primary Care Pr ovider Encounter Details Date Type Department Care Team (Late st Contact Info) Description 09/29/2025 Telephone [facility] 1110 [facility] [address] [place] [address] Darcy James MD 1110 [facility] Juan F [facility] [address] [place] [address] Social History Tobacco Use Types [...] any clubs o r organizations such as shinto groups, unions, fraternal or athletic groups, or [...] things needed for daily living? No 11/01/2021 [place] Depression Scale Answer Date Recorded [place] Depression Scale Total 4 01/24/2021 The thought [...] on file Legal Sex Female 7:14 AM CERTIFIED MORTICIAN Gender Identity Not on file Sexual Orientation Straight 06/07/2020 6: 54 PM CDT documented as of this encounter Miscellaneous Notes * Telephone Encounter - Carole Sanz RN - 09/30/2025 11:07 AM CERTIFIED MORTICIAN TC to patient. Patient prefers to call and schedule appts herself and provided phone number to callto schedule MRI [phone] and the phone number to call and schedule with Dr. Polanco at the [facility] office [phone]. IFIED MORTICIAN * Telephone Encounter - Darcy James MD - 09/29/2025 5:27 PM CST Please facilitate pelvic MRI for endometriosis--bad h/o no show and rescehdules so stress must attend appt Facilitate referral to [facility] for revision of vaginal cuff please Orders all in IFIED MORTICIAN documented in this encounter Plan of Treatment Not on file documented as of this encounter Visit Diagnoses Not on filedocumented in this encounter Care Teams Registered Diet Technician Relationship Specialty Start Date End Date Yadi Solorzano PA PCP - General Physician Doweling Machine Operator 02/23/21 No, Physician 05/11/19 documented as of this encounter
--- OUTSIDE RECORDS SUMMARY | 2025-10-01 03:12 | XMS_ITS | Clinical Summary ---
Author Organization [facility] Address [address] [place] [address] Care Team Providers Care Assistant Terminal Manager Name Role Phone No, Physician Unavailable Yadi Solorzano Primary Care Pr ovider Allergies Active Allergy Reactions Criticality Noted Date Comments Iodinated Contrast Media Swelling Medium 02/01/2025 Nitrofurantoin Monohyd/M-Cryst Nausea only Low 05/12/2019 Abdominal cramps/nausea. Medications pantoprazole DR (PROTONIX) 40 mg EC tablet Take 1 tablet (40 mg total) by mouth daily 05/01/20 23 Active biotin 10,000 mcg capsule Take by mouth 2 (two) times a day Active levocarnitine tartrate (L-CARNITINE, TARTRATE, ORAL) Take 1,000 mg by mouth 2 (two) times a day Active inositoL 500 mg capsule Take by mouth Activ e UNABLE TO FIND Berberine 1,200mg 2 tablets a day Active cholecalcifero l, vitD3,/vit K2 (VITAMIN D3-VITAMIN K2 ORAL) Take by mouth Vitamin K2+ Vitamin D3 100/125mcg Active acetaZOLAMIDE ER (DIAMOX SEQUAL) 500 mg capsule Take 1 capsule (500 mg total) by mouth daily 30 capsule 11 05/05/20 25 026 Active testosterone 50 mg/5 gram (1 %) Place 1 pea drop (5mg) on inner thigh nightly 45 g 09/06/20 25 Active drospirenone, contraceptive, (SLYND) tablet tablet Take 1 each (4 mg total) by mouth daily 84 tablet 3 09/06/20 Active spironolactone (ALDACTONE) 100 mg tablet Take 0.5 tablets (50 mg total) by mouth daily 025 Discontinued vitamin B complex capsule Take 1 capsule by mouth daily 025 Discontinued omega 9-yzl-mjh-fish oil (Fish OiL) 1,200 (144-216) mg capsule Take by mouth 2 (two) times a day 025 Discontinued UNABLE TO FIND L-Theanine 200 mg 025 Discontinued ASHWAGANDHA ROOT EXTRACT ORAL Take 600 mg by mouth 025 Discontinued MAGNESIUM GLYCINATE ORAL Take 120 mg by mouth 025 Discontinued drospirenone, contraceptive, (SLYND) tablet tablet Take 1 each (4 mg total) by mouth daily 84 tablet 3 09/06/20 25 025 Discontinued(Re order) Active Problems Problem Noted Date Diagnosed Date 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 Overview (02/01/2025): Low testosterone Low FSH Low estradiol Borderline low TSH LH pre-menopasual Lab Results Component Value Date TSH 0.51 12/14/2024 Idiopathic intracranial hypertension 06/11/2024 Chronic pelvic pain [...] Left upper quadrant pain 07/27/2021 Migraine 07/27/2021 Overweight with body mass index (BMI) 25.0-29.9 07/27/2021 Palpitations 07/27/2021 Simple obesity 07/27/2021 Undifferentiated attention deficit disorder 07/2021 Viral gastroenteritis 07/27/2021 Pelvic and perineal pain 04/18/2021 Overview (04/18/2021): Added automatically from request for surgery [id number] care following delivery 12/19 Overview (01/08/2021): # [...] at baseline. # Disposition: Discharge home today Solitary kidney, congenital 06/10/2020 Overview (06/10/2020): - [...] - s/p counseling 06/10 - current regimen: [id number] - has home BP cuff, reminded patient [...] weeks Assessment & Plan (01/02/2021 10:54 AM RIGGER UP): She has not been checking her Bps at home but plans to start and will bring them to weekly appointments. Continues to have lower extremity swelling. Bp mild range today. Has headaches that resolve on their own or with tylenol. Denies changes in vision or RUQ pain. Very strict BP parameters and preE precautions reviewed. Assessment & Plan (10/10/2020 6:33 PM RIGGER UP): Reports some symptoms of SOB with activity. [...] moderately reduce the risk of recurrent preeclampsia. 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 Resolved Problems Problem Noted Date Diagnosed Date Resolved Date Elevated blood pressure affe cting in second trimester, antepartum 07/27/2021 12/14/19 25 Night sweats 07/27/2021 02/01/2025 Abnormal uterine bleeding (AUB) 04/18/2021 12/14/2024 Overview (04/18/2021): Added automatically from request for surgery [id number] PUPP (pruritic urticarial pa pules and plaques of ) 08/18/2020 02/01/2025 Overview (09/14/2020): Diagnosed with PUPPs, following with dermatology Generalized pruritic rash throughout extremities and abdomen S/p triamcinolone cream without improvement Current regimen: Janay AM, Zyrtec PM, sarna lotion PRN. Patient has dermatology follow up in 1 month History of section complicating 06/09/2020 12/14/2024 Overview (06/24/2020): - discussed @ [facility]; would like to TOLAC if possible (this is in different/non-scarred uterine cavity); counseled regarding risk for soft tissue dystocia - Readdress at future visit Supervision of high-risk pre gnancy, unspecified trimester 06/09/2020 02/01/2025 Overview (01/02/2021): [x] Full [facility] Care; Referring Provider: Self Referral [] [...] [x] Method of feeding: breast [x] Cigar Bander Hand: [] PP Depression Discussed: Assessment & Plan (06/10/2020 2:03 PM CDT): Serologies and baseline labs ordered today. Has recent EKG in CareEverywhere. Will discuss genetic screening when viability confirmed. Irregular menses 05/13/2019 06/10/2020 Overview (05/13/2019): Added automatically from request for surgery [id number] Preeclampsia, severe 05/03/2017 025 Encounters Date Type Department Care Team Description 09/29/2025 Telephone [facility] [address] [place] [phone] Darcy James MD 09/16/2025 Orders Only [address] [phone] Darcy James MD Endometriosis (Primary Dx); Vaginal cuff granuloma; Pelvic and perineal pain; S/P hysterectomy; Endometriosis of pelvic peritoneum 09/06/2025 1:30 PM CDT Office Visit [address] [phone] Darcy James MD Encounter for gynecological examination with abnormal finding (Primary Dx); S/P hysterectomy; Vaginal bleeding in ; Low libido; Status post repair of dehiscence of vaginal cuff; Vaginal pain 09/06/2025 Telephone [facility] [address] [place] [phone] Darcy James MD from Last 3 Months Immunizations Immunization Administration Dates Next Due DT 06/08/2005 Hep A, Adult 04/06/2019,10/15/2018,10/15/2018 Hep A, Unspecified 04/06/2019 Hep B, Adolescent or Pediatric 08/18/2001,2000,02/14/2001 Influenza, Quadrivalent, Tatyana l Culture-based MDCK, Preservative Free, Antibiotic Free, Intramuscular 08/18/2020,08/27/2019,09/21/2017 Influenza, Quadrivalent, Spl it, Intramuscular 08/27/2019 Influenza, Quadrivalent, Spl it, Preservative Free, Intramuscular 09/13/2021 Influenza, Trivalent, IM (MDV) 10/02/2013 Influenza, Unspecified 11/18/2014 BitGo (J&J) SARS-CoV-2 Vaccination 02/27/2021, 02/27/2021 MMR 05/11/1996,07/26/1993 Polio, Unspecified 05/11/1996, 1,1991,06/10 Tdap 11/21/2020,05/04/2017,09/12/2015 Surgical History Surgery Date Site/Laterality Comments EYE SURGERY 1990,2004,2014 CHOLECYSTECTOMY 11/18/2014 - 11/17/2015 SECTION 11/18/2016 - 11/17/2017 VAGINAL SEPTUM RESECTION OHVIRA required left hemivaginal septum resection for hematocolpos in 2005 LAPAROSCOPY Laparoscopic hemicolpos drainage 2004 ENDOMETRIAL ABLATION LAPAROSCOPIC TOTAL HYSTERECTOMY 11/18/2020 - 11/17/2021 SECTION 11/18/2020 - 11/17/2021 Medical History Medical History Date Comments Personal [...] at age 10 Idiopathic intracranial hypertension 06/11/2024 PCOS (polycystic ovarian syndrome) Endometriosis Migraines Unilateral renal agenesis Born w ith one kidney Family History Medical History Relation Name Comments [...] 11/01/2021 How often do you attend chur or yarsani services? 1 to 4 times per year [...] things needed for daily living? No 11/01/2021 [place] Depression Scale Answer Date Recorded [place] Depression Scale Total 4 01/24/2021 The thought [...] on file Legal Sex Female 7:14 AM RIGGER UP Gender Identity Not on file Sexual Orientation [...] incis Spinal Livin g 6 7 MONICA ,BABY BOY DARON gould MD Complications:Pre eclampsia Delivery Location:[facility] 2020 35w 3d 0h 03m 0h 03m 2.64 kg (5 lb 13.1 oz) M CS-LTr anv Combin ed Spinal /Epidu ral Y Livin g 8 9 BRUNILDA HEIN Jonat han S., MD Complications:Pre eclampsia Delivery Location:[facility] Main C ampus ([facility] L AND D PROCEDURE) Comments 2017 in se tting of severe preeclampsia at 27 weeks. Breech presentation. Monico 2'10 doing well now. Last Filed Vital Signs Vital Sign Reading Time Taken Comments Blood Pressure 128/98 09/06/2025 1:27 PM CDT Pulse 74 02/03/2025 9:41 AM CDT Temperature 36.7 C (98.1 F) 02/03/2025 9:41 AM CDT Respiratory Rate 18 05/18/2024 6:32 PM CDT Oxygen Saturation 100% 05/18/2024 9:30 PM CDT Inhaled Oxygen Concentration - - Weight 83.6 kg (184 lb 6.4 oz) 09/06/2025 1:27 P M CDT Height 172.7 cm (5' 8) 09/06/2025 1:27 PM CDT Body Mass Index 28.04 09/06/2025 1:27 PM CDT Plan of Treatment Health Maintenance Due Date Last Done Comments Hepatitis C Screening 1990 Varicella Vaccines (1 of 2 - 13+ 2-dose series) 2004 HPV Vaccines (1 - 3-dose SCDM series) 2018 Covid-19 Vaccine ( - season) 2025 02/27/2021, 02/27/2021 Influenza Vaccine (#1) 2025 , 08/18/2020, 08/27/2019, Additional history exists Depression Screening 09/06/2026 09/06/2025, 06/13/2022, 01/24/2021 Regular Well Visit/Exam 18-64 09/06/2026 09/06/2025, 07/29/2023 DTaP/Tdap/Td Vaccine (5 - Td or Tdap) 11/21/2030 11/21/2020, 05/04/2017, 09/12/2015, Additional history exists Hepatitis B Screening Completed 08/18/2001 , 03/20/2001, 02/14/2001 Cervical Cancer Screening Discontinued 12/14/2024 Pneumococcal vaccine <65 Aged Out No longer eligible based on patient's age to complete this topic Procedures Procedure Name Priority Date/Time Associated Diagnosis Comments TOTAL TESTOSTERONE Routine 08/09/2025 1: 18 PM CDT Low libido Low testosterone level in female PAP ONLY Routine 12/14/2024 3:39 PM RIGGER UP Vaginal bleeding from Last 3 Months or Most Recently Relevant to Health Maintenance Results * Total testosterone (08/09/2025 1:18 PM CDT) Testosterone 8 8 - 60 ng/dL [facility] - 01 Blood 08/09/2025 1:18 PM CDT 08/09/2025 Narrative [facility] - 08/10/2025 8:12 AM CDT Performed at: - [address] [id number] Cartridge Assembling Machine Adjuster: Akin Sandoval PhD, Phone: [phone] us Darcy James MD LAB BLOOD ORDERAB LES Final Result [facility] - * Pap Only (Cytology Component) (12/14/2024 3:39 PM RIGGER UP) Thin prep (Pap test) 12/14/2024 3:39 PM RIGGER UP 12/14/2024 6:07 PM RIGGER UP Narrative PATHOLOGY [facility] - 12/21/2024 10:44 AM RIGGER UP EPIC results best viewed via link to PDF [facility] [place] [address] Note to Patients: This report may contain [...] Gender: F : 1990 (Age: 34) Address: [address] [place] [address] [place] [address] [facility] #: [id number] Service: UNKNOWN Location: Patient Type: [facility] SPECIMEN Taken: 12/14/2024 Received: 12/14/2024 Accessioned: 12/15/2024 [...] clinical information and biopsy results as indicated. [facility] Clinical Laboratory Improvement Amendments (CLIA) mandate that cytologic and histologic results be correlated for laboratory quality engineering manager & improvement standards. FOR ALL HIGH-GRADE [...] determined by the Surgical Pathology Department at [facility] as part of an ongoing automotive quality [...] determined by the Surgical Pathology Department of [facility]. It has not been cleared or approved by the U. S. Food and Drug Administration. Darcy James MD LAB CYTOLOGY JE [facility] Final Result PATHOLOGY [facility] [address]rd Floor [place], [place] [phone] from Last 3 Months or Most Recently Relevant to Health Maintenance Insurance [employer] [place] [address] ANTH ACCESS Advance Directives For more information, please contact: [phone] * Full Code (Latest Code Status on File) Date Activated Date Inactivated Comments 10/31/2021 10:24 PM 11/01/2021 6:35 PM * Full Code Date Activated Date Inactivated Comments 01/05/2021 1:06 AM 01/08/2021 7:55 PM * Full Code Date Activated Date Inactivated Comments 01/04/2021 6:59 PM 01/05/2021 1:06 AM Full CPR in case of cardiopulmonary arrest Care Teams Assistant Terminal Manager Relationship Specialty Start Date End Date Yadi Solorzano PA PCP - General Physician Spiral Runner 02/23/21 No, Physician 05/11/19
--- OUTSIDE RECORDS SUMMARY | 2025-10-01 03:12 | XMS_ITS | Clinical Summary ---
Author Organization [facility] Address [address] [place] [address] Care Team Providers Care Building Performance Consultant Name Role Phone Yadi Menendez Primary Care Pr ovider Source Comments [facility],non-owned Affiliates and Associated Physician Practices is amultiple site organization consisting of ambulatory clinics and hospital sitesin [place], [place], [place] and [place]. This disclosure is being madepursuant to the Care Everywhere program and may not contain all information available regarding this patient. Last updated 18.[facility] Allergies No known active allergies Medications * Be aware that medications may not be up to date on this document. Alwaysverify current medications with the patient. Vit-Fe Fumarate-FA ( VITAMIN) 28-0.8 MG tabletIndicatio ns: Take 1 Tab by mouth once daily Reasons: Active NIFEdipine CR 24hr (ADALAT CC) 60 MG tablet Take 1 Tab by mouth 2 times daily Take on an empty stomach. 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--found at time of laparoscopy as teenager, thought was ovarian cyst but was bulging hemivagina; then later had vaginal surgery with resection of vaginal septum at [facility]; right and left cervix seen Preeclampsia, severe 05/03/2017 History of delivery affecting 11/18/2016 Elevated blood pressure affe cting in second trimester, antepartum Supervision of low-risk first defect Overview (05/30/2020): born with 1 kidney Immunizations Immunization Administration Dates Next Due TDAP (7yrs+) 05/04/2017 Family History Medical History Relation Name Comments Malignant Hyperthermia Other unknown Relation Name Status Comments Other unknown Social History Tobacco Use Types Packs/Day Years Used Date Smoking Tobacco: Never Smokeless Tobacco: Never Alcohol Use Standard Drinks/Week Comments No 0 (1 standard drink = 0.6 oz pur e alcohol) Comments No Sex and Gender Information Value Date Recorded Sex Assigned at Not on file Legal Sex Female 6:08 AM CDT Gender Identity Not on file [...] 3:18 PM CDT Height 172.7 cm (5' 8) 01/31/2018 3:18 PM CDT Body Mass Index 32.69 01/31/2018 3:18 PM CDT Plan of Treatment Health Maintenance Due Date Last Done Comments HIV SCREENING 2006 HEPATITIS C SCREENING 04/09/2009 HEPATITIS B VACCINE (1 of 3 - 19+ 3-dose series) 2010 HPV VACCINE (1 - 3-dose SCDM series) 2018 DEPRESSION SCREENING 11/18/2024 COVID-19 VACCINE (1 - 4-2 5 season) 2025 INFLUENZA VACCINE (#1) 2025 DTAP/TDAP/TD VACCINES (2 - T d or Tdap) 05/04/2027 05/04/2017 ZOSTER VACCINE (1 of 2) 2041 HIB VACCINE Aged Out No longer eligi ble based on patient's age to complete this topic MENINGOCOCCAL (Group B) VACC INE SHARED DECISION-MAKING Aged Out No longer eligibl e based on patient's age to complete this topic MENINGOCOCCAL GROUPS A/C/Y/W VACCINE Aged Out No longer eligible b ased on patient's age to complete this topic PNEUMOCOCCAL VACCINE Aged Out No long er eligible based on patient's age to complete this topic Advance Directives * Full Code (Latest Code Status on File) Date Activated Date Inactivated Comments 05/07/2017 8:41 AM 05/11/2017 5:40 PM * Full Code Date Activated Date Inactivated Comments 05/03/2017 7:15 AM 05/07/2017 8:41 AM Care Teams Building Performance Consultant Relationship Specialty Start Date End Date Yadi Menendez PA [address] [place] [id number] PCP - General Physician Administrative Resources Associate 05/03/17
--- OUTSIDE RECORDS SUMMARY | 2025-10-01 03:12 | XMS_ITS | Clinical Summary ---
Author Organization [facility] Address [address] [place] [address] Phone Care Team Providers Care Tire Recapper Name Role Phone Génesis Montano MD Primary Care Provider [phone] Allergies No known active allergies Medications OTHER [...] mg by mouth daily before breakfast. Active Social History Tobacco Use Types Packs/Day Years [...] A M CDT Height 172.7 cm (5' 8) 03/07/2015 1:35 PM CDT Body Mass Index 27.49 03/07/2015 1:35 PM CDT Plan of Treatment Health Maintenance Due Date Last Done Comments HPV/Cotest (21-29) 2012 HPV VACCINES (1 - 3-dose SCD M series) 2018 CERVICAL CANCER SCREENING 2021 HPV/Cotest (30-65) 2021 PAP SMEAR 2021 INFLUENZA VACCINE (#1) 2025 , 08/18/2020, 08/27/2019, Additional history exists DTAP/TDAP/TD VACCINES (5 - T d or Tdap) 11/21/2030 11/21/2020, 05/04/2017, 09/12/2015, Additional history exists HEPATITIS B VACCINES Completed 08/18/2001, 03/20/2001, 02/14/[address] [place] [address] [facility] [employer] PPO Advance Directives For more information, please contact: [phone] * Full Code (Latest Code Status on File) Date Activated Date Inactivated Comments 03/17/2015 11:02 AM 03/17/2015 4:56 PM * Full Code Date Activated Date Inactivated Comments 03/17/2015 10:20 AM 03/17/2015 11:02 AM * Full Code Date Activated Date Inactivated Comments 08/21/2013 10:22 AM 08/21/2013 5:51 PM * Full Code Date Activated Date Inactivated Comments 08/21/2013 9:06 AM 08/21/2013 10:22 AM Care Teams Tire Recapper Relationship Specialty Start Date End Date Génesis Montano MD [address] [id number] PCP - General 11/04/15
--- OUTSIDE RECORDS SUMMARY | 2025-10-01 03:13 | XMS_ITS | Data Portability ---
Author Organization [facility] Address [address] [place] [address] Care Team Providers Care Ice Cream Server Name Role Phone SHA ZHAO Primary Care Provider Unavailab le Assessment No assessment recorded. Plan of Treatment Reminders Order Date Submit Date Provider Last Modified By Organization Details Last Modified Time Details Appointments ANY 15 2024 08:30A M ANAMIKA Longoria Not available Not available Not available Lab TSH + free T4, serum 2024 025 [place] [facility], [address], [place], [address], 09/23/2025 07:07:41 CMP, serum or plasma 2024 025 [place] [facility], [address], [place], [address], 09/23/2025 07:07:42 CBC w/ auto diff 2024 025 [place] [facility], [address], [place], [address], 09/23/2025 07:07:43 lipid panel, serum 2024 025 [place] [facility], [address], [place], [address], 09/23/2025 07:07:42 iron + TIBC + ferritin, serum 2024 025 [place] [facility], [address], [place], [address], 09/23/2025 07:07:44 cobalamin and folate panel, serum 2024 025 [facility], [address], [place], [address], 09/23/2025 07:07:43 HbA1c (hemoglob in A1c), blood 2024 025 [place] [facility], [address], [place], [address], 09/23/2025 07:07:44 amylase + lipase, serum 2024 025 [facility], [address], [place], [address], 01/04/2025 14:17:42 CMP, serum or plasma 2024 025 [facility], [address], [place], [address], 01/04/2025 14:17:53 CBC w/ auto diff 2024 025 [facility] [address], [place], [address], 12/31/2024 05:55:08 CBC w/ auto diff 2023 024 [place] [facility], [address], [place], [address], 08/06/2024 11:17:05 CMP, serum or plasma 2023 024 [facility], [address], [place], [address], 08/06/2024 11:17:03 vitamin B12 + folate, serum or blood 2023 024 [place] [facility], [address], [place], [address], 08/06/2024 11:17:04 vitamin D, 25-hydrox y, total, serum 2023 024 [place] [facility], [address], [place], [address], 08/06/2024 11:17:06 iron + TIBC + ferritin, serum 2023 024 [place] [facility], [address], [place], [address], 08/06/2024 11:17:06 TSH + free T4, serum 2023 024 [place] [facility], [address], [place], [address], 01/19/2024 13:07:54 CMP, serum or plasma 2023 024 [place] [facility], [address], [place], [address], 01/19/2024 13:07:55 CBC w/ auto diff 2023 024 [place] [facility], [address], [place], [address], 01/19/2024 13:07:57 lipid panel, serum 2023 024 [place] [facility], [address], [place], [address], 01/19/2024 13:07:55 HbA1c (hemoglob in A1c), blood 2023 024 [place] [facility], [address], [place], [address], 01/19/2024 13:07:56 insulin, serum 2023 024 [place] [facility], [address], [place], [address], 01/19/2024 13:07:57 SARS CoV 2 RNA (COVID-19 ), QL, single pass soil stabilizer operator-PCR, respirato ry specimen - [place] @215 2019 020 [facility] (Lab), [address], [place], [address], 06/13/2020 13:52:32 Referral None recorded. Procedures None recorded. Surgeries None recorded. Imaging CT, abdomen + pelvis, w/ contrast - r/o pancreati tis and/or severe gastritis [address] (Imaging), [address], [place], [address], 12/30/2024 23:52:27 Medication Orders fluoxetin e 10 mg capsule 2024 025 [place] [id number], [address] [facility], [place], [address], 09/14/2025 12:40:34 spironola ctone 100 mg tablet 2023 024 [facility], [address] [facility], [place], [address], 09/14/2025 12:03:27 Zepbound 2.5 mg/0.5 mL subcutane ous pen injector 2023 024 [email or web address], [address] [facility], [place], [address], 08/03/2024 16:45:28 Patient TargetsNo targets recorded. Patient Instructions Encounter Date Encounter Id Patient Instructions Last Modified By Organization Details Last Modified Time 06/08/2020 [id number] Reviewed the following recommendations: -Stay home and [...] days. [email or web address] Not available 06/08/2020 14:15:29 08/03/2024 [id number] A healthy lifestyle: care instructions Not available 08/03/2024 17:13:37 12/30/2024 [id number] A healthy lifestyle: care instructions Not available 12/30/2024 15:27:48 Reason for Referral None Reported. Results Created Date Observation Date Name Description Value Unit Range Abnormal Flag Note LastModifiedBy Organization Detail LastModifiedTime 06/08/20 20 06/08/2020 SARS CoV 2 RNA (COVI D-19) , QL, single pass soil stabilizer operator-P CR, respi rator y speci men sars - cov - 2 PCR NEGATI VE mL Not Available [facility] (Lab) [address] [place], [address], 06/13/2020 13:52:32 06/08/20 20 06/08/2020 SARS CoV 2 RNA (COVI D-19) , QL, single pass soil stabilizer operator-P CR, respi rator y speci men covidcom1 [...] of this test metho d. Not Available [facility] (Lab) [address] [facility], [place], [address], 06/13/2020 13:52:32 06/08/20 20 06/08/2020 SARS CoV 2 RNA (COVI D-19) , QL, single pass soil stabilizer operator-P CR, respi rator y speci men covidcom2 Posit pamela resul ts are indic ative of the prese nce of SARS- CoV-2 RNA and do not rule out bacte rial infec tion or co-in fecti on with other virus es. Not Available [facility] (Lab) [address] [facility], [place], [address], 06/13/2020 13:52:32 06/08/20 20 06/08/2020 SARS CoV 2 RNA (COVI D-19) , QL, single pass soil stabilizer operator-P CR, respi rator y speci men covidcom3 Test resul ts shoul d be used along with other clini sacha obser vatio ns, patie nt histo ry, epide miolo gical infor matio n and labor atory data [facility] diagn osis. Not Available [facility] (Lab) [address] [facility], [place], [address], 06/13/2020 13:52:32 06/08/20 20 06/08/2020 SARS CoV 2 RNA (COVI D-19) , QL, single pass soil stabilizer operator-P CR, respi rator y speci men covidcom4 [...] or revok ed soone r. Not Available [facility] (Lab) [address] [facility], [place], [address], 06/13/2020 13:52:32 06/08/20 20 06/08/2020 SARS CoV 2 RNA (COVI D-19) , QL, single pass soil stabilizer operator-P CR, respi rator y speci men covidcom5 [facility] Nati atoralvin is certi fied under CLIA- 88 as quali fied to perfo rm high compl exity testi eduardo. This testi ng was perfo rmed in the [facility] Nati [facility] [place] [address] (CLIA Licen se #[id number] 5, CAP #[id number], AU-ID #[id number]). Not Available [facility] (Lab) [address] [place], [address], 06/13/2020 13:52:32 06/08/20 20 06/08/2020 SARS CoV 2 RNA (COVI D-19) , QL, single pass soil stabilizer operator-P CR, respi rator y speci men covidcom6 Facts heet for healt hcare provi ders: https ://ww w.fda .gov/ media /1362 56/do wnloa d Facts heet for patie nts: https ://ShoeSize.Me.AudioCompass .gov/ media /1362 57/do wnloa d Not Available [facility] (Lab) [address] [facility], [place], [address], 06/13/2020 13:52:32 06/08/20 20 06/08/2020 SARS CoV 2 RNA (COVI D-19) , QL, single pass soil stabilizer operator-P CR, respi rator y speci men sars - cov - 2 PCR NON DETECT ED mL Not Available [facility] (Lab) [address] [place], [address], 06/13/2020 15:19:37 06/08/20 20 06/08/2020 SARS CoV 2 RNA (COVI D-19) , QL, single pass soil stabilizer operator-P CR, respi rator y speci men covididph2 [...] test have been deter mined by the [facility] faraz cardoso and are incor porat ed as part of the Emerg ency Use Autho rizat ion. Not Available [facility] (Lab) [address] [place], [address], 06/13/2020 15:19:37 06/08/20 20 06/08/2020 SARS CoV 2 RNA (COVI D-19) , QL, single pass soil stabilizer operator-P CR, respi rator y speci men covididph3 Provi sondra and patie nt fact sheet s are avail able at: https ://ww w.fda .gov/ medic al-de vices /amada gency -situ ation s-med ical- devi es/em ergen cy-us e-aut horiz ation s#cor onavi rus20 19 Not Available [facility] (Lab) [address], [place], [address], 06/13/2020 15:19:37 06/08/20 20 06/08/2020 SARS CoV 2 RNA (COVI D-19) , QL, single pass soil stabilizer operator-P CR, respi rator y speci men covididph4 Perfo rmed at: [facility] at[facility] es [address] [place] [address] CLIA No. [id number] Not Available [facility] (Lab) [address] [place], [address], 06/13/2020 15:19:37 08/19/20 23 08/20/2023 Insul in [Unit s/vol ume] in Serum [...] MCH Not Available Not Available 12/19 13:58:24 08/19/20 23 08/20/2023 CBC W Auto Diffe renti al panel - Blood MCHC [mass/volume ] by automated count MCHC Not Available Not Available 12/19 13:58:24 08/19/20 23 08/20/2023 CBC W Auto Diffe renti al panel - Blood erythrocyte distribution width [ratio] by automated count RDW Not Available Not Available 12/19 13:58:24 08/19/20 [...] [#/volume] in blood by automated count [facility] [place] neutr ophil s Not Available Not Available 12/30/2024 13:58:24 08/19/2008/20/2023 CBC W Auto Diffe renti al panel - Blood lymphocytes [#/volume] in blood by automated count absol [place] lymph ocyte s Not Available Not Available 12/30/2024 13:58:24 08/19/2008/20/2023 CBC W Auto Diffe renti al panel - Blood monocytes [#/volume] in blood by automated count [facility] [place] monoc ytes Not Available Not Available 12/30/2024 13:58:24 08/19/20 23 08/20/2023 CBC W Auto Diffe renti al panel - Blood eosinophils [#/volume] in blood by automated count absol [place] eosin ophil s Not Available Not Available 12/30/2024 13:58:24 08/19/20 23 08/20/2023 CBC W Auto Diffe renti al panel - Blood basophils [#/volume] in blood by automated count absol [place] basop hils Not Available Not Available 12/30/2024 [...] Available Not Available 12/19 13:58:23 08/19/2008/20/2023 Compr [facility] pamela Synapse olic 1999 panel - Serum or Plasm a urea nitrogen/cre atinine [mass ratio] in serum or plasma SEE NOTE: BUN/c reati nine ratio Not Available Not Available 12/30/2024 13:58:23 08/19/20 23 08/20/2023 Compr [facility] pamela metab olic 1999 panel - Serum or Plasm a sodium [moles/volum e] in serum or plasma sodiu m Not Available Not Available 12/30/2024 13:58:23 08/19/2008/20/2023 Compr [facility] metab olic 1999 panel - Serum or Plasm a potassium [moles/volum e] in serum or plasma potas sium Not Available Not Available 12/30/2024 13:58:23 08/19/2008/20/2023 Compr [facility] pamela metab olic 1999 panel - Serum or Plasm a chloride [moles/volum e] in serum or plasma chlor gayatri Not Available Not Available 12/30/2024 13:58:23 08/19/2008/20/2023 Compr [facility] Synapse olic 1999 panel - Serum or Plasm a carbon dioxide, total [moles/volum e] in serum or plasma carbo n dioxi de Not Available Not Available 12/30/2024 13:58:23 08/19/2008/20/2023 Compr [facility] Synapse olic 1999 panel - Serum or Plasm a calcium [mass/volume ] in serum or plasma calci um Not Available Not Available 12/30/2024 13:58:23 08/19/2008/20/2023 Compr [facility] Synapse olic 1999 panel - Serum or Plasm a protein [mass/volume ] in serum or plasma prote in, total Not Available Not Available 12/30/2024 13:58:23 08/19/2008/20/2023 Compr [facility]ela metab olic 1999 panel - Serum or Plasm a albumin [mass/volume ] in serum or plasma album in Not Available Not Available 12/30/2024 13:58:23 08/19/20 23 08/20/2023 Compr [facility] Synapse [facility] 1999 panel - Serum or Plasm a globulin [mass/volume ] in serum by calculation globu nestor Not Available Not Available 12/30/2024 13:58:23 08/19/2008/20/2023 [facility] 1999 panel - Serum or Plasm a albumin/glob ulin [mass ratio] in serum or plasma album in/gl obuli n ratio Not Available Not Available 12/30/2024 13:58:23 08/19/2008/20/2023 [facility] 1999 panel - Serum or Plasm a bilirubin.to christina [mass/volume ] in serum or plasma bilir ubin, total Not Available Not Available 12/30/2024 13:58:23 08/19/2008/20/2023 [facility] pamela metab [facility] 1999 panel - Serum or Plasm a alkaline phosphatase [enzymatic activity/vol ume] in serum or plasma alkal ine phosp hatas e Not Available Not Available 12/30/2024 13:58:23 08/19/2008/20/2023 Compr ens pamela metab [facility] 1999 panel - Serum or Plasm a aspartate aminotransfe rase [enzymatic activity/vol ume] in serum or plasma AST Not Available Not Available 12/19 13:58:23 08/19/2008/20/2023 Compr ens pamela Synapse [facility] 1999 panel - Serum or Plasm a alanine [...] l Not Available Not Available 12/30/2024 13:58:23 08/19/20 23 08/20/2023 Lipid 1996 panel - Serum or Plasm a triglyceride [mass/volume ] in serum or plasma high trigl yceri bao Not Available Not Available 12/30/2024 13:58:23 08/19/2008/20/2023 [...] uIU/m L 0.450- 4.500 Not Available [facility] ([facility]) [address] [place], [address], 01/19/2024 13:07:54 01/17/20 24 01/18/2024 TSH+F REE T4 T4,free(dire ct) 1.52 NG/dL 0.82-1 .77 Not Available [facility] ([facility]) [address] [place], [address], 01/19/2024 13:07:54 01/17/20 24 01/18/2024 LIPID PANEL cholesterol, total 130 mg/dL 100-19 9 Not Available [facility] ([facility]) [address] [place], [address], 01/19/2024 13:07:55 01/17/20 24 01/18/2024 LIPID PANEL triglyceride s 127 mg/dL 0-149 Not Available [facility] ([facility]) [address] [place], [address], 01/19/2024 13:07:55 01/17/20 24 01/18/2024 LIPID PANEL HDL cholesterol 34 mg/dL >39 below low normal Not Available [facility] ([facility]) [address] [place], [address], 01/19/2024 13:07:55 01/17/20 24 01/18/2024 LIPID PANEL VLDL cholesterol sacha 23 mg/dL 5-40 Not Available [facility] ([facility]) [address] [place], [address], 01/19/2024 13:07:55 01/17/20 24 01/18/2024 LIPID PANEL LDL chol calc ([facility]) 73 mg/dL 0-99 Not Available [facility] ([facility]) [address] [place], [address], 01/19/2024 13:07:55 01/17/20 24 01/18/2024 COMP. METAB OLIC PANEL (14) glucose 94 mg/dL 70-99 Not Available [facility] ([facility]) [address] [place], [address], 01/19/2024 13:07:55 01/17/20 24 01/18/2024 COMP. METAB OLIC PANEL (14) BUN 18 mg/dL 6-20 Not Available [facility] ([facility]) [address] [place], [address], 01/19/2024 13:07:55 01/17/20 24 01/18/2024 COMP. METAB OLIC PANEL (14) creatinine 0.87 mg/dL 0.57-1 .00 Not Available [facility] ([facility]) [address] [place], [address], 01/19/2024 13:07:55 01/17/20 24 01/18/2024 COMP. METAB OLIC PANEL (14) eGFR 91 mL/mi n/1.7 3 >59 Not Available [facility] ([facility]) [address] [facility], [place], [address], 01/19/2024 13:07:55 01/17/20 24 01/18/2024 COMP. METAB OLIC PANEL (14) BUN/creatini ne ratio 21 9-23 Not Available [facility] ([facility]) [address] [facility], [place], [address], 01/19/2024 13:07:55 01/17/20 24 01/18/2024 COMP. METAB OLIC PANEL (14) sodium 138 mmol/ L 134-14 4 Not Available [facility] ([facility]) [address] [facility], [place], [address], 01/19/2024 13:07:55 01/17/20 24 01/18/2024 COMP. METAB OLIC PANEL (14) potassium 4.5 mmol/ L 3.5-5. 2 Not Available [facility] ([facility]) [address] [facility], [place], [address], 01/19/2024 13:07:55 01/17/20 24 01/18/2024 COMP. METAB OLIC PANEL (14) chloride 101 mmol/ L 96-106 Not Available [facility] ([facility]) [address] [facility], [place], [address], 01/19/2024 13:07:55 01/17/20 24 01/18/2024 COMP. METAB OLIC PANEL (14) carbon dioxide, total 21 mmol/ L 20-29 Not Available [facility] ([facility]) [address] [facility], [place], [address], 01/19/2024 13:07:55 01/17/20 24 01/18/2024 COMP. METAB OLIC PANEL (14) calcium 9.9 mg/dL 8.7-10 .2 Not Available [facility] ([facility]) [address] [facility], [place], [address], 01/19/2024 13:07:55 01/17/20 24 01/18/2024 COMP. METAB OLIC PANEL (14) protein, total 7.3 g/dL 6.0-8. 5 Not Available [facility] ([facility]) [address] [facility], [place], [address], 01/19/2024 13:07:55 01/17/20 24 01/18/2024 COMP. METAB OLIC PANEL (14) albumin 4.8 g/dL 3.9-4. 9 Not Available [facility] ([facility]) [address] [facility], [place], [address], 01/19/2024 13:07:55 01/17/20 24 01/18/2024 COMP. METAB OLIC PANEL (14) globulin, total 2.5 g/dL 1.5-4. 5 Not Available [facility] ([facility]) [address] [place], [address], 01/19/2024 13:07:55 01/17/20 24 01/18/2024 COMP. METAB OLIC PANEL (14) A/G ratio 1.9 1.2-2. 2 Not Available [facility] ([facility]) [address] [place], [address], 01/19/2024 13:07:55 01/17/20 24 01/18/2024 COMP. METAB OLIC PANEL (14) bilirubin, total 0.4 mg/dL 0.0-1. 2 Not Available [facility] ([facility]) [address] [facility] [place], [address], 01/19/2024 13:07:55 01/17/20 24 01/18/2024 COMP. METAB OLIC PANEL (14) alkaline phosphatase 44 IU/L 44-121 Not Available [facility] ([facility]) [address] [place], [address], 01/19/2024 13:07:55 01/17/20 24 01/18/2024 COMP. METAB OLIC PANEL (14) AST (SGOT) 15 IU/L 0-40 Not Available [facility] ([facility]) [address] [place], [address], 01/19/2024 13:07:55 01/17/20 24 01/18/2024 COMP. METAB OLIC PANEL (14) ALT (SGPT) 21 IU/L 0-32 Not Available [facility] ([facility]) [address] [place], [address], 01/19/2024 13:07:55 01/17/20 24 01/18/2024 HEMOG LOBIN A1C hemoglobin A1C 5.5 % 4.8-5. 6 Predi abete s: 5.7 - 6.4 Diabe kami: >6.4 Glyce ravinder contr ol for adult s with diabe kami: <7.0 Not Available [facility] ([facility]) [address] [place], [address], 01/19/2024 13:07:56 01/17/20 24 01/19/2024 INSUL IN insulin 15.6 uIU/m L 2.6-24 .9 Not Available [facility] ([facility]) [address] [place], [address], 01/19/2024 13:07:57 01/17/20 24 01/18/2024 CBC WITH DIFFE RENTI AL/PL ATELE T WBC 5.2 x10e3 /uL 3.4-10 .8 Not Available [facility] ([facility]) [address] [place], [address], 01/19/2024 13:07:57 01/17/20 24 01/18/2024 CBC WITH DIFFE RENTI AL/PL ATELE T RBC 4.47 x10e6 /uL 3.77-5 .28 Not Available [facility] ([facility]) [address] [facility], [place], [address], 01/19/2024 13:07:57 01/17/20 24 01/18/2024 CBC WITH DIFFE RENTI AL/PL ATELE T hemoglobin 13.8 g/dL 11.1-1 5.9 Not Available [facility] ([facility]) [address] [facility], [place], [address], 01/19/2024 13:07:57 01/17/20 24 01/18/2024 CBC WITH DIFFE RENTI AL/PL ATELE T hematocrit 40.8 % 34.0-4 6.6 Not Available [facility] ([facility]) [address] [facility], [place], [address], 01/19/2024 13:07:57 01/17/20 24 01/18/2024 CBC WITH DIFFE RENTI AL/PL ATELE T MCV 91 fL 79-97 Not Available [facility] ([facility]) [address] [facility], [place], [address], 01/19/2024 13:07:57 01/17/20 24 01/18/2024 CBC WITH DIFFE RENTI AL/PL ATELE T MCH 30.9 pg 26.6-3 3.0 Not Available [facility] ([facility]) [address] [place], [address], 01/19/2024 13:07:57 01/17/20 24 01/18/2024 CBC WITH DIFFE RENTI AL/PL ATELE T MCHC 33.8 g/dL 31.5-3 5.7 Not Available [facility] ([facility]) [address] [place], [address], 01/19/2024 13:07:57 01/17/20 24 01/18/2024 CBC WITH DIFFE RENTI AL/PL ATELE T RDW 12.6 % 11.7-1 5.4 Not Available [facility] ([facility]) [address] [facility], [place], [address], 01/19/2024 13:07:57 01/17/20 24 01/18/2024 CBC WITH DIFFE RENTI AL/PL ATELE T platelets 227 x10e3 /uL 150-45 0 Not Available [facility] ([facility]) [address] [facility], [place], [address], 01/19/2024 13:07:57 01/17/20 24 01/18/2024 CBC WITH DIFFE RENTI AL/PL ATELE T neutrophils 50 % notest ab. Not Available [facility] ([facility]) [address] [facility], [place], [address], 01/19/2024 13:07:57 01/17/20 24 01/18/2024 CBC WITH DIFFE RENTI AL/PL ATELE T lymphs 35 % notest ab. Not Available [facility] ([facility]) [address] [facility], [place], [address], 01/19/2024 13:07:57 01/17/20 24 01/18/2024 CBC WITH DIFFE RENTI AL/PL ATELE T monocytes 7 % notest ab. Not Available [facility] ([facility]) [address] [facility], [place], [address], 01/19/2024 13:07:57 01/17/20 24 01/18/2024 CBC WITH DIFFE RENTI AL/PL ATELE T eos 7 % notest ab. Not Available [facility] ([facility]) [address] [facility], [place], [address], 01/19/2024 13:07:57 01/17/20 24 01/18/2024 CBC WITH DIFFE RENTI AL/PL ATELE T basos 1 % notest ab. Not Available [facility] ([facility]) [address] [facility], [place], [address], 01/19/2024 13:07:57 01/17/20 24 01/18/2024 CBC WITH DIFFE RENTI AL/PL ATELE T neutrophils (absolute) 2.6 x10e3 /uL 1.4-7. 0 Not Available [facility] ([facility]) [address] [facility], [place], [address], 01/19/2024 13:07:57 01/17/20 24 01/18/2024 CBC WITH DIFFE RENTI AL/PL ATELE T lymphs (absolute) 1.8 x10e3 /uL 0.7-3. 1 Not Available [facility] ([facility]) [address] [facility], [place], [address], 01/19/2024 13:07:57 01/17/20 24 01/18/2024 CBC WITH DIFFE RENTI AL/PL ATELE T monocytes(ab solute) 0.4 x10e3 /uL 0.1-0. 9 Not Available [facility] ([facility]) [address] [facility], [place], [address], 01/19/2024 13:07:57 01/17/20 24 01/18/2024 CBC WITH DIFFE RENTI AL/PL ATELE T eos (absolute) 0.3 x10e3 /uL 0.0-0. 4 Not Available [facility] ([facility]) [address] [place], [place], [address], 01/19/2024 13:07:57 01/17/20 24 01/18/2024 CBC WITH DIFFE RENTI AL/PL ATELE T baso (absolute) 0.1 x10e3 /uL 0.0-0. 2 Not Available [facility] ([facility]) [address] [facility], [place], [address], 01/19/2024 13:07:57 01/17/20 24 01/18/2024 CBC WITH DIFFE RENTI AL/PL ATELE T immature granulocytes 0 % notest ab. Not Available [facility] ([facility]) [address] [facility], [place], [address], 01/19/2024 13:07:57 01/17/20 24 01/18/2024 CBC WITH DIFFE RENTI AL/PL ATELE T immature grans (abs) 0.0 x10e3 /uL 0.0-0. 1 Not Available [facility] ([facility]) [address] [facility], [place], [address], 01/19/2024 13:07:57 08/05/20 24 08/06/2024 COMP. METAB OLIC PANEL (14) glucose 84 mg/dL 70-99 Not Available [facility] ([facility]) [address] [place], [address], 08/06/2024 11:17:03 08/05/20 24 08/06/2024 COMP. METAB OLIC PANEL (14) BUN 25 mg/dL 6-20 above high normal Not Available [facility] ([facility]) [address] [place], [address], 08/06/2024 11:17:03 08/05/20 24 08/06/2024 COMP. METAB OLIC PANEL (14) creatinine 0.87 mg/dL 0.57-1 .00 Not Available [facility] ([facility]) [address] [place], [address], 08/06/2024 11:17:03 08/05/20 24 08/06/2024 COMP. METAB OLIC PANEL (14) eGFR 90 mL/mi n/1.7 3 >59 Not Available [facility] ([facility]) [address] [place], [address], 08/06/2024 11:17:03 08/05/20 24 08/06/2024 COMP. METAB OLIC PANEL (14) BUN/creatini ne ratio 29 9-23 above high normal Not Available [facility] ([facility]) [address] [facility] [place], [address], 08/06/2024 11:17:03 08/05/20 24 08/06/2024 COMP. METAB OLIC PANEL (14) sodium 138 mmol/ L 134-14 4 Not Available [facility] ([facility]) [address] [facility] [place], [address], 08/06/2024 11:17:03 08/05/20 24 08/06/2024 COMP. METAB OLIC PANEL (14) potassium 4.3 mmol/ L 3.5-5. 2 Not Available [facility] ([facility]) [address] [facility] [place], [address], 08/06/2024 11:17:03 08/05/20 24 08/06/2024 COMP. METAB OLIC PANEL (14) chloride 107 mmol/ L 96-106 above high normal Not Available [facility] ([facility]) [address] [facility] [place], [address], 08/06/2024 11:17:03 08/05/20 24 08/06/2024 COMP. METAB OLIC PANEL (14) carbon dioxide, total 16 mmol/ L 20-29 below low normal Not Available [facility] ([facility]) [address] [facility] [place], [address], 08/06/2024 11:17:03 08/05/20 24 08/06/2024 COMP. METAB OLIC PANEL (14) calcium 9.4 mg/dL 8.7-10 .2 Not Available [facility] ([facility]) [address] [facility] [place], [address], 08/06/2024 11:17:03 08/05/20 24 08/06/2024 COMP. METAB OLIC PANEL (14) protein, total 7.5 g/dL 6.0-8. 5 Not Available [facility] ([facility]) [address], [place], [address], 08/06/2024 11:17:03 08/05/20 24 08/06/2024 COMP. METAB OLIC PANEL (14) albumin 5.2 g/dL 3.9-4. 9 above high normal Not Available [facility] ([facility]) [address], [place], [address], 08/06/2024 11:17:03 08/05/20 24 08/06/2024 COMP. METAB OLIC PANEL (14) globulin, total 2.3 g/dL 1.5-4. 5 Not Available [facility] ([facility]) [address], [place], [address], 08/06/2024 11:17:03 08/05/20 24 08/06/2024 COMP. METAB OLIC PANEL (14) bilirubin, total 0.4 mg/dL 0.0-1. 2 Not Available [facility] ([facility]) [address], [place], [address], 08/06/2024 11:17:03 08/05/20 24 08/06/2024 COMP. METAB OLIC PANEL (14) alkaline phosphatase 49 IU/L 44-121 Not Available [facility] ([facility]) [address], [place], [address], 08/06/2024 11:17:03 08/05/20 24 08/06/2024 COMP. METAB OLIC PANEL (14) AST (SGOT) 12 IU/L 0-40 Not Available [facility] ([facility] [address] [facility] [place], [address], 08/06/2024 11:17:03 08/05/20 24 08/06/2024 COMP. METAB OLIC PANEL (14) ALT (SGPT) 12 IU/L 0-32 Not Available [facility] ([facility] [address] [facility] [place], [address], 08/06/2024 11:17:03 08/05/20 24 08/06/2024 VITAM IN B12 AND FOLAT E vitamin B12 601 pg/mL 232-12 45 Not Available [facility] ([facility]) [address] [facility], [place], [address], 08/06/2024 11:17:04 08/05/20 24 08/06/2024 VITAM IN B12 AND FOLAT E folate (folic acid), serum 17.1 NG/mL >3.0 A serum folat e deborah ntrat ion of less than 3.1 ng/mL is consi dered to repre sent clini sacha defic iency . Not Available [facility] ([facility]) [address] [facility], [place], [address], 08/06/2024 11:17:04 08/05/20 24 08/06/2024 CBC WITH DIFFE RENTI AL/PL ATELE T WBC 6.9 x10e3 /uL 3.4-10 .8 Not Available [facility] ([facility]) [address] [facility], [place], [address], 08/06/2024 11:17:05 08/05/20 24 08/06/2024 CBC WITH DIFFE RENTI AL/PL ATELE T RBC 4.37 x10e6 /uL 3.77-5 .28 Not Available [facility] ([facility]) [address] [facility], [place], [address], 08/06/2024 11:17:05 08/05/20 24 08/06/2024 CBC WITH DIFFE RENTI AL/PL ATELE T hemoglobin 13.6 g/dL 11.1-1 5.9 Not Available [facility] ([facility]) [address] [facility], [place], [address], 08/06/2024 11:17:05 08/05/20 24 08/06/2024 CBC WITH DIFFE RENTI AL/PL ATELE T hematocrit 41.3 % 34.0-4 6.6 Not Available [facility] ([facility]) [address] [facility], [place], [address], 08/06/2024 11:17:05 08/05/20 24 08/06/2024 CBC WITH DIFFE RENTI AL/PL ATELE T MCV 95 fL 79-97 Not Available [facility] ([facility]) [address] [facility], [place], [address], 08/06/2024 11:17:05 08/05/20 24 08/06/2024 CBC WITH DIFFE RENTI AL/PL ATELE T MCH 31.1 pg 26.6-3 3.0 Not Available [facility] ([facility]) [address] [facility], [place], [address], 08/06/2024 11:17:05 08/05/20 24 08/06/2024 CBC WITH DIFFE RENTI AL/PL ATELE T MCHC 32.9 g/dL 31.5-3 5.7 Not Available [facility] ([facility]) [address] [facility], [place], [address], 08/06/2024 11:17:05 08/05/20 24 08/06/2024 CBC WITH DIFFE RENTI AL/PL ATELE T RDW 11.7 % 11.7-1 5.4 Not Available [facility] ([facility]) [address] [facility], [place], [address], 08/06/2024 11:17:05 08/05/20 24 08/06/2024 CBC WITH DIFFE RENTI AL/PL ATELE T platelets 235 x10e3 /uL 150-45 0 Not Available [facility] ([facility]) [address] [facility], [place], [address], 08/06/2024 11:17:05 08/05/20 24 08/06/2024 CBC WITH DIFFE RENTI AL/PL ATELE T neutrophils 60 % notest ab. Not Available [facility] ([facility]) [address] [facility], [place], [address], 08/06/2024 11:17:05 08/05/20 24 08/06/2024 CBC WITH DIFFE RENTI AL/PL ATELE T lymphs 31 % notest ab. Not Available [facility] ([facility]) [address] [facility], [place], [address], 08/06/2024 11:17:05 08/05/20 24 08/06/2024 CBC WITH DIFFE RENTI AL/PL ATELE T monocytes 5 % notest ab. Not Available [facility] ([facility]) [address] [facility], [place], [address], 08/06/2024 11:17:05 08/05/20 24 08/06/2024 CBC WITH DIFFE RENTI AL/PL ATELE T eos 3 % notest ab. Not Available [facility] ([facility]) [address] [facility], [place], [address], 08/06/2024 11:17:05 08/05/20 24 08/06/2024 CBC WITH DIFFE RENTI AL/PL ATELE T basos 1 % notest ab. Not Available [facility] ([facility]) [address] [facility], [place], [address], 08/06/2024 11:17:05 08/05/20 24 08/06/2024 CBC WITH DIFFE RENTI AL/PL ATELE T neutrophils (absolute) 4.1 x10e3 /uL 1.4-7. 0 Not Available [facility] ([facility]) [address] [facility], [place], [address], 08/06/2024 11:17:05 08/05/20 24 08/06/2024 CBC WITH DIFFE RENTI AL/PL ATELE T lymphs (absolute) 2.2 x10e3 /uL 0.7-3. 1 Not Available [facility] ([facility]) [address] [facility], [place], [address], 08/06/2024 11:17:05 08/05/20 24 08/06/2024 CBC WITH DIFFE RENTI AL/PL ATELE T monocytes(ab solute) 0.4 x10e3 /uL 0.1-0. 9 Not Available [facility] ([facility]) [address] [facility], [place], [address], 08/06/2024 11:17:05 08/05/20 24 08/06/2024 CBC WITH DIFFE RENTI AL/PL ATELE T eos (absolute) 0.2 x10e3 /uL 0.0-0. 4 Not Available [facility] ([facility]) [address] [facility], [place], [address], 08/06/2024 11:17:05 08/05/20 24 08/06/2024 CBC WITH DIFFE RENTI AL/PL ATELE T baso (absolute) 0.1 x10e3 /uL 0.0-0. 2 Not Available [facility] ([facility]) [address] [facility], [place], [address], 08/06/2024 11:17:05 08/05/20 24 08/06/2024 CBC WITH DIFFE RENTI AL/PL ATELE T immature granulocytes 0 % notest ab. Not Available [facility] ([facility]) [address] [facility], [place], [address], 08/06/2024 11:17:05 08/05/20 24 08/06/2024 CBC WITH DIFFE RENTI AL/PL ATELE T immature grans (abs) 0.0 x10e3 /uL 0.0-0. 1 Not Available [facility] ([facility]) [address] [facility], [place], [address], 08/06/2024 11:17:05 08/05/20 24 08/06/2024 FE+TI BC+FE R iron bind.cap.(TI BC) 333 ug/dL 250-45 0 Not Available [facility] ([facility]) [address] [facility], [place], [address], 08/06/2024 11:17:06 08/05/20 24 08/06/2024 FE+TI BC+FE R UIBC 255 ug/dL 131-42 5 Not Available [facility] ([facility]) [address] [facility], [place], [address], 08/06/2024 11:17:06 08/05/20 24 08/06/2024 FE+TI BC+FE R iron 78 ug/dL 27-159 Not Available [facility] ([facility]) [address] [place], [address], 08/06/2024 11:17:06 08/05/20 24 08/06/2024 FE+TI BC+FE R iron saturation 23 % 15-55 Not Available [facility] ([facility]) [address] [facility], [place], [address], 08/06/2024 11:17:06 08/05/20 24 08/06/2024 FE+TI BC+FE R ferritin 176 NG/mL 15-150 above high normal Not Available [facility] ([facility]) [address] [place], [address], 08/06/2024 11:17:06 08/05/20 24 08/06/2024 VITAM IN [...] Medic ine). 2010. Dieta ry refer ence intak es for calci um and D. Angel haji [place]: [facility] . 2. Chantelle petit [place], Megan mccray [place], Nahum off-F isabella i BURTON, et al. Evalu ation , treat ment, and preve ntion of vitam in D defic iency : an Endoc rine Socie ty clini sacha pract ice guide line. JCEM. 2010; 96(7) :1911 -30. Not Available [facility] ([facility]) [address] [place], [address], 08/06/2024 11:17:06 09/22/2009/23/2025 TSH+F REE T4 TSH 0.560 uIU/m L 0.450- 4.500 Not Available [facility] ([facility]) [address] [place], [address], 09/23/2025 07:07:41 09/22/20 25 09/23/2025 TSH+F REE T4 T4,free(dire ct) 1.34 NG/dL 0.82-1 .77 Not Available [facility] ([facility]) [address] [place], [address], 09/23/2025 07:07:41 09/22/20 25 09/23/2025 LIPID PANEL cholesterol, total 131 mg/dL 100-19 9 Not Available [facility] ([facility]) [address] [place], [address], 09/23/2025 07:07:41 09/22/20 25 09/23/2025 LIPID PANEL triglyceride s 90 mg/dL 0-149 Not Available [facility] ([facility]) [address] [place], [address], 09/23/2025 07:07:41 09/22/20 25 09/23/2025 LIPID PANEL HDL cholesterol 48 mg/dL >39 Not Available [facility] ([facility]) [address] [facility], [place], [address], 09/23/2025 07:07:41 09/22/20 25 09/23/2025 LIPID PANEL VLDL cholesterol sacha 17 mg/dL 5-40 Not Available [facility] ([facility]) [address] [facility], [place], [address], 09/23/2025 07:07:41 09/22/20 25 09/23/2025 LIPID PANEL LDL chol calc ([facility]) 66 mg/dL 0-99 Not Available [facility] ([facility]) [address] [facility], [place], [address], 09/23/2025 07:07:41 09/22/20 25 09/23/2025 CMP14 +EGFR glucose 79 mg/dL 70-99 Not Available [facility] ([facility]) [address] [place], [address], 09/23/2025 07:07:42 09/22/20 25 09/23/2025 CMP14 +EGFR BUN 18 mg/dL 6-20 Not Available [facility] ([facility]) [address] [facility], [place], [address], 09/23/2025 07:07:42 09/22/20 25 09/23/2025 CMP14 +EGFR creatinine 0.86 mg/dL 0.57-1 .00 Not Available [facility] ([facility]) [address] [place], [address], 09/23/2025 07:07:42 09/22/20 25 09/23/2025 CMP14 +EGFR eGFR 91 mL/mi n/1.7 3 >59 Not Available [facility] ([facility]) [address] [facility], [place], [address], 09/23/2025 07:07:42 09/22/20 25 09/23/2025 CMP14 +EGFR BUN/creatini ne ratio 21 9-23 Not Available [facility] ([facility]) [address] [facility], [place], [address], 09/23/2025 07:07:42 09/22/2009/23/2025 CMP14 +EGFR sodium 137 mmol/ L 134-14 4 Not Available [facility] ([facility]) [address] [facility], [place], [address], 09/23/2025 07:07:42 09/22/2009/23/2025 CMP14 +EGFR potassium 4.5 mmol/ L 3.5-5. 2 Not Available [facility] ([facility]) [address] [facility], [place], [address], 09/23/2025 07:07:42 09/22/2009/23/2025 CMP14 +EGFR chloride 104 mmol/ L 96-106 Not Available [facility] ([facility]) [address] [facility], [place], [address], 09/23/2025 07:07:42 09/22/2009/23/2025 CMP14 +EGFR carbon dioxide, total 17 mmol/ L 20-29 below low normal Not Available [facility] ([facility]) [address] [facility], [place], [address], 09/23/2025 07:07:42 09/22/2009/23/2025 CMP14 +EGFR calcium 9.3 mg/dL 8.7-10 .2 Not Available [facility] ([facility]) [address] [place], [address], 09/23/2025 07:07:42 09/22/2009/23/2025 CMP14 +EGFR protein, total 7.2 g/dL 6.0-8. 5 Not Available [facility] ([facility]) [address] [place], [address], 09/23/2025 07:07:42 09/22/20 25 09/23/2025 CMP14 +EGFR albumin 5.0 g/dL 3.9-4. 9 above high normal Not Available [facility] ([facility]) [address] [place], [address], 09/23/2025 07:07:42 09/22/20 25 09/23/2025 CMP14 +EGFR globulin, total 2.2 g/dL 1.5-4. 5 Not Available [facility] ([facility]) [address] [place], [address], 09/23/2025 07:07:42 09/22/2009/23/2025 CMP14 +EGFR bilirubin, total 0.2 mg/dL 0.0-1. 2 Not Available [facility] ([facility]) [address] [place], [address], 09/23/2025 07:07:42 09/22/20 25 09/23/2025 CMP14 +EGFR alkaline phosphatase 54 IU/L 41-116 Not Available [facility] ([facility]) [address] [place], [address], 09/23/2025 07:07:42 09/22/20 25 09/23/2025 CMP14 +EGFR AST (SGOT) 15 IU/L 0-40 Not Available [facility] ([facility]) [address] [place], [address], 09/23/2025 07:07:42 09/22/20 25 09/23/2025 CMP14 +EGFR ALT (SGPT) 7 IU/L 0-32 Not Available [facility] ([facility]) [address] [place], [address], 09/23/2025 07:07:42 09/22/20 25 09/22/2025 CHERYL CHOWDHURY V LP DEFAU LT cheryl abreu LP default COMMEN T A hand- writt en panel /prof ile was recei opal from your offic e. In accor dance with the [facility] Ambig uous Test Code Polic y dated May 2003, we have compl eted your order by using the close st curre ntly or forme rly recog nized AMA panel . We have assrussel arcos Lipid Panel , Test Code #[address]. If this is not the testi ng you wishe d to recei ve on this speci men, pleas e conta ct the [facility] Clien t Inqui ry/Te chnic al Servi shivani Depar tment to dontrell fy the test order . We appre ciate your busin ess. Not Available [facility] ([facility]) [address] [place], [address], 09/23/2025 07:07:42 09/22/20 25 09/22/2025 CBC/D IFF AMBIG UOUS DEFAU LT WBC 7.0 x10e3 /uL 3.4-10 .8 Not Available [facility] ([facility]) [address] [place], [address], 09/23/2025 07:07:43 09/22/20 25 09/22/2025 CBC/D IFF AMBIG UOUS DEFAU LT RBC 4.62 x10e6 /uL 3.77-5 .28 Not Available [facility] ([facility]) [address] [place], [address], 09/23/2025 07:07:43 09/22/20 25 09/22/2025 CBC/D IFF AMBIG UOUS DEFAU LT hemoglobin 14.5 g/dL 11.1-1 5.9 Not Available [facility] ([facility]) [address] [place], [address], 09/23/2025 07:07:43 09/22/20 25 09/22/2025 CBC/D IFF AMBIG UOUS DEFAU LT hematocrit 44.5 % 34.0-4 6.6 Not Available [facility] ([facility]) [address] [place], [address], 09/23/2025 07:07:43 09/22/2009/22/2025 CBC/D IFF AMBIG UOUS DEFAU LT MCV 96 fL 79-97 Not Available [facility] ([facility]) [address] [facility], [place], [address], 09/23/2025 07:07:43 09/22/20 25 09/22/2025 CBC/D IFF AMBIG UOUS DEFAU LT MCH 31.4 pg 26.6-3 3.0 Not Available [facility] ([facility]) [address] [facility], [place], [address], 09/23/2025 07:07:43 09/22/20 25 09/22/2025 CBC/D IFF AMBIG UOUS DEFAU LT MCHC 32.6 g/dL 31.5-3 5.7 Not Available [facility] ([facility]) [address] [facility], [place], [address], 09/23/2025 07:07:43 09/22/2009/22/2025 CBC/D IFF AMBIG UOUS DEFAU LT RDW 12.1 % 11.7-1 5.4 Not Available [facility] ([facility]) [address] [facility], [place], [address], 09/23/2025 07:07:43 09/22/2009/22/2025 CBC/D IFF AMBIG UOUS DEFAU LT platelets 246 x10e3 /uL 150-45 0 Not Available [facility] ([facility]) [address] [facility], [place], [address], 09/23/2025 07:07:43 09/22/20 25 09/22/2025 CBC/D IFF AMBIG UOUS DEFAU LT neutrophils 65 % notest ab. Not Available [facility] ([facility]) [address] [facility], [place], [address], 09/23/2025 07:07:43 09/22/2009/22/2025 CBC/D IFF AMBIG UOUS DEFAU LT lymphs 25 % notest ab. Not Available [facility] ([facility]) [address] [facility], [place], [address], 09/23/2025 07:07:43 09/22/2009/22/2025 CBC/D IFF AMBIG UOUS DEFAU LT monocytes 6 % notest ab. Not Available [facility] ([facility]) [address] [facility], [place], [address], 09/23/2025 07:07:43 09/22/2009/22/2025 CBC/D IFF AMBIG UOUS DEFAU LT eos 3 % notest ab. Not Available [facility] ([facility]) [address] [facility], [place], [address], 09/23/2025 07:07:43 09/22/2009/22/2025 CBC/D IFF AMBIG UOUS DEFAU LT basos 1 % notest ab. Not Available [facility] ([facility]) [address] [facility], [place], [address], 09/23/2025 07:07:43 09/22/2009/22/2025 CBC/D IFF AMBIG UOUS DEFAU LT neutrophils (absolute) 4.5 x10e3 /uL 1.4-7. 0 Not Available [facility] ([facility]) [address] [facility], [place], [address], 09/23/2025 07:07:43 09/22/2009/22/2025 CBC/D IFF AMBIG UOUS DEFAU LT lymphs (absolute) 1.7 x10e3 /uL 0.7-3. 1 Not Available [facility] ([facility]) [address] [facility], [place], [address], 09/23/2025 07:07:43 09/22/2012 1009/22/2025 CBC/D IFF AMBIG UOUS DEFAU LT monocytes(ab solute) 0.4 x10e3 /uL 0.1-0. 9 Not Available [facility] ([facility]) [address] [facility], [place], [address], 09/23/2025 07:07:43 09/22/20 25 09/22/2025 CBC/D IFF AMBIG UOUS DEFAU LT eos (absolute) 0.2 x10e3 /uL 0.0-0. 4 Not Available [facility] ([facility]) [address] [facility], [place], [address], 09/23/2025 07:07:43 09/22/20 25 09/22/2025 CBC/D IFF AMBIG UOUS DEFAU LT baso (absolute) 0.1 x10e3 /uL 0.0-0. 2 Not Available [facility] ([facility]) [address] [facility], [place], [address], 09/23/2025 07:07:43 09/22/2009/22/2025 CBC/D IFF AMBIG UOUS DEFAU LT immature granulocytes 0 % notest ab. Not Available [facility] ([facility]) [address] [facility], [place], [address], 09/23/2025 07:07:43 09/22/20 25 09/22/2025 CBC/D IFF AMBIG UOUS DEFAU LT immature grans (abs) 0.0 x10e3 /uL 0.0-0. 1 Not Available [facility] ([facility]) [address] [facility], [place], [address], 09/23/2025 07:07:43 09/22/2009/22/2025 CBC/D IFF AMBIG UOUS DEFAU LT hematology comments: - A hand- writt en panel /prof ile was recei opal from your offic e. In accor dance with the [facility] Ambig uous Test Code Polic y dated May 2003, we have assrussel josselyn CBC with Diffe renti al/Pl atele t, Test Code #[address]. If this is not the testi ng you wishe d to recei ve on this speci men, pleas e conta ct the [facility] Clien t Inqui ry/ Techn ical Servi shivani Depar tment to dontrell fy the test order . We appre ciate your busin ess. Not Available [facility] ([facility]) [address] [facility], [place], [address], 09/23/2025 07:07:43 09/22/20 25 09/23/2025 VITAM IN B12 AND FOLAT E vitamin B12 641 pg/mL 232-12 45 Not Available [facility] ([facility]) [address] [facility], [place], [address], 09/23/2025 07:07:43 09/22/20 25 09/23/2025 VITAM IN B12 AND FOLAT E folate (folic acid), serum 9.6 NG/mL >3.0 A serum folat e deborah ntrat ion of less than 3.1 ng/mL is consi dered to repre sent clini sacha defic iency . Not Available [facility] ([facility]) [address] [facility], [place], [address], 09/23/2025 07:07:43 09/22/20 25 09/22/2025 HEMOG LOBIN A1C hemoglobin A1C 5.0 % 4.8-5. 6 Predi abete s: 5.7 - 6.4 Diabe kami: >6.4 Glyce ravinder contr ol for adult s with diabe kami: <7.0 Not Available [facility] ([facility]) [address] [facility], [place], [address], 09/23/2025 07:07:44 09/22/20 25 09/23/2025 FE+TI BC+FE R iron bind.cap.(TI BC) 283 ug/dL 250-45 0 Not Available [facility] ([facility]) [address] [facility], [place], [address], 09/23/2025 07:07:44 09/22/20 25 09/23/2025 FE+TI BC+FE R UIBC 212 ug/dL 131-42 5 Not Available [facility] ([facility]) [address] [facility], [place], [address], 09/23/2025 07:07:44 09/22/20 25 09/23/2025 FE+TI BC+FE R iron 71 ug/dL 27-159 Not Available [facility] ([facility]) [address] [facility], [place], [address], 09/23/2025 07:07:44 09/22/20 25 09/23/2025 FE+TI BC+FE R iron saturation 25 % 15-55 Not Available [facility] ([facility]) [address] [facility], [place], [address], 09/23/2025 07:07:44 09/22/20 25 09/23/2025 FE+TI BC+FE R ferritin 198 NG/mL 15-150 above high normal Not Available [facility] ([facility]) [address] [facility], [place], [address], 09/23/2025 07:07:44 12/30/19 25 12/30/2024 CT, abdom en + pelvi s, w/ contr ast No observ ation record ed. [facility] [address], [place], [address], 12/31/2024 16:03:30 01/01/20 25 12/30/2024 CT, abdom en + pelvi s, w/ contr ast No observ ation record ed. [facility] [address], [place], [address], 01/04/2025 15:27:19 Result Notes None recorded. Problems Name Problem SNOMED Code Status Onset Date Resolution Date Notes Provider Name and Address Organization Details Recorded Time Hypertensiv e disorder 31279191 Active 2023 Karla Ames arlene, [place] - [facility] 4 12:26:49 Benign essential hypertensio n 6077396 Active 2023 ANAMIKA Longoria Attn: Accountin g,[address] [facility], [place], [address], [place] - [facility] 4 21:42:47 Fatigue 59710384 Active 2023 ANAMIKA Longoria Attn: Accountin g,[address] [facility], [place], [address], [place] [facility] 5 20:19:24 Overweight 479715711 Active 2023 ANAMIKA Longoria Attn: Accountin g,[address] [facility], [place], [address], [place] [facility] 4 21:43:49 Body mass index 25-29 - overweight 536952976 Active 2023 ANAMIKA Longoria Attn: Accountin g,[address] [facility], [place], [address], [place] [facility] 4 21:43:50 Gastroesoph ageal reflux disease without esophagitis 679281310 Active 2023 ANAMIKA Longoria Attn: Accountin g,[address] [facility], [place], [address], [place] [facility] 4 21:43:51 History of idiopathic intracrania l hypertensio n 7278172248445 9108 Active 2023 ANAMIKA Longoria Attn: Accountin g,[address] [facility], [place], [address], [place] [facility] 4 21:43:51 Long-term drug therapy Active 2023 ANAMIKA Longoria Attn: Accountin g,[address] [facility], [place], [address], [place] [facility] 4 21:43:59 Overweight in adulthood with body mass index of 25 or more but less than 30 520045035 Active 2024 ANAMIKA Longoria Attn: Almas villarreal,[address] [facility], [place], [address], [facility] - [facility] 5 20:19:00 Feeling irritable 04166475 Active 2024 ANAMIKA Longoria Attn: Almas villarreal,[address] [facility], [place], [address], [facility] - [facility] 5 20:19:12 Problem Notes None recorded. Procedures Surgical History Date Name Laterality Status Provider Name and Address Organization Details Recorded Time 11/18/18 91 Eye Surgery completed Dequan Mccray MA [facility] 01/15/2024 10:01:12 procedure on gallbladder completed Dequan Mccray MA [facility] 01/15/2024 10:01:46 Cholecystectomy completed Karla Ames [facility] 01/15/2024 10:45:37 dilation and curettage completed Karla Ames [facility] 01/15/2024 10:46:07 hysterectomy completed Karla Ames [facility] 01/15/2024 10:46:17 section completed Dequan Mccray MA [facility] 01/15/2024 11:45:43 extraction of wisdom tooth completed Dequan Mccray MA [facility] 08/03/2024 16:46:50 Imaging Results None recorded. Procedure Notes None recorded. Medical Equipment None Reported. Allergies Allergen ID Allergen Name Allergen Category Reaction Reaction Severity Criticality Documentation Date Start Date Code Code System Note Provider Name and Address Organization Details Recorded Time 670400 Macrobid medicatio n nausea Not available low 09/28/2024 72785 1 RxNorm ANAMIKA Longoria Attn: Almas villarreal,[address] [facility], [place], [address], [facility] - [facility] 4 11:14:08 046488 Iodinated contrast media (substanc e) medicatio n swelling Not available high 01/01/20255 48823 2004 SNOMED Dequan Mccray [place] null, [place] - [facility] 12:02:40 969931 nitrofura ntoin, macrocrys tals / nitrofura ntoin, monohydra te medicatio n nausea Not available low 09/13/20252018 14868 2 RxNorm Abdom inal cramp s/gurpreet sea. Not Available [employer] - External Data Service - prod 16:33:09 385771 nitrofura ntoin medicatio n Not available Not available Not available 09/13/20252018 7454 RxNorm unrec ogniz ed react ion (text : GI Upset , code: 79157 5008) (from [facility]) Not Available [employer] - prod 16:37:10 Medications Name Sig Start Date Stop Date Status Note LastModified by Organization Details LastModified Time amoxicillin 500 mg capsule TAKE 1 CAPSULE BY MOUTH EVERY 6 HOURS FOR 7 DAYS 08/03 completed Not Available Not Available Not Available doxycycline hyclate 100 mg capsule TAKE ONE PILL DAILY WITH A FULL MEAL, DO NOT LIE DOWN UNTIL 1 HOUR AFTER TAKING. 09/14 completed Not Available Not Available Not Available [...] n 250 mg tablet TAKE 2 TABLETS BY MOUTH ON DAY 1, AND THEN TAKE 1 TABLET BY MOUTH ONCE A DAY ON DAY 2 THROUGH DAY 5 09/14 completed Not Available Not Available Not Available acetazolami de ER 500 mg capsule,ext ended release TAKE 1 CAPSULE BY MOUTH EVERY DAY active Not Available Not Available No t Available benzonatate 200 mg capsule TAKE 1 CAPSULE BY MOUTH THREE TIMES DAILY NEEDED 01/15 completed Not Available Not Available Not Available hydrocodone 5 mg-acetamin ophen 325 mg tablet TAKE 1 TABLET BY MOUTH EVERY 6 HOURS NEEDED FOR PAIN 09/14 completed Not Available Not Available Not Available spironolact one 100 mg tablet Take 1 tablet by mouth once daily 09/14 completed Not Available Not Available Not Available acetazolami de 250 mg tablet TAKE 1 TABLET BY MOUTH TWICE DAILY FOR 2 DAYS 08/03 completed Not Available Not Available Not Available penicillin V potassium 500 mg tablet TAKE 1 TABLET BY MOUTH 4 TIMES DAILY 09/14 completed Not Available Not Available Not Available ciprofloxac in 500 mg tablet Take 1 tablet every 12 hours by oral route for 7 days. 07/02 completed Not Available Not Available Not [...] MOUTH EVERY 4 TO 6 HOURS NEEDED 09/14 completed Not Available Not Available Not Available amoxicillin 875 mg tablet TAKE 1 TABLET BY MOUTH EVERY 12 HOURS 10/27 completed Not Available Not Available Not Available pantoprazol e 40 mg tablet,laure yed release TAKE 1 TABLET BY MOUTH EVERY DAY active Not Available Not Available No t Available prednisone 50 mg tablet TAKE 1 TABLET BY MOUTH ONCE DAILY 09/14 completed Not Available Not Available Not Available fluoxetine 10 mg capsule TAKE 1 CAPSULE BY MOUTH EVERY DAY active Not Available Not Available No t Available hydrocortis one 2.5 % topical cream APPLY CREAM TO AFFECTED AREA TWICE DAILY NEEDED 08/03 completed Not Available Not Available Not Available clindamycin 2 % vaginal cream INSERT 1 APPLICATI ON INTO THE VAGINA NIGHTLY FOR 7 DOSES 09/14 completed Not Available Not Available Not Available propranolol ER 120 mg capsule,24 hr,extended release 01/15 completed Not Available Not Available Not Available methylpredn isolone 4 mg tablets in a dose pack USE DIRECTED 05/20 completed Not Available Not Available Not Available ondansetron 4 mg disintegrat ing tablet DISSOLVE 1 TABLET IN MOUTH EVERY 8 HOURS NEEDED FOR NAUSEA AND VOMITING 09/14 completed Not Available Not Available Not Available [...] completed Not Available Not Available Not Available testosteron e 50 mg/5 gram (1 %) transdermal gel PLACE 1 PEA DROP (5MG) ON INNER THIGH NIGHTLY active Not Available Not Available No t Available Ozempic 0.25 mg or 0.5 mg (2 mg/1.5 mL) subcutaneou s pen injector INJECT 0.25 MG EVERY WEEK SUBCUTANE OUSLY DIRECTED 01/15 completed Not Available Not Available Not Available Slynd 4 mg (28) tablet TAKE 1 EACH (4 MG TOTAL) BY MOUTH DAILY active Not Available Not Available No t Available Ozempic 0.25 mg or 0.5 mg (2 mg/3 mL) subcutaneou s pen injector INJECT 0.5 MG EVERY WEEK SUBCUTANE OUSLY DIRECTED 01/15 completed Not Available Not Available Not Available Zepbound 2.5 mg/0.5 mL subcutaneou s pen injector INJECT 2 & 1/2 (TWO & ONE-HALF) MG SUBCUTANE OUSLY ONCE A WEEK 08/03 completed Not Available Not Available Not Available Vitals Date Recorded Body temperature Pain severity - 0-10 verbal numeric rating [Score] - Reported Provider Name and Address Organization Details Last Updated DateTime 12/30/2024 98.1 [degF] 8 ANAMIKA Longoria Attn: Accounting,[address] [facility], [place], [address], [place] - [facility] 12/30/2024 15:29:02 Date Recorded Body height Body mass index (BMI) Body weight Respiratory rate Oxygen saturation Oxygen saturation in Arterial blood by Pulse oximetry Heart rate Systolic And Diastolic Provider Name and Address Organization Details Last Updated DateTime 5 172.72 cm 26.8 kg/m2 21395.2 6 g 18 /min 99 % 99 % 72 /min 130/82 mm[Hg] Dequan Mccray MA [facility] 5 15:01:14 Date Recorded Systolic And Diastolic Provider Name and Address Organization Details Last Updated DateTime 01/15/2024 114/80 mm[Hg] ANAMIKA Longoria Attn: Accounting,[address] [place], [address], [facility] 01/15/2024 10:39:03 Date Recorded Body height Body mass index (BMI) Body weight Heart rate Respiratory rate Oxygen saturation Oxygen saturation in Arterial blood by Pulse oximetry Systolic And Diastolic Provider Name and Address Organization Details Last Updated DateTime 4 172.72 cm 35.1 kg/m2 085108. 84 g 98 /min 18 /min 93 % 93 % 118/79 mm[Hg] Dequan Mccray MA [facility] 4 10:03:34 Date Recorded Systolic And Diastolic Provider Name and Address Organization Details Last Updated DateTime 08/03/2024 124/80 mm[Hg] ANAMIKA Longoria Attn: Accounting,[address] [place], [address], [facility] 08/03/2024 17:06:53 Date Recorded Body height Body mass index (BMI) Body weight Respiratory rate Heart rate Oxygen saturation Oxygen saturation in Arterial blood by Pulse oximetry Systolic And Diastolic Provider Name and Address Organization Details Last Updated DateTime 4 172.72 cm 28.6 kg/m2 36676.0 8 g 18 /min 68 /min 99 % 99 % 138/82 mm[Hg] Dequan Mccray MA [facility] 4 16:49:02 Date Recorded Respiratory rate Systolic And Diastolic Provider Name and Address Organization Details Last Updated DateTime 09/14/2025 16 /min 118/84 mm[Hg] ANAMIKA Longoria Attn: Accounting,[address] [facility], [place], [address], [facility] 09/14/2025 12:33:50 Date Recorded Body height Body mass index (BMI) Body weight Oxygen saturation Oxygen saturation in Arterial blood by Pulse oximetry Heart rate Systolic And Diastolic Provider Name and Address Organization Details Last Updated DateTime 172.72 cm 27 kg/m2 84336.9 3 g 99 % 99 % 86 /min 128/82 mm[Hg] Dequan Mccray MA [facility] 12:05:56 Social History Question Answer Notes LastModified by Organizat ion Details LastModified Time Tobacco Smoking Status Never Smoker Dequan Mccray MA null, [facility] 01/15/2024 10:00:37 Do You Have An Advance Directive? No Information not available 08/03/2024 Are You Blind Or Do You Have Difficulty Seeing? No Glasses/c ontacts Information not available 08/03/2024 What Is Your [...] No Information not available 01/15/2024 Are You Deaf Or Do You Have Serious Difficulty Hearing? No Information not available 08/03/2024 What Type Of Diet Are You Following? REGULAR Information not available 08/03/2024 Are There Any Guns Present In Your Home? No Information not available 01/15/2024 What Was The Date Of Your Most Recent Tobacco Screening? 09/14/2025 Information not available 09/14/2025 Do You Use Your Seat Belt Or Car Seat Routinely? Yes Information not available 01/15/2024 Do You Have Smoke And Carbon Monoxide Detectors In Your Home? Yes Information not available 01/15/2024 Do You Use Sunscreen Routinely? Yes Information not available 01/15/2024 Has Tobacco Cessation Counseling Been Provided? Yes Information not available 01/15/2024 On What Date Was Tobacco Cessation Counseling Provided? 09/14/2025 Information not available 09/14/2025 Sex: Female Functional Status Question Answer Note LastModified by Organizat ion Details LastModified Time Do you use any illicit or recreational drugs? No Information not available 01/15/2024 Do you or have you ever used any other forms of tobacco or nicotine? No Information not available 01/15/2024 What is your level of alcohol consumption? Occasional Barley any. Information not available 01/15/2024 Are you currently employed? Yes Information not available 12/30/2024 Are you able to care for yourself independently? Yes Information not available 08/03/2024 What is [...] Hepatitis N Liver Disease N Heart Attack (NH) N Headaches N Heart Failure N Gynecological [...] 11:19:14 Influenza, split virus, quadrivalent, PF 09/13/2021 isidro Mccray [place] null, [place] - [facility] 09/08/2024 11:19:14 Past Encounters Encounter ID Performer Location Encounter Start Date Encounter Closed Date Diagnosis/Indication Diagnosis SNOMED-CT Code Diagnosis ICD10 Code Diagnosis IMO Codes Diagnosis Note [id number] MD Morgan Son hola [address] [place] [address] 06/08/2020 12:23:55 06/09/2020 07:03:04 Suspected COVID-19 532824579 Z03.114 [id number] Eric Billings MD [facility] [address] [place] [address] 01/15/2024 09:47:12 01/15/2024 10:43:16 Adult health examination 550159470 Z00.01 well exam completed. Benign ess ential hypertension 1768537 I10 stable on valsartan 160mg daily. Gastroesop hageal reflux disease without esophagitis 026471692 K21.9 stable on pantoprazo le 40mg daily. Long-term drug therapy 833733927 Z79.899 routine CBC and CMP due Body mass index 30+ - obesity 481468231 Z68.35 screening insulin due and start zepbound therapy if insurance will authorize. Acne 05224796 L70.9 refill spironolac ton 100mg daily. previously prescribed by Derm. Thyroid di sorder screening 006069437 Z13.29 thyroid panel due. Diabetes m ellitus screening 479218356 Z13.1 a1c screening due Cholesterol screening 27 0230304 Z13.220 fasting lipids due [id number] Eric Billings MD [facility] [address] [place] [address] 08/03/2024 16:37:44 08/03/2024 17:23:28 Body mass index 25-29 - overweight 186916611 Z68.28 BMI is 28.6 Overweight 633532405 E66 .3 Patient has had superb weight loss in excess of 60 lb Benign ess ential hypertension 3280731 I10 Stop valsartan 80mg daily. She has been off of this medicine in her blood pressure is 124/80 so we will formally discontinu e it Gastroesop hageal reflux disease without esophagitis 425566199 K21.9 may taper down to pantoprazo le 20mg and taper off if weight loss has treated Long-term drug therapy 485544658 Z79.899 Routine CBC and CMP labs are due Fatigue 00018510 R53.83 Screening vitamin B12, folate, vitamin-D and iron studies for persistent fatigue History of idiopathic intracranial hypertension 8336073778 2542562 Z86.69 Continue see the acetazolam gayatri ER 500 mg daily as directed until she is notify differentl y by Neuro-Opht halmology [id number] Eric Billings MD [facility] [employer] [address] [place] [employer] [place] [address] 12/30/2024 14:42:01 12/30/2024 16:01:59 Body mass index 25-29 - overweight 962202650 Z68.28 BMI is 26.8 Overweight 837631426 E66 .3 Patient has had superb weight loss in excess of 60 lb Decrease in appetite 643 64121 R63.0 Stat evaluation as above Left upper quadrant pain 352970643 R10.[address] abdomen and pelvis with contrast rule out pancreatit is and or gastritis. Check amylase lipase CBC and CMP labs Nausea 596956120 R11.0 [id number] Eric Billings MD [facility] [employer] [address] [place] [address] 09/14/2025 11:31:09 09/14/2025 12:47:08 Overweight in adulthood with body mass index of 25 or more but less than 30 503779953 E66.3 Z68.27 3248803000 bmi 27 Adult heal th examination 486650985 Z00.00 8934597 well exam completed. Gastroesop hageal reflux disease without esophagitis 257229531 K21.9 stable on pantoprazo le 40mg daily. Long-term drug therapy 157950787 Z79.899 routine CBC and CMP due Thyroid di sorder screening 628287708 Z13.29 thyroid panel due. Diabetes m ellitus screening 822911748 Z13.1 a1c screening due Cholesterol screening 27 3232272 Z13.220 fasting lipids due Feeling irritable 395587 07 R45.4 152870 Start trial of low-dose fluoxetine 10 mg daily. Pt to seek ER with any S.I. She will call with any intoleranc e, side effects or lack of efficacy issues. Fatigue 83128185 R53.83 6162305 Screening vitamin B12, folate, and iron studies for persistent fatigue History of idiopathic intracranial hypertension 8338932571 6959170 Z86.69 Continue see the acetazolam gayatri ER 500 mg daily as directed until she is notify differentl y by Neuro-Opht halmology Health Concerns Section Related Observation LastModified by Organization Deena ls LastModified Time None Recorded Concern Status LastModified by Organization Details LastModified Time None Recorded Advance Directives Directive N: Payers Insurance Date Sequence Insurance Name Policy Number Policy Sampson Covered Member ID Sampson Member ID Guarantor Name 06/14/2020 1 [employer] - [facility] [employer] EMPLOYEES ONLY (PPO) Aminah Hein [id number] Aminah Melvina 12/23/2023 COVID19 [employer] UNINSURED TESTING [employer] TREATMENT [employer]D Aminah Melvina [id number] Aminahwilma Hein 01/20/2024 SLIDING FEE SCHEDULE - DISCOUNT Aminah Melvina 01/17/2024 1 *SELF PAY* Malina andreas Melvina 09/27/2025 1 [place] [id number] Aminah Hein [id number] Aminah Hein Notes Date Note Type Note Provider Name and Address Organization Details Recorded Time 06/08/20 20 text/htm l COVID-19 Symptoms March 2020Reported by PatientUpper Respiratory SymptomsFor covid-19 signs and symptoms, patient reportschills same,sore throat same, andfatigue same. COVID ScreeningReported by PatientHPIFor onset/duration of fever, patient reportsfeverbut reportshighest fever 99.8. For associated symptoms, patient reportsno coughandno shortness of breath.ROS as noted in the HPI symptoms started yesterday pt is 5 weeks RICHY VALLE NP Attn: Accounting,[address] [facility], [place], [address], [place] - [facility] 06/08/2020 14:16:04 01/15/20 24 text/htm l HypertensionReported by PatientHPIFor aggravating factors, patient reportsweight change. For severity, patient reportsmild. For duration, patient reportshas noted for years. For onset/timing, patient reportsbetter. For alleviating factors, patient reportsmedication. For associated symptoms, patient reportsno shortness of breath,no fatigue,no palpitations,no decline in exercise capacity, andno snoring. Reflux/GERDReported by PatientHPIFor aggravating factors, patient reportsworsened by food. For associated symptoms, patient reportsheartburnbut reportsno frequent coughing,no feeling of fullness/mass in throat,no hoarseness,no food getting stuck,no belching/burping,no vomiting,not vomiting blood, andno regurgitation. For symptoms, patient reportsno difficulty swallowing,no pain swallowing, andno postprandial pain. For severity, patient reportsimproving. For duration, patient reportspresent 1-4 years. For context, patient reportsnon-smoker,no drug/alcohol abuse, andno drug alcohol withdrawal. For alleviating factors, patient reportsmedicationandprotein pump inhibitors. ANAMIKA Longoria Attn: Accounting,[address] [facility], [place], [address], [facility] 01/19/2024 23:11:11 08/03/20 24 text/htm l HypertensionReported by PatientPatient has been taking spironolactone 100 mg daily and has lost a significant amount of weight which has allowed her to stop her other medications Reflux/GERDReported by PatientPatient is stable on pantoprazole 40 mg daily [...] and improved blood pressure ANAMIKA Longoria Attn: Accounting,[address] [facility], [place], [address], [facility] 08/16/2024 21:44:23 12/30/19 25 text/htm l Abdominal PainReported by PatientAbdominal PainFor quality, patient reportspain,burning,sharp,stabb ing,fullness, andtender. For onset/timing, patient reportsworse(1 week ago onset). For associated symptoms, patient reportsheartburn,diarrhea,const ipation, anddecreased appetitebut reportsno fever,no chills, andno blood in the urine. For location, patient reportsluqandepigastric. For severity, patient reportssevereandpain level /10. For duration, patient reportsconstant. For modifying factors, patient reportsnothing gives relief. For other, patient reportsdenies possible . ANAMIKA Longoria Attn: Accounting,[address] [facility], [place], [address], [facility] 12/30/2024 15:38:03 09/14/20 25 text/htm l Reflux/GERDReported by PatientPatient is stable on pantoprazole 40 mg daily and with her weight loss she does not have any more reflux and she is curious if she asked to continue this medication. Patient has idiopathic intracranial hypertension and is currently on acetazolamide ER 500 mg daily and is due to be seen by Neuro-Ophthalmology for f/u appt, she is past due. Patient has a significant amount of stress and irritability currently. She is currently going through the beginning stages of divorce. ANAMIKA Longoria Attn: Accounting,[address] [facility], [place], [address], [facility] 09/26/2025 20:20:24 OBGyn Episode No OBEpisode recorded.
[2025-10-01 04:24] LABS: BEDSIDEPREGUCG Negative (Negative)
[2025-10-01 04:46] LABS: Hematocrit 40.5 % (37.0-47.0); Hemoglobin 13.3 g/dL (12.0-15.0); Immature Granulocyte Percent A 0.4 % (0-0.5); Lymphocytes Absolute Auto 1.18 K/mm3 (0.9-3.2); Mean Corpuscular HGB Conc 32.8 g/dl (32-36); Mean Corpuscular Hemoglobin 30.8 pg (26-34); Mean Corpuscular Volume 93.8 fl (80-100); Nucleated Red Blood Cells Absolute Auto 0.000 K/mm3 (0.0-0.012); Nucleated Red Blood Cells Perc 0.0 % (0.0-0.2); Platelet Count Result 210 k/mm3 (150-375); Red Blood Count 4.32 M/mm3 (4.2-5.4); White Blood Count 10.0 K/mm3 (4.5-10.0)
[2025-10-01 04:52] LABS: Add Urine Microscopic? YES; Appearance Urine Clear (Clear); Glucose Urine UA Negative (Negative); Leukocyte Esterase Ur Trace LEU/UL (Negative); Nitrate Urine Negative (Negative); Non Pathogenic Casts 0-2; Specific Grav Ur 1.021 (1.001-1.035)
[2025-10-01 05:01] LABS: Alanine Aminotransferase 15 U/L (6-35); Albumin Level 4.8 g/dL (3.5-5.1); Alkaline Phosphatase 49 U/L (38-126); Anion Gap 8 mmol/L (4-12); Aspartate Amino Transferase 27 U/L (14-36); Bilirubin,Total 0.6 mg/dL (0.2-1.3); Blood Urea Nitrogen 12 mg/dL (7-17); Calcium 9.0 mg/dL (8.4-10.2); Carbon Dioxide 26 mmol/L (22-30); Chloride 102 mmol/L (98-107); Estimated CRCL calculation 109 ml/min; Estimated Glomerular Filt Rate > 60; Glucose 107 mg/dL (65-110); Lipase 149 U/L (23-300); Potassium 4.4 mmol/L (3.4-5.0); Sodium 136 mmol/L (137-145); Total Protein 7.4 g/dL (6.3-8.2)
--- NOTE | 2025-10-01 07:12 | ED.ABDPAIN ---
HPI - Abdominal Pain General Chief Complaint: Abdominal Pain Stated Complaint: abd pain Time Seen by Provider: 10/01/25 06:56 Source: patient Mode of arrival: ambulatory Limitations: no limitations History of Present Illness HPI narrative: this is a 35-year-old female with history of hypertension who presents the ED for abdominal pain. Patient states that about 4 hours prior to arrival, patient had onset of lower abdominal pain worse in the right quadrant. She had fevers high as 101 at home. she has had nausea and vomiting that is nonbloody nonbilious. Known sick contacts. Only prior abdominal surgery is a cholecystectomy. Related Data Home Medications ?Medication ?Instructions ?Recorded ?Confirmed ?Last Taken ?Type valsartan 160 mg tablet 160 mg PO DAILY 12/01/22 12/01/22 Unknown History Allergies Allergy/AdvReac Type Severity Reaction Status Date / Time iohexol (From contrast - CT, Allergy Severe Difficulty Verified 10/01/25 03:17 X-RAY) Swallowing ibuprofen AdvReac Unknown Verified 10/01/25 03:17 Review of Systems Review of Systems: Gen.: Denies fevers or chills Eyes: Denies eye pain or visual change ENT: Denies congestion Respiratory: Denies shortness of breath or cough CV: Denies chest pain or palpitations GI: as per HPI denies burning, urgency, frequency or hematuria Musculoskeletal: Denies back pain or muscle pain Neuro: Denies numbness, tingling, weakness or focal weakness Skin: Denies rash Except as documented, all other systems reviewed and negative PMFSH Past Medical History Medical History Endometriosis PCOS (polycystic ovarian syndrome) Social History Social History Smoking status: Never smoker Living arrangements: with family Gender identity (if verbalized by the patient): Female Exam Narrative: APPEARANCE: No acute distress, nontoxic, resting in bed EYES: EOMI HEENT: Normocephalic, atraumatic, OMM RESPIRATORY: No respiratory distress Clear to auscultation bilaterally with no rhonchi wheezing or rales. CARDIOVASCULAR: Regular rate and rhythm without murmurs rubs or gallops. ABDOMINAL: Soft, tenderness to the right lower quadrant, nondistended, no rebound or guarding MUSCULOSKELETAl: Moves all extremities. No clubbing, cyanosis or edema. NEURO: Awake and alert. Following commands, speech normal, no focal deficits SKIN:: Warm, dry. No rashes lesions or abrasions PSYCHIATRIC: Normal affect/mood, Course Vital Signs Vital signs: Vital Signs Temperature 98.8 F 10/01/25 03:14 Pulse Rate 81 10/01/25 03:14 Respiratory Rate 18 10/01/25 03:14 Blood Pressure 143/94 H 10/01/25 03:14 Pulse Oximetry 99 10/01/25 03:14 Oxygen Delivery Room Air 10/01/25 03:14 Temperature 97.9 F 10/01/25 07:13 Pulse Rate 74 10/01/25 08:01 Respiratory Rate 16 10/01/25 08:01 Blood Pressure 123/74 10/01/25 08:01 Pulse Oximetry 97 10/01/25 10:15 Oxygen Delivery Room Air 10/01/25 03:14 MDM - Abdominal Pain MDM Narrative Medical decision making narrative: 35-year-old female Presenting for right lower quadrant abdominal pain.. On initial evaluation patient was in no acute distress afebrile, hemodynamic stable. Differentials include but are not limited to: Ovarian torsion, ovarian cyst, ectopic , Appendicitis, constipation, IBD, IBS, ureterolithiasis, enterocolitis, colitis, hernia Notable exam findings: Tenderness palpation to the right lower quadrant without rebound or guarding Notable lab findings: CBC and CMP without significant abnormalities. Lipase within normal limits. UA clear. Notable imaging findings: CT abdomen/pelvis showed large amount of stool without any acute abnormalities Patient was given morphine and Zofran with significant improvement of her symptoms. Patient's symptoms are most likely due to constipation. She was given prescriptions for MiraLax, docusate, senna, Zofran. She was advised follow-up with PCP in the next week for re-evaluation. Patient was agreeable to this plan. Given strict return precautions. Medical Records Attestation: I reviewed the patient's medical records. Lab Data Attestation: I reviewed the patient's lab results. 10/01/25 04:20 10/01/25 04:20 Labs: Lab Results 10/01/25 10/01/25 Range/Units 04:20 04:22 WBC 10.0 (4.5-10.0) K/mm3 RBC 4.32 (4.2-5.4) M/mm3 Hgb 13.3 (12.0-15.0) g/dL Hct 40.5 (37.0-47.0) % MCV 93.8 (80-100) fl MCH 30.8 (26-34) pg MCHC 32.8 (32-36) g/dl RDW 12.0 (11.5-14.5) % Plt Count 210 (150-375) k/mm3 MPV 10.9 H (7.4-10.4) fl Immature Gran % (Auto) 0.4 (0-0.5) % Neut % (Auto) 82.7 H (45.5-73.1) % Lymph % (Auto) 11.8 L (18.3-44.2) % Storey % (Auto) 3.9 (2.6-8.5) % Eos % (Auto) 0.8 (0-4.4) % Baso % (Auto) 0.4 (0.2-1.2) % Lymph # (Auto) 1.18 (0.9-3.2) K/mm3 Storey # (Auto) 0.4 (0.1-0.6) K/mm3 Eos # (Auto) 0.1 (0-0.3) K/mm3 Baso # (Auto) 0.0 (0.0-0.1) K/mm3 Abs Immat Gran (auto) 0.04 H (0.00-0.031) K/mm3 Absolute Neuts (auto) 8.2 H (1.3-6.7) K/mm3 Absolute Nucleated RBC 0.000 (0.0-0.012) K/mm3 Nucleated RBC % 0.0 (0.0-0.2) % Sodium 136 L (137-145) mmol/L Potassium 4.4 (3.4-5.0) mmol/L Chloride 102 (98-107) mmol/L Carbon Dioxide 26 (22-30) mmol/L Anion Gap 8 (4-12) mmol/L BUN 12 (7-17) mg/dL Creatinine 0.71 (0.7-1.0) mg/dL Estim Creat Clear Calc 109 ml/min Estimated GFR > 60 (59 - ) Glucose 107 (65-110) mg/dL Calcium 9.0 (8.4-10.2) mg/dL Total Bilirubin 0.6 (0.2-1.3) mg/dL AST 27 (14-36) U/L ALT 15 (6-35) U/L Alkaline Phosphatase 49 (38-126) U/L Total Protein 7.4 (6.3-8.2) g/dL Albumin 4.8 (3.5-5.1) g/dL Lipase 149 (23-300) U/L Urine Color Yellow (Yellow) Urine Appearance Clear (Clear) Urine pH 5.0 (5.0-9.0) Ur Specific [place] 1.021 (1.001-1.035) Urine Protein Negative (Negative) mg/dL Urine Glucose (UA) Negative (Negative) mg/dL Urine Ketones Negative (Negative) mg/dL Ur Blood (Man) Negative (Negative) Urine Nitrate Negative (Negative) Urine Bilirubin Negative (Negative) Urine Urobilinogen 0.2 (<2.0) mg/dL Leukocyte Esterase Rfl Trace H (Negative) EDUARDA/UL Urine RBC 3-5 H (0-2) /hpf Urine WBC 0-5 (0-3) /hpf Ur Squamous Epith Cells None seen (Few) /hpf Urine Bacteria None seen /hpf Urine Casts 0-2 POC Urine HCG, Qual Negative (Negative) Imaging Data Attestation: I personally reviewed and interpreted this imaging study as follows: My impression: CT abdomen/pelvis: Large stool burden in the ascending colon Radiologist's impression: ITS Impressions Abdomen/Pelvis CT 10/01/25 08:32 IMPRESSION: Large amount of fecal material. Left renal agenesis. Discharge Plan Discharge Clinical Impression: Abdominal pain Qualifiers: Abdominal location: right lower quadrant Qualified Code(s): R10.31 - Right lower quadrant pain Patient Disposition: Home Condition: Stable Instructions: Antibiotic Form, Abdominal Pain (ED) Additional Instructions: Take miralax, docusate and senna as prescribed. Take tylenol and ibuprofen for pain. Take zofran as prescribed. Follow up with your PCP in the next week for new or worsening symptoms. Return to the ED For new or worsening symptoms. Patient Language: Senegalese Prescriptions: New polyethylene glycol 3350 [ClearLax] 17 gram/dose powder 17 g PO DAILY Qty: 119 0RF docusate sodium 50 mg capsule 50 mg PO DAILY Qty: 7 0RF ondansetron 4 mg tablet,disintegrating 4 mg PO Q8H PRN (Reason: nausea and vomiting) Qty: 14 0RF senna 8.6 mg capsule 8.6 mg PO DAILY PRN (Reason: constipation) Qty: 7 0RF No Action valsartan 160 mg tablet 160 mg PO DAILY amoxicillin 875 mg tablet 875 mg PO Q12H Qty: 20 0RF hydrocodone-acetaminophen 5-325 mg tablet 1 tablet PO Q8H PRN (Reason: pain) Qty: 10 0RF ondansetron 4 mg tablet,disintegrating 4 mg PO Q6H PRN (Reason: nausea and vomiting) Qty: 10 0RF hydrocodone-acetaminophen 5-325 mg tablet 1 tablet PO Q6H PRN (Reason: pain) Qty: 14 0RF ondansetron 4 mg tablet,disintegrating 4 mg PO Q8H PRN (Reason: nausea and vomiting) Qty: 14 0RF prednisone 50 mg tablet 50 mg PO DAILY Qty: 3 0RF Follow-up/Referrals: Jeanine,JAIRON Grullon [Primary Care Provider, Unknown] Stand Alone Forms: Work/School Release IP
[2025-10-01] MEDS: ONDANSETRON INJ 4 MG/2 ML VIAL IV PUSH (07:18)
[2025-10-01] MEDS: MORPHINE SULFATE (*CRX) 4 MG/ML INJ IV PUSH (07:18)
--- OUTSIDE RECORDS SUMMARY | 2025-10-01 08:07 | XMS_ITS | Clinical Summary ---
Author Organization [facility] Address [address] [place] [address] Care Team Providers Care Eap Counselor Name Role Phone aYdi Solorzano Primary Care Provider [phone] Allergies Active Allergy Reactions Criticality Noted Date [...] on file Legal Sex Female 9:50 PM B2B SALES REPRESENTATIVE Gender Identity Not on file Sexual Orientation Not on file Last Filed Vital Signs Vital Sign Reading Time Taken Comments Blood Pressure 131/87 12/20/2019 6:37 PM B2B SALES REPRESENTATIVE Pulse 100 12/20/2019 6:37 PM B2B SALES REPRESENTATIVE Temperature 36.4 C (97.6 F) 12/20/2019 4:15 PM B2B SALES REPRESENTATIVE Respiratory Rate 14 12/20/2019 6:37 PM B2B SALES REPRESENTATIVE Oxygen Saturation 100% 12/20/2019 6:37 PM B2B SALES REPRESENTATIVE Inhaled Oxygen Concentration - - Weight 108.9 kg (240 lb) 12/20/2019 4:15 PM B2B SALES REPRESENTATIVE Height 172.7 cm (5' 8) 12/20/2019 4:15 PM B2B SALES REPRESENTATIVE Body Mass Index 36.49 12/20/2019 4:15 PM B2B SALES REPRESENTATIVE Plan of Treatment Health Maintenance Due Date [...] age to complete this topic Care Teams Eap Counselor Relationship Specialty Start Date End Date Yadi Solorzano PA PCP - General PHYSICIAN GARBAGE TRUCK HELPER 07/17/19
--- OUTSIDE RECORDS SUMMARY | 2025-10-01 08:07 | XMS_ITS | Clinical Summary ---
Author Organization [facility] [employer] Address [address] [place] [address] Care Team Providers Care Timber Bucker Name Role Phone Yadi Menendez Primary Care Pr ovider Source Comments [facility] [employer],non-owned Affiliates and Associated Physician Practices is amultiple site organization consisting of ambulatory clinics and hospital sitesin [place], [place], [place] and [place]. This disclosure is being madepursuant to the Care Everywhere program and may not contain all information available regarding this patient. Last updated 18.[facility] [employer] Allergies No known active allergies Medications * [...] surgery with resection of vaginal septum at [facility]; right and left cervix seen [...] 7:15 AM 05/07/2017 8:41 AM Care Teams Timber Bucker Relationship Specialty Start Date End Date Yadi Menendez PA [address] [place] [address] PCP - General Physician Cook Cashier Food Prep 05/03/17
--- OUTSIDE RECORDS SUMMARY | 2025-10-01 08:07 | XMS_ITS | Clinical Summary ---
Author Organization [facility] Address [address] [facility] [address] [address] Phone Care Team Providers Care Radiation Protection Engineer Name Role Phone Génesis Montano MD Primary Care Provider [phone] Allergies No known active allergies Medications OTHER [...] B VACCINES Completed 08/18/2001, 03/20/2001, 02/14/2001 [place] [address] [facility] [employer] PPO Advance Directives For more information, please contact: [phone] * Full Code (Latest Code Status on File) Date Activated Date Inactivated Comments 03/17/2015 11:02 AM 03/17/2015 4:56 PM * Full Code Date Activated Date Inactivated Comments 03/17/2015 10:20 AM 03/17/2015 11:02 AM * Full Code Date Activated Date Inactivated Comments 08/21/2013 10:22 AM 08/21/2013 5:51 PM * Full Code Date Activated Date Inactivated Comments 08/21/2013 9:06 AM 08/21/2013 10:22 AM Care Teams Radiation Protection Engineer Relationship Specialty Start Date End Date Génesis Montano MD [address] [address] PCP - General 11/04/15
--- OUTSIDE RECORDS SUMMARY | 2025-10-01 08:08 | XMS_ITS | Clinical Summary ---
Author Organization [facility] Address [address] [place] [address] Care Team Providers Care Supervisor Telephone Information Name Role Phone No, Physician Unavailable Yadi [...] capsule by mouth daily 025 Discontinued omega 4-cfg-qzz-fish oil (Fish OiL) 1,200 (144-216) mg capsule [...] (04/18/2021): Added automatically from request for surgery [id number] care following delivery 12/19 Overview (01/08/2021): # [...] - s/p counseling 06/10 - current regimen: [id number] - has home BP cuff, reminded patient [...] weeks Assessment & Plan (01/02/2021 10:54 AM OPTICAL SCIENTIST): She has not been checking her Bps at home but plans to start and will bring them to weekly appointments. Continues to have lower extremity swelling. Bp mild range today. Has headaches that resolve on their own or with tylenol. Denies changes in vision or RUQ pain. Very strict BP parameters and preE precautions reviewed. Assessment & Plan (10/10/2020 6:33 PM OPTICAL SCIENTIST): Reports some symptoms of SOB with activity. [...] resection of left rosetta-vagina longitudinal septum - [facility] 05[place]2019: Polyps in normal appearing right uterine [...] (04/18/2021): Added automatically from request for surgery [id number] PUPP (pruritic urticarial pa pules and plaques [...] trimester 06/09/2020 02/01/2025 Overview (01/02/2021): [x] Full [facility] Care; Referring Provider: Self Referral [] [...] insurance) [x] Method of feeding: breast [x] Stapler Machine: [] PP Depression Discussed: Assessment & Plan (06/10/2020 2:03 PM CDT): Serologies and baseline labs ordered today. Has recent EKG in CareEverywhere. Will discuss genetic screening when viability confirmed. Irregular menses 05/13/2019 06/10/2020 Overview (05/13/2019): Added automatically from request for surgery [id number] Preeclampsia, severe 05/03/2017 025 Encounters Date Type Department Care Team Description 09/29/2025 Telephone [facility] [address] [place] [phone] Darcy James MD 09/16/2025 Orders Only [address] [phone] Darcy James MD Endometriosis (Primary Dx); Vaginal cuff granuloma; Pelvic and perineal pain; S/P hysterectomy; Endometriosis of pelvic peritoneum 09/06/2025 1:30 PM CDT Office Visit [address] [phone] Darcy James MD Encounter for gynecological examination with abnormal finding (Primary Dx); S/P hysterectomy; Vaginal bleeding in ; Low libido; Status post repair of dehiscence of vaginal cuff; Vaginal pain 09/06/2025 Telephone [facility] [address] [place] [phone] Darcy James MD from Last 3 Months Immunizations Immunization Administration Dates Next Due DT 06/08/2005 Hep A, Adult 04/06/2019,10/15/2018,10/15/2018 Hep A, Unspecified 04/06/2019 Hep B, Adolescent or Pediatric 08/18/2001,2000,02/14/2001 Influenza, Quadrivalent, Tatyana l Culture-based MDCK, Preservative Free, Antibiotic Free, Intramuscular 08/18/2020,08/27/2019,09/21/2017 Influenza, Quadrivalent, Spl it, Intramuscular 08/27/2019 Influenza, Quadrivalent, Spl it, Preservative Free, Intramuscular 09/13/2021 Influenza, Trivalent, IM (MDV) 10/02/2013 Influenza, Unspecified 11/18/2014 Returbo (J&J) SARS-CoV-2 Vaccination 02/27/2021, 02/27/2021 MMR 05/11/1996,07/26/1993 [...] How often do you attend chur or rastafari services? 1 to 4 times per year 11/01/2021 Do you belong to any clubs o r organizations such as amish groups, unions, fraternal or athletic groups, or [...] things needed for daily living? No 11/01/2021 [place] Depression Scale Answer Date Recorded [place] Depression Scale Total 4 01/24/2021 The thought [...] on file Legal Sex Female 7:14 AM OPTICAL SCIENTIST Gender Identity Not on file Sexual Orientation [...] BOY DARON gould MD Complications:Pre eclampsia Delivery Location:[facility] 2020 35w 3d 0h 03m 0h 03m 2.64 kg (5 lb 13.1 oz) M CS-LTr anv Combin ed Spinal /Epidu ral Y Livin g 8 9 BRUNILDA HEIN Jonat han S., MD Complications:Pre eclampsia Delivery Location:[facility] Main C ampus ([facility] L AND D PROCEDURE) Comments 2017 in [...] female PAP ONLY Routine 12/14/2024 3:39 PM OPTICAL SCIENTIST Vaginal bleeding from Last 3 Months or Most Recently Relevant to Health Maintenance Results * Total testosterone (08/09/2025 1:18 PM CDT) Testosterone 8 8 - 60 ng/dL [facility] - 01 Blood 08/09/2025 1:18 PM CDT 08/09/2025 Narrative [facility] - 08/10/2025 8:12 AM CDT Performed at: - [address] [id number] Engineer System Administrator: Akin Sandoval PhD, Phone: [phone] us Darcy James MD LAB BLOOD ORDERAB LES Final Result [facility] - * Pap Only (Cytology Component) (12/14/2024 3:39 PM OPTICAL SCIENTIST) Thin prep (Pap test) 12/14/2024 3:39 PM OPTICAL SCIENTIST 12/14/2024 6:07 PM OPTICAL SCIENTIST Narrative PATHOLOGY [facility] - 12/21/2024 10:44 AM OPTICAL SCIENTIST EPIC results best viewed via link to PDF [facility] [place] [address] Note to Patients: This report may contain [...] F : 1990 (Age: 34) Address: [address] [place] [address] [place] [address] [facility] #: [id number] Service: UNKNOWN Location: Patient Type: [facility] SPECIMEN Taken: 12/14/2024 Received: 12/14/2024 Accessioned: 12/15/2024 [...] clinical information and biopsy results as indicated. [facility] Clinical Laboratory Improvement Amendments (CLIA) mandate that cytologic and histologic results be correlated for laboratory senior software quality engineer & improvement standards. FOR ALL HIGH-GRADE CASES [...] determined by the Surgical Pathology Department at [facility] as part of an ongoing quality assurance coordinator program and in compliance with federally mandated [...] determined by the Surgical Pathology Department of [facility]. It has not been cleared or approved by the U. S. Food and Drug Administration. Darcy James MD LAB CYTOLOGY JE VILLALOBOS Final Result PATHOLOGY [facility] 3rd Floor [place], [place] [phone] from Last 3 Months or Most Recently Relevant to Health Maintenance Insurance [employer] [place] [address] ANTH ACCESS Advance Directives For more information, please contact: [phone] * Full Code (Latest Code Status on File) Date Activated Date Inactivated Comments 10/31/2021 10:24 PM 11/01/2021 6:35 PM * Full Code Date Activated Date Inactivated Comments 01/05/2021 1:06 AM 01/08/2021 7:55 PM * Full Code Date Activated Date Inactivated Comments 01/04/2021 6:59 PM 01/05/2021 1:06 AM Full CPR in case of cardiopulmonary arrest Care Teams Supervisor Telephone Information Relationship Specialty Start Date End Date Yadi Solozrano PA PCP - General Physician Track Inspecting Supervisor 02/23/21 No, Physician 05/11/19
--- OUTSIDE RECORDS SUMMARY | 2025-10-01 08:08 | XMS_ITS | Encounter Summary ---
Author Organization [facility] Healthcare Address [address] [place] [address] Care Team Providers Care Automotive Painter Name Role Phone No, Physician Unavailable Yadi Solorzano Primary Care Pr ovider Encounter Details Date Type Department Care Team (Late st Contact Info) Description 09/29/2025 Telephone [facility] [address] [facility] [address] [place] [address] Darcy James MD [address] [facility] Juan F [facility] [address] [place] [address] Social History Tobacco Use Types [...] often do you attend chur ch or church services? 1 to 4 times per year 11/01/2021 Do you belong to any clubs o r organizations such as sabianism groups, unions, fraternal or athletic groups, or [...] things needed for daily living? No 11/01/2021 [place] Depression Scale Answer Date Recorded [place] Depression Scale Total 4 01/24/2021 The thought [...] on file Legal Sex Female 7:14 AM AIRCRAFT MANAGER Gender Identity Not on file Sexual Orientation Straight 06/07/2020 6: 54 PM CDT documented as of this encounter Miscellaneous Notes * Telephone Encounter - Carole Sanz RN - 09/30/2025 11:07 AM AIRCRAFT MANAGER TC to patient. Patient prefers to call and schedule appts herself and provided phone number to callto schedule MRI [phone] and the phone number to call and schedule with Dr. Polanco at the [facility] office [phone]. RAFT MANAGER * Telephone Encounter - Darcy James MD - 09/29/2025 5:27 PM CST Please facilitate pelvic MRI for endometriosis--bad h/o no show and rescehdules so stress must attend appt Facilitate referral to [facility] onc for revision of vaginal cuff please Orders all in RAFT MANAGER documented in this encounter Plan of Treatment Not on file documented as of this encounter Visit Diagnoses Not on filedocumented in this encounter Care Teams Automotive Painter Relationship Specialty Start Date End Date Yadi Solorzano PA PCP - General Physician Research Chief Engineer 02/23/21 No, Physician 05/11/19 documented as of this encounter
--- OUTSIDE RECORDS SUMMARY | 2025-10-01 08:08 | XMS_ITS | Encounter Summary ---
Author Organization [facility] Healthcare Address [address] [place] [address] Care Team Providers Care Lead Ios Developer Name Role Phone No, Physician Unavailable Yadi Solorzano Primary Care Pr ovider Encounter Details Date Type Department Care Team (Late st Contact Info) Description 09/06/2025 Telephone [facility] [address] [facility] [address] [place] [address] Darcy James MD [address] [facility] Juan F [email or web address] [address] [place] [address] Social History Tobacco Use Types [...] often do you attend chur ch or moravian services? 1 to 4 times per year 11/01/2021 Do you belong to any clubs o r organizations such as holiness groups, unions, fraternal or athletic groups, or [...] things needed for daily living? No 11/01/2021 [place] Depression Scale Answer Date Recorded [place] Depression Scale Total 4 01/24/2021 The thought [...] on file Legal Sex Female 7:14 AM FAMILY SERVICE CENTER DIRECTOR Gender Identity Not on file Sexual [...] Carole Sanz RN - 09/30/2025 11:25 AM FAMILY SERVICE CENTER DIRECTOR See other telephone thread [facility] SERV[facility] CENTER DIRECTOR * Telephone Encounter - Carole Sanz RN - 09/08/2025 2:09 PM CDT Patient [...] patient to call back. Will also send [employer] message to ensure she gets the message. [...] the time. The patient was notified through [employer] message. The appointment was then rescheduled to 02/15/25 by their office on 02/02/25 just about 30-45 minutes after I scheduled the initial appointment. On 02/04/25 it looks like the appointment got rescheduled again all the way out to 05/24/25, then was ultimately cancelled by the patient on 05/11/25. She also cancelled her appointment with Dr. Gallegos at [facility] that was scheduled on 06/01/25. Will call MRI to see if they have any other information. * Telephone Encounter - Carole Sanz RN - 09/07/2025 11:11 AM CDT LVM asking patient to call back. * Telephone Encounter - Darcy James MD - 09/06/2025 2:06 PM CDT 02-15-2025 pt states that she had a pelvic MRI done/ shows cancelled in [facility]. Please call MRI and see if she has any pelvic MRI since 2021 completed or not documented in this encounter Plan of Treatment Not on file documented as of this encounter Visit Diagnoses Not on filedocumented in this encounter Care Teams Lead Ios Developer Relationship Specialty Start Date End Date Yadi Solorzano PA PCP - General Physician Rental Manager 02/23/21 No, Physician 05/11/19 documented as of this encounter
== END 2025-10-01 10:28 | disposition home or self-care (01) ==
PROVIDERS: Student in an Organized Health Care Education/Training Program; Emergency Provider Student in an Organized Health Care Education/Training Program; PCP Physician Assistant
DX: R10.31 Right lower quadrant pain (principal); E28.2 Polycystic ovarian syndrome; N80.9 Endometriosis, unspecified; Q60.0 Renal agenesis, unilateral
CPT/HCPCS: 36415; 74176; 74177; 74178; 80053; 81001; 81025; 83690; 85025; 96374; 96375; 99284; J1200; J2270; J2405; J2919; Q9967